=== PATIENT | female | born 1945 | race Caucasian/White ===

== ENCOUNTER 2017-01-01 08:00 | Outpatient (CLI) | payer MEDICARE | END 2017-01-01 08:01 | disposition home or self-care (01) | DX: E78.5 Hyperlipidemia, unspecified (principal); R73.9 Hyperglycemia, unspecified; Z79.899 Other long term (current) drug therapy; I95.9 Hypotension, unspecified; I10 Essential (primary) hypertension ==

== ENCOUNTER 2017-10-25 14:54 | Outpatient (CLI) | payer MEDICARE ==
--- NOTE | 2017-10-25 17:44 | Ultrasound Report ---
EXAM: PELVIC ULTRASOUND EXAM DATE: 10/25/2017 04:43 PM. CLINICAL HISTORY: Vaginal bleeding. COMPARISON: CT of abdomen and pelvis with contrast 08/05/2017. TECHNIQUE: Realtime transabdominal pelvic scan performed to identify the uterus and adnexa and as an overview of other pelvic structures, followed by transvaginal scan to provide greater detail of the u terus and adnexa, with static image documentation. FINDINGS: Uterus: 6.1 x 4.6 x 2.6 cm, volume 38 cc. Anteflexed position. Normal overall size and echotexture. Masses: There is a small echogenic focus present near the fundus, possibly calcified parametrial vess els versus small calcified fibroid, though the latter was not visualized on recent CT, measuring up t o 17 mm. Endometrium: 4.2 mm. Normal. Cervix: Trace amount of fluid within the cervical canal. Right Ovary: Not visualized but no evidence of adnexal mass. Left Ovary: 1.8 x 1.1 x 1.2 cm, volume 1 cc. Normal echotexture. Free Fluid: None. Other: None. IMPRESSION: 1. Normal endometrial thickness. 2. Small echogenic focus near the fundus, favored to represent calcified vessels over a small calcifi ed fibroid. 3. Unremarkable left adnexa. Right ovary not visualized but no evidence of right adnexal mass. [facility] Referring Provider Line: [phone] SITE ID: [id number]
== END 2017-10-25 14:55 | disposition home or self-care (01) ==
LOC: DI 14:54
PROVIDERS: ATTEND Internal Medicine
DX: N93.9 Abnormal uterine and vaginal bleeding, unspecified (principal)
CPT/HCPCS: 76830; 76856

== ENCOUNTER 2017-11-12 11:30 | Outpatient (CLI) | payer MEDICARE ==
[2017-11-12 15:21] LABS: BILIRUBIN,URINE NEGATIVE (NEGATIVE); GLUCOSE, URINE (UA) NEGATIVE (NEGATIVE); KETONES,URINE (UA) NEGATIVE (NEGATIVE); LEUKOCYTE ESTERASE, URINE NEGATIVE (NEGATIVE); NITRITE,URINE NEGATIVE (NEGATIVE); OCCULT BLOOD,URINE SMALL (NEGATIVE); PH,URINE 5.5 PH (5.0-7.5); PROTEIN,URINE NEGATIVE (NEGATIVE); UROBILINOGEN,URINE 0.2 (NORMAL) E.U./dL (NORMAL)
[2017-11-12 15:30] LABS: BACTERIA,URINE Rare /HPF (None Seen); CLARITY,URINE CLEAR (CLEAR); CRYSTALS,URINE 3-5 Calcium Oxalate /LPF; MUCUS,URINE Few Strands; SQUAMOUS EPITHELIAL CELL,UR MOD Squamous (<= Few)
== END 2017-11-12 11:31 | disposition home or self-care (01) ==
LOC: LAB.R 11:30
PROVIDERS: ATTEND Obstetrics & Gynecology
DX: R82.99 Other abnormal findings in urine (principal)
CPT/HCPCS: 81001; 87086

== ENCOUNTER 2018-01-28 08:00 | Outpatient (CLI) | payer MEDICARE ==
[2018-01-28 09:59] LABS: BILIRUBIN,URINE NEGATIVE (NEGATIVE); GLUCOSE, URINE (UA) NEGATIVE (NEGATIVE); KETONES,URINE (UA) NEGATIVE (NEGATIVE); LEUKOCYTE ESTERASE, URINE TRACE (NEGATIVE); NITRITE,URINE NEGATIVE (NEGATIVE); OCCULT BLOOD,URINE SMALL (NEGATIVE); PH,URINE 5.5 PH (5.0-7.5); PROTEIN,URINE NEGATIVE (NEGATIVE); UROBILINOGEN,URINE 0.2 (NORMAL) E.U./dL (NORMAL)
[2018-01-28 10:00] LABS: BASOPHILS % (AUTO) 0.6 %; EOSINOPHILS # (AUTO) 0.1 10^3/uL (0.0-0.7); EOSINOPHILS % (AUTO) 1.6 %; HGB - HEMOGLOBIN 11.9 g/dL (12.0-16.0); LYMPHOCYTES # (AUTO) 0.6 10^3/uL (1.5-3.5); LYMPHOCYTES % (AUTO) 12.6 %; MEAN CORPUSCULAR HEMOGLOBIN 28.7 pg (27.0-31.0); MEAN CORPUSCULAR HGB CONC 32.4 g/dL (32.0-36.0); MEAN CORPUSCULAR VOLUME 88.6 fL (81.0-99.0); MEAN PLATELET VOLUME 8.6 fL (7.9-10.8); MONOCYTES # (AUTO) 0.5 10^3/uL (0.0-1.0); MONOCYTES % (AUTO) 10.6 %; NEUTROPHILS # (AUTO) 3.8 10^3/uL (1.5-6.6); NEUTROPHILS % (AUTO) 74.6 %; PLT - PLATELET COUNT 204 10^3/uL (130-450); RED BLOOD COUNT 4.15 10^6/uL (4.20-5.40)
[2018-01-28 10:07] LABS: CLARITY,URINE CLEAR (CLEAR)
[2018-01-28 10:15] LABS: BACTERIA,URINE Few /HPF (None Seen); RBC,URINE 0-5 /HPF (0-5); SQUAMOUS EPITHELIAL CELL,UR FEW Squamous (<= Few)
[2018-01-28 10:19] LABS: CHOL/HDL RATIO 2.9 (<4.4); CHOLESTEROL 159 mg/dL; CK- CREATINE KINASE 52 IU/L (22-269); HDL CHOLESTEROL 55 mg/dL; LDL CHOLESTEROL,CALCULATED 90 mg/dL; LDL/HDL RATIO 1.6 (<4.4); VLDL CHOLESTEROL 14 mg/dL
[2018-01-29 12:31] LABS: FREE T4 (FREE THYROXINE) 0.57 ng/dL (0.58-1.64)
== END 2018-01-28 08:01 | disposition home or self-care (01) ==
LOC: LAB.R 08:00
PROVIDERS: ATTEND Internal Medicine
DX: R73.9 Hyperglycemia, unspecified (principal); E73.8 Other lactose intolerance; C64.9 Malignant neoplasm of unspecified kidney, except renal pelvis; C50.919 Malignant neoplasm of unspecified site of unspecified female breast; C34.90 Malignant neoplasm of unspecified part of unspecified bronchus or lung; C32.9 Malignant neoplasm of larynx, unspecified; F34.1 Dysthymic disorder; G62.9 Polyneuropathy, unspecified; Z13.6 Encounter for screening for cardiovascular disorders; Z86.19 Personal history of other infectious and parasitic diseases; Z79.899 Other long term (current) drug therapy; G47.30 Sleep apnea, unspecified; I10 Essential (primary) hypertension; G02 Meningitis in other infectious and parasitic diseases classified elsewhere
CPT/HCPCS: 80061; 81001; 81003; 82550; 82607; 83721; 84439; 85025; 87086

== ENCOUNTER 2018-02-07 11:34 | Outpatient (CLI) | payer MEDICARE ==
--- NOTE | 2018-02-10 16:50 | Mammography Report ---
Procedure Date: 02/07/2018 Accession Number: [id number] / [id number] Procedure: KEN - Screening Mammo Dig Bilat CPT Code: FULL RESULT: EXAM: Screening Mammo Dig Bilat DATE: 02/07/2018 11:50 AM CLINICAL HISTORY: Personal history of left breast cancer status post lumpectomy and radiation therapy. TECHNIQUE: Bilateral CC and MLO views were obtained. COMPARISON: 12/08/2015, 01/27/2014, 07/07/2013, 10/30/2012, 05/01/2012, 11/20/2011, 01/11/2011, 11/14/2010 FINDINGS: There are scattered fibroglandular densities. Posttherapeutic changes in the left breast including architectural distortion, skin thickening, and surgical clips are stable. No new suspicious masses, clustered microcalcifications, or regions of architectural distortion are identified. IMPRESSION: Benign stable findings RECOMMENDATION: Routine annual screening unless otherwise clinically indicated. BIRADS CATEGORY 2: Benign findings STANDARD QUALIFYING STATEMENTS: 1. This examination was reviewed with the aid of Computer-Aided Detection (CAD). 2. A negative or benign imaging report should not delay biopsy if clinically suspicious findings are present. Consider surgical consultation if warrented. More than 5% of cancers are not identified by imaging. 3. Dense breasts may obscure an underlying neoplasm.
== END 2018-02-07 11:35 | disposition home or self-care (01) ==
LOC: DI 11:34
PROVIDERS: ATTEND Internal Medicine
DX: Z12.31 Encounter for screening mammogram for malignant neoplasm of breast (principal); Z85.3 Personal history of malignant neoplasm of breast
CPT/HCPCS: 77067

== ENCOUNTER 2018-08-14 07:51 | Day surgery (SDC) | payer MEDICARE ==
[~2018-08-14 07:51] MED LIST: BRIMONIDINE 0.2% OPHTH DROPS 5 ML ONE; BSS/LIDOCAINE/EPINEPHRINE 1 ML SYRINGE ONE; CYCLOPENTOLATE 1% OPHTH DROPS 2 ML ONE; EPINEPHrine 1 MG/ML AMP ONE; KETOROLAC 0.45% OPHTH DROPS ONE; PHENYLEPHRINE 2.5% OPHTH 2 ML DROPS ONE; PROPARACAINE 0.5% OPHTH DROPS 15 ML ONE; TIMOLOL 0.5% OPHTH DROPS ONE; TRIAMCIN/MOXIFLOX OPHTHALMIC 0.6 ML VIAL IO ONE; VANCOMYCIN OPHTHALMI 8MG/0.8ML 8 MG/0.8 ML SYRINGE IO ONE
[2018-08-14] MEDS ORDERED: LACTATED RINGERS 500 ML IV ONE (08:15)
[2018-08-14] MEDS ORDERED: PROPARACAINE 0.5% OPHTH DROPS 15 ML LEFTEYE ONE ×2 (08:30→09:38)
[2018-08-14] MEDS ORDERED: KETOROLAC 0.45% OPHTH DROPS LEFTEYE ONE (08:30)
[2018-08-14] MEDS ORDERED: CYCLOPENTOLATE 1% OPHTH DROPS 2 ML LEFTEYE ONE (08:30)
[2018-08-14] MEDS ORDERED: PHENYLEPHRINE 2.5% OPHTH 2 ML DROPS LEFTEYE ONE (08:30)
[2018-08-14] MEDS ORDERED: SODIUM CHLORIDE FLUSH 0.9% 10 ML SYRINGE ONE (08:44)
--- NOTE | 2018-08-14 08:51 | ANESTHESIA ---
Pre-Anesthesia VS, & Labs - Diagnosis left narrow angle closure glaucoma - Procedure left extraction cataract with lens implant Vital Signs: Temp Pulse Resp BP Pulse Ox 36.6 C 70 18 118/60 96 08/14/18 08:15 08/14/18 08:15 08/14/18 08:15 08/14/18 08:15 08/14/18 08:15 Height 5 ft 5 in Weight (kg) 94.2 kg Body Mass Index 33.3 - NPO >8 hours - Is Patient ?: Not Applicable Home Medications and Allergies Simvastatin 20 mg PO DAILY 09/06/15 Citalopram [CeleXA] 25 mg PO DAILY 07/10/16 Gabapentin 900 mg PO TID 01/28/18 Levothyroxine [Synthroid] 25 mcg PO DAILY 07/30/18 Allergies/Adverse Reactions: Allergies Allergy/AdvReac Type Severity Reaction Status Date / Time Sulfa (Sulfonamide AdvReac Nausea Verified 05/16/16 20:13 Antibiotics) Anes History & Medical History - Anesthetic History Anesthesia Complications: reports: No previous complications Family history of Anesthesia Complications: Denies Family history of Malignant Hyperthermia: Denies - Medical History Cardiovascular: reports: None Pulmonary: reports: Other Gastrointestinal: reports: GERD, Ulcers Urinary: reports: None Neuro: reports: None Musculoskeletal: reports: Other Endocrine/Autoimmune: reports: HyPOthyroidism Blood Disorders: reports: None Skin: reports: None Smoking Status: Former smoker - Surgical History General: Cholecystectomy, Appendectomy Eyes Ears Nose Throat (EENT): Cataracts - Other History Other History: stage four lung cancer Exam General: Alert, Oriented x3, Cooperative, No acute distress Dental: Dentures full Upper, Dentures full Lower Mouth Openin Fingerbreadth Neck Mobility: Normal Mallampati classification: III Thyromental Distance: less than 4 cm Respiratory: Lungs clear, Normal breath sounds, No respiratory distress, No accessory muscle use Cardiovascular: Regular rate, Normal S1, Normal S2, No murmurs Mental/Cognitive Status: Alert/Oriented X3, Normal for patient Cognitive Status: Within normal limits Plan Anesthesia Type: MAC Consent for Procedure(s) Verified and Reviewed: Yes Code Status: Attempt Resuscitation ASA classification: 3-Severe systemic disease Is this case an emergency?: No
[2018-08-14] MEDS ORDERED: BRIMONIDINE 0.2% OPHTH DROPS 5 ML OPTH ONE (09:37)
[2018-08-14] MEDS ORDERED: EPINEPHrine 1 MG/ML AMP IVP ONE (09:37)
[2018-08-14] MEDS ORDERED: CHONDR SULF/HYALURONATE SYRINGE IO ONE (09:38)
[2018-08-14] MEDS ORDERED: TIMOLOL 0.5% OPHTH DROPS OPTH ONE (09:38)
[2018-08-14] MEDS ORDERED: BSS/LIDOCAINE/EPINEPHRINE 1 ML SYRINGE IO ONE (09:38)
[2018-08-14] MEDS ORDERED: TRIAMCIN/MOXIFLOX OPHTHALMIC 0.6 ML VIAL IO ONE ×2 (09:39)
[2018-08-14] MEDS ORDERED: VANCOMYCIN OPHTHALMI 8MG/0.8ML 8 MG/0.8 ML SYRINGE IO ONE ×2 (09:39)
[2018-08-14 09:50] VITALS: BP 109/48
[2018-08-14] MEDS ORDERED: MIDAZOLAM 2 MG/2 ML VIAL IVP ONE (10:00)
--- NOTE | 2018-08-14 13:36 | OPERATIVE REPORT ---
DATE OF SERVICE: 08/14/2018 Physician: Adryan Pruett MD PREOPERATIVE DIAGNOSIS: Visually significant cataract, left eye. Cataract surgery was performed on the right eye on 07/31/2018. The primary diagnosis, however, is chronic angle closure glaucoma. Although cataract is present, it was not deemed to be visually significant. However, in order to try to control her angle closure glaucoma, it was elected to do cataract extraction to open up the angles and decrease pressure in her eyes, as glaucoma was becoming difficult to control. POSTOPERATIVE DIAGNOSIS: Visually significant cataract, left eye. Cataract surgery was performed on the right eye on 07/31/2018. The primary diagnosis, however, is chronic angle closure glaucoma. Although cataract is present, it was not deemed to be visually significant. However, in order to try to control her angle closure glaucoma, it was elected to do cataract extraction to open up the angles and decrease pressure in her eyes, as glaucoma was becoming difficult to control. PROCEDURE: Phacoemulsification with posterior chamber intraocular lens implant, left eye. SURGEON: Adryan Pruett MD ANESTHESIA: Monitored anesthesia care. COMPLICATIONS: None. INDICATIONS: This is a 72-year-old woman with progressive vision loss in the left eye due to 2+ nuclear sclerotic cataract, 1+ cortical cataract. However, again, the main reason for doing surgery is chronic angle closure glaucoma. Best corrected visual acuity was 20/25, with glare to 20/40 in the left eye. Indications for surgery were again the fact that she has chronic angle closure glaucoma, unable to take drops, and has a progression of her glaucoma and we need to lower pressure. She also has overall decrease in vision, difficulty reading, difficulty seeing words, closed captions or game scores on TV, difficulty driving in low light or at night, difficulty driving at night because of headlights from other vehicles, and difficulty with glare or bright lights in any situation. She was consented at length concerning the risks and benefits of cataract surgery, after which she expressed a desire to proceed with surgery. OPERATIVE PROCEDURE: The patient was taken to OR #3 and placed under monitored anesthesia care. A surgical timeout was conducted confirming correct patient, correct procedure, and correct surgical site. She was given topical anesthesia, and prepped and draped in usual sterile fashion. The eye was entered at the 6 and 3-o'clock positions. Intracameral Shugarcaine was injected into the anterior chamber, followed by Viscoat. A continuous-tear curvilinear capsulorrhexis was performed. The nucleus was hydrodissected and phacoemulsified. Cortex was evacuated using automated infusion and aspiration. Provisc was injected in the capsular bag, and a 23.0-diopter intraocular lens was inserted in the bag. Approximately 0.9 mL of a mixture of triamcinolone, moxifloxacin and vancomycin was injected subconjunctivally into the superior quadrant for infection and inflammation prophylaxis. I and A was used to evacuate the viscoelastic materials. The eye was inflated to physiologic pressure using balanced salt solution and found to be watertight. The patient was taken from the operating room in good condition and given postoperative instructions. TD: 08/14/2018 10:06 MTDD
== END 2018-08-14 07:52 | disposition home or self-care (01) ==
LOC: SDS 07:51
PROVIDERS: ATTEND Ophthalmology
PROC: 08RK3JZ Replacement of Left Lens with Synthetic Substitute, Percutaneous Approach (ICD-10-PCS; principal; 2018-08-14 09:00)
DX: H40.2220 Chronic angle-closure glaucoma, left eye, stage unspecified (principal); H25.12 Age-related nuclear cataract, left eye; I10 Essential (primary) hypertension; F32.9 Major depressive disorder, single episode, unspecified; C34.90 Malignant neoplasm of unspecified part of unspecified bronchus or lung; Z87.891 Personal history of nicotine dependence
CPT/HCPCS: 66984; A9270; J3490; V2632

== ENCOUNTER 2018-10-27 09:56 | Outpatient (CLI) | payer MEDICARE ==
[2018-10-27] MEDS ORDERED: IOVERSOL 320 50 ML VIAL ONE (10:08)
[2018-10-27] MEDS ORDERED: IOVERSOL 320 100 ML VIAL IVP ONE ×2 (10:08→13:54)
--- NOTE | 2018-10-27 13:49 | CT Report ---
Reason: LUNG CA Procedure Date: 10/27/2018 Accession Number: [id number] / [id number] Procedure: CT - Abdomen/Pelvis W CPT Code: FULL RESULT: EXAM: CT CHEST, ABDOMEN AND PELVIS EXAM DATE: 10/27/2018 11:32 AM. CLINICAL HISTORY: Lung carcinoma COMPARISONS: Abdomen/pelvis with contrast 06/18/2018 10:00 AM Chest with contrast 06/18/2018 10:00 AM. TECHNIQUE: Routine helical CT imaging was performed through the chest, abdomen, and pelvis. IV contrast: Opti 320 100mL. Enteric contrast: Yes. Reconstructions: Coronal and sagittal. In accordance with CT protocol optimization, one or more of the following dose reduction techniques were utilized for this exam: automated exposure control, adjustment of mA and/or KV based on patient size, or use of iterative reconstructive technique. FINDINGS: Lungs/Pleura: The nodular consolidation lateral right lung apex is best evaluated and compared on coronal imaging. See image 35 series 5. Measured on image 35 series 5, the upper nodular component measures 6.2 x 2.2 cm, unchanged when remeasured in similar fashion. A separate more inferior lateral component is also unchanged, 2.1 x 0.7 cm with an appearance of pleural-based scarring. Mediastinum: No hilar or mediastinal lymphadenopathy is seen. Liver: Low-attenuation with no suspicious mass identified. Gallbladder/Bile Ducts: Status post cholecystectomy. Spleen: Normal. Pancreas: Partial fatty atrophy. Adrenal Glands: Stable thickening of the medial limb of the left adrenal gland as well as a 1.3 cm enhancing left adrenal nodule. The right adrenal gland is unremarkable. Kidneys: Status post left nephrectomy. Right kidney appears unremarkable. Peritoneal Cavity/Bowel: Normal. No free fluid, free air or adenopathy. No masses or acute inflammatory process. Pelvic Organs: Normal. The bladder and visualized pelvic organs are within normal limits. Vasculature: No aneurysms or other significant abnormality. Bones: No significant abnormality. Other: None. IMPRESSION: Left adrenal nodule, similar to before. Stable posttreatment appearance of the right lung. [facility]
[2018-10-27] MEDS ORDERED: IOVERSOL 320 50 ML VIAL PO ONE (13:54)
== END 2018-10-27 09:57 | disposition home or self-care (01) ==
LOC: DI 09:56
PROVIDERS: ATTEND Internal Medicine Hematology & Oncology
DX: C78.01 Secondary malignant neoplasm of right lung (principal); E27.9 Disorder of adrenal gland, unspecified
CPT/HCPCS: 71260; 74177; Q9967

== ENCOUNTER 2019-02-24 08:00 | Outpatient (CLI) | payer MEDICARE ==
[2019-02-24 11:08] LABS: CHOL/HDL RATIO 2.9 (<4.4); CHOLESTEROL 123 mg/dL; CK- CREATINE KINASE 57 IU/L (22-269); HDL CHOLESTEROL 42 mg/dL; LDL CHOLESTEROL,CALCULATED 64 mg/dL; LDL/HDL RATIO 1.5 (<4.4); VLDL CHOLESTEROL 17 mg/dL
== END 2019-02-24 23:59 | disposition home or self-care (01) ==
LOC: LAB.R 08:00
PROVIDERS: ATTEND Internal Medicine
DX: E78.5 Hyperlipidemia, unspecified (principal); E53.8 Deficiency of other specified B group vitamins; Z79.899 Other long term (current) drug therapy
CPT/HCPCS: 80061; 82550; 82607; 83721

== ENCOUNTER 2019-03-09 09:20 | Outpatient (CLI) | payer MEDICARE ==
--- NOTE | 2019-03-09 16:04 | Mammography Report ---
Reason: MASTODYNIA, HX BREAST CA Procedure Date: 03/09/2019 Accession Number: [id number] / [id number] Procedure: KEN - Diagnostic Dig Bilat CPT Code: FULL RESULT: EXAM: Diagnostic Dig Bilat DATE: 03/09/2019 10:17 AM CLINICAL HISTORY: Diagnostic examination. Personal history of breast cancer status post left lumpectomy and radiation greater than 5 years ago. Mastodynia. TECHNIQUE: (B) - Bilateral CC, laterally exaggerated CC, MLO views were obtained. COMPARISON: 02/07/2018 through 07/07/2013. PARENCHYMAL PATTERN: (A) - The breast(s) demonstrate(s) scattered fibroglandular densities. FINDINGS: Left breast posttreatment and postlumpectomy changes are redemonstrated, essentially unchanged, typically benign. There are no suspicious masses, calcifications, or areas of distortion. IMPRESSION: Benign findings. BI-RADS category 2. RECOMMENDATION: (ANNUAL) - Recommend routine annual screening mammography. BI-RADS CATEGORY: (2) - Benign Findings. STANDARD QUALIFYING STATEMENTS: 1. This examination was not reviewed with the aid of Computer-Aided Detection (CAD). 2. A negative or benign imaging report should not preclude biopsy if clinically suspicious findings are present. 3. Dense breasts may obscure an underlying neoplasm. 4. This examination was reviewed with the aid of 3D breast imaging (tomosynthesis).
== END 2019-03-09 09:21 | disposition home or self-care (01) ==
LOC: DI 09:20
PROVIDERS: ATTEND Internal Medicine
DX: N64.4 Mastodynia (principal); Z85.3 Personal history of malignant neoplasm of breast
CPT/HCPCS: 77066

== ENCOUNTER 2019-04-15 10:42 | Outpatient (CLI) | payer MEDICARE ==
[2019-04-15] MEDS ORDERED: IOVERSOL 320 100 ML VIAL IVP ONE ×2 (11:41→15:52)
--- NOTE | 2019-04-17 06:39 | CT Report ---
Reason: METS SQUAMOUS CELL CA INVOLVING R LUNG Procedure Date: 04/15/2019 Accession Number: [id number] / [id number] Procedure: CT - CHEST W CPT Code: FULL RESULT: EXAM: CT CHEST EXAM DATE: 04/15/2019 11:50 AM. 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 COMPARISONS: CHEST W/ 10/27/2018 11:24 AM CHEST W/ 06/18/2018 CHEST W/ 10/03/2017. TECHNIQUE: Routine helical CT imaging was performed through the chest. IV contrast: 80 mL Optiray 320. Reconstructions: Coronal and sagittal. In accordance with CT protocol optimization, one or more of the following dose reduction techniques were utilized for this exam: automated exposure control, adjustment of mA and/or KV based on patient size, or use of iterative reconstructive technique. FINDINGS: Lungs and Pleura: Right apical laterally located irregular consolidation is again seen, measuring 2.7 cm in thickness versus 3.8 cm on the recent prior study. There is indistinct subpleural opacity within the superior segment of the lingula (image 26 series 4). This has gradually progressed since the prior recent study. Additional areas of subpleural reticulation within the lingula are noted. There is patchy opacity within the inferior segment of the lingula (image 35 series 4). Central Airways: Visualized central airways are without suspicious filling defects. Chest Wall: Right IJ Port-A-Cath device projects over the cavoatrial junction. Thyroid: No significant abnormality. Mediastinum: No significant abnormality. Heart: Normal in size. No significant pericardial effusion. Moderate to severe coronary vascular calcifications. Aorta: Normal caliber. Moderate aortic atherosclerosis is noted. Upper Abdomen: Severe hepatic steatosis is present. 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 This is difficult to assess on this chest CT. Left nephrectomy noted. Left adrenal nodule is again seen. This measures 11.7 mm in thickness, previously up to 14.5 mm on 10/03/2017. Right adrenal is without significant abnormality. Gallbladder is not visualized, probably surgically absent. Bones: Scattered areas of sclerosis as well as a subacute/old fracture deformities of the right upper hemithoracic ribs noted. These may represent a sequela of post treatment change. Elsewhere, no new bony lesion demonstrated to suggest definite metastatic disease. Moderate multilevel degenerative changes within the spine. IMPRESSION: 1. Decreasing disease burden within the right apex. 2. There is a slight amount of new indistinct subpleural opacity with a nodular configuration within the lingula. This may represent evolving infection. Metastatic disease is difficult to entirely exclude. Attention on follow-up examination recommended. 3. Decreased size of the left adrenal nodule since the prior 10/03/2017 study. Currently the nodule measures 11.7 mm versus previously 14.5 mm. Attention on subsequent follow-up examination recommended. [facility]
== END 2019-04-15 10:43 | disposition home or self-care (01) ==
LOC: DI 10:42
PROVIDERS: ATTEND Internal Medicine Hematology & Oncology
DX: C78.01 Secondary malignant neoplasm of right lung (principal); E27.9 Disorder of adrenal gland, unspecified
CPT/HCPCS: 71260; Q9967

== ENCOUNTER 2019-04-22 08:00 | Outpatient (CLI) | payer MEDICARE ==
[2019-04-22 15:37] LABS: HB2 TOTAL 10.8 g/dL; HEMOGLOBIN A1C 0.48 g/dL; HEMOGLOBIN A1C % 6.2 % (4.6-6.2)
== END 2019-04-22 23:59 | disposition home or self-care (01) ==
LOC: LAB.R 08:00
PROVIDERS: ATTEND Internal Medicine
DX: R73.9 Hyperglycemia, unspecified (principal)
CPT/HCPCS: 83036

== ENCOUNTER 2019-05-18 07:00 | Outpatient (CLI) | payer MEDICARE ==
[2019-05-19 10:22] LABS: HB2 TOTAL 11.6 g/dL; HEMOGLOBIN A1C 0.45 g/dL; HEMOGLOBIN A1C % 5.7 % (4.6-6.2)
== END 2019-05-18 23:59 | disposition home or self-care (01) ==
LOC: LAB.R 07:00
PROVIDERS: ATTEND Internal Medicine
DX: R73.9 Hyperglycemia, unspecified (principal)
CPT/HCPCS: 83036

== ENCOUNTER 2019-07-16 08:19 | Outpatient (CLI) | payer MEDICARE ==
[2019-07-16] MEDS ORDERED: IOVERSOL 320 50 ML VIAL ONE (08:28)
[2019-07-16] MEDS ORDERED: IOVERSOL 320 100 ML VIAL IVP ONE ×2 (08:28→13:01)
[2019-07-16] MEDS ORDERED: IOVERSOL 320 50 ML VIAL PO ONE (13:01)
--- NOTE | 2019-07-16 15:29 | CT Report ---
Reason: MET SQUAMOUS CELL CA LT LUNG Procedure Date: 07/16/2019 Accession Number: [id number] / [id number] Procedure: CT - Abdomen/Pelvis W CPT Code: Final Report FULL RESULT: EXAM: CT CHEST, ABDOMEN AND PELVIS WITH CONTRAST. EXAM DATE: 07/16/2019 09:43 AM. CLINICAL HISTORY: Metastatic squamous cell cancer left lung. COMPARISONS: CHEST W/ 04/15/2019 11:40 AM. CHEST W/ 07/16/2019 9:34 AM. ABDOMEN/PELVIS W/ 10/27/2018 11:24 AM. CHEST W10/27/2018 11:24 AM. TECHNIQUE: Routine helical CT imaging was performed through the chest, abdomen, and pelvis. IV contrast: OPTI-320 90 mL. Enteric contrast: No. Reconstructions: Coronal and sagittal. In accordance with CT protocol optimization, one or more of the following dose reduction techniques were utilized for this exam: automated exposure control, adjustment of mA and/or KV based on patient size, or use of iterative reconstructive technique. FINDINGS: Lungs/Pleura: A small amount of anterior lingula peripheral changes including interstitial thickening and nodularity is essentially unchanged compared to 04/15/2019, potentially postradiation treatment. Bronchiectasis and volume loss in the right lung apex with dense thickening against the pleura appears essentially unchanged, maximal axial soft tissue component is on image 81 series 3. It measures approximately 3 x 4.6 cm with the apical soft tissue thickness now measuring up to 2.7 cm compared to 2.1 cm on the previous examination as seen coronally on image 111 series 5, possibly posttreatment evolution, progression in this region would be difficult to exclude but appearance is not typical for this. There is adjacent pleural thickening radiating from the apical epicenter. The right lower lung is clear. The remaining left lung is clear. There is no pleural effusion or pneumothorax. There are no new or suspicious distant pulmonary nodules. Right IJ approach/port terminates in the superior cavoatrial junction region. Mediastinum: There is no mediastinal, hilar or axillary lymphadenopathy by size criteria. There is no pericardial effusion. There are at least moderate coronary calcifications. Liver: Liver is markedly hypoattenuating consistent with steatosis. Gallbladder/Bile Ducts: Not seen, likely prior cholecystectomy. Spleen: Normal. Pancreas: Partially fatty replaced. Adrenal Glands: A left adrenal nodule measures up to 1.3 x 1.4 cm axially with a craniocaudal dimension of 1.6 cm, not enlarged when examined on the previous study. Right adrenal gland is unremarkable. Kidneys: Status post left nephrectomy. Right kidney appears unremarkable. Peritoneal Cavity/Bowel: Patient is status post gastric surgery. There is no bowel obstruction. There is no free air or free fluid. There is apparent mild segmental thickening of the distal colon in the setting of potential underdistention, appearance is not significant change from prior. There is no lymphadenopathy by size criteria. Pelvic Organs: Normal. The bladder and visualized pelvic organs are within normal limits. Vasculature: Moderate atherosclerotic disease. Bones: No aggressive osseous lesions are detected. Other: None. IMPRESSION: Interval evolution of posttreatment changes predominantly in the right lung apex as described, attention on follow-up. Please correlate persistent peripheral nodularities in the anterior left lingula to history of radiation therapy and correlate to potential beam path from treatment planning. [facility]
== END 2019-07-16 08:20 | disposition home or self-care (01) ==
LOC: DI 08:19
PROVIDERS: ATTEND Internal Medicine Hematology & Oncology
DX: C78.01 Secondary malignant neoplasm of right lung (principal)
CPT/HCPCS: 71260; 74177; Q9967

== ENCOUNTER 2019-10-06 10:57 | Outpatient (CLI) | payer MEDICARE ==
--- NOTE | 2019-10-06 17:47 | CONSULTATION NOTE ---
Palliative Care Consultation - Referral Referring Provider: Dr. Iram Early Time of Visit: [id number] Referral setting: [facility] Referral Reason: Peripheral Neuropathy/Depression/Met Squamous Ca Left Lung - Information Sources Records reviewed: RN notes reviewed, Previous records reviewed History/Review of Systems obtained from: Patient, Family ( Tariq) Exam limitations: No limitations - History of Present Illness Brief History of Present Illness: This is a violetta 74-year-old woman who reports she is "on my fifth cancer". She was diagnosed with a left kidney cancer, status post left nephrectomy in 1999. She was diagnosed with left breast cancer, treated about 4 to 5 years ago treated with lumpectomy and radiation. 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 She was then diagnosed with left lower lobe squamo us cell carcinoma, She underwent surgery, and was staged as a T1 a N0 05/23/2015 and did not need further adjuvant treatment at that time. 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 She has been on nivolumab since 04/2017. On her most recent CT restaging scan 07/16/2019 it is reported as stable. Patient's most significant symptom actually is her peripheral neuropathy, she reports this was initiated with her treatment back for her head and neck cancer, with cis-ketchikan. She reports it has continued to worsen, though been gradual over time. It does impact not only her level of pain which she reports 8 out of 10, his pain impacts her sleep, and also has with her neuropathy caused significant difficulty with balance and strength. She does ambulate with a walker, weightbearing does increase the pain or discomfort, she has been on gabapentin, 300 mg twice daily, she was 20 with adding a third dose. Patient did trial on duloxetine, reports it was not effective, patient does not have any medication coverage, and found her depression worsening. She returned back to her baseline antidepressant which was Celexa 40 mg daily, she is somewhat anxious per her report, and has had a good response, though she does recognize treatment is palliative in nature. This is initial palliative care consult, goal is to set reports patient has been somewhat anxious about meeting with me, I am meeting with her and her . They have been together since 89, though they are given the context of insurance issues, but do live together. Patient's goals are to improve her quality of life, she would like to be more active, and would like her pain better controlled. Medical/Surgical History - Past Medical History Cardiovascular: reports: Hypertension Respiratory: reports: Other (met squamous cell lung ca) Neuro: Peripheral neuropathy Endocrine/Autoimmune: reports: HyPOthyroidism GI: reports: GERD, Ulcers SHAREPOINT ANALYST: reports: None : reports: Incontinence, Renal insuffiency (has one kidney), Other (hx of renal cell carcinoma) HEENT: reports: Chronic vision loss, Other (hx of head and neck cancer treated with chemoradiation) Psych: reports: Depression, Anxiety Musculoskeletal: reports: Osteoarthritis Derm: reports: None MRSA Hx?: No - Past Surgical History General: reports: Cholecystectomy, Appendectomy, Gastric surgery (gastroplasty; reverse of gastroplasty), Other (RLL lobectomy) /SHAREPOINT ANALYST: reports: Other (lumpectomy with radiation) HEENT: reports: Cataracts - Substance History Use: Uses substance without health or social issues: Tobacco (hx but quit), Alcohol (rarely) Abuse: Recurrent use of substance despite neg consequences: NONE Dependence: Experiences withdrawal or developed tolerances: NONE Social History - Living Situation Living arrangement: At home Living Situation: With spouse/s.o. Family History - Family History Family History: Mother: ( at 59 of pnemonia), Cancer ( at 85 of lung cancer), Father: , CAD, COPD/Emphysema, Other family: Alive and Well (siblings;one has parkinsons) Family History Comment/Other: Son at age 50 of diabetes/heart complications; another son has diabetes; one with schizphrenia; one recovering ETOH Medications/Allergies - Medications Home Medications: Ambulatory Orders Medication Instructions Recorded Confirmed Simvastatin 20 mg PO DAILY 09/06/15 10/06/19 Gabapentin 300 mg PO TID 12/30/18 10/07/19 Levothyroxine [Synthroid] 50 mcg PO QDAC 12/30/18 10/06/19 Citalopram [CeleXA] 40 tab PO DAILY 07/28/19 10/06/19 Cholecalciferol (Vitamin D3) 2,000 units PO DAILY 10/06/19 10/06/19 [Vitamin D3] Cyanocobalamin (Vitamin B-12) 1,000 mcg PO DAILY 10/06/19 10/06/19 [Vitamin B-12] Omeprazole 20 mg PO DAILY 10/06/19 10/06/19 Oxycodone HCl 5 mg PO Q4HR PRN 10/06/19 10/06/19 traZODone [Desyrel] 50 - 100 mg PO QPM PRN 10/06/19 10/06/19 - Allergies Allergies/Adverse Reactions: Allergies Allergy/AdvReac Type Severity Reaction Status Date / Time Sulfa (Sulfonamide AdvReac Nausea Verified 08/25/19 09:47 Antibiotics) Review of Systems - Constitutional Constitutional: reports: Fatigue, Night sweats. denies: Fever, Chills - Eyes Eyes: reports: Vision loss - Ears, Nose & Throat Ears, Nose & Throat: reports: Hearing loss (worsening), Nasal congestion, Postnasal drainage, Hoarseness - Cardiovascular Cardiovascular: reports: Decr. exercise tolerance - Respiratory Respiratory: reports: Hemoptysis (fluctuates; yesterday though "6" times; has been off Prilosec and having more GERD; can go for months without), SOB with exertion. denies: SOB at rest - Gastrointestinal Gastrointestinal: reports: Constipation, Diarrhea (fluctuates, not persistent but irregular), Nausea, Vomiting - Genitourinary Genitourinary: reports: Hematuria, Incontinence, Sexual dysfunction - Musculoskeletal Musculoskeletal: reports: Muscle pain, Back pain, Stiffness, Joint pain, Assistive devices (uses walker) - Integumentary Integumentary: reports: Dryness - Neurological Neurological: reports: General weakness, Dizziness, Abnormal gait - Psychiatric Psychiatric: reports: Depression, Anxiety, Other (reports wringing of her hands tic; not anxiety) - Endocrine Endocrine: reports: Hypothyroidism (immunotherapy induced) - Hematologic/Lymphatic Hematologic/Lymphatic: reports: Anemia (9.9). denies: Recurrent infections - All Other Systems All Other Systems: reports: Reviewed and negative Physical Exam - Vital Signs Temperature: 36.6 C Pulse Rate: 81 Respiratory Rate: 18 Blood Pressure: 118/65 - Physical Exam General Appearance: positive: Alert, Mild distress Eyes Bilateral: positive: Normal inspection ENT: positive: No signs of dehydration Neck: positive: Trachea midline Cardiovascular: positive: Regular rate & rhythm Respiratory: positive: No respiratory distress, Diminished throughout. negativ e: Wheezes, Rales, Rhonchi Abdomen: positive: Soft, Nml bowel sounds, Obese Skin: positive: Dryness Extremities: positive: No pedal edema Neurologic/Psychiatric: positive: Oriented x3, Depressed mood/affect, Flat affect Palliative Care - POLST Patient has POLST: No Pain: Pain worsening, Location (Patient reports pain up in the neck area, left upper thoracic area, her hands and forearms, most severe in her legs and feet, and discomfort in her coccyx back area. She is currently on gabapentin, documented dose is 600 mg twice daily, she has been considering increasing to 3 times daily. She cannot confirm the dose. We will follow-up with this later. She did trial duloxetine, did not find any improvement, and worsening depression so she reverted back to her Celexa. She does not have any drug coverage through her insurance, this is often limiting options for her and concern for cost), Severity (8/10) Tiredness/Fatigue: Moderate (4-6) Drowsiness/Sedation: Moderate (4-6) Nausea: Mild (1-3) Anorexia: Mild (1-3) Dyspnea: None Depression: Severe (7-10) Anxiety: Moderate (4-6) Feelings of wellbeing/Perceived Quality of Life: Good, Acceptable, No change Sleep: Sleeps poorly (Patient reports previously had been on trazodone, had been discontinued at hospitalization. Reports has been effective in the past, is wondering about trialing it again.) Constipation: Comment (Patient alternates with constipation and diarrhea, cannot attribute it to any particular diet changes, treatment, or medications. Is quite fearful of using Imodium, and "going the other way". Does not find it bothersome enough to do any aggressive bowel medication changes.) Performance Status: Patient reports decline in functional status, this is actually mostly limited by her pain. Though she does admit to deconditioning. With progressive ambulation she does have increased pain. It is mostly triggered by weightbearing. She would be actually interested in seeing if her insurance and in follow through for possibly aqua therapy, she would like to improve her overall wellbeing and strength and endurance. Patient is [place], will follow up with her PCP and facilitate referral. - Palliative Care Discussion: Patient shares in her narrative, this is her fifth cancer, she has been on long-term treatments and living with uncertainty. Patient is somewhat pragmatic, she does allude to some anxiety regarding her diagnoses and future. We did discuss how best to support her, will focus on current quality of life issues related to her symptoms, and introduce advance care planning as we move along. Patient and her , are actually . We discussed in the context of this it is important for her to complete a D POA, gave her simple form, and also encouraged to pick a second 1 as well. They do have financial stressors, have been together since 1988. 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 She does perceive her priorities though unable to visit very often are her children, she is when son who is , [place] 3 other [place] She has poor grandkids and 3 great grandkids. Results - Lab Results Lab results reviewed: Yes Lab and Imaging Results: Patient's creatinine clearance comes up to 59.4 Impression and Recommendations - Palliative Care Impression: This is a violetta 74-year-old woman who is currently being treated for metastatic/recurrent squamous cell carcinoma of the right lung and has been on nivolumab since 04/2017. She does have hypothyroidism due to to the nivolumab, and currently on levothyroxine. She is not had any other significant side effects, she does have intermittent diarrhea alternating with constipation, though this does not seem aligned with her treatment schedule. Patient's most significant symptom which presents as high symptom burden, with a pain of 8 out of 10 is her neuropathy, balance problems, depression, and anxiety. Palliative care to provide increased support for pain and symptom management and anticipatory guidance. Recommendations/Counseling Done: 1. Chemotherapy-induced peripheral neuropathy. Patient has been on baseline gabapentin 300 mg twice daily, she has been 20 with increasing it up to 3 times daily. She is unclear if it has been of benefit. Counseling provided regarding weighing benefits and burdens, recommended as she has had increased pain when off of it in the past, did trial up to 300 3 times daily. Maximum with her current creatinine clearance would be about 1400 mg in 24 hours. Counseling al so provided regarding trying an alternative pregabalin, it is now generic form, she would be interested in perhaps switching out, will do pedroza comparison and offer as option. She was also asking about CBD. Counseling provided regarding the risks and benefits of incorporating CBD into treatment regimen, there is some evidence to support does assist with neuropathic pain, though not directly related to CIPN. 2. Insomnia. This is related some to her pain, she would like though to trial trazodone 50 mg at bedtime. She has been on it in the past with effectiveness, has been of course is concern regarding patient's balance and is up at night to urinate. Discussed therapeutic doses usually around 100 mg, can start at lower dose, trial for 3 or 4 days, and increase if needed depending on side effects and effectiveness. Patient verbalized understanding. 3. Difficulty walking. Patient does present with significant balance and neuropathic symptoms, she does get exacerbation of pain with weightbearing and walking. We did discuss in the context of conditioning, she is interested in physical therapy particularly in aqua therapy as would most likely benefit from strengthening, and avoiding weightbearing on her feet. Patient is [place], will partner with her PCP Dr. Chapa for referral. Patient does have financial stressors, agreed would make referral and see what her portion or cost would be. Counseling provided regarding need to continue to improve and incorporate activity into her wellness program. 4. Depression. Counseling provided regarding normalizing the normal grief and loss process, signs and symptoms of persistent depression, feels currently her Celexa at 40 mg is managing. We did discuss signs and symptoms of indications for switching or changing up antidepressant, she would like to continue with what she is on right now. Counseling provided regarding other ways to support herself, decreasing her isolation, spending more time with family, [place] Assisting patient to identify things that might distract and or improve mood. 5. Advanced care planning. Introduced advanced care planning, encouraged to complete D POA, as is actually "ex-". Also recommended identifying second person for D POA, simple form given and reviewed how to fill out. Time Spent: 60 minutes with greater than 50% of this done in counseling regarding pain and symptom management, advanced care planning, coordination of care, setting of rapport with palliative care practitioner, and anticipatory guidance.
== END 2019-10-06 10:58 | disposition home or self-care (01) ==
LOC: PC 10:57
PROVIDERS: ATTEND Nurse Practitioner Adult Health
DX: Z51.5 Encounter for palliative care (principal); G62.0 Drug-induced polyneuropathy; T45.1X5S Adverse effect of antineoplastic and immunosuppressive drugs, sequela; G47.00 Insomnia, unspecified; F32.9 Major depressive disorder, single episode, unspecified; E03.2 Hypothyroidism due to medicaments and other exogenous substances; T45.1X5A Adverse effect of antineoplastic and immunosuppressive drugs, initial encounter; C34.91 Malignant neoplasm of unspecified part of right bronchus or lung; C79.9 Secondary malignant neoplasm of unspecified site; Z79.899 Other long term (current) drug therapy; Z85.3 Personal history of malignant neoplasm of breast; Z85.118 Personal history of other malignant neoplasm of bronchus and lung; Z85.528 Personal history of other malignant neoplasm of kidney; Z85.21 Personal history of malignant neoplasm of larynx; Z87.891 Personal history of nicotine dependence
CPT/HCPCS: 99205

== ENCOUNTER 2019-10-22 09:59 | Outpatient (CLI) | payer MEDICARE ==
--- NOTE | 2019-10-22 11:29 | CONSULTATION NOTE ---
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 She is been on nivolumab since 04/2017. She does have history of multiple other cancers "she is on her fifth cancer". She has left kidney cancer, status post left nephrectomy in 1999. She was diagnosed with left breast cancer treated with lumpectomy and radiation. She is diagnosed with supraglottic squamous cell carcinoma stage T3N0 and treated with [id number] and concurrent radiation in 2014. She was then diagnosed with left lower lobe squamous cell carcinoma underwent surgery and was staged as a T1 and no further adjuvant treatment at that time. Her hemoptysis continued to be persistent, she saw oncology on 10/20, with arrangements made on CT reimaging, as her last scans were 06/2019. She reports it has improved over the last couple days, just streaking, versus intermittent clots. She does report some anxiety regarding this, she certainly has a range possibilities given her lung and head and neck cancer. We discussed just having information for her, will ease her anxiety, even if it is positive. She denies any pain, her other symptom has been persistent and hoarseness which is continue to worsen. She does have some residual difficulty with swallowing, this is been consistent since her original radiation for her head and neck cancer. She has had a 3 pound weight loss, she reports is been no change in her diet, and her peripheral neuropathy, has not responded to the increase in gabapentin and indeed may have even continued to worsen. Patient continues with fairly moderate to high symptom burden with pain, anxiety, fatigue, and worsening functional status. Palliative care meeting with patient and today to continue develop rapport and work on goals of care. Social History - Living Situation Living arrangement: At home Living Situation: With spouse/s.o. Support System: Patient lives with her ex- Syd, she was reflecting on sadness of her anniversary of her son's at age 53 years ago. Syd is actually her third , she lost her first at age 29 to Hodgkin's. They do have a significant amount of financial stressors, and though have family, they do not have significant amount of social support in the area. Medications/Allergies - Medications Home Medications: Ambulatory Orders Medication Instructions Recorded Confirmed Simvastatin 20 mg PO DAILY 09/06/15 10/22/19 Levothyroxine [Synthroid] 50 mcg PO QDAC 12/30/18 10/22/19 Citalopram [CeleXA] 40 tab PO DAILY 07/28/19 10/22/19 Cholecalciferol (Vitamin D3) 2,000 units PO DAILY 10/06/19 10/22/19 [Vitamin D3] Cyanocobalamin (Vitamin B-12) 1,000 mcg PO DAILY 10/06/19 10/22/19 [Vitamin B-12] Omeprazole 20 mg PO DAILY 10/06/19 10/22/19 Oxycodone HCl 5 mg PO Q4HR PRN 10/06/19 10/22/19 traZODone [Desyrel] 100 - 150 mg PO QPM PRN 10/06/19 10/22/19 Pregabalin 50 mg PO TID 10/22/19 10/22/19 - Allergies Allergies/Adverse Reactions: Allergies Allergy/AdvReac Type Severity Reaction Status Date / Time Sulfa (Sulfonamide AdvReac Nausea Verified 08/25/19 09:47 Antibiotics) Review of Systems - Constitutional Constitutional: reports: Fatigue, Weight loss (reports 4 pound wt loss). denies: Fever, Chills - Eyes Eyes: reports: Vision loss, Corrective lenses - Ears, Nose & Throat Ears, Nose & Throat: reports: Hearing loss (right worse), Dentures (wears top only; bottoms to loose and painful to wear), Hoarseness (worsening), Other (reports increase "turkey neck" noted soft/?lymphadema) - Cardiovascular Cardiovascular: reports: Lightheadedness (fluctuates), Decr. exercise tolerance - Respiratory Respiratory: reports: Cough, Sputum production, Hemoptysis (worse for two weeks; better last couple of days; no pain; had been more clots; now streaks; oncology ordered scans), SOB with exertion. denies: SOB at rest - Gastrointestinal Gastrointestinal: reports: Good appetite (surprized at weight loss). denies: Constipation, Nausea - Musculoskeletal Musculoskeletal: reports: Stiffness, Muscle weakness, Assistive devices (uses rolling walker), Other (more balance issues) - Integumentary Integumentary: reports: Dryness, Other (small scattered hematomas; scabs on feet) - Neurological Neurological: reports: General weakness, Memory problems (mild), Abnormal gait - Psychiatric Psychiatric: reports: Depression, Anxiety - Hematologic/Lymphatic Hematologic/Lymphatic: denies: Recurrent infections - All Other Systems All Other Systems: reports: Reviewed and negative Physical Exam - Vital Signs Temperature: 36.9 C Pulse Rate: 83 Respiratory Rate: 16 O2 Saturation: 96 (ra @ rest) Blood Pressure: 122/79 - Physical Exam General Appearance: positive: Alert, Mild distress, Anxious Eyes Bilateral: positive: Normal inspection ENT: positive: No signs of dehydration. negative: Oral lesions Neck: positive: Trachea midline, Other (full neck area where describes "turkey neck" soft; no masses; no pain on palpation in neck area or lymph nodes). negative: Lymphadenopathy (R), Lymphadenopathy (L) Cardiovascular: positive: Regular rate & rhythm Respiratory: positive: No respiratory distress, Breath sounds nml, Diminished in bases Abdomen: positive: Non-tender, Soft, Nml bowel sounds Skin: positive: Dryness, Bruising (scattered bruises on right arm), Other (scabbed area across top of toes; no redness or swelling; unclear if pressure of shoes or scratched) Extremities: positive: No pedal edema Neurologic/Psychiatric: positive: Oriented x3, Mood/affect nml, Weakness Palliative Care - POLST Patient has POLST: No Pain: Pain worsening, Location (LE neuropathy in hands/feet- no improvement with increase to 300 mg to TID, has one episode of severe pain "should have taken pain pill"; worsening with ambulation; noted worsening balance/numbness as well) Tiredness/Fatigue: Moderate (4-6) Drowsiness/Sedation: Mild (1-3) Nausea: None Anorexia: None Dyspnea: Mild (1-3) Depression: Moderate (4-6) Anxiety: Moderate (4-6) Feelings of wellbeing/Perceived Quality of Life: Fair, Acceptable, Worsening Sleep: Sleep improved, Variable sleep pattern Constipation: No Performance Status: Patient is fairly sedentary, her activity tolerance is limited by her pain, and feeling of increasing difficulty with balance. She has not had any falls. She does tire easily. She is able to manage her own ADLs, but does have to pace her activities. - Palliative Care Discussion: Discussion related to patient's anxiety regarding hemoptysis, impending scans. She feels she does better if she understands what is going on, we did spend time just in her story as far as her multiple cancers, she has had a long and difficult life, spent time with her and her trying to identify ways to approach current situation, and looking at prioritizing and quality of life issues. Patient able to share would like to spend more time with family, Counseling provided how one might approach setting these are short-term goals given her fluctuating good and bad days. Did encourage her in the context of her illness, and worsening symptom burden, to consider making some of these things priorities. Patient did complete D POA form, will make copies for primary provider and GARLAND Sampson Will await outcome of exams prior to moving forward with advanced care planning. Results - Lab Results Lab results reviewed: Yes Impression and Recommendations - Palliative Care Impression: This is a violetta 74-year-old woman who is currently being treated for metastatic/recurrent squamous cell carcinoma the right lung and has been on nivolumab since 04/2017. Patient continues to have severe neuropathy, despite titration up of gabapentin, continues with balance problems, depression and anxiety. Palliative care to provide increased support for pain and symptom management and anticipatory guidance as well as advanced care planning Recommendations/Counseling Done: 1. Chemotherapy-induced peripheral neuropathy. Patient has titrated up to 300 3 times daily over these last two weeks. She does not feel it has provided much improvement, in fact her pain continues to escalate as well as significant b alance problems. After much discussion will try actually switching to pregabalin, patient with her creatinine clearance is 50.65, maximum dosing would be 300 mg. There are few studies published in available about conversion ratio, but most common excepted recommendation is 1 6 that the gabapentin dose will go ahead and transition her to straight across to 50 mg 3 times daily. Will titrate up to effect, given it has more immediate effect, can titrate over several days.Patient does have financial stressors, medication now is generic, given 30 days supply at the 3 times daily 50 mg dosing.Patient did have a couple episodes and particularly when acute pain episode, encouraged to use oxycodone, and not let it get out of control. 2. Hemoptysis. This had intensified over 2 weeks, now has improved some. Patient does have high anxiety over implications, is to get scans. Counseling provided regarding questions and possible etiologies, patient does feel she can cope better if she understands what is going on even if it is bad news. Patient has continued with the Prilosec, she has still continued intermittent heartburn, encouraged to use twice daily if it worsens.She does report worsening hoarseness also, though no increase in pain. She does have some intermittent swallowing difficulties since residual of her radiation for her head and neck cancer. 3. Insomnia. She has trialed the trazodone, she did titrated up to 100 mg. She has gotten longer periods of sleep, which has improved her overall sense of wellbeing. We will go ahead and give her prescription for 100 mg tablets, we did discuss can increase to 150 if needs further titration. 3. Difficulty walking. Patient does present with significant balance and neuropathic symptoms, does get exacerbation of pain with weightbearing and walking. She does understand she needs to be more active, though this causes her increased distress. She was approved for physical therapy, at this point time she wants to wait until the outcome of the scans are known, but does hope to follow through. 4. Depression. Patient has had a wave of grief, is coming on the third year anniversary of her son. She does feel like she is doing fairly well overall, she is on Celexa 40 mg. Did offer up either medical palliative care social group worker and/or cabinet abrasive sandblaster, at this point in time she feels this is not necessary. In her goals of care conversation, I did encourage again setting short-term goals, things to improve her quality of life, and encouraged not to wait until she "felt better", she is still able to tolerate car rides, visiting, we discussed ways to set this up and encouraged to follow through. Counseling provided to normalize the stress on relationships, encouraged to continue conversation between the 2 of them, and encouraged Abbi to express what would be most of help. 5. Advanced care planning. Patient did fill out D POA, as "ex-" as primary, and second person her son. Will address further advanced care planning documents in the future, awaiting outcome of scans. We will meet again in 2 weeks. Time Spent: See minutes with greater than 50% of this time in counseling regarding pain and symptom management, instructions written for transition to pregabalin, coordination of care quality team and anticipatory guidance
== END 2019-10-22 10:00 | disposition home or self-care (01) ==
LOC: PC 09:59
PROVIDERS: ATTEND Nurse Practitioner Adult Health
DX: Z51.5 Encounter for palliative care (principal); G62.0 Drug-induced polyneuropathy; T45.1X5A Adverse effect of antineoplastic and immunosuppressive drugs, initial encounter; R04.2 Hemoptysis; R49.0 Dysphonia; R13.10 Dysphagia, unspecified; R53.1 Weakness; F41.9 Anxiety disorder, unspecified; R63.4 Abnormal weight loss; R26.2 Difficulty in walking, not elsewhere classified; F32.9 Major depressive disorder, single episode, unspecified; G47.00 Insomnia, unspecified; C34.91 Malignant neoplasm of unspecified part of right bronchus or lung; Z79.899 Other long term (current) drug therapy; Z79.891 Long term (current) use of opiate analgesic; Z92.3 Personal history of irradiation; Z85.3 Personal history of malignant neoplasm of breast; Z85.89 Personal history of malignant neoplasm of other organs and systems
CPT/HCPCS: 99215

== ENCOUNTER 2019-10-30 07:40 | Outpatient (CLI) | payer MEDICARE ==
[2019-10-30] MEDS ORDERED: IOVERSOL 320 50 ML VIAL ONE (08:07)
--- NOTE | 2019-10-30 11:13 | CT Report ---
Reason: LUNG CA Procedure Date: 10/30/2019 Accession Number: [id number] / [id number] Procedure: CT - SOFT TISSUE NECK WO CPT Code: Final Report FULL RESULT: EXAM: CT SOFT TISSUE NECK WITHOUT CONTRAST. EXAM DATE: 10/30/2019 09:40 AM. HISTORY: LUNG CA. COMPARISONS: CHEST W/ 07/16/2019 9:34 AM. TECHNIQUE: Routine soft tissue neck CT protocol without contrast. Reconstructions: Coronal and sagittal. IV contrast: None. In accordance with CT protocol optimization, one or more of the following dose reduction techniques were utilized for this exam: automated exposure control, adjustment of mA and/or KV based on patient size, or use of iterative reconstructive technique. FINDINGS: Visualized Intracranial Contents: Unremarkable. Orbits: Symmetric and unremarkable. Sinuses: Visualized paranasal sinuses and mastoid air cells are clear. Oral cavity: The visualized oral cavity is unremarkable. The floor of the mouth is symmetric. Pharynx: Pharyngeal mucosa is unremarkable. The base of the tongue is symmetric and unremarkable. The airway is patent. Larynx: Mucosal surfaces are opposed. No asymmetry. Vocal cords are symmetric. The visualized trachea is unremarkable. Parotid and Submandibular Glands: Symmetric and unremarkable. Lymph Nodes: No enlarged lymph nodes are identified in the cervical, supraclavicular, and visualized superior mediastinal regions. Soft tissues: Soft tissues are unremarkable. No evidence of mass. Vascular Structures: Prominent vascular calcifications. Right-sided tunneled catheter in place. Thyroid Gland: Normal. Lung: Right lung apex opacity partly included with appearance similar to prior CT. Bones: No evidence of acute fracture or malalignment. There are moderate changes of the cervical Other: None. IMPRESSION: No evidence of cervical adenopathy. RADIA
--- NOTE | 2019-10-30 11:28 | CT Report ---
Reason: LUNG CA Procedure Date: 10/30/2019 Accession Number: [id number] / [id number] Procedure: CT - Abdomen/Pelvis WO CPT Code: Final Report FULL RESULT: EXAM: CT CHEST, ABDOMEN AND PELVIS EXAM DATE: 10/30/2019 09:40 AM. CLINICAL HISTORY: Lung cancer status post radiotherapy. COMPARISONS: ABDOMEN/PELVIS W/ 07/16/2019 9:34 AM ABDOMEN/PELVIS W/O 10/30/2019 9:20 AM CHEST W07/16/2019 9:34 AM CHEST W/ 10/27/2018 11:24 AM CHEST W/ 04/15/2019 11:40 AM. TECHNIQUE: Routine helical CT imaging was performed through the chest, abdomen, and pelvis. IV contrast: None. Enteric contrast: Yes. Reconstructions: Coronal and sagittal. In accordance with CT protocol optimization, one or more of the following dose reduction techniques were utilized for this exam: automated exposure control, adjustment of mA and/or KV based on patient size, or use of iterative reconstructive technique. FINDINGS: Lungs/Pleura: Posttreatment changes in the right lung apex demonstrate expected interval evolution with further consolidation, architectural distortion and traction bronchiectasis, the consolidated portion now measures 4.3 x 3.1 cm compared to 4.6 x 2.8 cm when remeasured in similar fashion on image 82 series 3. No separate suspicious nodule, mass or consolidation is seen in the right lung area. There is surrounding pleural thickening with interstitial thickening. In the left lung pleural thickening near the apex anteriorly has progressed and is most consistent with scarring along the radiation beam path. Additionally, in the perihilar left lower lobe are new patchy findings including a 6 mm nodule as seen on image 137 series 6. This is taken in context with new interstitial and patchy opacities along the left lung base which are accompanied by a small simple effusion, posttreatment findings versus acute airspace disease. Mediastinum: A right chest port is again seen in appropriate position. There are moderate three-vessel coronary calcifications. By size criteria, there is no mediastinal adenopathy. Evaluation of yesy is limited by absence of intravenous contrast and postradiation distortion of the right hilum. There is no pericardial effusion. Liver: Noncontrast Hounsfield units suggestive of hepatic steatosis. Gallbladder/Bile Ducts: Absent gallbladder. Spleen: Normal. Pancreas: Partial fatty atrophy. Adrenal Glands: The adrenal nodule now measures 1.6 x 1.4 cm as seen on image 30 series 4 which is concerning for potential interval increase in size with subjective coronal evaluation also suspicious for interval increase in volume, see image 34 series 6 versus image 34 series 5. Kidneys: Status post left nephrectomy. Right kidney unremarkable. Peritoneal Cavity/Bowel: Prior gastric surgery. No bowel obstruction. No free fluid or free air. By size criteria, no abdominopelvic lymphadenopathy. Pelvic Organs: Normal. The bladder and visualized pelvic organs are within normal limits. Vasculature: No aneurysms or other significant abnormality. Bones: No significant abnormality. Other: None. IMPRESSION: Subtle interval enlargement of left adrenal nodule suspicious for metastatic disease. Expected post treatment evolution of pulmonary findings in the right lung and at the lung apex. New small pleural effusion on the left with patchy interstitial and groundglass findings at the left lung base, favor acute airspace disease. Attention on followup. RADIA
== END 2019-10-30 07:41 | disposition home or self-care (01) ==
LOC: DI 07:40
PROVIDERS: ATTEND Internal Medicine Hematology & Oncology
DX: C78.01 Secondary malignant neoplasm of right lung (principal); R04.2 Hemoptysis; E27.8 Other specified disorders of adrenal gland; J90 Pleural effusion, not elsewhere classified
CPT/HCPCS: 70490; 71250; 74176

== ENCOUNTER 2019-11-05 10:20 | Outpatient (CLI) | payer MEDICARE ==
--- NOTE | 2019-11-05 15:28 | CONSULTATION NOTE ---
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 She has been on nivolumab since 04/2017. She recently had a period of hemoptysis, which is since resolved. She denies any increase in shortness of breath, wheezing, or tightness. She has had some persistent hoarseness, and intermittent residual difficulty with swallowing, but this is been consistent since her original radiation for her head and neck cancer. She did have her CT scans done on , that showed subtle interval enlargement of a left adrenal nodule suspicious for metastatic disease, small pleural effusion on the left, with patchy interstitial and groundglass findings at the left lung base. She had seen by oncology, Radha Lopez PA-C, briefly, for review did not show clear evidence of cancer progression, though would consider infection versus immunotherapy induced pneumonitis. She will be following up with Dr. Early 11/16, feels like she has adequate information at this point in time and no exacerbation of symptoms. 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 We had tried a titration up of her gabapentin, without much improvement, and on her last visit 10/22 transitioned her to pregabalin 50 mg 3 times daily. She does report it is "a tad better", but has less sedation with this. She has not had any further acute pain, she does have oxycodone if needed. She is sleeping better, is using the trazodone with good results, has not pursued further physical therapy, but will consider. Patient does have underlying anxiety and depression, which is exacerbated with the recent Covid19 outbreak and media attention. Patient's past medical history includes left kidney cancer, status post left nephrectomy 1999. 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 Left lower lobe squamous cell carcinoma underwent surgery and was staged as T1. Social History - Living Situation Living arrangement: At home Living Situation: With spouse/s.o. Support System: Patient lives with her ex- Syd, he does present with a significant amount of caregiver fatigue and stress. They do have multiple financial stressors, and he himself has not been feeling well physically. Medications/Allergies - Medications Home Medications: Ambulatory Orders Medication Instructions Recorded Confirmed Simvastatin 20 mg PO DAILY 09/06/15 10/22/19 Levothyroxine [Synthroid] 50 mcg PO QDAC 12/30/18 10/22/19 Citalopram [CeleXA] 40 tab PO DAILY 07/28/19 10/22/19 Cholecalciferol (Vitamin D3) 2,000 units PO DAILY 10/06/19 10/22/19 [Vitamin D3] Cyanocobalamin (Vitamin B-12) 1,000 mcg PO DAILY 10/06/19 10/22/19 [Vitamin B-12] Omeprazole 20 mg PO DAILY 10/06/19 10/22/19 Oxycodone HCl 5 mg PO Q4HR PRN 10/06/19 10/22/19 traZODone [Desyrel] 100 - 150 mg PO QPM PRN 10/06/19 10/22/19 Pregabalin 50 mg PO TID 10/22/19 10/22/19 - Allergies Allergies/Adverse Reactions: Allergies Allergy/AdvReac Type Severity Reaction Status Date / Time Sulfa (Sulfonamide AdvReac Nausea Verified 08/25/19 09:47 Antibiotics) Review of Systems - Constitutional Constitutional: reports: Fatigue, Weight stable. denies: Fever, Chills - Ears, Nose & Throat Ears, Nose & Throat: reports: Hearing loss, Dry mouth - Cardiovascular Cardiovascular: reports: Decr. exercise tolerance - Respiratory Respiratory: reports: Cough (intermittent), SOB with exertion. denies: Hemoptysis, SOB at rest - Gastrointestinal Gastrointestinal: reports: Diarrhea (loose stools intermittent up to 2-3 x a day; noted increase lately), Good appetite. denies: Nausea - Genitourinary Genitourinary: reports: Frequency - Musculoskeletal Musculoskeletal: reports: Muscle aches, Stiffness, Limited range of motion, Muscle weakness, Assistive devices (uses rolling walker) - Integumentary Integumentary: reports: Dryness, Other (did see operating room technician; scabs on feet improved) - Neurological Neurological: reports: General weakness, Numbness (LE and hands), Abnormal gait - Psychiatric Psychiatric: reports: Depression, Anxiety - Endocrine Endocrine: reports: Diabetes type 2 - Hematologic/Lymphatic Hematologic/Lymphatic: reports: Anemia (9.6). denies: Recurrent infections - All Other Systems All Other Systems: reports: Reviewed and negative Physical Exam - Vital Signs Temperature: 36.8 C Pulse Rate: 82 Respiratory Rate: 18 O2 Saturation: 96 (ra @ rest) Blood Pressure: 112/52 - Physical Exam General Appearance: positive: Alert, Anxious Eyes Bilateral: positive: Normal inspection ENT: positive: No signs of dehydration Neck: positive: Trachea midline Cardiovascular: positive: Regular rate & rhythm Respiratory: positive: No respiratory distress. negative: Wheezes, Rales, Rhonchi Abdomen: positive: Non-tender, Soft, Nml bowel sounds Skin: positive: Dryness, Other (scabs on toes without erythema; operating room technician felt rubbing of loose shoes;) Extremities: positive: No pedal edema Neurologic/Psychiatric: positive: Oriented x3, Mood/affect nml, Weakness, Flat affect Palliative Care - POLST Patient has POLST: No POLST Status: Full Code Pain: Pain improved, Location (Patient currently taking pregabalin 50 mg 3 times daily, pain is mostly located in her feet and fingers, worsens with ambulation or prolonged standing. Has improved enough she is sleeping better at night including with addition of trazodone for insomnia), Severity (04/04) Tiredness/Fatigue: Moderate (4-6) Drowsiness/Sedation: Moderate (4-6) Nausea: Mild (1-3) Anorexia: None Dyspnea: None Depression: Severe (7-10) Anxiety: Moderate (4-6) Feelings of wellbeing/Perceived Quality of Life: Good, Acceptable, No change Sleep: Sleep improved Constipation: No Performance Status: Patient is limited and by her pain, and activity tolerance. She does ambulate around in her trailer, is able to manage her ADLs. Was looking forward to perhaps improving her functional status, she has not followed through on her physical therapy referral, unclear if she is motivated enough to but reminded her it is available. - Palliative Care Discussion: Discussion regarding patient's high rating of depression /10. Reports she feels quite isolated, they have not been able with the recent recommendations to isolate with Coronavirus infection to be able to get out which was the plan. Syd does feel somewhat overwhelmed, though is unable to really help problem solve regarding managing barriers. They do have some family, but have not been able to connect her follow-up. Did discuss support for , as patient does worry about him, offered palliative care social media marketer for counseling and problem solving, declined at this point in time. Did encourage him though to see his PCP for his health issues. Results - Lab Results Lab results reviewed: Yes Impression and Recommendations - Palliative Care Impression: This is a violetta 74-year-old woman is currently being treated for metastatic/recurrent squamous cell carcinoma the right lung and has been on nivolumab since 04/2017. Patient with small improvement of transition over to pregabalin for severe neuropathy, continues with balance problems, addressing depression and anxiety. Palliative care to provide increased support for pain and symptom management and anticipatory guidance as well as advanced care planning. Recommendations/Counseling Done: 1. Chemotherapy-induced peripheral neuropathy. Patient did not benefit from titration up of gabapentin, did transition over to Pregabalin 2 mg 3 times daily with some improvement. Can push up to 300 mg, as maximum dosing with her creatinine clearance. We will continue at current dosing for now, and continue to evaluate. 2. Hemoptysis. This has resolved. 3. Insomnia. This is improved with initiation of trazodone 100 mg, she is sleeping better, is up to void only. 4. Difficulty walking. Patient does present with significant balance and neuropathic symptoms, with exacerbation of pain and weightbearing and walking. Did encourage her to follow-up with physical therapy, had put it on hold as an outcome of the scans were unknown at that time. 5. Depression. Patient has had difficulty in following through on decreasing isolation, continuing to talk about setting short-term goals, continue provide counseling regarding normalizing stress on current relationships. Encouraged to look at ways to decrease caregiver stress and improved support. 6. Advanced care planning. Did complete DPOAE, will address further documents in future, as setting of rapport. Patient is quite anxious and does understand the seriousness of her illness, but currently is managing. Time Spent: 60 minutes with greater than 50% of this done in counseling regarding management, addressing depression and anxiety, as well as anticipatory guidance.
== END 2019-11-05 10:21 | disposition home or self-care (01) ==
LOC: PC 10:20
PROVIDERS: ATTEND Nurse Practitioner Adult Health
DX: Z51.5 Encounter for palliative care (principal); G62.0 Drug-induced polyneuropathy; T45.1X5A Adverse effect of antineoplastic and immunosuppressive drugs, initial encounter; R04.2 Hemoptysis; G47.00 Insomnia, unspecified; R26.2 Difficulty in walking, not elsewhere classified; F32.9 Major depressive disorder, single episode, unspecified; C34.32 Malignant neoplasm of lower lobe, left bronchus or lung; Z79.899 Other long term (current) drug therapy
CPT/HCPCS: 99215

== ENCOUNTER 2019-12-03 14:05 | Outpatient (CLI) | payer MEDICARE ==
--- NOTE | 2019-12-03 17:45 | PROVIDER PROGRESS NOTE ---
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 She has been on nivolumab since 04/2017. She is currently getting treated every other week, has had some hypothyroidism secondary to nivolumab, but otherwise has done fairly well. Patient is quite unique in the context she is had left kidney cancer status post left nephrectomy 1999, left breast cancer treated with lumpectomy radiation supraglottic squamous cell carcinoma, stage T3a treated with cis-sokaogon and concurrent radiation 2014, left lower lobe squamous cell carcinoma underwent surgery and was staged as a T1. Chronic renal insufficiency, and severe peripheral neuropathy secondary to chemotherapy. In the context of her peripheral neuropathy, we had trialed some pregabalin 50 mg 3 times daily, remains persistent, without much improvement. Is worsens with walking, she does have some numbness associated with this. We did discuss in the context of her trialing pregabalin, given the limitations of her kidney function, we could push it up to 300 mg. We will go ahead and try this, but titrate back down if does not notice a significant effect. Other symptom she admits to today, that she reports is been up to 1 to 2 years ago. Most severe over the last year and now worsening. She reports she had some kind of "gynecologic diagnosis". She could not remember what it was called, she was supposed to be getting ongoing Pap smears every 3 to 4 months for this. She has not followed up on this, and now is reporting increased bleeding, increased pain with intercourse so has not had any sexual activity for over a year. It is more painful and significant as far as pruritus. It is becoming enough problematic that she would pursue follow-up. She reports is difficult for her at this current time, to even sit in the chair as far as discomfort. We did discuss in the context of providers as this was a barrier, but the provided she is seeing is no longer there at the clinic. Reassured her current providers are very approachable and feel confident in making referral. She would like to pursue, as it is becoming a significant quality of life issue and of course a significant concern. Given her multiple cancers, she is at risk for Endometrial/uterine cancer as well. Review of Systems - Constitutional Constitutional: reports: Fatigue, Weight stable. denies: Fever, Chills - Ears, Nose & Throat Ears, Nose & Throat: reports: Dry mouth - Cardiovascular Cardiovascular: reports: Decr. exercise tolerance - Respiratory Respiratory: reports: Cough, SOB with exertion. denies: Hemoptysis, SOB at rest - Gastrointestinal Gastrointestinal: reports: Good appetite. denies: Constipation, Reflux/heartburn - Genitourinary Genitourinary: reports: Sexual dysfunction, Other (reports bleeding/ pain/ and vaginal pruiritis;) - Musculoskeletal Musculoskeletal: reports: Stiffness, Muscle weakness - Integumentary Integumentary: reports: Dryness, Hair changes (thinning) - Neurological Neurological: reports: General weakness, Numbness - Psychiatric Psychiatric: reports: Depression, Anxiety - Endocrine Endocrine: reports: Diabetes type 2 - Hematologic/Lymphatic Hematologic/Lymphatic: denies: Recurrent infections - All Other Systems All Other Systems: reports: Reviewed and negative Medications/Allergies - Medications Home Medications: Ambulatory Orders Medication Instructions Recorded Confirmed Simvastatin 20 mg PO DAILY 09/06/15 12/04/19 Levothyroxine [Synthroid] 50 mcg PO QDAC 12/30/18 12/04/19 Citalopram [CeleXA] 40 tab PO DAILY 07/28/19 12/04/19 Cholecalciferol (Vitamin D3) 2,000 units PO DAILY 10/06/19 12/04/19 [Vitamin D3] Cyanocobalamin (Vitamin B-12) 1,000 mcg PO DAILY 10/06/19 12/04/19 [Vitamin B-12] Omeprazole 20 mg PO DAILY 10/06/19 12/04/19 Oxycodone HCl 5 mg PO Q4HR PRN 10/06/19 12/04/19 traZODone [Desyrel] 100 - 150 mg PO QPM PRN 10/06/19 12/04/19 Pregabalin 100 mg PO TID MDD titrating from 10/22/19 12/04/19 50 mg tid - Allergies Allergies/Adverse Reactions: Allergies Allergy/AdvReac Type Severity Reaction Status Date / Time Sulfa (Sulfonamide AdvReac Nausea Verified 11/17/19 09:16 Antibiotics) Palliative Care - POLST Patient has POLST: No Pain: Pain unchanged, Location (bilateral peripheral neuropathy), Severity (mod/severe; on pregabilin 50 mg TID; minimal improvement but not worsening) Tiredness/Fatigue: Moderate (4-6) Drowsiness/Sedation: None Nausea: None Anorexia: None Dyspnea: Moderate (4-6) Depression: Mild (1-3) Anxiety: Moderate (4-6) Feelings of wellbeing/Perceived Quality of Life: Fair, Acceptable, No change Sleep: Sleep improved (using Trazadone with good effect) Constipation: No Performance Status: Patient's activity is limited both by her numbness, pain, and now social isolation, she is able to walk short distances, manage bathing and dressing. But does admit to deconditioning. Had made a referral to physical therapy, but CO VID 19 has made as such unable to follow through. - Palliative Care Discussion: Patient expressing concern about her progressive gynecologic symptoms, will allow me to facilitate coordinating appointment and follow-up. Counseling also provided regarding patient's high anxiety and concerns regarding CO VID 19, this is been exacerbated certainly by social isolation. Addressed patient's questions and concerns as well as fears. Patient does not have access to be able to do telemedicine visit, I did not address advanced care planning follow- up in the context cannot read patient's nonverbal's. We will make an appointment with her next nivolumab infusion and address at that point in time. Impression and Recommendations - Palliative Care Impression: This is a violetta 74-year-old woman is currently being treated for metastatic/recurrent squamous cell carcinoma the right lung, and is been on nivolumab and immunotherapy since 04/2017. Patient has continued to have only small improvement of transition over to pregabalin for severe neuropathy chemotherapy-induced, will go ahead and titrate up to see if effective. Patient also has significant depression anxiety, exacerbated by social isolation from CO VID 9 team. She now presents with a concerning symptom regarding gynecologic bleeding and pain, most likely vaginal/cervical in origin. Palliative care zak beauchamp support for pain and symptom management, will help with coordination of care and follow-up on new presenting symptom. Recommendations/Counseling Done: 1. Chemotherapy-induced peripheral neuropathy. Will titrate up pregabalin to 100 mg 3 times a day, this is maximum dose given her CKD. Reviewed titration schedule, patient verbalized understanding. 2. Hemoptysis. This continues to be resolved. 3. Vaginal bleeding. This is of unknown etiology, but of significant concern particularly related to symptom burden of pain, pruritus, and intermittent bleeding. [facility], is set for 12/16 at [facility]. This information was reviewed with patient, also follow-up with Dr. Chapa PCP to confirm facilitation of [place] referral. 4. Depression. Patient continues remain quite socially isolated, increased distress with CO VID 19 virus, multiple questions and feeling anxious. Counseling and psychosocial support provided, addressed questions and concerns. 5. Advance care planning. Patient does have DP O a completed with her ex- Syd as primary [phone]. We do need to further complete further documents, will do this in person given patient's high anxiety, appointment set up with next infusion. Time Spent: CPT 70777 Telehealth Visit - TeleMedicine Visit Referring Provider: Radha Lopez PA-C Visit Type:: TeleHealth Phone Call Patient agrees and consents to this telehealth visit type: Yes Time spent:: 35 minutes Video type:: phone Location of provider:: Office Location of patient:: Home Provider Statement: I spent 100% on the TeleHealth Phone Call with the patient with greater than 50% spent counseling the patient and coordination of care.
== END 2019-12-03 14:06 | disposition home or self-care (01) ==
LOC: PC 14:05
PROVIDERS: ATTEND Nurse Practitioner Adult Health
DX: Z51.5 Encounter for palliative care (principal); G62.0 Drug-induced polyneuropathy; T45.1X5A Adverse effect of antineoplastic and immunosuppressive drugs, initial encounter; N93.9 Abnormal uterine and vaginal bleeding, unspecified; N94.10 Unspecified dyspareunia; L29.2 Pruritus vulvae; F32.9 Major depressive disorder, single episode, unspecified; N18.9 Chronic kidney disease, unspecified; M62.81 Muscle weakness (generalized); C34.91 Malignant neoplasm of unspecified part of right bronchus or lung; E03.2 Hypothyroidism due to medicaments and other exogenous substances; T45.1X5D Adverse effect of antineoplastic and immunosuppressive drugs, subsequent encounter; Z79.899 Other long term (current) drug therapy

== ENCOUNTER 2019-12-16 17:39 | Outpatient (CLI) | payer MEDICARE | END 2019-12-16 17:40 | disposition home or self-care (01) | LOC: COV 17:39 | PROVIDERS: ATTEND Family Medicine | DX: M79.10 Myalgia, unspecified site (principal); R53.83 Other fatigue; J02.9 Acute pharyngitis, unspecified; R68.83 Chills (without fever) | CPT/HCPCS: 81599 ==

== ENCOUNTER 2020-01-05 09:23 | Outpatient (CLI) | payer MEDICARE ==
--- NOTE | 2020-01-05 20:14 | CONSULTATION NOTE ---
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 She has been on nivolumab since 04/2017. She has done fairly well, though she is noting some functional decline, more fatigue, and feeling more vulnerable regarding concerns about the future. Patient does have moderate symptom burden, of significant pain secondary to his CI PN, fatigue, depression, anxiety, but does feel her current quality of life is still acceptable. 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 Left lower lobe squamous cell carcinoma underwent surgery and was staged as a T1. 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 Unfortunately patient's gynecology appointment got pushed back until later this week, she got an upper respiratory infection, and had to have COVID testing. This was negative, and her symptoms of continued to resolve. She continues with vaginal bleeding/pruritus, and is anxious to have this treated. Patient presents today with symptoms of gout, uric acid was drawn and elevated at 7.8. She has had gout in the past, which has responded to prednisone, unfortunately this is contraindicated in immunotherapy will treat with colchicine, He also presents on her right foot, with an area of tenderness, firm palpation over her vein slightly hardened, does appear to be a superficial phlebitis. Patient has some swelling in her ankle, none in her calf, negative Homans sign, and has been improving overall. Social History - Living Situation Living arrangement: At home Living Situation: With spouse/s.o. Support System: Patient lives in [place] with her ex- Syd. They have multiple financial stressors, as well or feeling quite isolated. She did have 4 sons, one son which always makes Mother's Day and holidays more tender for her. Her 's health is not doing well, she is quite frustrated with him as he will not follow through. They have minimal other support in the area. Medications/Allergies - Medications Home Medications: Ambulatory Orders Medication Instructions Recorded Confirmed Simvastatin 20 mg PO DAILY 09/06/15 01/05/20 Levothyroxine [Synthroid] 50 mcg PO QDAC 12/30/18 01/05/20 Citalopram [CeleXA] 40 tab PO DAILY 07/28/19 01/05/20 Cholecalciferol (Vitamin D3) 2,000 units PO DAILY 10/06/19 01/05/20 [Vitamin D3] Cyanocobalamin (Vitamin B-12) 1,000 mcg PO DAILY 10/06/19 01/05/20 [Vitamin B-12] Omeprazole 20 mg PO DAILY 10/06/19 01/05/20 Oxycodone HCl 5 mg PO Q4HR PRN 10/06/19 01/05/20 traZODone [Desyrel] 100 mg PO QPM PRN 10/06/19 01/05/20 Pregabalin 100 mg PO TID 10/22/19 01/05/20 Colchicine 0.6 mg PO DAILY MDD per provider 01/05/20 01/05/20 inst. - Allergies Allergies/Adverse Reactions: Allergies Allergy/AdvReac Type Severity Reaction Status Date / Time Sulfa (Sulfonamide AdvReac Nausea Verified 12/22/19 14:47 Antibiotics) Review of Systems - Constitutional Constitutional: reports: Fatigue (worsening), Weight stable. denies: Fever - Eyes Eyes: reports: Vision loss - Ears, Nose & Throat Ears, Nose & Throat: reports: Hearing loss, Nasal congestion, Hoarseness, Other (diff swallowing pills) - Cardiovascular Cardiovascular: reports: Edema (new feet; left with "gout" and right tender area), Decr. exercise tolerance - Respiratory Respiratory: reports: Cough, SOB with exertion. denies: Wheezing, SOB at rest - Gastrointestinal Gastrointestinal: reports: Good appetite. denies: Constipation, Nausea, Reflux/heartburn (improved with omeprazole) - Genitourinary Genitourinary: reports: Other (vaginal bleeding/pruritis continues) - Musculoskeletal Musculoskeletal: reports: Muscle pain, Muscle aches, Stiffness, Muscle weakness, Gout, Joint pain (left great toe; hx of gout), Joint swelling, Assistive devices (using walker), Other (worsening balance) - Integumentary Integumentary: reports: Dryness, Hair changes (thinning), Other (painful area on right forefoot) - Neurological Neurological: reports: General weakness, Numbness (CIPN remain painful/numb), Memory problems (mild) - Psychiatric Psychiatric: reports: Anxiety (worried about 's health; feels she is slowing declining/ feeling more vulnerable) - Endocrine Endocrine: reports: Hypothyroidism - Hematologic/Lymphatic Hematologic/Lymphatic: reports: Anemia (9.8), Bruising, Recurrent infections (recent URI/COVID negative) - All Other Systems All Other Systems: reports: Reviewed and negative Physical Exam - Vital Signs Temperature: 36.3 C Pulse Rate: 70 Respiratory Rate: 16 Blood Pressure: 100/62 - Physical Exam General Appearance: positive: No acute distress, Alert Eyes Bilateral: negative: Conjunctivae nml (conjuctivae reddened; denies pain or drainage; attributes to allergies) ENT: negative: Pharyngeal erythema Neck: positive: No JVD, Trachea midline Cardiovascular: positive: Regular rate & rhythm, Other (difficulty with portacath return) Respiratory: positive: No respiratory distress Abdomen: positive: Soft, Obese Skin: positive: Pallor, Other (small firm area of palpation; discolored no erythema; mild swelling in foot /ankle ; negative villar's sign reports improving) Extremities: positive: Pedal edema (mild in right foot with gout) Neurologic/Psychiatric: positive: Oriented x3, Mood/affect nml, Weakness, Flat affect Palliative Care - POLST Patient has POLST: No Pain: Pain unchanged, Location (Reports pain in upper neck, across mid thoracic area, lower lumbar, upper extremities, and severe peripheral neuropathy in her hands and feet. Achiness and discomfort in her thighs.), Severity (8--05/05 On pregabalin had trialed up to 150 mg 3 times daily without effect, will back down to 100 mg and is helped but not resolved it. She is not using oxycodone though she does have it available. She continues to have fairly severe discomfort, she is sleeping better though with trazodone.) Tiredness/Fatigue: Moderate (4-6) Drowsiness/Sedation: Moderate (4-6) Nausea: None Anorexia: None Dyspnea: None Depression: Moderate (4-6) Anxiety: Moderate (4-6) Feelings of wellbeing/Perceived Quality of Life: Fair, Acceptable, Worsening Sleep: Sleep improved, Variable sleep pattern Performance Status: With current restrictions, patient was already fairly sedentary, is less active. She is able to manage her own ADLs. Though with her increased pain in her left foot, as well as right discomfort she is finding balance more challenging, and less likely to walk secondary to this. She is using a rolling walker, denies having any falls, though does feel quite frail. - Palliative Care Discussion: We discussed patient's current quality of life, does feel things are changing, she does feel a worry regarding noticing some decline. Her is having health issues, will not follow-up with physician, she is worried that he is going to have some kind of event. She is also worried about his ability to take care of her long-term, she does feel like she could move in with her son if this were to happen. This is making her feel more vulnerable, she reports she does get comfort from her daily Bible reading, keyur has been important to her in the past. She is not been able to participate in a local churches, she is quite open to having the equipment application specialist provide support. Will make referral to palliative care equipment application specialist. Results - Lab Results Lab results reviewed: Yes Impression and Recommendations - Palliative Care Impression: This is a violetta 74-year-old woman currently retreating for metastatic/recurrent squamous cell carcinoma the right lung, has been on nivolumab since 04/2017. Patient has only had a small improvement of transition over to pregabalin for severe neuropathy/chemotherapy-induced, did trial titrating up. We will continue at 100 mg 3 times daily. She has not had her gynecology appointment yet, this is pending. She presents today with symptoms of phlebitis in her right foot, and gout in her left great toe. Palliative care providing support for pain and symptom management, coordination of care, and anticipatory guidance. Recommendations/Counseling Done: 1. Chemotherapy-induced peripheral neuropathy. Patient did trial pregabalin at maximum dose, no improvement, will decrease back down to 100 mg 3 times daily. New prescription provided. 2. Insomnia. Patient reports is sleeping well with the use of trazodone, 100 mg at bedtime does appear to be adequate dosing. 3. Fatigue. This is multi-factorial, she is noting some functional decline, sams s been more sedentary with recent COVID-19 restrictions as well. With increased pain in her feet, less likely to ambulate. 4. Gout. Patient did have an elevated uric acid, presents with classic sy mptoms of pain and tenderness swelling in the left great toe, does have history, last episode about a year ago.Will avoid prednisone secondary to immunotherapy, will go ahead and treat with colchicine. Instructions provided over the phone, patient verbalized understanding, prescription was sent to [facility]. 5. Vaginal bleeding. This is of unknown etiology, of course significant concern related to her symptom burden of pain, pruritus, and intermittent bleeding. Unfortunately she had to have a re-schedule of her appointment, is pending for this . It continues to be problematic. 6. Anxiety. This is multifactorial in origin as well, she is quite concerned regarding her 's health, continues with financial stressors, does have very little social support. Spirituality/tenriism is important to her, will send referral to palliative care equipment application specialist, she does understand given COVID-19 this will be phone support. 7. Redness of eyes, unspecified. Patient has not had allergy in the past, though does present with some nasal congestion today. We did discuss in using lubricant eyedrops several times a day, to both washout pollen, and also provide comfort and decrease irritation. Time Spent: 45 minutes with greater than 50% of this done in counseling regarding anxiety, depression, coordination of care regarding pain management, prescriptions, and treatment of gout.
== END 2020-01-05 09:24 | disposition home or self-care (01) ==
LOC: PC 09:23
PROVIDERS: ATTEND Nurse Practitioner Adult Health
DX: Z51.5 Encounter for palliative care (principal); G62.0 Drug-induced polyneuropathy; T45.1X5A Adverse effect of antineoplastic and immunosuppressive drugs, initial encounter; G47.00 Insomnia, unspecified; R53.83 Other fatigue; G89.3 Neoplasm related pain (acute) (chronic); M10.9 Gout, unspecified; N93.9 Abnormal uterine and vaginal bleeding, unspecified; F41.9 Anxiety disorder, unspecified; I80.01 Phlebitis and thrombophlebitis of superficial vessels of right lower extremity; C79.9 Secondary malignant neoplasm of unspecified site; C34.91 Malignant neoplasm of unspecified part of right bronchus or lung; Z59.9 Problem related to housing and economic circumstances, unspecified; Z79.899 Other long term (current) drug therapy
CPT/HCPCS: 99215

== ENCOUNTER 2020-01-11 08:00 | Outpatient (CLI) | payer MEDICARE ==
[2020-01-11 21:35] LABS: CANDIDA GROUP DNA NEGATIVE (NEGATIVE); CANDIDA KRUSEI DNA NEGATIVE (NEGATIVE); TRICHOMONAS VAGINALIS DNA NEGATIVE (NEGATIVE)
== END 2020-01-11 23:59 | disposition home or self-care (01) ==
LOC: LAB.R 08:00
PROVIDERS: ATTEND Obstetrics & Gynecology
DX: B37.2 Candidiasis of skin and nail (principal); L03.90 Cellulitis, unspecified; N76.0 Acute vaginitis
CPT/HCPCS: 81599; 87070; 87075; 87205; 87661; 87801

== ENCOUNTER 2020-01-27 08:29 | Outpatient (CLI) | payer MEDICARE ==
--- NOTE | 2020-01-27 13:11 | Ultrasound Report ---
Reason: POSTMENOPAUSAL BLEEDING Procedure Date: 01/27/2020 Accession Number: [id number] / [id number] Procedure: US - Pelvic w/Transvaginal CPT Code: Final Report FULL RESULT: PROCEDURE: Pelvic w/Transvaginal INDICATIONS: POSTMENOPAUSAL BLEEDING TECHNIQUE: Real-time scanning was performed of the pelvic organs, with image documentation. Additional endovaginal scanning was necessary due to incomplete visualization of the adnexal and endometrial structures by transabdominal scanning. COMPARISON: 10/25/2017, CT abdomen pelvis 10/30/2019 FINDINGS: Transabdominal scanning: No pathologic free abdominal or pelvic fluid. Incidental note made of hepatic hyperechogenicity. 1.7 cm cyst arising from the right kidney. The left kidney is surgically absent. Endovaginal scanning: Uterus: Uterus is normal in size at 6.0 x 2.2 x 5.1 cm. The endometrium measures 1.6 mm in combined thickness. Myometrium is heterogeneous with multiple hyperechoic foci throughout. There is focal mass in the posterior fundus measuring 0.6 cm. Ovaries: Neither ovary was seen. No suspicious adnexal masses. IMPRESSION: 1. Thin endometrium suggesting endometrial atrophy. 2. Age-appropriate uterus with degenerative calcification and small fundal fibroid. 3. Nonvisualization of either ovary. Reviewed by: Shy Weinstein MD on 01/27/2020 1:10 PM PDT Approved by: Shy Weinstein MD on 01/27/2020 1:10 PM PDT Station ID: [id number]
== END 2020-01-27 08:30 | disposition home or self-care (01) ==
LOC: DI 08:29
PROVIDERS: ATTEND Obstetrics & Gynecology
DX: N85.8 Other specified noninflammatory disorders of uterus (principal); D25.9 Leiomyoma of uterus, unspecified
CPT/HCPCS: 76830; 76856

== ENCOUNTER 2020-02-02 09:13 | Outpatient (CLI) | payer MEDICARE | END 2020-02-02 09:14 | disposition home or self-care (01) | LOC: PC 09:13 | PROVIDERS: ATTEND Nurse Practitioner Adult Health | DX: Z51.5 Encounter for palliative care (principal); G62.0 Drug-induced polyneuropathy; T45.1X5S Adverse effect of antineoplastic and immunosuppressive drugs, sequela; G47.00 Insomnia, unspecified; R53.83 Other fatigue; M10.9 Gout, unspecified; R30.0 Dysuria; K21.9 Gastro-esophageal reflux disease without esophagitis; F41.9 Anxiety disorder, unspecified; N93.9 Abnormal uterine and vaginal bleeding, unspecified; R09.81 Nasal congestion; H57.89 Other specified disorders of eye and adnexa; C34.91 Malignant neoplasm of unspecified part of right bronchus or lung; Z79.899 Other long term (current) drug therapy; Z79.891 Long term (current) use of opiate analgesic; Z63.8 Other specified problems related to primary support group | CPT/HCPCS: 99215 ==

== ENCOUNTER 2020-02-10 09:10 | Outpatient (CLI) | payer MEDICARE ==
--- NOTE | 2020-02-10 16:54 | CT Report ---
PROCEDURE: CHEST WO INDICATIONS: LUNG CANCER TECHNIQUE: Noncontrast 5 mm thick sections acquired from the pulmonary apices to the posterior costophrenic angl es. 7 mm thick coronal and sagittal MIP reformats were then acquired. For radiation dose reduction, the following was used: automated exposure control, adjustment of mA and/or kV according to patient size. COMPARISON: Chest CT 07/16/2019, 04/15/2019, 10/27/2018, 01/23/2018. FINDINGS: Image quality: Excellent. Lungs and pleura: Within the suprahilar region of the right upper lobe, there is pleural thickening, loculated pleural fluid, bronchiectasis, and peribronchial irregular soft tissue redemonstrated left reflecting post radiation changes. There is a new region of irregular airspace opacity in the posteri or suprahilar region. Within the left lingula, there is a region of subpleural indistinct groundglass and linear opacities opacity redemonstrated which appears similar to the prior study and is progress ively increased compared to older exams. The findings are suggestive of postradiation pneumonitis. Si milar pleural thickening and subpleural linear opacities are also demonstrated anteriorly in the left upper lobe which appear similar to the prior studies and likely represent post radiation changes. Th ere is mild posterior scarring in the left lower lobe. No pleural effusions or pneumothorax. Central and peripheral airways are patent and normal in caliber. Mediastinum: Heart size is normal. No pericardial effusion. There is a right internal jugular Port -A-Cath with the tip extending to the cavoatrial junction. Coronary arterial vascular calcification r edemonstrated. No mediastinal adenopathy by size criteria. Thoracic aorta and central pulmonary gilbert gema are normal in size. Esophagus is normal in caliber. There is a small hiatal hernia. Bones and chest wall: No suspicious bony lesions. No vertebral body compression fractures. No axil wang or supraclavicular adenopathy by size criteria. The thyroid is normal in size. Abdomen: Visualized upper abdomen demonstrates postsurgical changes along the stomach. Postsurgical changes are also noted consistent with prior left nephrectomy. IMPRESSION: 1. Scarring and postradiation changes redemonstrated in the right upper lobe with a new posterior sup rahilar irregular airspace opacity. The differential includes pneumonia, progressive radiation pneumo nitis, or recurrent disease. Recommend correlation clinically and short-term follow-up in 3 months or further evaluation with PET/CT. 2. Subpleural linear opacities and pleural thickening in the anterior left lingula and left upper lob e redemonstrated likely representing radiation pneumonitis. Reviewed by: Tiago Salmeron MD on 02/10/2020 4:53 PM PDT Approved by: Tiago Salmeron MD on 02/10/2020 4:53 PM PDT Station ID: [id number]
== END 2020-02-10 09:11 | disposition home or self-care (01) ==
LOC: DI 09:10
PROVIDERS: ATTEND Internal Medicine Hematology & Oncology
DX: R91.8 Other nonspecific abnormal finding of lung field (principal)
CPT/HCPCS: 71250

== ENCOUNTER 2020-02-24 10:21 | Emergency (ER) | payer MEDICARE ==
--- NOTE | 2020-02-24 12:54 | ED Physician Documentation ---
PD HPI ABD PAIN - Stated complaint Stated Complaint: ABD PAIN/VOMITING - History obtained from History obtained from: Patient - History of Present Illness Timing - onset: How many days ago (4) Timing - duration: Days (4) Timing - details: Gradual onset, Still present Quality: Sharp, Pain Location: LUQ Radiation: Left flank Improved by: Laying still, Vomiting Worsened by: Breathing, Position, Palpation Associated symptoms: Nausea, Vomiting Similar symptoms before: Has not had sx before Recently seen: Clinic (1 wk ago) - Additional information Additional information: 74-year-old female who is currently undergoing treatment with [employer] for lung cancer has developed some pain in her back with some nausea and vomiting. She feels that she has not been able to eat or drink anything for the past 4 days. She feels dehydrated. She denies a fever. She does state that she has been coughing up more phlegm than usual and feels this is the reason she is having her vomiting. Review of Systems Constitutional: reports: Chills. denies: Fever Eyes: denies: Decreased vision Ears: denies: Ear pain Nose: denies: Congestion Throat: denies: Sore throat Cardiac: denies: Chest pain / pressure, Palpitations Respiratory: reports: Cough. denies: Dyspnea GI: reports: Abdominal Pain, Nausea, Vomiting : denies: Dysuria, Frequency Skin: denies: Rash Musculoskeletal: reports: Back pain. denies: Neck pain Neurologic: denies: Generalized weakness, Focal weakness, Numbness PD PAST MEDICAL HISTORY - Past Medical History Cardiovascular: Hypertension Respiratory: Other (met squamous cell lung ca) Neuro: Peripheral neuropathy Endocrine/Autoimmune: HyPOthyroidism GI: GERD, Ulcers SINKER PULLER: None : Incontinence, Renal insuffiency (has one kidney), Other (hx of renal cell carcinoma) HEENT: Chronic vision loss, Other (hx of head and neck cancer treated with chemoradiation) Psych: Depression, Anxiety Musculoskeletal: Osteoarthritis Derm: None - Past Surgical History Past Surgical History: No General: Cholecystectomy, Appendectomy, Gastric surgery (gastroplasty; reverse of gastroplasty), Other (RLL lobectomy) /SINKER PULLER: Other (lumpectomy with radiation) HEENT: Cataracts - Present Medications Home Medications: Ambulatory Orders Medication Instructions Recorded Confirmed Simvastatin 20 mg PO DAILY 09/06/15 02/16/20 Levothyroxine [Synthroid] 50 mcg PO QDAC 12/30/18 02/16/20 Citalopram [CeleXA] 40 tab PO DAILY 07/28/19 02/16/20 Cholecalciferol (Vitamin D3) 2,000 units PO DAILY 10/06/19 02/16/20 [Vitamin D3] Cyanocobalamin (Vitamin B-12) 1,000 mcg PO DAILY 10/06/19 02/16/20 [Vitamin B-12] Omeprazole 20 mg PO BID 10/06/19 02/16/20 Oxycodone HCl 5 mg PO Q4HR PRN 10/06/19 02/16/20 traZODone [Desyrel] 100 mg PO QPM PRN 10/06/19 02/16/20 Pregabalin 100 mg PO TID 10/22/19 02/16/20 Loratadine [Claritin] 10 mg PO DAILY 02/02/20 02/16/20 Cefdinir 300 mg PO BID #14 capsule 02/24/20 - Allergies Allergies/Adverse Reactions: Allergies Allergy/AdvReac Type Severity Reaction Status Date / Time Sulfa (Sulfonamide AdvReac Nausea Verified 02/24/20 10:41 Antibiotics) - Social History Does the pt smoke?: No Smoking Status: Former smoker Does the pt drink ETOH?: Yes Does the pt have substance abuse?: No - Immunizations Immunizations are current?: Yes - POLST Patient has POLST: No PD ED PE NORMAL - Vitals Vital signs reviewed: Yes (Hypertensive mild) - General General: Alert and oriented X 3, No acute distress, Well developed/nourished - HEENT HEENT: Atraumatic, PERRL, EOMI - Neck Neck: Supple, no meningeal sign, No bony TTP - Cardiac Cardiac: RRR, No murmur - Respiratory Respiratory: No respiratory distress, Clear bilaterally - Abdomen Abdomen: Soft, Other (Mild left upper quadrant tenderness to palpation with left flank pain to bimanual palpation of the left kidney.) - Back Back: No spinal TTP, Other (Left CVA tenderness) - Derm Derm: Normal color, Warm and dry, No rash - Extremities Extremities: No deformity, No edema - Neuro Neuro: Alert and oriented X 3, loader unloader 2-12 intact, No motor deficit, No sensory deficit, Normal speech Eye Opening: Spontaneous Motor: Obeys Commands Verbal: Oriented GCS Score: 15 - Psych Psych: Normal mood, Normal affect Results - Vitals Vitals: Vital Signs - 24 hr 02/24/20 02/24/20 02/24/20 10:34 13:58 15:58 Temperature 35.7 C L Heart Rate 85 90 88 Respiratory 18 16 16 Rate Blood Pressure 145/70 H 137/93 H 140/71 H O2 Saturation 92 96 96 Oxygen O2 Source Room air - Labs Labs: Laboratory Tests 02/24/20 02/24/20 02/24/20 13:54 13:54 14:47 WBC 15.7 H RBC 3.83 L Hgb 9.8 L Hct 30.8 L MCV 80.4 L MCH 25.6 L MCHC 31.8 L RDW 25.8 H Plt Count 151 Neut # (Auto) Not Reportable Lymph # (Auto) Not Reportable Roberts # (Auto) Not Reportable Eos # (Auto) Not Reportable Baso # (Auto) Not Reportable Absolute Nucleated RBC Not Reportable Total Counted 100 Band Neuts % (Manual) 4 Abnorm Lymph % (Manual) 0 Nucleated RBC % Not Reportable Neutrophils # (Manual) 12.1 H Lymphocytes # (Manual) 2.2 Monocytes # (Manual) 0.6 Eosinophils # (Manual) 0.5 Basophils # (Manual) 0.3 H Nucleated RBCs 1 Differential Comment MANUAL DIFFERENTIAL Platelet Estimate NORMAL (130-450,000) Platelet Morphology 1+ LARGE PLATELETS RBC Morph Micro Appear 3+ ANISOCYTOSIS Sodium 129 L Potassium 4.1 Chloride 92 L Carbon Dioxide 27 Anion Gap 10.0 BUN 20 Creatinine 1.0 Estimated GFR (MDRD) 54 L Glucose 115 H Calcium 9.0 Total Bilirubin 1.2 H AST 17 ALT 11 Alkaline Phosphatase 79 Total Protein 6.7 Albumin 2.8 L Globulin 3.9 Albumin/Globulin Ratio 0.7 L Lipase 21 L Urine Color YELLOW Urine Clarity CLEAR Urine pH 7.0 Ur Specific Mar Lin <=1.005 Urine Protein NEGATIVE Urine Glucose (UA) NEGATIVE Urine Ketones TRACE Urine Occult Blood NEGATIVE Urine Nitrite POSITIVE H Urine Bilirubin NEGATIVE Urine Urobilinogen 0.2 (NORMAL) Ur Leukocyte Esterase NEGATIVE Urine RBC 0-5 Urine WBC 6-10 H Ur Squamous Epith Cells FEW Squamous Urine Bacteria Many H Ur Microscopic Review INDICATED Urine Culture Comments INDICATED - Rads (name of study) Chest Radiology: Prelim report reviewed (Impression: 1. Trace left-sided pleural effusion. Right apical pleural thickening stable compared to prior CT scans compatible sequela of prior radiation therapy. Patchy opacities in the medial aspect of the right lung base which could represent post radiation pneumonitis or pneumonia.), EMP read indepedently, See rad report PD MEDICAL DECISION MAKING - ED course Complexity details: reviewed old records, reviewed results, re-evaluated patient, considered differential, d/w patient ED course: 74-year-old female with left flank pain and vomiting has urinary tract infection on evaluation of the urine and she is diagnosed with pyelonephritis administered Rocephin intravenously as well as saline. Departure - Departure Disposition: 01 Home, Self Care Clinical Impression: Pyelonephritis Instructions: ED Kidney Infec Female Follow-Up: Ning Chapa MD [Primary Care Provider] - Prescriptions: Cefdinir 300 mg PO BID #14 capsule Comments: Today it appears you have a kidney infection and this is likely the reason for your vomiting and flank pain. The recommendation is to take the antibiotic as prescribed twice per day and use your Zofran under the tongue as needed for n ausea and treat the pain with pain medication. Expect the pain to persist for several days beyond the resolution of the infection.
[2020-02-24] MEDS ORDERED: SODIUM CHLORIDE 0.9% 1,000 ML IV STA (13:14)
[2020-02-24 14:03] LABS: BASOPHILS % (AUTO) 1.9 %; EOSINOPHILS % (AUTO) 0.4 %; HGB - HEMOGLOBIN 9.8 g/dL (12.0-16.0); LYMPHOCYTES % (AUTO) 5.6 %; MEAN CORPUSCULAR HEMOGLOBIN 25.6 pg (27.0-31.0); MEAN CORPUSCULAR HGB CONC 31.8 g/dL (32.0-36.0); MEAN CORPUSCULAR VOLUME 80.4 fL (81.0-99.0); MONOCYTES % (AUTO) 5.9 %; PLT - PLATELET COUNT 151 10^3/uL (130-450); RED BLOOD COUNT 3.83 10^6/uL (4.20-5.40); RED CELL DISTRIBUTION WIDTH 25.8 % (12.0-15.0); WHITE BLOOD COUNT 15.7 x10^3/uL (4.8-10.8)
[2020-02-24 14:15] LABS: ALBUMIN 2.8 g/dL (3.2-5.5); ALBUMIN/GLOBULIN RATIO 0.7 (1.0-2.2); BILIRUBIN,TOTAL 1.2 mg/dL (0.2-1.0); TOTAL PROTEIN 6.7 g/dL (6.7-8.2)
[2020-02-24 14:27] LABS: ABNORMAL LYMPHS % (MANUAL) 0 %
[2020-02-24 14:28] LABS: BAND NEUTROPHILS % (MANUAL) 4 %; BASOPHILS # (MANUAL) 0.3 10^3/uL (0-0.1); BASOPHILS % (MANUAL) 2 %; EOSINOPHILS # (MANUAL) 0.5 10^3/uL (0-0.7); LYMPHOCYTES # (MANUAL) 2.2 10^3/uL (1.5-3.5); LYMPHOCYTES % (MANUAL) 14 %; MONOCYTES # (MANUAL) 0.6 10^3/uL (0.0-1.0)
[2020-02-24 14:31] LABS: DIFFERENTIAL COMMENT MANUAL DIFFERENTIAL; PLATELET ESTIMATE, MANUAL NORMAL (130-450,000) (NORMAL); PLATELET MORPHOLOGY 1+ LARGE PLATELETS (NORMAL)
[2020-02-24 15:03] LABS: BILIRUBIN,URINE NEGATIVE (NEGATIVE); GLUCOSE, URINE (UA) NEGATIVE (NEGATIVE); KETONES,URINE (UA) TRACE mg/dL (NEGATIVE); LEUKOCYTE ESTERASE, URINE NEGATIVE (NEGATIVE); NITRITE,URINE POSITIVE (NEGATIVE); OCCULT BLOOD,URINE NEGATIVE (NEGATIVE); PROTEIN,URINE NEGATIVE (NEGATIVE); UROBILINOGEN,URINE 0.2 (NORMAL) E.U./dL (NORMAL)
--- NOTE | 2020-02-24 15:10 | XRAY Report ---
PROCEDURE: Chest 2 View X-Ray INDICATIONS: cough increased and back pain TECHNIQUE: 2 view(s) of the chest. COMPARISON: CT chest 02/10/2020 and 07/16/2019. FINDINGS: Surgical changes and devices: Right chest wall Port-A-Cath. Multiple surgical clips in the left upper quadrant of the abdomen. Lungs and pleura: Pleural thickening involving the right lung apex is stable compared to prior exams . Patchy opacity in the mesial aspect of the right upper lobe not significantly changed compared to C T scan obtained 02/10/2020 may represent pneumonia or postradiation pneumonitis. Linear opacities in t he left lung base stable compared to prior CT scans likely represents parenchymal scarring. Trace lef t-sided pleural effusion. Mediastinum: Mediastinal contours are normal. Heart size is normal. Bones and chest wall: No suspicious bony abnormalities. Soft tissues appear unremarkable. IMPRESSION: 1. Trace left-sided pleural effusion. 2. Right apical pleural thickening stable compared to prior CT scans compatible with sequela of prior radiation therapy. 3. Patchy opacities in the medial aspect of the right lung apex which could represent postradiation p neumonitis or pneumonia. Reviewed by: Bethany Hilton MD, PhD on 02/24/2020 3:09 PM PDT Approved by: Bethany Hilton MD, PhD on 02/24/2020 3:09 PM PDT Station ID: [id number]
[2020-02-24 15:13] LABS: CLARITY,URINE CLEAR (CLEAR)
[2020-02-24 15:16] LABS: BACTERIA,URINE Many /HPF (None Seen); RBC,URINE 0-5 /HPF (0-5); SQUAMOUS EPITHELIAL CELL,UR FEW Squamous (<= Few)
[2020-02-24] MEDS ORDERED: cefTRIAXone 1 GM in SODIUM CHLORIDE 0.9% MINIBAG 100 ML IV STA (15:35)
[2020-02-24 17:02] VITALS: BP 141/88
== END 2020-02-24 17:09 | disposition home or self-care (01) ==
LOC: ED 10:21
DX: N12 Tubulo-interstitial nephritis, not specified as acute or chronic (principal); I10 Essential (primary) hypertension; C78.00 Secondary malignant neoplasm of unspecified lung; Z85.53 Personal history of malignant neoplasm of renal pelvis; Z90.5 Acquired absence of kidney; Z85.89 Personal history of malignant neoplasm of other organs and systems; Z87.891 Personal history of nicotine dependence
CPT/HCPCS: 36415; 71046; 80053; 81001; 81003; 83690; 85025; 87086; 87181; 96361; 96365; 99284

== ENCOUNTER 2020-02-27 13:33 | Outpatient (CLI) | payer MEDICARE | END 2020-02-27 13:34 | disposition critical access hospital (66) | LOC: EMS 13:33 | PROVIDERS: ATTEND Surgery | DX: R53.1 Weakness (principal); R42 Dizziness and giddiness | CPT/HCPCS: A0425; A0427 ==

== ENCOUNTER 2020-02-27 13:40 | Inpatient (IN) | payer MEDICARE ==
[2020-02-27] MEDS ORDERED: SODIUM CHLORIDE 0.9% 2,000 ML IV STA (13:50)
[2020-02-27] MEDS ORDERED: SODIUM CHLORIDE 0.9% 1,000 ML IV STA (13:50)
--- NOTE | 2020-02-27 13:56 | ED Physician Documentation ---
History of Present Illness - Stated complaint Stated Complaint: GLF - Chief complaint Chief Complaint: General - History obtained from History obtained from: Patient, EMS - History of Present Illness Timing: Today Pain level max: 0 Pain level now: 0 - Additonal information Additional information: 74-year-old female presents to the emergency department after slipping and falling down the wall today. She states that she felt very weak. Has not been eating and drinking well. Was seen here 3 days ago and diagnosed with pyelonephritis. Given Rocephin and cefdinir. She denies any fevers. No vomiting. No nausea. She does have a history of several types of cancer including renal cell carcinoma, status post left nephrectomy. Lung cancer status post lobectomy. Breast cancer. She is currently on immunotherapy. Denies any injuries from the fall other than a small abrasion to the right wrist. EMS arrived on scene and found her blood pressure to be 80/30, brought her in for evaluation. Patient is currently asymptomatic. Nothing makes it better or worse Review of Systems Ten Systems: 10 systems reviewed and negative Constitutional: denies: Fever, Chills Ears: denies: Ear pain Nose: denies: Rhinorrhea / runny nose, Congestion Cardiac: denies: Chest pain / pressure Respiratory: denies: Dyspnea, Cough, Wheezing GI: denies: Abdominal Pain, Nausea, Vomiting, Diarrhea : denies: Dysuria, Frequency, Hesitancy Skin: denies: Rash Musculoskeletal: denies: Neck pain, Back pain Neurologic: reports: Generalized weakness. 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 : Incontinence, Renal insuffiency (has one kidney), Other (hx of renal cell carcinoma) HEENT: Chronic vision loss, Other (hx of head and neck cancer treated with chemoradiation) Psych: Depression, Anxiety Musculoskeletal: Osteoarthritis Derm: None - Past Surgical History Past Surgical History: No General: Cholecystectomy, Appendectomy, Gastric surgery (gastroplasty; reverse of gastroplasty), Other (RLL lobectomy) /STEREO EQUIPMENT INSTALLER: Other (lumpectomy with radiation) HEENT: Cataracts - Present Medications Home Medications: Ambulatory Orders Medication Instructions Recorded Confirmed Levothyroxine [Synthroid] 50 mcg PO QDAC 12/30/18 02/27/20 Citalopram [CeleXA] 40 tab PO DAILY 07/28/19 02/27/20 Cholecalciferol (Vitamin D3) 2,000 units PO DAILY 10/06/19 02/27/20 [Vitamin D3] Cyanocobalamin (Vitamin B-12) 1,000 mcg PO DAILY 10/06/19 02/27/20 [Vitamin B-12] Omeprazole 20 mg PO QDAC 10/06/19 02/27/20 Oxycodone HCl 5 mg PO QID PRN 10/06/19 02/27/20 traZODone [Desyrel] 100 mg PO QPM 10/06/19 02/27/20 Loratadine [Claritin] 10 mg PO DAILY PRN 02/02/20 02/27/20 Cefdinir 300 mg PO [id number] 02/27/20 02/27/20 Pregabalin 100 mg PO Q8H 02/27/20 02/27/20 - Allergies Allergies/Adverse Reactions: Allergies Allergy/AdvReac Type Severity Reaction Status Date / Time Sulfa (Sulfonamide AdvReac Nausea Verified 02/27/20 13:48 Antibiotics) - Social History Does the pt smoke?: No Smoking Status: Former smoker Does the pt drink ETOH?: Yes Does the pt have substance abuse?: No - Immunizations Immunizations are current?: Yes Immunizations: TDAP current <10years - POLST Patient has POLST: No PD ED PE NORMAL - Vitals Vital signs reviewed: Yes - General General: Alert and oriented X 3, No acute distress, Well developed/nourished - HEENT HEENT: Atraumatic, PERRL, Ears normal, Pharynx benign, Other (Dry lips and tongue) - Neck Neck: Supple, no meningeal sign, No bony TTP - Cardiac Cardiac: RRR, Strong equal pulses - Respiratory Respiratory: No respiratory distress, Clear bilaterally - Abdomen Abdomen: Soft, Non tender, Non distended - Back Back: No CVA TTP, No spinal TTP - Derm Derm: Warm and dry, No rash - Extremities Extremities: No edema, No calf tenderness / cord, Other (Abrasion to the right wrist) - Neuro Neuro: Alert and oriented X 3, buffer machine 2-12 intact, No motor deficit, No sensory deficit, Normal speech Eye Opening: Spontaneous Motor: Obeys Commands Verbal: Oriented GCS Score: 15 - Psych Psych: Normal mood, Normal affect Results - Vitals Vitals: Vital Signs - 24 hr 02/27/20 02/27/20 13:48 13:52 Temperature 37.5 C Heart Rate 88 86 Respiratory 12 16 Rate Blood Pressure 89/32 L 114/65 O2 Saturation 87 L 97 Oxygen O2 Source Nasal cannula - EKG (time done) 1441 Rate: Rate (enter#) (89) Rhythm: NSR Cowen: Normal Intervals: Normal GA QRS: Normal Ischemia: Normal ST segments - Labs Labs: Laboratory Tests 02/27/20 02/27/20 02/27/20 14:11 14:11 14:11 WBC 13.3 H RBC 3.25 L Hgb 8.0 L Hct 27.0 L MCV 83.1 MCH 24.6 L MCHC 29.6 L RDW 26.7 H Plt Count 145 Neut # (Auto) 8.1 H Lymph # (Auto) 1.0 L Caldwell # (Auto) 0.9 Eos # (Auto) 0.2 Baso # (Auto) 0.3 H Absolute Nucleated RBC 0.14 Nucleated RBC % 1.1 Sodium 133 L Potassium 4.1 Chloride 96 L Carbon Dioxide 23 Anion Gap 14.0 H BUN 32 H Creatinine 1.7 H Estimated GFR (MDRD) 29 L Glucose 109 H Lactic Acid 1.2 Calcium 7.9 L Total Bilirubin 0.5 AST 40 ALT 21 Alkaline Phosphatase 84 Troponin I High Sens B-Natriuretic Peptide Total Protein 5.5 L Albumin 2.3 L Globulin 3.2 Albumin/Globulin Ratio 0.7 L Lipase 23 Urine Color Urine Clarity Urine pH Ur Specific [place] Urine Protein Urine Glucose (UA) Urine Ketones Urine Occult Blood Urine Nitrite Urine Bilirubin Urine Urobilinogen Ur Leukocyte Esterase Ur Microscopic Review Urine Culture Comments 02/27/20 02/27/20 02/27/20 14:11 14:11 15:26 WBC RBC Hgb Hct MCV MCH MCHC RDW Plt Count Neut # (Auto) Lymph # (Auto) Caldwell # (Auto) Eos # (Auto) Baso # (Auto) Absolute Nucleated RBC Nucleated RBC % Sodium Potassium Chloride Carbon Dioxide Anion Gap BUN Creatinine Estimated GFR (MDRD) Glucose Lactic Acid Calcium Total Bilirubin AST ALT Alkaline Phosphatase Troponin I High Sens 9.1 B-Natriuretic Peptide 108 H Total Protein Albumin Globulin Albumin/Globulin Ratio Lipase Urine Color YELLOW Urine Clarity CLEAR Urine pH 5.5 Ur Specific [place] 1.015 Urine Protein NEGATIVE Urine Glucose (UA) NEGATIVE Urine Ketones NEGATIVE Urine Occult Blood NEGATIVE Urine Nitrite NEGATIVE Urine Bilirubin NEGATIVE Urine Urobilinogen 0.2 (NORMAL) Ur Leukocyte Esterase NEGATIVE Ur Microscopic Review NOT INDICATED Urine Culture Comments NOT INDICATED - Rads (name of study) cxr Radiology: Prelim report reviewed, EMP read contemporaneously, See rad report PD MEDICAL DECISION MAKING - ED course Complexity details: reviewed results, re-evaluated patient, considered dif ferential, d/w patient, d/w sap payroll consultant ED course: 1. Progressive appearance of interstitial vascularity suggestive of edema as well as minimal to mild bilateral effusions, left greater than right. 2. Persistent right apical opacity, as previously noted. 3. Progressive opacity within the left base and retrocardiac region. Will this could represent effusion, underlying areas of developing pneumonia and/or atelectasis cannot be excluded 74-year-old female with progressive pulmonary edema, hypoxia, 86 to 87% on room air upon arrival. Given IV fluids for her initial hypotension, 80/30. She was then given Lasix for the pulmonary edema. Given Rocephin and azithromycin for possible pneumonia. Does have a leukocytosis. She is also anemic. Has chronic anemia from anemia of chronic disease, but this is worse. Possible dilutionall? She continues to be hypoxic, she will need admission for further care. Discussed the case with Dr. Fried, hospitalist who accepts 1. Progressive appearance of interstitial vascularity suggestive of edema as well as minimal to mild bilateral effusions, left greater than right. 2. Persistent right apical opacity, as previously noted. 3. Progressive opacity within the left base and retrocardiac region. Will this could represent effusion, underlying areas of developing pneumonia and/or atelectasis cannot be excluded Departure - Departure Disposition: 66 [facility] DC/Xfer Clinical Impression: Hypoxia Pulmonary edema Qualifiers: Chronicity: acute Qualified Code(s): J81.0 - Acute pulmonary edema Pneumonia Qualifiers: Pneumonia type: due to unspecified organism Laterality: unspecified laterality Lung location: unspecified part of lung Qualified Code(s): J18.9 - Pneumonia, unspecified organism Hypotension Qualifiers: Hypotension type: unspecified hypotension type Qualified Code(s): I95.9 - Hypotension, unspecified Condition: Stable Discharge Date/Time: 02/27/20 16:30
--- NOTE | 2020-02-27 14:18 | XRAY Report ---
PROCEDURE: Chest 1 View X-Ray INDICATIONS: hypoxia TECHNIQUE: One view of the chest was acquired. COMPARISON: Chest x-ray 02/24/2020. FINDINGS: Surgical changes and devices: Right-sided port is unchanged. Upper abdomen clips. Lungs and pleura: There is increased interstitial pulmonary vascularity compared to prior exam. There is interval blunting of the costophrenic angles bilaterally, left greater than right. Patchy and ananya ear opacities are present within the left base and retrocardiac region, appearing new. Persistent rig ht apical opacity. Mediastinum: Mediastinal contours appear normal. Heart size is normal. Bones and chest wall: No suspicious bony lesions. Overlying soft tissues appear unremarkable. IMPRESSION: 1. Progressive appearance of interstitial vascularity suggestive of edema as well as minimal to mild bilateral effusions, left greater than right. 2. Persistent right apical opacity, as previously noted. 3. Progressive opacity within the left base and retrocardiac region. Will this could represent effusi on, underlying areas of developing pneumonia and/or atelectasis cannot be excluded. Reviewed by: Kala Petersen MD on 02/27/2020 2:16 PM PDT Approved by: Kala Petersen MD on 02/27/2020 2:16 PM PDT Station ID: [id number]
[2020-02-27 14:24] LABS: BASOPHILS # (AUTO) 0.3 10^3/uL (0.0-0.1); BASOPHILS % (AUTO) 2.3 %; EOSINOPHILS # (AUTO) 0.2 10^3/uL (0.0-0.7); EOSINOPHILS % (AUTO) 1.7 %; LYMPHOCYTES % (AUTO) 7.8 %; MEAN CORPUSCULAR HEMOGLOBIN 24.6 pg (27.0-31.0); MEAN CORPUSCULAR HGB CONC 29.6 g/dL (32.0-36.0); MEAN CORPUSCULAR VOLUME 83.1 fL (81.0-99.0); MONOCYTES # (AUTO) 0.9 10^3/uL (0.0-1.0); MONOCYTES % (AUTO) 6.6 %; NEUTROPHILS # (AUTO) 8.1 10^3/uL (1.5-6.6); NEUTROPHILS % (AUTO) 60.8 %; PLT - PLATELET COUNT 145 10^3/uL (130-450); RED BLOOD COUNT 3.25 10^6/uL (4.20-5.40); RED CELL DISTRIBUTION WIDTH 26.7 % (12.0-15.0); WHITE BLOOD COUNT 13.3 x10^3/uL (4.8-10.8)
[2020-02-27] MEDS ORDERED: FUROSEMIDE 40 MG/4 ML VIAL IVP STA (14:31)
[2020-02-27 14:37] LABS: ALBUMIN 2.3 g/dL (3.2-5.5); ALBUMIN/GLOBULIN RATIO 0.7 (1.0-2.2); BILIRUBIN,TOTAL 0.5 mg/dL (0.2-1.0); CALCIUM 7.9 mg/dL (8.5-10.3); CREATININE 1.7 mg/dL (0.4-1.0); TOTAL PROTEIN 5.5 g/dL (6.7-8.2)
[2020-02-27] MEDS ORDERED: cefTRIAXone 1 GM VIAL IVP STA (14:44)
[2020-02-27 15:35] LABS: BILIRUBIN,URINE NEGATIVE (NEGATIVE); GLUCOSE, URINE (UA) NEGATIVE (NEGATIVE); KETONES,URINE (UA) NEGATIVE (NEGATIVE); LEUKOCYTE ESTERASE, URINE NEGATIVE (NEGATIVE); NITRITE,URINE NEGATIVE (NEGATIVE); OCCULT BLOOD,URINE NEGATIVE (NEGATIVE); PH,URINE 5.5 PH (5.0-7.5); PROTEIN,URINE NEGATIVE (NEGATIVE); UROBILINOGEN,URINE 0.2 (NORMAL) E.U./dL (NORMAL)
[2020-02-27 15:42] LABS: CLARITY,URINE CLEAR (CLEAR)
[2020-02-27] MEDS ORDERED: ONDANSETRON ODT 4 MG TABLET TL PRN (15:42)
[2020-02-27] MEDS ORDERED: ONDANSETRON 4 MG/2 ML VIAL IVP PRN (15:42)
[2020-02-27] MEDS ORDERED: SODIUM CHLORIDE 0.9% 1,000 ML IV SCH (16:00)
--- NOTE | 2020-02-27 16:55 | PHARMACY PROGRESS NOTE ---
- Best Possible Medication History Admit Date and Time: 02/27/20 1542 Processed by: Pharmacy Medication History completed: Yes Patient Interview: Completed Secondary Source(s): Physician records, Pharmacy records, Insurance records As the person ultimately responsible for medication therapy, providers are able to order a medication from an existing home medication list in [facility] via the "Reconcile Routine" prior to Confirmation of that medication by support services tech. Such practice is discouraged except when the physician, in their clinical judgment, deems that a medical need exists for a medication without regard to previous use.
[2020-02-27] MEDS: oxyCODONE 5 MG TABLET PO PRN (16:57)
[2020-02-27] MEDS: AZITHROMYCIN INJ 500 MG in SODIUM CHLORIDE 0.9% 250 ML IV SCH (16:59)
[2020-02-27] MEDS: SODIUM CHLORIDE FLUSH 0.9% 10 ML SYRINGE IVP SCH ×2 (16:59→23:37)
--- NOTE | 2020-02-27 18:34 | HISTORY & PHYSICAL EXAMINATION ---
Chief Complaint - Chief Complaint Chief Complaint: Ground Level Fall <PaulinaVanessaBrandie - Last Filed: 02/27/20 18:41> History of Present Illness - Admitted From Admitted From:: Home via EMS - History Obtained From History obtained from: Patient <Brandie Gallardo - Last Filed: 02/27/20 18:41> - History Obtained From Records Reviewed: [facility] History obtained from: patient and Dr. Huerta Exam Limitations: vague historian <Vickie Fried - Last Filed: 02/28/20 12:12> - History of Present Illness HPI Comment/Other: CP is a 74yo female who experienced a GLF this afternoon, was unable to get her up off the floor and EMS was called. While in the ED pt was hypotensive and required supplemental 3L oxygen via NC to maintain saturation levels >92%. Diffuse right side and right hip pain from fall, non-sepcifically characterized. Pt denies loss of consciousness and thinks she may have hit the back of her head on the way down but ultimately landed on her bottom. No tenderness, redness or swelling noted to pt's head upon physical exam. Pt has a recent history significant for dx of pylonephritis, seen in the ED here on 02/23, discharged to home with Cefdinir abx PO. Pt reports to have been taking her dc medications as prescribed. Pt reports having poor appetite over the past week, not eating and drinking very little for four days prior to being evaluated in ED on 02/23, but has just recently resumed her normal eating habits yesterday 02/25. She reports feeling fatigued over the past week and has been experiencing dizziness upon standing and ambulating in her home. Minor non-productive cough present upon assessment. Pt denies wheezing but reports some minor dyspnea recently. Denies any chest pain or palpitations and reports an increase in her forgetfulness the past week. (Brandie Gallardo) Agree with the above history is obtained from patient. She was seen and examined under separate encounter. She is a difficult historian and that she cannot remember a lot of details, and will say "I do not know" quite a bit but at the same time say "yes" to a review of systems for everything. 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, Breast cancer : reports: Incontinence, Renal insuffiency (has one kidney), Other (hx of renal cell carcinoma) HEENT: reports: Chronic vision loss, Other (hx of head and neck cancer treated with chemoradiation) Psych: reports: Depression, Anxiety Musculoskeletal: reports: Osteoarthritis, Other (Chronic pain in neck and back) Derm: reports: None MRSA Hx?: No - Past Surgical History General: reports: Cholecystectomy, Appendectomy, Gastric surgery (gastroplasty; reverse of gastroplasty), Other (RLL lobectomy) /POTATO CHIP SACKING MACHINE OPERATOR: reports: Other (lumpectomy with radiation) HEENT: reports: Cataracts - Family & Social History Family History: Mother: ( at 59 of pnemonia), Cancer ( at 85 of lung cancer), Father: , CAD, COPD/Emphysema, Other family: Alive and Well (siblings;one has parkinsons) Living arrangement: At home Living Situation: With spouse/s.o. - Substance History Use: Uses substance without health or social issues: Tobacco (50 yr 3.5 pack/day hx, quit 2014), Alcohol (rarely), Other (occasionally store bought marijuana [employer]) - POLST Patient has POLST: No <Brandie Gallardo - Last Filed: 02/27/20 18:41> - Past Medical History Respiratory: reports: Other (met squamous cell lung ca, L lower lobectomy; squamous cell carcinoma, s/p surgery 05/23/15. Stage T1aN0. CT chest w changes 2015 and subsequent bx with metastatic squamous cell ca R lung. Carbo and Taxol o8treep. 6 cycles w dose reduction 07/2016. Radiation followed 11/2016. Nivolumab 04/2017. ) Neuro: reports: Peripheral neuropathy (from her first line chemo and maybe nivolumab. 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 (who is actually her ex . They still live together and she wants him to be POA.) - POLST POLST Status: Full Code <Vickie Fried - Last Filed: 02/28/20 12:12> Meds/Allgy <Brandie Gallardo - Last Filed: 02/27/20 18:41> <Vickie Fried - Last Filed: 02/28/20 12:12> - Home Medications Home Medications: Ambulatory Orders Medication Instructions Recorded Confirmed Levothyroxine [Synthroid] 50 mcg PO QDAC 12/30/18 02/27/20 Citalopram [CeleXA] 40 tab PO DAILY 07/28/19 02/27/20 Cholecalciferol (Vitamin D3) 2,000 units PO DAILY 10/06/19 02/27/20 [Vitamin D3] Cyanocobalamin (Vitamin B-12) 1,000 mcg PO DAILY 10/06/19 02/27/20 [Vitamin B-12] Omeprazole 20 mg PO QDAC 10/06/19 02/27/20 Oxycodone HCl 5 mg PO QID PRN 10/06/19 02/27/20 traZODone [Desyrel] 100 mg PO QPM 10/06/19 02/27/20 Loratadine [Claritin] 10 mg PO DAILY PRN 02/02/20 02/27/20 Cefdinir 300 mg PO [id number] 02/27/20 02/27/20 Pregabalin 100 mg PO Q8H 02/27/20 02/27/20 - Allergies Allergies/Adverse Reactions: Allergies Allergy/AdvReac Type Severity Reaction Status Date / Time Sulfa (Sulfonamide AdvReac Nausea Verified 02/27/20 13:48 Antibiotics) Review of Systems - Constitutional Constitutional: reports: Poor appetite - Cardiovascular Cariovascular: reports: Edema (Generalized edema), Lightheadedness, Exertional dyspnea - Respiratory Respiratory: reports: Cough (Minor) - Gastrointestinal Gastrointestinal: reports: Change in bowel habits (reports last BM to have been 1 week ago and was pebble-like, recent decrease in food and fluid for 4 days with resume of normal intake 1 day ago.) - Genitourinary Genitourinary: reports: Incontinence - Musculoskeletal Musculoskeletal: reports: Back pain, Joint pain - Neurological Neurological: reports: General weakness, Dizziness - Psychiatric Psychiatric: reports: Depression, Anxiety <Brandie Gallardo - Last Filed: 02/27/20 18:41> <Vickie Fried - Last Filed: 02/28/20 12:12> - Other Findings Other Findings: Review of systems obtained. No change from above review of systems with student. However patient has been declining steadily over the last year. Palliative care consultations involved. She is having increasing anxiety, increasing depression regarding her decline. She is known from the beginning of her metastatic disease diagnosis to the right lung the prognosis was poor. She finds it amazing that she is lived as long as she has. (Vickie Fried) <Brandie Gallardo - Last Filed: 02/27/20 18:41> Prior Level of Functionality: Utilizes walker to ambulate at home, performs ADLs independently. (Brandie Gallardo) Exam - Physical Exam General Appearance: positive: Alert, Other (Generalized pallor and dusky appearance.) Eyes Bilateral: positive: PERRL, Conjunctivae nml Respiratory: positive: No respiratory distress, Breath sounds nml Cardiovascular: positive: Systolic murmur Peripheral Pulses: positive: Other (all peripheral pulses weak, +0-1) Abdomen: positive: Tenderness (tenderness upon palpation in RUQ and LUQ, Borborygmus in all quads) Back: positive: Nml inspection Skin: positive: Other (Skin tear to R wrist) Extremities: positive: Non-tender, Nml appearance Neurologic/Psychiatric: positive: Oriented x3, Motor nml <Brandie Gallardo - Last Filed: 02/27/20 18:41> <Vickie Fried - Last Filed: 02/28/20 12:12> - Vital Signs Vital Signs: Vital Signs x48h Temp Pulse Pulse Resp BP Pulse Ox 02/28/20 10:00 38.7 C H 124 H 18 91/51 L 95 02/28/20 09:00 38.6 C H 124 H 18 88/47 L 96 02/28/20 08:45 134 H 20 82/49 L 100 02/28/20 08:30 136 H 20 107/50 L 98 02/28/20 08:25 123 H 02/28/20 08:15 134 H 15 121/86 H 86 L 02/28/20 08:00 134 H 17 111/49 L 87 L 02/28/20 07:00 122 H 21 88/49 L 94 02/28/20 06:45 117 H 90/34 L 02/28/20 06:40 118 H 104/46 L 02/28/20 06:35 119 H 105/38 L 02/28/20 06:30 122 H 108/49 L 02/28/20 06:25 123 H 119/49 L 02/28/20 06:22 24 95 02/28/20 06:20 22 94 02/28/20 06:10 120 H 105/36 L 02/28/20 06:06 120 H 100/40 L 02/28/20 06:05 119 H 62/42 L 02/28/20 06:00 122 H 24 98/74 92 02/28/20 05:55 122 H 96/47 L 02/28/20 05:50 121 H 108/43 L 02/28/20 05:46 26 H 92 02/28/20 05:45 119 H 118/45 L 02/28/20 05:00 112 H 20 120/53 L 89 L 02/28/20 04:00 103 H 20 102/42 L 91 L 02/28/20 03:54 36.8 C 02/28/20 03:45 101 H 99/35 L 02/28/20 03:30 99 98/45 L 02/28/20 03:26 20 92 02/28/20 03:15 101 H 79/66 L 02/28/20 03:00 103 H 21 108/48 L 87 L 02/28/20 02:45 103 H 24 98/50 L 92 - Physical Exam Comments/Other: Agree with above exam. The main changes of finer changes of intertrigo where the skin is more friable especially in the groin. No overt redness or current Vane (Fried,Vickie L) Conclusion/Plan - Problem List (1) Pneumonia Conclusion/Plan: IV Azithromycin and Rocephin began in the ED, will continue with daily dosing. Ordered sputum culture. Qualifiers: Pneumonia type: due to unspecified organism Laterality: bilateral Lung location: lower lobe of lung Qualified Code(s): J18.9 - Pneumonia, unspecified organism (2) Hypoxia Conclusion/Plan: Utilize supplemental O2 as needed to maintain sats >92% Ordered venous doppler to evaluate for possible DVT Ordered Lovenox 80mg Sq daily Plan for CT angio of chest once GFR increases >45 (3) Pleural effusion Conclusion/Plan: Plan for CT of chest w/ angio once GFR increases >45 Provide supplemental O2 as necessary (4) Anemia Conclusion/Plan: Repeat AM CBC for monitoring Qualifiers: Anemia type: unspecified type Qualified Code(s): D64.9 - Anemia, unspecified (5) Hypotension Conclusion/Plan: NS 100ml/hr x1L Qualifiers: Hypotension type: unspecified hypotension type Qualified Code(s): I95.9 - Hypotension, unspecified (6) Renal insufficiency Conclusion/Plan: NS @ 100ml/hr x1L Repeat am BMP - Lab Results Lab results reviewed: Yes Fish Bones: 02/27/20 14:11 02/27/20 14:11 - Diagnostic Imaging Results Diagnostic Imaging Results: positive: See rad report - EKG Results EKG Interpreted Independently: No <Brandie Gallardo - Last Filed: 02/27/20 18:41> - Problem List (1) Lung cancer Conclusion/Plan: Assessment and plan per student discussed and documented. Patient updated on what we were thinking. I have added a problem of lung cancer to address the fact that overall prognosis is poor in this patient. Review of systems and review of chart document a good declining patient who is being followed by palliative care. Pneumonia in the context of an immune modulating drug may need to be treated with broad-spectrum antibiotics. At this time this patient wants to be a full code. cannot discussed this because he is benign able to discuss this in the past. Will discuss with palliative care on Saturday morning and rediscussed with patient if necessary. Qualifiers: Laterality: right Lung location: upper lobe of lung Qualified Code(s): C34.11 - Malignant neoplasm of upper lobe, right bronchus or lung - Lab Results Fish Bones: 02/28/20 04:45 02/28/20 04:45 <Vickie Fried - Last Filed: 02/28/20 12:12> Core Measures - Anticipated LOS I expect patient to be DC'd or transferred within 96 hours.: Yes - DVT/VTE - Prophylaxis VTE/DVT Device ordered at admit?: Yes <Brandie Gallardo - Last Filed: 02/27/20 18:41>
[2020-02-27] MEDS: ENOXAPARIN 80 MG/0.8 ML SYRINGE SUBQ SCH (19:05)
--- NOTE | 2020-02-27 20:47 | Ultrasound Report ---
PROCEDURE: Duplex Ext Veins Bilateral INDICATIONS: FANTA L BARTLETT TECHNIQUE: Real-time imaging, as well as color and pulse Doppler interrogation, were performed of the deep veins of both legs from the inguinal ligament to the popliteal fossa. COMPARISON: None FINDINGS: The deep veins are normally compressible, and free of intraluminal thrombus. Color and pu lse Doppler demonstrate normal phasic intravascular flow. There is normal augmentation response to d istal compression maneuver. IMPRESSION: No deep venous thrombosis. Reviewed by: Kala Petersen MD on 02/27/2020 8:46 PM PDT Approved by: Kala Petersen MD on 02/27/2020 8:46 PM PDT Station ID: [id number]
[2020-02-27] MEDS ORDERED: ENOXAPARIN 80 MG/0.8 ML SYRINGE SUBQ SCH (21:00)
[2020-02-28] MEDS ORDERED: ALBUMIN 25% 12.5 GM/50 ML VIAL IV STA (00:04)
[2020-02-28] MEDS ORDERED: NALOXONE 0.4 MG/ML VIAL IVP ONE (00:19)
[2020-02-28] MEDS: SODIUM CHLORIDE FLUSH 0.9% 10 ML SYRINGE IVP SCH ×3 (00:25→23:23)
[2020-02-28 00:47] LABS: ABG BASE EXCESS -0.8 mmol/L (-2.0-3.0); ABG HCO3 25.1 mmol/L (22.0-26.0); ABG OXYGEN SATURATION 94 % (94-98); ABG PCO2 48 mmHg (34-45); ABG PH 7.34 (7.35-7.45); ABG PO2 75 mmHg (80-100); ABG TCO2 26.6 MMOL/L (21.0-29.0); ALLEN TEST POSITIVE
[2020-02-28] MEDS: ACETAMINOPHEN 325 MG TABLET PO PRN (00:50)
[2020-02-28 00:56] LABS: BASOPHILS % (AUTO) 2.1 %; EOSINOPHILS % (AUTO) 0.7 %; HGB - HEMOGLOBIN 7.6 g/dL (12.0-16.0); LYMPHOCYTES % (AUTO) 6.6 %; MEAN CORPUSCULAR HGB CONC 29.8 g/dL (32.0-36.0); MEAN CORPUSCULAR VOLUME 83.9 fL (81.0-99.0); MONOCYTES % (AUTO) 5.7 %; NEUTROPHILS % (AUTO) 71.3 %; PLT - PLATELET COUNT 148 10^3/uL (130-450); RED BLOOD COUNT 3.04 10^6/uL (4.20-5.40); RED CELL DISTRIBUTION WIDTH 25.8 % (12.0-15.0); WHITE BLOOD COUNT 16.3 x10^3/uL (4.8-10.8)
[2020-02-28 01:02] LABS: CALCIUM 7.7 mg/dL (8.5-10.3); CREATININE 1.6 mg/dL (0.4-1.0)
[2020-02-28 01:08] LABS: ABNORMAL LYMPHS % (MANUAL) 0 %
--- NOTE | 2020-02-28 01:14 | PROVIDER PROGRESS NOTE ---
Senior Benefits Specialist Note - Senior Benefits Specialist Note Senior Benefits Specialist Note: It was brought to my attention shortly after shift change tonight around 1130 that the patient appeared lethargic/somnolent. She was not able to tell her name when asked. In the previous shift it was reported that the patient was alert and oriented x3 and had provided her history upon admission. At the time of initial evaluation for this incident her vitals were: a systolic blood pressure between 70 and 80, heart rate between 100-110, temperature of 38.3C and an oxygen saturation of 82% on 3 L of oxygen via nasal cannula. She was receiving IV hydration with normal saline at 100 mils an hour. Upon admission it was noted on imaging that she had some pleural effusion. At the time of examination crackles could be heard on auscultation of the lungs. Her oxygen was increased to 6 L via nasal cannula and she was subsequently transitioned to an Oximask. Oxygen saturation improved to 90%. She last received 5 mg of oxycodone around 5 PM. However it appears she also uses oxycodone 5 mg 4 times daily at home. As a result she was given a dose of Narcan 0.4 mg IV x1. She responded to Narcan because she was able to follow commands shortly after administration and could readily provide her name, where she lived, and where she was at the moment. There were no neurological deficits noted. As a result of the crackles the IV hydration was discontinued. She was given a dose of albumin. Recheck blood pressure showed a systolic blood pressure of 73 and 87. An ABG done showed pH of 7.34, PCO2 48 and PO2 75. At this point there is limitation to further administration of IV hydration to improve her blood pressure because of concern of possibly worsening her respiratory status. As a result she was transferred to the ICU on Levophed drip. I suspect the patient is now septic and her altered mentation is likely due to a combination of a septic state and the pain medication CBC done showed a WBC of 16.3. This is an increase from 13.3 earlier in the day. The patient is currently on Rocephin and azithromycin. Blood cultures have been ordered. Lactic acid is pending. I will broaden antibiotic coverage with vancomycin.
[2020-02-28 01:30] LABS: BAND NEUTROPHILS % (MANUAL) 14 %; BASOPHILS # (MANUAL) 0.3 10^3/uL (0-0.1); BASOPHILS % (MANUAL) 2 %; LYMPHOCYTES # (MANUAL) 1.6 10^3/uL (1.5-3.5); LYMPHOCYTES % (MANUAL) 10 %; MONOCYTES # (MANUAL) 0.7 10^3/uL (0.0-1.0); MYELOCYTES % (MANUAL) 4 %
[2020-02-28 01:34] LABS: DIFFERENTIAL COMMENT MANUAL DIFFERENTIAL; PLATELET ESTIMATE, MANUAL NORMAL (130-450,000) (NORMAL); PLATELET MORPHOLOGY 2+ LARGE PLATELETS (NORMAL)
[2020-02-28] MEDS ORDERED: VANCOMYCIN INJ 1.25 GM in SODIUM CHLORIDE 0.9% 250 ML IV SCH (03:00)
[2020-02-28] MEDS: oxyCODONE 5 MG TABLET PO PRN (03:22)
[2020-02-28 05:17] LABS: BASOPHILS % (AUTO) 2.1 %; EOSINOPHILS % (AUTO) 0.7 %; HGB - HEMOGLOBIN 8.7 g/dL (12.0-16.0); LYMPHOCYTES % (AUTO) 6.4 %; MEAN CORPUSCULAR HEMOGLOBIN 24.9 pg (27.0-31.0); MEAN CORPUSCULAR HGB CONC 29.5 g/dL (32.0-36.0); MEAN CORPUSCULAR VOLUME 84.3 fL (81.0-99.0); MONOCYTES % (AUTO) 4.6 %; NEUTROPHILS % (AUTO) 72.4 %; PLT - PLATELET COUNT 169 10^3/uL (130-450); RED CELL DISTRIBUTION WIDTH 26.4 % (12.0-15.0); VBG PH 7.227 (7.31-7.41)
[2020-02-28 05:22] LABS: CALCIUM 8.1 mg/dL (8.5-10.3); CREATININE 1.5 mg/dL (0.4-1.0)
[2020-02-28 05:24] LABS: ABNORMAL LYMPHS % (MANUAL) 0 %
[2020-02-28 05:25] LABS: ALBUMIN 2.5 g/dL (3.2-5.5); MAGNESIUM 1.9 mg/dL (1.7-2.8); PHOSPHORUS 4.3 mg/dL (2.5-4.6)
[2020-02-28] MEDS ORDERED: SODIUM CHLORIDE 0.9% 1,000 ML IV ONE (06:06)
[2020-02-28 06:10] LABS: BAND NEUTROPHILS % (MANUAL) 12 %; BASOPHILS # (MANUAL) 0.4 10^3/uL (0-0.1); BASOPHILS % (MANUAL) 2 %; EOSINOPHILS # (MANUAL) 0.4 10^3/uL (0-0.7); LYMPHOCYTES % (MANUAL) 11 %; MONOCYTES # (MANUAL) 1.3 10^3/uL (0.0-1.0); MYELOCYTES % (MANUAL) 4 %
[2020-02-28 06:14] LABS: DIFFERENTIAL COMMENT MANUAL DIFFERENTIAL; PLATELET ESTIMATE, MANUAL NORMAL (130-450,000) (NORMAL); PLATELET MORPHOLOGY 2+ LARGE PLATELETS (NORMAL)
[2020-02-28] MEDS ORDERED: PIPERACILLIN/TAZOBACTAM 2.25 GM in SODIUM CHLORIDE 0.9% MINIBAG 100 ML IV SCH (07:00)
[2020-02-28] MEDS ORDERED: PIPERACILLIN/TAZOBACTAM 3.375 GM in SODIUM CHLORIDE 0.9% MINIBAG 100 ML IV SCH (07:00)
[2020-02-28] MEDS: SODIUM CHLORIDE 0.9% 1,000 ML IV SCH ×2 (07:06→18:10)
[2020-02-28] MEDS ORDERED: SODIUM CHLORIDE 0.9% 500 ML IV ONE (08:11)
[2020-02-28] MEDS ORDERED: PROPOFOL 200 MG/20 ML VIAL IVP ONE ×3 (08:35→12:20)
[2020-02-28] MEDS ORDERED: SODIUM CHLORIDE INHALATION 3 ML NEB ONE (08:58)
[2020-02-28] MEDS ORDERED: cefTRIAXone 1 GM in SODIUM CHLORIDE 0.9% MINIBAG 100 ML IV SCH (09:00)
[2020-02-28] MEDS ORDERED: ENOXAPARIN 30 MG/0.3 ML SYRINGE SUBQ SCH (09:00)
[2020-02-28] MEDS: PROPOFOL 500 MG/50 ML 500 MG/50 ML VIAL IV SCH ×3 (09:04→23:22)
--- NOTE | 2020-02-28 09:24 | XRAY Report ---
PROCEDURE: Chest for Line Placement INDICATIONS: intubation placement TECHNIQUE: One view of the chest was acquired. COMPARISON: 02/27/2020 at 0149 hours FINDINGS: Surgical changes and devices: Pre-existing Port-A-Cath. Upper abdominal clips. Interval NG tube inser tion, projecting to fundal region of stomach. Interval ET tube insertion, approximately 1.7 cm above the celeste. Lungs and pleura: No pleural effusions or pneumothorax. Patchy infiltrate, left mid and lower lung f ield Mediastinum: Mediastinal contours appear normal. Heart size is normal. Bones and chest wall: No suspicious bony lesions. Overlying soft tissues appear unremarkable. IMPRESSION: 1. ET tube tip approximately 1.7 cm above the celeste. Suggest slight retraction. 2. Patchy left-sided pulmonary infiltrate. Reviewed by: Jay Kebede MD on 02/28/2020 8:22 AM MELISSA Approved by: Jay Kebede MD on 02/28/2020 8:22 AM MELISSA Station ID: [id number]
[2020-02-28] MEDS: ENOXAPARIN 80 MG/0.8 ML SYRINGE SUBQ SCH (09:55)
[2020-02-28] MEDS: PANTOPRAZOLE 40 MG VIAL IVP SCH (09:58)
[2020-02-28 10:26] LABS: ABG PH 7.27 (7.35-7.45)
[2020-02-28 10:27] LABS: ABG BASE EXCESS -5.6 mmol/L (-2.0-3.0); ABG HCO3 21.1 mmol/L (22.0-26.0); ABG OXYGEN SATURATION 89 % (94-98); ABG PCO2 47 mmHg (34-45); ABG PO2 62 mmHg (80-100); ABG TCO2 22.5 MMOL/L (21.0-29.0)
[2020-02-28] MEDS: CHLORHEXIDINE GLUCONATE 15 ML UDC PO SCH ×2 (11:22→20:36)
--- NOTE | 2020-02-28 11:44 | CT Report ---
PROCEDURE: CHEST WO INDICATIONS: sepsis, cancer chemo. History previous left lobectomy and radiation therapy for right u pper lobe metastatic lesion. TECHNIQUE: Noncontrast 5 mm thick sections acquired from the pulmonary apices to the posterior costophrenic angl es. 7 mm thick coronal and sagittal MIP reformats were then acquired. For radiation dose reduction, the following was used: automated exposure control, adjustment of mA and/or kV according to patient size. COMPARISON: 02/10/2020 FINDINGS: Image quality: Excellent. Lungs and pleura: ET tube tip extends minimally into the right main bronchus. Significant interval w orsening of pulmonary status. Previously, there was just focal bronchiectasis in the right apex with volume loss and pleural thickening. There is now dense left perihilar consolidation, patchy right-zhane ed upper lobe consolidation, patchy consolidation in the left lower lobe, and dense pneumonia and ate lectasis in the right lower lobe. Mild left pleural effusion has developed. Mediastinum: Heart size is normal. No pericardial effusion. Diffuse coronary artery calcifications. No mediastinal adenopathy by size criteria. Thoracic aorta and central pulmonary arteries are hannah l in size. Esophagus is normal in caliber. No hiatal hernia. Bones and chest wall: No suspicious bony lesions. No vertebral body compression fractures. No axil wang or supraclavicular adenopathy by size criteria. The thyroid is normal in size. Abdomen: Visualized upper abdominal solid organs and bowel loops appear normal in the absence of con trast. NG tube extends into the stomach. IMPRESSION: 1. ET tube extends minimally into the right vein bronchus and should be retracted. 2. Dense bilateral consolidation and some volume loss in the right lower lobe has developed, suggesti ng bilateral pneumonia or asymmetric pulmonary edema and atelectasis. 3. Development of small left pleural effusion. 4. Coronary artery disease. Above discussed with FANTA BARTLETT at the time of dictation on 02/28/2020 at 1138 hours PDT. Reviewed by: Jay Kebede MD on 02/28/2020 10:43 AM MELISSA Approved by: Jay Kebede MD on 02/28/2020 10:43 AM AKTERESO Station ID: [id number]
--- NOTE | 2020-02-28 11:45 | CT Report ---
PROCEDURE: Head W/O Stroke Protocol INDICATIONS: altered mental status TECHNIQUE: Noncontrast 4.5 mm thick angled axial sections acquired from the foramen magnum to the vertex, with c oronal reformats. For radiation dose reduction, the following was used: automated exposure control, adjustment of mA and/or kV according to patient size. COMPARISON: None FINDINGS: Image quality: Excellent. CSF spaces: Basal cisterns are patent. No extra-axial fluid collections. Ventricles are normal in size and shape. Brain: No midline shift. No intracranial masses or hemorrhage. Darling-white matter interface is norm al. Skull and face: Calvarium and visualized facial bones are intact, without suspicious lesions. Sinuses: Visualized sinuses and mastoids are clear. IMPRESSION: No evidence acute stroke, hemorrhage, or mass. This study fulfills neurological imaging criteria for inclusion or exclusion of acute stroke therapie s based on available published neurological imaging guidelines. Above discussed with FANTA BARTLETT at the time of dictation on 02/28/2020 at 1138 hours PDT. Reviewed by: Jay Kebede MD on 02/28/2020 10:43 AM MELISSA Approved by: Jay Kebede MD on 02/28/2020 10:43 AM MELISSA Station ID: [id number]
[2020-02-28] MEDS: polyethylene glycoL 3350 17 GM PACKET PO SCH (11:51)
--- NOTE | 2020-02-28 11:51 | CT Report ---
PROCEDURE: Abdomen/Pelvis WO INDICATIONS: SEPSIS CANCER CHEMO TECHNIQUE: Noncontrast 5 mm thick sections acquired from the diaphragms to the symphysis. 5 mm coronal and sagi ttal reformats were then performed. For radiation dose reduction, the following was used: automated exposure control, adjustment of mA and/or kV according to patient size. COMPARISON: CT chest from today, CT abdomen and pelvis without contrast dated 10/30/2019. FINDINGS: Image quality: Excellent. ABDOMEN: Lung bases: Dense atelectasis and consolidation in the right lower lobe, dense consolidation in the l eft lung base. Small left pleural effusion. Heart size is normal. Solid organs: Liver and spleen are normal in size. Gallbladder is surgically absent Pancreas is no rmal in contours. Interval increase in size of left adrenal nodule, previously 1.3 cm and now 1.9 cm consistent with a metastatic lesion. Kidneys are normal in size, without hydronephrosis or nephrolith iasis. Peritoneum and bowel: Remote gastric bypass surgery. NG tube extends into the stomach. Unenhanced francisco wel loops demonstrate normal wall thickness and caliber. No free fluid or air. Nodes and vessels: No retroperitoneal or mesenteric adenopathy by size criteria. Aorta and inferior vena cava are normal in caliber. Miscellaneous: No ventral hernias. PELVIS: Genitourinary: A Briones catheter decompresses the bladder. Miscellaneous: No inguinal hernias or adenopathy. Bones: No suspicious bony lesions. No vertebral body compression fractures. IMPRESSION: 1. Bibasilar consolidation and right basilar atelectasis, small left pleural effusion. 2. Enlarging left adrenal nodule consistent with enlarging metastatic lesion. 3. No evidence of acute abdominal process. Reviewed by: Jay Kebede MD on 02/28/2020 10:50 AM MELISSA Approved by: Jay Kebede MD on 02/28/2020 10:50 AM AKTERESO Station ID: [id number]
[2020-02-28] MEDS: PIPERACILLIN/TAZOBACTAM 3.375 GM in SODIUM CHLORIDE 0.9% MINIBAG 100 ML IV SCH ×3 (12:10→23:22)
[2020-02-28] MEDS: VANCOMYCIN INJ 1 GM, VANCOMYCIN INJ 250 MG in SODIUM CHLORIDE 0.9% 250 ML IV SCH (13:40)
--- NOTE | 2020-02-28 13:48 | PROVIDER PROGRESS NOTE ---
Subjective - Prog Note Date Prog Note Date: 02/28/20 Prog Note Time: 13:46 - Subjective Subjective: Yesterday evening when she was admitted she was sitting up in bed, eating her dinner, remarking on how much she likes the food. She was a vague historian. But appropriate. Over the course of the night she got sleepier and sleepier. She did receive her usual pain medication of oxycodone. Early this morning, she was unresponsive and had to be transferred to the ICU. She became hypotensive requiring levo fed. She also required fluid bolus. She was felt to have progression of pneumonia and in an immunocompromised patient was changed to cefepime and vancomycin. 08:10-09:10 am She began dropping her pressures further and was unresponsive to rising Levophed doses. When I examined the patient she was unresponsive to sternal rub. Head tilted back, and with nasal cannula oxygen, had agonal respiration. She was tachycardic to the 130s, but O2 sats are being maintained at 100%. Interventions over the next hour included stat EKG, troponin done on blood work as well as current troponin, followed by intubation. I have asked Dr. Zamora to please come and he was able to visualize her vocal cords and quickly intubate. Thick yellow secretions were present and we sent those off for culture. Initial ventilator settings with a rate of 16 and a tidal volume of 450 were initiated. Blood gas was done by me. ABG showed metabolic acido sis, hypoxemia. Ventilator settings adjusted to assist control, tidal volume 450, FiO2 60%, PEEP of 5 and pressure support of 10. EKG did not show any acute ischemic changes. There was changing of the T waves in V2 and V3 but no ST segment elevation. J-point remained stable. Repeat troponin was 14 whereas this morning's troponin was 9 but still within the realm of normal. CT of the head was done and negative. CT of the chest now shows consolidation of the left lung, developing pneumonia and atelectasis in the right lung with right pleural effusion. Current Medications - Current Medications Current Medications: Active Medications Acetaminophen (Tylenol) 650 mg PO Q4HR PRN PRN Reason: Pain 1 to 4 Last Admin: 02/28/20 00:50 Dose: 650 mg Documented by: Chlorhexidine Gluconate (Peridex) 15 ml PO BID ELDON Last Admin: 02/28/20 11:22 Dose: 15 ml Documented by: Enoxaparin Sodium (Lovenox) 100 mg SUBQ DAILY [facility] Heparin Sodium (Beef Lung) () 30 - 50 unit IVP PRN PRN PRN Reason: Port Protocol (<24 hours) Azithromycin 500 mg/ Sodium (Chloride) 250 mls @ 250 mls/hr IV Q24H [facility] Stop: 02/29/20 17:59 Last Infusion: 02/27/20 18:12 Dose: Infused Documented by: Norepinephrine Bitartrate 8 mg (/ Dextrose) 250 mls @ 0 mls/hr IV .Q0M [facility]; Protocol Last Titration: 02/28/20 13:00 Dose: 30 mcg/min, 56.25 mls/hr Documented by: Sodium Chloride (Normal Saline 0.9%) 1,000 mls @ 100 mls/hr IV .Q10H [facility] Last Infusion: 02/28/20 13:00 Dose: 100 mls/hr Documented by: Propofol (Diprivan) 500 mg in 50 mls @ 5.73 mls/hr IV .Q8H44M [facility]; Protocol Last Titration: 02/28/20 13:00 Dose: 10 mcg/kg/min, 5.73 mls/hr Documented by: Vancomycin HCl 1 gm/Vancomycin HCl 250 mg/ Sodium Chloride 250 mls @ 167 mls/hr IV Q12H [facility] Last Admin: 02/28/20 13:40 Dose: 167 mls/hr Documented by: Piperacillin Sod/Tazobactam (Sod 3.375 gm/ Sodium Chloride) 100 mls @ 200 mls/hr IV Q6HR [facility] Last Infusion: 02/28/20 12:40 Dose: Infused Documented by: Ondansetron HCl (Zofran Odt) 4 mg TL Q6HR PRN PRN Reason: Nausea / Vomiting Ondansetron HCl (Zofran Inj) 4 mg IVP Q6HR PRN PRN Reason: Nausea / Vomiting Pantoprazole Sodium (Protonix) 40 mg IVP QDAC [facility] Last Admin: 02/28/20 09:58 Dose: 40 mg Documented by: Polyethylene Glycol (Miralax) 17 gm PO DAILY [facility] Last Admin: 02/28/20 11:51 Dose: Not Given Documented by: Sodium Chloride (Normal Saline Flush 0.9%) 10 ml IVP PRN PRN PRN Reason: NEEDED PER PROVIDER ORDERS Sodium Chloride (Normal Saline Flush 0.9%) 10 ml IVP 0100,0900,1700 ELDON Last Admin: 02/28/20 00:25 Dose: 10 ml Documented by: Sodium Chloride (Normal Saline Flush 0.9%) 20 ml IVP PRN PRN PRN Reason: After Blood Draw Levothyroxine [Synthroid] 50 mcg PO QDAC 12/30/18 Citalopram [CeleXA] 40 tab PO DAILY 07/28/19 Cholecalciferol (Vitamin D3) [Vitamin D3] 2,000 units PO DAILY 10/06/19 Cyanocobalamin (Vitamin B-12) [Vitamin B-12] 1,000 mcg PO DAILY 10/06/19 Omeprazole 20 mg PO QDAC 10/06/19 Oxycodone HCl 5 mg PO QID PRN 10/06/19 traZODone [Desyrel] 100 mg PO QPM 10/06/19 Loratadine [Claritin] 10 mg PO DAILY PRN 02/02/20 Cefdinir 300 mg PO [id number] 02/27/20 Pregabalin 100 mg PO Q8H 02/27/20 Objective - Vital Signs/Intake & Output Reviewed Vital Signs: Yes Vital Signs: Vital Signs Temp Pulse Pulse Resp BP Pulse Ox 02/28/20 13:14 118 H 02/28/20 13:00 116 H 94/50 L 98 02/28/20 12:00 38.6 C H 121 H 18 81/53 L 98 02/28/20 11:30 124 H 18 86/52 L 94 02/28/20 11:00 122 H 18 85/46 L 98 02/28/20 10:28 124 H 02/28/20 10:00 38.7 C H 124 H 18 91/51 L 95 Intake & Output: Intake & Output 02/25/20 02/26/20 02/27/20 02/28/20 23:59 23:59 23:59 23:59 Intake Total 3081.700 2795.517 Output Total 850 1020 Balance 2231.700 1775.517 - Objective General Appearance: positive: Other (Intubated, on propofol drip, on Levophed drip almost maxed out, on ventilator. 5 foot 5 inch elderly female, 95 kg.) Eyes Bilateral: positive: Other (Pupils small, barely reactive) ENT: positive: Other (Upper dentures, oral mucosa is moist and pink) Neck: positive: No JVD. negative: Stiff neck, Carotid bruit Respiratory: positive: Chest non-tender, No respiratory distress, Rhonchi. negative: Wheezes, Rales Cardiovascular: positive: Regular rate & rhythm, Tachycardia. negative: Gallop/S4, Friction rub Abdomen: positive: No distention, Other (Hypoactive bowel sounds). negative: Guarding, Rebound Skin: positive: Warm, Dry, Pallor Extremities: positive: Non-tender, No pedal edema Neurologic/Psychiatric: positive: Other (Occasionally flutters her eyes open, will use her right hand for purposeful movements such as grabbing my hand by try to do blood gas. Otherwise no response) - Lab Results Fish Bones: 02/28/20 04:45 02/28/20 04:45 Other Labs: Lab Results x24hrs 02/28/20 02/28/20 02/28/20 Range/Units 10:15 04:45 04:45 WBC (4.8-10.8) x10^3/uL RBC (4.20-5.40) 10^6/uL Hgb (12.0-16.0) g/dL Hct (37.0-47.0) % MCV (81.0-99.0) fL MCH (27.0-31.0) pg MCHC (32.0-36.0) g/dL RDW (12.0-15.0) % Plt Count (130-450) 10^3/uL Neut # (Auto) (1.5-6.6) 10^3/uL Lymph # (Auto) (1.5-3.5) 10^3/uL Patrick # (Auto) (0.0-1.0) 10^3/uL Eos # (Auto) (0.0-0.7) 10^3/uL Baso # (Auto) (0.0-0.1) 10^3/uL Absolute Nucleated RBC x10^3/uL Total Counted Band Neuts % (Manual) (0 - 10) % Abnorm Lymph % (Manual) % Myelocytes % ( - 0) % Nucleated RBC % /100WBC Neutrophils # (Manual) (1.5-6.6) 10^3/uL Lymphocytes # (Manual) (1.5-3.5) 10^3/uL Monocytes # (Manual) (0.0-1.0) 10^3/uL Eosinophils # (Manual) (0-0.7) 10^3/uL Basophils # (Manual) (0-0.1) 10^3/uL Differential Comment WBC Morphology (NORMAL) Platelet Estimate (NORMAL) Platelet Morphology (NORMAL) RBC Morph Micro Appear (NORMAL) Bld Gas Analysis Time 1022 Sample Site RIGHT FEMORAL ABG pH 7.27 L (7.35-7.45) ABG pCO2 47 H (34-45) mmHg ABG pO2 62 L (80-100) mmHg ABG HCO3 21.1 L (22.0-26.0) mmol/L ABG Total CO2 22.5 (21.0-29.0) MMOL/L ABG O2 Saturation 89 L (94-98) % ABG Base Excess -5.6 L (-2.0-3.0) mmol/L Wesly Test NOT APPLICABLE VBG pH 7.227 L (7.31-7.41) Ionized Calcium 1.13 L (1.15-1.33) mmol/L Respiration Rate 18 b/min O2 Delivery Device VENTILATOR O2 Liters/Min LPM Vent Mode ASSIST/CONTROL FiO2 60.00 Tidal Volume 450 mL PEEP 5 cmH2O Pressure Support Vent 10 cmH2O Sodium (135-145) mmol/L Potassium (3.5-5.0) mmol/L Chloride (101-111) mmol/L Carbon Dioxide (21-32) mmol/L Anion Gap (6-13) BUN (6-20) mg/dL Creatinine (0.4-1.0) mg/dL Estimated GFR (MDRD) (>89) Glucose (70-100) mg/dL Lactic Acid (0.5-2.2) mmol/L Calcium (8.5-10.3) mg/dL Phosphorus (2.5-4.6) mg/dL Magnesium (1.7-2.8) mg/dL Total Bilirubin (0.2-1.0) mg/dL AST (10-42) IU/L ALT (10-60) IU/L Alkaline Phosphatase (42-121) IU/L Troponin I High Sens 14.5 (2.3-14.8) ng/L B-Natriuretic Peptide (5-100) pg/mL Total Protein (6.7-8.2) g/dL Albumin (3.2-5.5) g/dL Globulin (2.1-4.2) g/dL Albumin/Globulin Ratio (1.0-2.2) Lipase (22-51) U/L Urine Color Urine Clarity (CLEAR) Urine pH (5.0-7.5) PH Ur Specific [place] (1.002-1.030) Urine Protein (NEGATIVE) mg/dL Urine Glucose (UA) (NEGATIVE) mg/dL Urine Ketones (NEGATIVE) mg/dL Urine Occult Blood (NEGATIVE) Urine Nitrite (NEGATIVE) Urine Bilirubin (NEGATIVE) Urine Urobilinogen (NORMAL) E.U./dL Ur Leukocyte Esterase (NEGATIVE) Ur Microscopic Review Urine Culture Comments Nasal Screen MRSA (PCR) (NEGATIVE) 02/28/20 02/28/20 02/28/20 Range/Units 04:45 04:45 04:45 WBC 18.0 H (4.8-10.8) x10^3/uL RBC 3.50 L (4.20-5.40) 10^6/uL Hgb 8.7 L (12.0-16.0) g/dL Hct 29.5 L (37.0-47.0) % MCV 84.3 (81.0-99.0) fL MCH 24.9 L (27.0-31.0) pg MCHC 29.5 L (32.0-36.0) g/dL RDW 26.4 H (12.0-15.0) % Plt Count 169 (130-450) 10^3/uL Neut # (Auto) Not Reportable (1.5-6.6) 10^3/uL Lymph # (Auto) Not Reportable (1.5-3.5) 10^3/uL Patrick # (Auto) Not Reportable (0.0-1.0) 10^3/uL Eos # (Auto) Not Reportable (0.0-0.7) 10^3/uL Baso # (Auto) Not Reportable (0.0-0.1) 10^3/uL Absolute Nucleated RBC Not Reportable x10^3/uL Total Counted 100 Band Neuts % (Manual) 12 H (0 - 10) % Abnorm Lymph % (Manual) 0 % Myelocytes % 4 H ( - 0) % Nucleated RBC % Not Reportable /100WBC Neutrophils # (Manual) 13.3 H (1.5-6.6) 10^3/uL Lymphocytes # (Manual) 2.0 (1.5-3.5) 10^3/uL Monocytes # (Manual) 1.3 H (0.0-1.0) 10^3/uL Eosinophils # (Manual) 0.4 (0-0.7) 10^3/uL Basophils # (Manual) 0.4 H (0-0.1) 10^3/uL Differential Comment MANUAL DIFFERENTIAL WBC Morphology NORMAL APPEARANCE (NORMAL) Platelet Estimate NORMAL (130-450,000) (NORMAL) Platelet Morphology 2+ LARGE PLATELETS (NORMAL) RBC Morph Micro Appear 1+ HYPOCHROMASIA (NORMAL) Bld Gas Analysis Time Sample Site ABG pH (7.35-7.45) ABG pCO2 (34-45) mmHg ABG pO2 (80-100) mmHg ABG HCO3 (22.0-26.0) mmol/L ABG Total CO2 (21.0-29.0) MMOL/L ABG O2 Saturation (94-98) % ABG Base Excess (-2.0-3.0) mmol/L Wesly Test VBG pH (7.31-7.41) Ionized Calcium (1.15-1.33) mmol/L Respiration Rate b/min O2 Delivery Device O2 Liters/Min LPM Vent Mode FiO2 Tidal Volume mL PEEP cmH2O Pressure Support Vent cmH2O Sodium 133 L (135-145) mmol/L Potassium 3.9 (3.5-5.0) mmol/L Chloride 100 L (101-111) mmol/L Carbon Dioxide 24 (21-32) mmol/L Anion Gap 9.0 (6-13) BUN 26 H (6-20) mg/dL Creatinine 1.5 H (0.4-1.0) mg/dL Estimated GFR (MDRD) 34 L (>89) Glucose 214 H (70-100) mg/dL Lactic Acid (0.5-2.2) mmol/L Calcium 8.1 L (8.5-10.3) mg/dL Phosphorus 4.3 (2.5-4.6) mg/dL Magnesium 1.9 (1.7-2.8) mg/dL Total Bilirubin (0.2-1.0) mg/dL AST (10-42) IU/L ALT (10-60) IU/L Alkaline Phosphatase (42-121) IU/L Troponin I High Sens (2.3-14.8) ng/L B-Natriuretic Peptide (5-100) pg/mL Total Protein (6.7-8.2) g/dL Albumin 2.5 L (3.2-5.5) g/dL Globulin (2.1-4.2) g/dL Albumin/Globulin Ratio (1.0-2.2) Lipase (22-51) U/L Urine Color Urine Clarity (CLEAR) Urine pH (5.0-7.5) PH Ur Specific [place] (1.002-1.030) Urine Protein (NEGATIVE) mg/dL Urine Glucose (UA) (NEGATIVE) mg/dL Urine Ketones (NEGATIVE) mg/dL Urine Occult Blood (NEGATIVE) Urine Nitrite (NEGATIVE) Urine Bilirubin (NEGATIVE) Urine Urobilinogen (NORMAL) E.U./dL Ur Leukocyte Esterase (NEGATIVE) Ur Microscopic Review Urine Culture Comments Nasal Screen MRSA (PCR) (NEGATIVE) 02/28/20 02/28/20 02/28/20 Range/Units 01:05 00:45 00:45 WBC 16.3 H (4.8-10.8) x10^3/uL RBC 3.04 L (4.20-5.40) 10^6/uL Hgb 7.6 L (12.0-16.0) g/dL Hct 25.5 L (37.0-47.0) % MCV 83.9 (81.0-99.0) fL MCH 25.0 L (27.0-31.0) pg MCHC 29.8 L (32.0-36.0) g/dL RDW 25.8 H (12.0-15.0) % Plt Count 148 (130-450) 10^3/uL Neut # (Auto) Not Reportable (1.5-6.6) 10^3/uL Lymph # (Auto) Not Reportable (1.5-3.5) 10^3/uL Patrick # (Auto) Not Reportable (0.0-1.0) 10^3/uL Eos # (Auto) Not Reportable (0.0-0.7) 10^3/uL Baso # (Auto) Not Reportable (0.0-0.1) 10^3/uL Absolute Nucleated RBC Not Reportable x10^3/uL Total Counted 100 Band Neuts % (Manual) 14 H (0 - 10) % Abnorm Lymph % (Manual) 0 % Myelocytes % 4 H ( - 0) % Nucleated RBC % Not Reportable /100WBC Neutrophils # (Manual) 13.0 H (1.5-6.6) 10^3/uL Lymphocytes # (Manual) 1.6 (1.5-3.5) 10^3/uL Monocytes # (Manual) 0.7 (0.0-1.0) 10^3/uL Eosinophils # (Manual) 0.0 (0-0.7) 10^3/uL Basophils # (Manual) 0.3 H (0-0.1) 10^3/uL Differential Comment MANUAL DIFFERENTIAL WBC Morphology NORMAL APPEARANCE (NORMAL) Platelet Estimate NORMAL (130-450,000) (NORMAL) Platelet Morphology 2+ LARGE PLATELETS (NORMAL) RBC Morph Micro Appear 2+ ANISOCYTOSIS (NORMAL) Bld Gas Analysis Time Sample Site ABG pH (7.35-7.45) ABG pCO2 (34-45) mmHg ABG pO2 (80-100) mmHg ABG HCO3 (22.0-26.0) mmol/L ABG Total CO2 (21.0-29.0) MMOL/L ABG O2 Saturation (94-98) % ABG Base Excess (-2.0-3.0) mmol/L Wesly Test VBG pH (7.31-7.41) Ionized Calcium (1.15-1.33) mmol/L Respiration Rate b/min O2 Delivery Device O2 Liters/Min LPM Vent Mode FiO2 Tidal Volume mL PEEP cmH2O Pressure Support Vent cmH2O Sodium 131 L (135-145) mmol/L Potassium 4.2 (3.5-5.0) mmol/L Chloride 100 L (101-111) mmol/L Carbon Dioxide 23 (21-32) mmol/L Anion Gap 8.0 (6-13) BUN 28 H (6-20) mg/dL Creatinine 1.6 H (0.4-1.0) mg/dL Estimated GFR (MDRD) 32 L (>89) Glucose 139 H (70-100) mg/dL Lactic Acid (0.5-2.2) mmol/L Calcium 7.7 L (8.5-10.3) mg/dL Phosphorus (2.5-4.6) mg/dL Magnesium (1.7-2.8) mg/dL Total Bilirubin (0.2-1.0) mg/dL AST (10-42) IU/L ALT (10-60) IU/L Alkaline Phosphatase (42-121) IU/L Troponin I High Sens (2.3-14.8) ng/L B-Natriuretic Peptide (5-100) pg/mL Total Protein (6.7-8.2) g/dL Albumin (3.2-5.5) g/dL Globulin (2.1-4.2) g/dL Albumin/Globulin Ratio (1.0-2.2) Lipase (22-51) U/L Urine Color Urine Clarity (CLEAR) Urine pH (5.0-7.5) PH Ur Specific [place] (1.002-1.030) Urine Protein (NEGATIVE) mg/dL Urine Glucose (UA) (NEGATIVE) mg/dL Urine Ketones (NEGATIVE) mg/dL Urine Occult Blood (NEGATIVE) Urine Nitrite (NEGATIVE) Urine Bilirubin (NEGATIVE) Urine Urobilinogen (NORMAL) E.U./dL Ur Leukocyte Esterase (NEGATIVE) Ur Microscopic Review Urine Culture Comments Nasal Screen MRSA (PCR) NEGATIVE (NEGATIVE) 02/28/20 02/28/20 02/27/20 Range/Units 00:45 00:40 15:26 WBC (4.8-10.8) x10^3/uL RBC (4.20-5.40) 10^6/uL Hgb (12.0-16.0) g/dL Hct (37.0-47.0) % MCV (81.0-99.0) fL MCH (27.0-31.0) pg MCHC (32.0-36.0) g/dL RDW (12.0-15.0) % Plt Count (130-450) 10^3/uL Neut # (Auto) (1.5-6.6) 10^3/uL Lymph # (Auto) (1.5-3.5) 10^3/uL Patrick # (Auto) (0.0-1.0) 10^3/uL Eos # (Auto) (0.0-0.7) 10^3/uL Baso # (Auto) (0.0-0.1) 10^3/uL Absolute Nucleated RBC x10^3/uL Total Counted Band Neuts % (Manual) (0 - 10) % Abnorm Lymph % (Manual) % Myelocytes % ( - 0) % Nucleated RBC % /100WBC Neutrophils # (Manual) (1.5-6.6) 10^3/uL Lymphocytes # (Manual) (1.5-3.5) 10^3/uL Monocytes # (Manual) (0.0-1.0) 10^3/uL Eosinophils # (Manual) (0-0.7) 10^3/uL Basophils # (Manual) (0-0.1) 10^3/uL Differential Comment WBC Morphology (NORMAL) Platelet Estimate (NORMAL) Platelet Morphology (NORMAL) RBC Morph Micro Appear (NORMAL) Bld Gas Analysis Time 0047 Sample Site RIGHT RADIAL ABG pH 7.34 L (7.35-7.45) ABG pCO2 48 H (34-45) mmHg ABG pO2 75 L (80-100) mmHg ABG HCO3 25.1 (22.0-26.0) mmol/L ABG Total CO2 26.6 (21.0-29.0) MMOL/L ABG O2 Saturation 94 (94-98) % ABG Base Excess -0.8 (-2.0-3.0) mmol/L Wesly Test POSITIVE VBG pH (7.31-7.41) Ionized Calcium (1.15-1.33) mmol/L Respiration Rate b/min O2 Delivery Device OXYMASK O2 Liters/Min 10.00 LPM Vent Mode FiO2 Tidal Volume mL PEEP cmH2O Pressure Support Vent cmH2O Sodium (135-145) mmol/L Potassium (3.5-5.0) mmol/L Chloride (101-111) mmol/L Carbon Dioxide (21-32) mmol/L Anion Gap (6-13) BUN (6-20) mg/dL Creatinine (0.4-1.0) mg/dL Estimated GFR (MDRD) (>89) Glucose (70-100) mg/dL Lactic Acid 0.8 (0.5-2.2) mmol/L Calcium (8.5-10.3) mg/dL Phosphorus (2.5-4.6) mg/dL Magnesium (1.7-2.8) mg/dL Total Bilirubin (0.2-1.0) mg/dL AST (10-42) IU/L ALT (10-60) IU/L Alkaline Phosphatase (42-121) IU/L Troponin I High Sens (2.3-14.8) ng/L B-Natriuretic Peptide (5-100) pg/mL Total Protein (6.7-8.2) g/dL Albumin (3.2-5.5) g/dL Globulin (2.1-4.2) g/dL Albumin/Globulin Ratio (1.0-2.2) Lipase (22-51) U/L Urine Color YELLOW Urine Clarity CLEAR (CLEAR) Urine pH 5.5 (5.0-7.5) PH Ur Specific [place] 1.015 (1.002-1.030) Urine Protein NEGATIVE (NEGATIVE) mg/dL Urine Glucose (UA) NEGATIVE (NEGATIVE) mg/dL Urine Ketones NEGATIVE (NEGATIVE) mg/dL Urine Occult Blood NEGATIVE (NEGATIVE) Urine Nitrite NEGATIVE (NEGATIVE) Urine Bilirubin NEGATIVE (NEGATIVE) Urine Urobilinogen 0.2 (NORMAL) (NORMAL) E.U./dL Ur Leukocyte Esterase NEGATIVE (NEGATIVE) Ur Microscopic Review NOT INDICATED Urine Culture Comments NOT INDICATED Nasal Screen MRSA (PCR) (NEGATIVE) 02/27/20 02/27/20 02/27/20 Range/Units 14:11 14:11 14:11 WBC (4.8-10.8) x10^3/uL RBC (4.20-5.40) 10^6/uL Hgb (12.0-16.0) g/dL Hct (37.0-47.0) % MCV (81.0-99.0) fL MCH (27.0-31.0) pg MCHC (32.0-36.0) g/dL RDW (12.0-15.0) % Plt Count (130-450) 10^3/uL Neut # (Auto) (1.5-6.6) 10^3/uL Lymph # (Auto) (1.5-3.5) 10^3/uL Patrick # (Auto) (0.0-1.0) 10^3/uL Eos # (Auto) (0.0-0.7) 10^3/uL Baso # (Auto) (0.0-0.1) 10^3/uL Absolute Nucleated RBC x10^3/uL Total Counted Band Neuts % (Manual) (0 - 10) % Abnorm Lymph % (Manual) % Myelocytes % ( - 0) % Nucleated RBC % /100WBC Neutrophils # (Manual) (1.5-6.6) 10^3/uL Lymphocytes # (Manual) (1.5-3.5) 10^3/uL Monocytes # (Manual) (0.0-1.0) 10^3/uL Eosinophils # (Manual) (0-0.7) 10^3/uL Basophils # (Manual) (0-0.1) 10^3/uL Differential Comment WBC Morphology (NORMAL) Platelet Estimate (NORMAL) Platelet Morphology (NORMAL) RBC Morph Micro Appear (NORMAL) Bld Gas Analysis Time Sample Site ABG pH (7.35-7.45) ABG pCO2 (34-45) mmHg ABG pO2 (80-100) mmHg ABG HCO3 (22.0-26.0) mmol/L ABG Total CO2 (21.0-29.0) MMOL/L ABG O2 Saturation (94-98) % ABG Base Excess (-2.0-3.0) mmol/L Wesly Test VBG pH (7.31-7.41) Ionized Calcium (1.15-1.33) mmol/L Respiration Rate b/min O2 Delivery Device O2 Liters/Min LPM Vent Mode FiO2 Tidal Volume mL PEEP cmH2O Pressure Support Vent cmH2O Sodium (135-145) mmol/L Potassium (3.5-5.0) mmol/L Chloride (101-111) mmol/L Carbon Dioxide (21-32) mmol/L Anion Gap (6-13) BUN (6-20) mg/dL Creatinine (0.4-1.0) mg/dL Estimated GFR (MDRD) (>89) Glucose (70-100) mg/dL Lactic Acid 1.2 (0.5-2.2) mmol/L Calcium (8.5-10.3) mg/dL Phosphorus (2.5-4.6) mg/dL Magnesium (1.7-2.8) mg/dL Total Bilirubin (0.2-1.0) mg/dL AST (10-42) IU/L ALT (10-60) IU/L Alkaline Phosphatase (42-121) IU/L Troponin I High Sens 9.1 (2.3-14.8) ng/L B-Natriuretic Peptide 108 H (5-100) pg/mL Total Protein (6.7-8.2) g/dL Albumin (3.2-5.5) g/dL Globulin (2.1-4.2) g/dL Albumin/Globulin Ratio (1.0-2.2) Lipase (22-51) U/L Urine Color Urine Clarity (CLEAR) Urine pH (5.0-7.5) PH Ur Specific [place] (1.002-1.030) Urine Protein (NEGATIVE) mg/dL Urine Glucose (UA) (NEGATIVE) mg/dL Urine Ketones (NEGATIVE) mg/dL Urine Occult Blood (NEGATIVE) Urine Nitrite (NEGATIVE) Urine Bilirubin (NEGATIVE) Urine Urobilinogen (NORMAL) E.U./dL Ur Leukocyte Esterase (NEGATIVE) Ur Microscopic Review Urine Culture Comments Nasal Screen MRSA (PCR) (NEGATIVE) 02/27/20 02/27/20 Range/Units 14:11 14:11 WBC 13.3 H (4.8-10.8) x10^3/uL RBC 3.25 L (4.20-5.40) 10^6/uL Hgb 8.0 L (12.0-16.0) g/dL Hct 27.0 L (37.0-47.0) % MCV 83.1 (81.0-99.0) fL MCH 24.6 L (27.0-31.0) pg MCHC 29.6 L (32.0-36.0) g/dL RDW 26.7 H (12.0-15.0) % Plt Count 145 (130-450) 10^3/uL Neut # (Auto) 8.1 H (1.5-6.6) 10^3/uL Lymph # (Auto) 1.0 L (1.5-3.5) 10^3/uL Patrick # (Auto) 0.9 (0.0-1.0) 10^3/uL Eos # (Auto) 0.2 (0.0-0.7) 10^3/uL Baso # (Auto) 0.3 H (0.0-0.1) 10^3/uL Absolute Nucleated RBC 0.14 x10^3/uL Total Counted Band Neuts % (Manual) (0 - 10) % Abnorm Lymph % (Manual) % Myelocytes % ( - 0) % Nucleated RBC % 1.1 /100WBC Neutrophils # (Manual) (1.5-6.6) 10^3/uL Lymphocytes # (Manual) (1.5-3.5) 10^3/uL Monocytes # (Manual) (0.0-1.0) 10^3/uL Eosinophils # (Manual) (0-0.7) 10^3/uL Basophils # (Manual) (0-0.1) 10^3/uL Differential Comment WBC Morphology (NORMAL) Platelet Estimate (NORMAL) Platelet Morphology (NORMAL) RBC Morph Micro Appear (NORMAL) Bld Gas Analysis Time Sample Site ABG pH (7.35-7.45) ABG pCO2 (34-45) mmHg ABG pO2 (80-100) mmHg ABG HCO3 (22.0-26.0) mmol/L ABG Total CO2 (21.0-29.0) MMOL/L ABG O2 Saturation (94-98) % ABG Base Excess (-2.0-3.0) mmol/L [place] Test VBG pH (7.31-7.41) Ionized Calcium (1.15-1.33) mmol/L Respiration Rate b/min O2 Delivery Device O2 Liters/Min LPM Vent Mode FiO2 Tidal Volume mL PEEP cmH2O Pressure Support Vent cmH2O Sodium 133 L (135-145) mmol/L Potassium 4.1 (3.5-5.0) mmol/L Chloride 96 L (101-111) mmol/L Carbon Dioxide 23 (21-32) mmol/L Anion Gap 14.0 H (6-13) BUN 32 H (6-20) mg/dL Creatinine 1.7 H (0.4-1.0) mg/dL Estimated GFR (MDRD) 29 L (>89) Glucose 109 H (70-100) mg/dL Lactic Acid (0.5-2.2) mmol/L Calcium 7.9 L (8.5-10.3) mg/dL Phosphorus (2.5-4.6) mg/dL Magnesium (1.7-2.8) mg/dL Total Bilirubin 0.5 (0.2-1.0) mg/dL AST 40 (10-42) IU/L ALT 21 (10-60) IU/L Alkaline Phosphatase 84 (42-121) IU/L Troponin I High Sens (2.3-14.8) ng/L B-Natriuretic Peptide (5-100) pg/mL Total Protein 5.5 L (6.7-8.2) g/dL Albumin 2.3 L (3.2-5.5) g/dL Globulin 3.2 (2.1-4.2) g/dL Albumin/Globulin Ratio 0.7 L (1.0-2.2) Lipase 23 (22-51) U/L Urine Color Urine Clarity (CLEAR) Urine pH (5.0-7.5) PH Ur Specific [place] (1.002-1.030) Urine Protein (NEGATIVE) mg/dL Urine Glucose (UA) (NEGATIVE) mg/dL Urine Ketones (NEGATIVE) mg/dL Urine Occult Blood (NEGATIVE) Urine Nitrite (NEGATIVE) Urine Bilirubin (NEGATIVE) Urine Urobilinogen (NORMAL) E.U./dL Ur Leukocyte Esterase (NEGATIVE) Ur Microscopic Review Urine Culture Comments Nasal Screen MRSA (PCR) (NEGATIVE) Assessment/Plan - Problem List (1) Shock circulatory Impression: This woman suddenly dropped her blood pressure in spite of being on antibiotics for community-acquired pneumonia. DVT of the legs was negative for PE. Initial troponins yesterday were negative and EKG was negative for AR. As her work-up is gone on, repeat EKG equivocal, repeat troponin negative. She is on Lovenox for possible DVTs but venous Dopplers negative. CT of the chest confirms that she is having extension of her pneumonia with consolidation on the left side and developed worsening pneumonia on the right. CT the head negative for stroke. As such, my conclusion is possible shock from sepsis and pneumonia. Blood gases show metabolic acidosis. Lactic acid was negative yesterday. White cell count is rising. Plan: Continue to maximally support in the ICU with ventilator and pressure support with Levophed Sputum is submitted for culture and will adjust antibiotics on the basis Sputum Gram stain does show yeast, will add fluconazole Advanced care planning under separate conversation dictated (2) Metastatic non-small cell lung cancer Impression: She has been on nivolumab for 2 to 2-1/2 years. Immunocompromise. We are taking that into consideration for treatment of her pneumonia. (3) Pneumonia Impression: Blood cultures from being in the emergency room yesterday are pending. Today sputum cultures were submitted. Gram stain shows many white cells, yeast, but no bacteria. Plan: Zosyn and vancomycin have been adjusted by pharmacy twice now. Night pharmacist reduce Zosyn dose, daytime pharmacist increase Zosyn dose. Will add fluconazole IV Adjust antibiotics on the basis of blood cultures and sputum cultures when they are available Watch for nephrotoxicity because of interaction between Zosyn and vancomycin in a patient whose had a nephrectomy Qualifiers: Pneumonia type: due to unspecified organism Laterality: bilateral Lung location: lower lobe of lung Qualified Code(s): J18.9 - Pneumonia, unspecified organism (4) Acute kidney injury Impression: Present on admission. Creatinine was 1.7. Her usual creatinine is 0.9-1.0. Her GFR had dropped low enough that I could not do CT pulmonary angiogram for PE. Today she is improving. GFR is 32 and creatinine is 1.6. However, in view of hypotension requiring Levophed, anticipate this to worsen with follow-up labs tomorrow. Plan: Continue to monitor (5) Hypothyroid Impression: she is NPO with NG now. in the next few days consider IV supplement. 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
--- NOTE | 2020-02-28 14:17 | ADVANCE CARE PLANNING NOTE ---
Advance Care Planning - Planning Encounter Date: 02/28/20 Time: 14:15 Purpose: rediscuss code status in view of critical condition Parties in Attendance: Ex , who lives with her. Son who is #3 child. Oldest is . 2nd has mental health issues and can't be here. #4 lives in [place] and can't be here. Daughter in law Grandson Tj [employer] student Dr. Fried, Hospitalist Decisional Capacity of the Patient: She is unable to make decisions at this time. Went into circulatory shock, is now intubated and on ventilator with propofol. Levophed. - Diagnosis for Encounter (1) Metastatic non-small cell lung cancer Summary: Initially diagnosed with head and neck cancer in March 2015. Underwent chemoradiation for treatment. In April 2015 she developed a left lung squamous cell carcinoma. Underwent lobectomy, and was felt to be a stage Ia. She then had subsequent metastatic squamous cell cancer of the right lung diagnosed in July 2016. Radiation followed in November 2016. Nivolumab started April 2017. She has been on nivolumab since that time. - Encounter Subjective/Patient's Story: She is a moderately obese white female who is had unfortunate lifetime history of cancer. She has had a nephrectomy, this was for renal cell cancer. She has had a lumpectomy and radiation for breast cancer. She has had a head and neck cancer. Then she had a lung cancer treated. The lung cancer returned with metastatic disease to the other side. She has chronic back pain over the area of the lung cancer surgery. She is developed chronic peripheral neuropathy due to the chemotherapy done for the head and neck cancer as well as the first appearance of her lung cancer. Over time she is been more and more tired. Less energetic. She still manages to dress herself, feed herself, but her is having to help her more and more with activity around the house. He is her ex-. But they still live together. She has 4 children. Her oldest child is . Second child has mental health issues and is unable to be supportive at this time. Third child is in her life, and helps them on occasion. Fourth child lives in [place]. Things have taken a turn for the worse for her sake over the last few months. He himself is been diagnosed as having a liver mass and he feels that she is beside herself with worry as she worries about herself and her cancer, and him. Palliative care consultation has been done. Ana Antunez notes are appreciated. With her last encounter in January 2020, power of attorney general was mentioned. Since he is her ex-, power of attorney general would legally fall to her son. He never got around to formalizing the power of attorney general. However, her son is here now, and they are both in agreement and on the same page with regards to high want to proceed. They recognize that she has been deteriorating. They also acknowledged that her prognosis was quite poor when she was first diagnosed with the metastatic lung cancer. It is been amazing she is survive this long. She has been getting weaker. More fatigue. Requiring more help with her anxiety was increasing as she tried to figure out how there was help for her and her and what finances would be needed to do that. Up until now she has been a full code. has not been able to discuss anything about this because it was so upsetting to him. At this point in time he is supported by his son and helping make decisions now. She was admitted as a near syncope from falling in the kitchen. We have found her to have pneumonia that is now gradually progressive and she is gone into circulatory shock. She is now in the ICU, on a ventilator, and on Levophed. I have asked him if they want us to go any further such as with dialysis or CPR/cardioversion. Objective/Medical Story: CP is a 74yo female who experienced a GLF this afternoon, was unable to get her up off the floor and EMS was called. While in the ED pt was hypotensive and required supplemental 3L oxygen via NC to maintain saturation levels >92%. Diffuse right side and right hip pain from fall, non-sepcifically characterized. Pt denies loss of consciousness and thinks she may have hit the back of her head on the way down but ultimately landed on her bottom. No tenderness, redness or swelling noted to pt's head upon physical exam. Pt has a recent history significant for dx of pylonephritis, seen in the ED here on 02/23, discharged to home with Cefdinir abx PO. Pt reports to have been taking her dc medications as prescribed. Pt reports having poor appetite over the past week, not eating and drinking very little for four days prior to being evaluated in ED on 02/23, but has just recently resumed her normal eating habits yesterday 02/25. She reports feeling fatigued over the past week and has been experiencing dizziness upon standing and ambulating in her home. Minor non-productive cough present upon assessment. Pt denies wheezing but reports some minor dyspnea recently. Denies any chest pain or palpitations and reports an increase in her forgetfulness the past week. (Brandie Gallardo) Agree with the above history is obtained from patient. She was seen and examined under separate encounter. She is a difficult historian and that she cannot remember a lot of details, and will say "I do not know" quite a bit but at the same time say "yes" to a review of systems for everything. (Vickie Fried) History - Past Medical History Cardiovascular: reports: Hypertension Respiratory: reports: Other (met squamous cell lung ca, R lower lobectomy) Neuro: reports: Peripheral neuropathy Endocrine/Autoimmune: reports: HyPOthyroidism GI: reports: GERD, Ulcers LOANS CONSULTANT: reports: None, Breast cancer : reports: Incontinence, Renal insuffiency (has one kidney), Other (hx of renal cell carcinoma) HEENT: reports: Chronic vision loss, Other (hx of head and neck cancer treated with chemoradiation) Psych: reports: Depression, Anxiety Musculoskeletal: reports: Osteoarthritis, Other (Chronic pain in neck and back) Derm: reports: None MRSA Hx?: No - Past Surgical History General: reports: Cholecystectomy, Appendectomy, Gastric surgery (gastroplasty; reverse of gastroplasty), Other (RLL lobectomy) /LOANS CONSULTANT: reports: Other (lumpectomy with radiation) HEENT: reports: Cataracts Goals of Care: 1. To see if she can make it through this episode of care to return to home. 2. In view of her severity of illness, and poor overall prognosis with regards to her lung cancer, they feel that CPR is not indicated. Plan: Change resuscitative status to DO NOT RESUSCITATE. However continue current intubation, pressor support. We will reevaluate in the next 48 hours to see how she responds. They feel that if this were to continue on for too much longer, she would not want to be on a ventilator or life support as she is. Code Status: Do Not Attempt Resuscitation Time spent on advance care plannin minutes spent with family and patient in ICU
[2020-02-28] MEDS: AZITHROMYCIN INJ 500 MG in SODIUM CHLORIDE 0.9% 250 ML IV SCH (16:15)
--- NOTE | 2020-02-28 16:34 | PHARMACY PROGRESS NOTE ---
- Therapy Status Vancomycin regimen day #: 1 Therapy status: Awaiting steady state Basis for treatment: Empirical Trough goal: >15 Concurrent antibiotics: ZOSYN,FLUCONAZOLE,AZITHROMYCIN - MIGUEL Risk Risk level for Acute Kidney Injury: Moderate Acute Kidney Injury risk factors: Piperacillin/Tozobactam, Baseline CrCl <50, Admission to ICU - Monitoring and Recommendation Clinical response to treatment: I&O Previous 24 hours 02/26/20 02/27/20 02/28/20 23:59 23:59 23:59 Intake Total 3081.700 3505.807 Output Total 850 1070 Balance 2231.700 2435.807 Lab Results 02/28/20 02/28/20 02/27/20 04:45 00:45 14:11 BUN 26 H 28 H 32 H Creatinine 1.5 H 1.6 H 1.7 H Estimated GFR (MDRD) 34 L 32 L 29 L Cultures 02/28/20 09:00 Sputum Respiratory Culture - Preliminary Monitoring plan: Daily serum creatinine
[2020-02-28] MEDS ORDERED: ACETAMINOPHEN 1,000 MG/100 ML 100 ML IV ONE (20:48)
[2020-02-28] MEDS ORDERED: HYDROmorphone 0.5 MG/0.5 ML SYRINGE IVP ONE (21:00)
[2020-02-29] MEDS: VANCOMYCIN INJ 1 GM, VANCOMYCIN INJ 250 MG in SODIUM CHLORIDE 0.9% 250 ML IV SCH (01:27)
[2020-02-29] MEDS: SODIUM CHLORIDE 0.9% 1,000 ML IV SCH ×3 (03:17→15:43)
[2020-02-29] MEDS ORDERED: CARBOXYMETHYLCELLULOSE OPHTH DROPS EACHEYE PRN (03:34)
[2020-02-29 05:03] LABS: VBG PH 7.373 (7.31-7.41)
[2020-02-29 05:04] LABS: BASOPHILS # (AUTO) 0.5 10^3/uL (0.0-0.1); BASOPHILS % (AUTO) 2.1 %; EOSINOPHILS # (AUTO) 0.3 10^3/uL (0.0-0.7); HGB - HEMOGLOBIN 7.7 g/dL (12.0-16.0); LYMPHOCYTES # (AUTO) 1.2 10^3/uL (1.5-3.5); MEAN CORPUSCULAR HEMOGLOBIN 24.2 pg (27.0-31.0); MEAN CORPUSCULAR HGB CONC 29.7 g/dL (32.0-36.0); MEAN CORPUSCULAR VOLUME 81.4 fL (81.0-99.0); MONOCYTES # (AUTO) 1.3 10^3/uL (0.0-1.0); MONOCYTES % (AUTO) 5.3 %; NEUTROPHILS # (AUTO) 18.4 10^3/uL (1.5-6.6); NEUTROPHILS % (AUTO) 76.1 %; PLT - PLATELET COUNT 158 10^3/uL (130-450); RED BLOOD COUNT 3.18 10^6/uL (4.20-5.40); RED CELL DISTRIBUTION WIDTH 26.2 % (12.0-15.0); WHITE BLOOD COUNT 24.2 x10^3/uL (4.8-10.8)
[2020-02-29 05:13] LABS: ALBUMIN 2.1 g/dL (3.2-5.5); CALCIUM 7.8 mg/dL (8.5-10.3); CREATININE 1.5 mg/dL (0.4-1.0); MAGNESIUM 1.7 mg/dL (1.7-2.8); PHOSPHORUS 3.2 mg/dL (2.5-4.6)
[2020-02-29] MEDS: PROPOFOL 500 MG/50 ML 500 MG/50 ML VIAL IV SCH ×2 (05:22→14:26)
[2020-02-29 05:25] LABS: ABG BASE EXCESS -3.6 mmol/L (-2.0-3.0); ABG HCO3 21.5 mmol/L (22.0-26.0); ABG OXYGEN SATURATION 94 % (94-98); ABG PCO2 39 mmHg (34-45); ABG PH 7.36 (7.35-7.45); ABG PO2 73 mmHg (80-100); ABG TCO2 22.7 MMOL/L (21.0-29.0); ALLEN TEST POSITIVE
[2020-02-29] MEDS: PIPERACILLIN/TAZOBACTAM 3.375 GM in SODIUM CHLORIDE 0.9% MINIBAG 100 ML IV SCH ×3 (05:27→21:45)
[2020-02-29 05:36] LABS: PLATELET ESTIMATE, MANUAL NORMAL (130-450,000) (NORMAL); PLATELET MORPHOLOGY 1+ GIANT PLATELETS (NORMAL)
[2020-02-29] MEDS ORDERED: MAGNESIUM SULFATE 2 GRAM 2 GM/50 ML BAG IV ONE (05:47)
[2020-02-29] MEDS: PANTOPRAZOLE 40 MG VIAL IVP SCH (06:02)
[2020-02-29] MEDS: SODIUM CHLORIDE FLUSH 0.9% 10 ML SYRINGE IVP PRN (06:02)
[2020-02-29] MEDS ORDERED: ACETAMINOPHEN 1,000 MG/100 ML 100 ML IV SCH (06:20)
[2020-02-29] MEDS: HYDROmorphone 0.5 MG/0.5 ML SYRINGE IVP PRN (06:37)
[2020-02-29] MEDS: FLUCONAZOLE 200 MG/100 ML 100 ML IV SCH (08:35)
[2020-02-29] MEDS: SODIUM CHLORIDE FLUSH 0.9% 10 ML SYRINGE IVP SCH ×2 (08:38→19:20)
[2020-02-29] MEDS: polyethylene glycoL 3350 17 GM PACKET PO SCH (08:39)
[2020-02-29] MEDS ORDERED: ENOXAPARIN 100 MG/ML SYRINGE SUBQ SCH (09:00)
[2020-02-29] MEDS: CHLORHEXIDINE GLUCONATE 15 ML UDC PO SCH ×2 (11:19→21:45)
--- NOTE | 2020-02-29 11:30 | PROVIDER PROGRESS NOTE ---
Subjective - Prog Note Date Prog Note Date: 02/29/20 Prog Note Time: 11:28 - Subjective Subjective: ICU day 2. Ventilator day 2 Levophed day 2 Stable on the ventilator overnight. Oxygen requirement lower and her FiO2 is down to 30%. Blood gas has improved and her pH is 7.36, PCO2 39, PO2 73. HCO3 is 21.5 and base excess is -3.6. She is more responsive and alert. Yesterday morning she was obtunded and unresponsive to sternal rub. Later in the morning she did grab my hand and flutter open her eyes. Now she is opening her eyes, responding to the nurse appropriately with yes no shake of her head. Appears very tired. Restraints are in place for safety. To make sure we are not missing COVID-19, we are checking PCR. However that is put her in isolation. Intake and output balance shows are (+) 2231 on February 26. (+)3748 on February 27. And this morning she is 1117 cc positive. Current Medications - Current Medications Current Medications: Active Medications Acetaminophen (Tylenol) 650 mg PO Q4HR PRN PRN Reason: Pain 1 to 4 Last Admin: 02/28/20 00:50 Dose: 650 mg Documented by: Carboxymethylcellulose (Refresh 1% Ophth Drops) 1 drops EACHEYE PRN PRN PRN Reason: Dry Eye Chlorhexidine Gluconate (Peridex) 15 ml PO BID [facility] Last Admin: 02/29/20 11:19 Dose: 15 ml Documented by: Enoxaparin Sodium (Lovenox) 40 mg SUBQ DAILY [facility] Heparin Sodium (Beef Lung) () 30 - 50 unit IVP PRN PRN PRN Reason: Port Protocol (<24 hours) Hydromorphone HCl (Dilaudid Inj Syringe) 0.5 mg IVP Q3H PRN PRN Reason: PAIN Last Admin: 02/29/20 06:37 Dose: 0.5 mg Documented by: Azithromycin 500 mg/ Sodium (Chloride) 250 mls @ 250 mls/hr IV Q24H [facility] Stop: 02/29/20 17:59 Last Infusion: 02/28/20 17:20 Dose: Infused Documented by: Norepinephrine Bitartrate 8 mg (/ Dextrose) 250 mls @ 0 mls/hr IV .Q0M [facility]; Protocol Last Titration: 02/29/20 11:21 Dose: 14 mcg/min, 26.25 mls/hr Documented by: Sodium Chloride (Normal Saline 0.9%) 1,000 mls @ 100 mls/hr IV .Q10H [facility] Last Infusion: 02/29/20 11:00 Dose: 100 mls/hr Documented by: Propofol (Diprivan) 500 mg in 50 mls @ 5.73 mls/hr IV .Q8H44M [facility]; Protocol Last Titration: 02/29/20 10:00 Dose: 10 mcg/kg/min, 5.73 mls/hr Documented by: Fluconazole (Diflucan 200 Mg/100 Ml) 100 mls @ 100 mls/hr IV DAILY [facility] Last Infusion: 02/29/20 09:35 Dose: Infused Documented by: Acetaminophen (Ofirmev) 100 mls @ 400 mls/hr IV ONCE ELDON Stop: 02/29/20 12:00 Last Infusion: 02/29/20 07:30 Dose: Infused Documented by: Piperacillin Sod/Tazobactam (Sod 3.375 gm/ Sodium Chloride) 100 mls @ 25 mls/hr IV Q8HR [facility] Ondansetron HCl (Zofran Odt) 4 mg TL Q6HR PRN PRN Reason: Nausea / Vomiting Ondansetron HCl (Zofran Inj) 4 mg IVP Q6HR PRN PRN Reason: Nausea / Vomiting Pantoprazole Sodium (Protonix) 40 mg IVP QDAC [facility] Last Admin: 02/29/20 06:02 Dose: 40 mg Documented by: Polyethylene Glycol (Miralax) 17 gm PO DAILY [facility] Last Admin: 02/29/20 08:39 Dose: Not Given Documented by: Sodium Chloride (Normal Saline Flush 0.9%) 10 ml IVP PRN PRN PRN Reason: NEEDED PER PROVIDER ORDERS Last Admin: 02/29/20 06:02 Dose: 10 ml Documented by: Sodium Chloride (Normal Saline Flush 0.9%) 10 ml IVP 0100,0900,1700 [facility] Last Admin: 02/29/20 08:38 Dose: Not Given Documented by: Sodium Chloride (Normal Saline Flush 0.9%) 20 ml IVP PRN PRN PRN Reason: After Blood Draw Levothyroxine [Synthroid] 50 mcg PO QDAC 12/30/18 Citalopram [CeleXA] 40 tab PO DAILY 07/28/19 Cholecalciferol (Vitamin D3) [Vitamin D3] 2,000 units PO DAILY 10/06/19 Cyanocobalamin (Vitamin B-12) [Vitamin B-12] 1,000 mcg PO DAILY 10/06/19 Omeprazole 20 mg PO QDAC 10/06/19 Oxycodone HCl 5 mg PO QID PRN 10/06/19 traZODone [Desyrel] 100 mg PO QPM 10/06/19 Loratadine [Claritin] 10 mg PO DAILY PRN 02/02/20 Cefdinir 300 mg PO [id number] 02/27/20 Pregabalin 100 mg PO Q8H 02/27/20 Objective - Vital Signs/Intake & Output Vital Signs: Vital Signs Temp Pulse Pulse Resp BP 02/29/20 10:15 130 H 20 95/64 02/29/20 10:07 115 H 02/29/20 10:00 37.1 C 120 H 18 96/50 L 02/29/20 09:15 122 H 19 86/53 L 02/29/20 09:00 37.1 C 128 H 18 80/58 L 02/29/20 08:15 142 H 18 92/50 L 02/29/20 08:08 140 H 02/29/20 08:00 37.4 C 136 H 19 94/54 L Intake & Output: Intake & Output 02/26/20 02/27/20 02/28/20 02/29/20 23:59 23:59 23:59 23:59 Intake Total 3081.700 5211.621 2166.887 Output Total 850 1463 1049 Balance 2231.700 3748.621 1117.887 - Objective General Appearance: positive: Alert, Mild distress, Other (Intubated elderly woman on propofol, Levophed but is responsive with eyes and nodding of head) Eyes Bilateral: positive: PERRL ENT: positive: Pharynx nml Neck: positive: Trachea midline. negative: Stiff neck Respiratory: positive: Chest non-tender, No respiratory distress, Rhonchi. negative: Wheezes, Rales Cardiovascular: positive: Regular rate & rhythm. negative: Gallop/S4, Friction rub Abdomen: positive: Non-tender, No organomegaly, Nml bowel sounds, No distention Skin: positive: Warm, Dry, Pallor Extremities: positive: Full ROM, Pedal edema Neurologic/Psychiatric: positive: CN's nml (2-12), Motor nml - Lab Results Fish Bones: 02/29/20 04:48 02/29/20 04:48 Other Labs: Lab Results x24hrs 02/29/20 02/29/20 02/29/20 Range/Units 05:13 04:48 04:48 WBC (4.8-10.8) x10^3/uL RBC (4.20-5.40) 10^6/uL Hgb (12.0-16.0) g/dL Hct (37.0-47.0) % MCV (81.0-99.0) fL MCH (27.0-31.0) pg MCHC (32.0-36.0) g/dL RDW (12.0-15.0) % Plt Count (130-450) 10^3/uL Neut # (Auto) (1.5-6.6) 10^3/uL Lymph # (Auto) (1.5-3.5) 10^3/uL Kimball # (Auto) (0.0-1.0) 10^3/uL Eos # (Auto) (0.0-0.7) 10^3/uL Baso # (Auto) (0.0-0.1) 10^3/uL Absolute Nucleated RBC x10^3/uL Nucleated RBC % /100WBC Manual Slide Review Platelet Estimate (NORMAL) Platelet Morphology (NORMAL) RBC Morph Micro Appear (NORMAL) Bld Gas Analysis Time 0526 Sample Site RIGHT RADIAL ABG pH 7.36 (7.35-7.45) ABG pCO2 39 (34-45) mmHg ABG pO2 73 L (80-100) mmHg ABG HCO3 21.5 L (22.0-26.0) mmol/L ABG Total CO2 22.7 (21.0-29.0) MMOL/L ABG O2 Saturation 94 (94-98) % ABG Base Excess -3.6 L (-2.0-3.0) mmol/L Wesly Test POSITIVE VBG pH 7.373 (7.31-7.41) Ionized Calcium 1.10 L (1.15-1.33) mmol/L Respiration Rate 18 b/min O2 Delivery Device VENTILATOR Vent Mode ASSIST/CONTROL FiO2 30.00 Tidal Volume 450 mL PEEP 5 cmH2O Sodium 132 L (135-145) mmol/L Potassium 3.9 (3.5-5.0) mmol/L Chloride 104 (101-111) mmol/L Carbon Dioxide 20 L (21-32) mmol/L Anion Gap 8.0 (6-13) BUN 29 H (6-20) mg/dL Creatinine 1.5 H (0.4-1.0) mg/dL Estimated GFR (MDRD) 34 L (>89) Glucose 163 H (70-100) mg/dL Calcium 7.8 L (8.5-10.3) mg/dL Phosphorus 3.2 (2.5-4.6) mg/dL Magnesium 1.7 (1.7-2.8) mg/dL Albumin 2.1 L (3.2-5.5) g/dL 02/29/20 Range/Units 04:48 WBC 24.2 H (4.8-10.8) x10^3/uL RBC 3.18 L (4.20-5.40) 10^6/uL Hgb 7.7 L (12.0-16.0) g/dL Hct 25.9 L (37.0-47.0) % MCV 81.4 (81.0-99.0) fL MCH 24.2 L (27.0-31.0) pg MCHC 29.7 L (32.0-36.0) g/dL RDW 26.2 H (12.0-15.0) % Plt Count 158 (130-450) 10^3/uL Neut # (Auto) 18.4 H (1.5-6.6) 10^3/uL Lymph # (Auto) 1.2 L (1.5-3.5) 10^3/uL Kimball # (Auto) 1.3 H (0.0-1.0) 10^3/uL Eos # (Auto) 0.3 (0.0-0.7) 10^3/uL Baso # (Auto) 0.5 H (0.0-0.1) 10^3/uL Absolute Nucleated RBC 0.14 x10^3/uL Nucleated RBC % 0.6 /100WBC Manual Slide Review Indicated Platelet Estimate NORMAL (130-450,000) (NORMAL) Platelet Morphology 1+ GIANT PLATELETS (NORMAL) RBC Morph Micro Appear 2+ ANISOCYTOSIS (NORMAL) Bld Gas Analysis Time Sample Site ABG pH (7.35-7.45) ABG pCO2 (34-45) mmHg ABG pO2 (80-100) mmHg ABG HCO3 (22.0-26.0) mmol/L ABG Total CO2 (21.0-29.0) MMOL/L ABG O2 Saturation (94-98) % ABG Base Excess (-2.0-3.0) mmol/L Wesly Test VBG pH (7.31-7.41) Ionized Calcium (1.15-1.33) mmol/L Respiration Rate b/min O2 Delivery Device Vent Mode FiO2 Tidal Volume mL PEEP cmH2O Sodium (135-145) mmol/L Potassium (3.5-5.0) mmol/L Chloride (101-111) mmol/L Carbon Dioxide (21-32) mmol/L Anion Gap (6-13) BUN (6-20) mg/dL Creatinine (0.4-1.0) mg/dL Estimated GFR (MDRD) (>89) Glucose (70-100) mg/dL Calcium (8.5-10.3) mg/dL Phosphorus (2.5-4.6) mg/dL Magnesium (1.7-2.8) mg/dL Albumin (3.2-5.5) g/dL Assessment/Plan - Problem List (1) Shock circulatory Impression: This woman suddenly dropped her blood pressure On day 2 of hospitalization, today is day 3, in spite of being on antibiotics for community-acquired pneumonia. DVT of the legs was negative for PE. Initial troponins yesterday were negative and EKG was negative for TN. As her work-up is gone on, repeat EKG equivocal, repeat troponin negative. She is on Lovenox for possible DVTs but venous Dopplers negative. CT of the chest confirms that she is having extension of her pneumonia with consolidation on the left side and developed worsening pneumonia on the right. CT the head negative for stroke. As such, my conclusion was possible shock from sepsis and pneumonia. Blood gases show metabolic acidosis. Lactic acid was negative. She still requires pressure support with Levophed. White cell count continues to rise. In spite of her severity of her illness, mentation improved today. Plan: Continue to maximally support in the ICU with ventilator and pressure support with Levophed Reduced dose of Lovenox since venous Dopplers are negative Advanced care planning under separate conversation dictated 02/27 (2) Metastatic non-small cell lung cancer Impression: She has been on nivolumab for 2 to 2-1/2 years. Immunocompromise. We are nelly ing that into consideration for treatment of her pneumonia. (3) Pneumonia Impression: ceftriaxone s/p 2 doses 02/26 and 02/27 azithromycin Day #3 today vancomycin/Zosyn with Zosyn dose going up and down depending on renal function and pharmacy thought process Day #2 today Fluconozole Day #2 today Blood cultures are without growth after 1 day Respiratory culture is growing yeast White cell count continues to rise. She was 13.3 thousand on admission and is 24.2 thousand today. Plan: MRSA PCR is negative of her nares. Cultures do not indicate MRSA or staph pneumonia. Vancomycin will be discontinued per pharmacy recommendations Continue Zosyn and fluconazole Continue to support the patient from a ventilatory perspective until family states otherwise Qualifiers: Pneumonia type: due to unspecified organism Laterality: bilateral Lung location: lower lobe of lung Qualified Code(s): J18.9 - Pneumonia, unspecified organism (4) Acute kidney injury Impression: Present on admission. Creatinine was 1.7. Her usual creatinine is 0.9-1.0. Her GFR had dropped low enough that I could not do CT pulmonary angiogram for PE. In spite of hypotension and requiring Levophed support, creatinine has improved and remained stable. BUN is 29 today creatinine 1.5. Plan: Continue to monitor Will now avoid nephrotoxicity with stopping vancomycin (5) chronic anemia. This patient is a cancer patient who is on immune modulating therapy and has a history of previous chemotherapy in the past. Chronic anemia is present on all her blood work. During this stay her hemoglobin is drifted down. In the last few months she was 11 g of hemoglobin, then drifted down to 10. Here she started at 8 g of hemoglobin. Today she is 7.7. Plan: Transfuse 1 unit in the face of a patient who is hypoxic, on nivolumab (6) Hypothyroid Impression: she is NPO with NG now. in the next few days consider IV supplement. 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
[2020-02-29] MEDS ORDERED: PROCAINAMIDE 100 MG/1 ML 10 ML MDV IV ONE (12:01)
[2020-02-29] MEDS ORDERED: METOPROLOL 5 MG/5 ML VIAL IVP PRN (12:02)
[2020-02-29] MEDS ORDERED: SODIUM CHLORIDE 0.9% IV ONE (13:00)
[2020-02-29] MEDS ORDERED: PROCAINAMIDE IV ONE (13:00)
[2020-02-29] MEDS ORDERED: SODIUM CHLORIDE 0.9% 500 ML IV ONE (13:05)
[2020-02-29] MEDS: ACETAMINOPHEN 325 MG TABLET PO PRN (15:06)
[2020-02-29] MEDS: AZITHROMYCIN INJ 500 MG in SODIUM CHLORIDE 0.9% 250 ML IV SCH (17:36)
--- NOTE | 2020-02-29 18:40 | CONSULTATION NOTE ---
Palliative Care Follow Up - Referral Referring Provider: Vickie Fried MD Time of Visit: [id number] Referral setting: Hospitalized patient Referral Reason: Met / recurrent squamous cell CA of lung/CAP/Goals of care - Information Sources Records reviewed: Previous records reviewed History/Review of Systems obtained from: Patient, Family (spoke with Syd on phone) Exam limitations: Clinical condition (patient limited with intubation tube;) - History of Present Illness Update Brief HPI Update: This is a 74-year-old woman who I am familiar with as I have been seen since September 2019. 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 Most recently she also had an exacerbation of her gout in her left greater toe, she has had increasing trouble with GERD, some vaginal bleeding, which she did have a transvaginal ultrasound that did not show any concerning results. She has had ongoing functional decline, increasing respiratory symptoms, with cough, has been more sedentary, less appetite, and overall his perceived herself is declining. 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 She has had a long and persistent journey with this, and has usually taken it in stride. Patient most recently was having increased trouble with balance, weakness, and did have a fall at home, she did present with community acquired pneumonia, worsening hypoxia, and was intubated. She has continued to be quite fragile, on pressors, but is able to acknowledge my presence, and engage in yes or no questions. She is quite expressive. Of note patient is quite hard of hearing, she has been managed on oxycodone 5 mg up to TID, and pregabalin 100 mg 3 times daily for her pain, and most recently with exacerbation of her GERD omeprazole twice daily for abdominal discomfort. She had been having some weight loss, more anorexia, and a severe exacerbation of her anxiety. This is related to her 's most recent diagnosis of a liver mass, and pending work-up regarding this. Social History - Living Situation Living arrangement: At home Living Situation: With spouse/s.o. Support System: She does live at home in a trailer, with her dogs and her "ex-". They had in the context of her healthcare issues, but have been together for many years. She has been quite concerned about his ongoing health and finally as it has exacerbated, he did go to the ED, and was diagnosed with liver mass. He does have pending appointment and work-up this , and has been planning to continue with this, as [facility]. They are quite isolated, she does have a son Surya, whom she very much stressed and stays in contact with, though they do have their own lives and have not been actively involved, her other son has not been available, and her third son has since . She does have a lot of grief and anxiety regarding this. Medications/Allergies - Medications Active Medication List: Active Medications Acetaminophen (Tylenol) 650 mg PO Q4HR PRN PRN Reason: Pain 1 to 4 Last Admin: 02/29/20 15:06 Dose: 650 mg Documented by: Carboxymethylcellulose (Refresh 1% Ophth Drops) 1 drops EACHEYE PRN PRN PRN Reason: Dry Eye Last Admin: 02/29/20 17:11 Dose: 1 drops Documented by: Chlorhexidine Gluconate (Peridex) 15 ml PO BID ELDON Last Admin: 02/29/20 11:19 Dose: 15 ml Documented by: Enoxaparin Sodium (Lovenox) 40 mg SUBQ DAILY ELDON Heparin Sodium (Beef Lung) () 30 - 50 unit IVP PRN PRN PRN Reason: Port Protocol (<24 hours) Hydromorphone HCl (Dilaudid Inj Syringe) 0.5 mg IVP Q3H PRN PRN Reason: PAIN Last Admin: 02/29/20 06:37 Dose: 0.5 mg Documented by: Norepinephrine Bitartrate 8 mg (/ Dextrose) 250 mls @ 0 mls/hr IV .Q0M ELDON; Pr otocol Last Titration: 02/29/20 17:40 Dose: 13 mcg/min, 24.375 mls/hr Documented by: Sodium Chloride (Normal Saline 0.9%) 1,000 mls @ 100 mls/hr IV .Q10H ELDON Last Admin: 02/29/20 15:43 Dose: 10 mls/hr Documented by: Propofol (Diprivan) 500 mg in 50 mls @ 5.73 mls/hr IV .Q8H44M [facility]; Protocol Last Titration: 02/29/20 15:39 Dose: 0 mcg/kg/min, 0 mls/hr Documented by: Fluconazole (Diflucan 200 Mg/100 Ml) 100 mls @ 100 mls/hr IV DAILY [facility] Last Infusion: 02/29/20 09:35 Dose: Infused Documented by: Piperacillin Sod/Tazobactam (Sod 3.375 gm/ Sodium Chloride) 100 mls @ 25 mls/hr IV Q8HR [facility] Last Admin: 02/29/20 15:44 Dose: 25 mls/hr Documented by: Metoprolol Tartrate (Lopressor Inj) 5 mg IVP Q6H PRN PRN Reason: Tachycardia Last Admin: 02/29/20 12:34 Dose: 5 mg Documented by: Ondansetron HCl (Zofran Odt) 4 mg TL Q6HR PRN PRN Reason: Nausea / Vomiting Ondansetron HCl (Zofran Inj) 4 mg IVP Q6HR PRN PRN Reason: Nausea / Vomiting Pantoprazole Sodium (Protonix) 40 mg IVP QDAC [facility] Last Admin: 02/29/20 06:02 Dose: 40 mg Documented by: Polyethylene Glycol (Miralax) 17 gm PO DAILY [facility] Last Admin: 02/29/20 08:39 Dose: Not Given Documented by: Sodium Chloride (Normal Saline Flush 0.9%) 10 ml IVP PRN PRN PRN Reason: NEEDED PER PROVIDER ORDERS Last Admin: 02/29/20 06:02 Dose: 10 ml Documented by: Sodium Chloride (Normal Saline Flush 0.9%) 10 ml IVP 0100,0900,1700 [facility] Last Admin: 02/29/20 08:38 Dose: Not Given Documented by: Sodium Chloride (Normal Saline Flush 0.9%) 20 ml IVP PRN PRN PRN Reason: After Blood Draw Levothyroxine [Synthroid] 50 mcg PO QDAC 12/30/18 Citalopram [CeleXA] 40 tab PO DAILY 07/28/19 Cholecalciferol (Vitamin D3) [Vitamin D3] 2,000 units PO DAILY 10/06/19 Cyanocobalamin (Vitamin B-12) [Vitamin B-12] 1,000 mcg PO DAILY 10/06/19 Omeprazole 20 mg PO QDAC 10/06/19 Oxycodone HCl 5 mg PO QID PRN 10/06/19 traZODone [Desyrel] 100 mg PO QPM 10/06/19 Loratadine [Claritin] 10 mg PO DAILY PRN 02/02/20 Cefdinir 300 mg PO [id number] 02/27/20 Pregabalin 100 mg PO Q8H 02/27/20 - Allergies Allergies/Adverse Reactions: Allergies Allergy/AdvReac Type Severity Reaction Status Date / Time Sulfa (Sulfonamide AdvReac Nausea Verified 02/27/20 13:48 Antibiotics) Review of Systems - Constitutional Constitutional: reports: Fatigue, Weakness, Other (ng tube feed) - Ears, Nose & Throat Ears, Nose & Throat: reports: Hearing loss (patient with very poor hearing) - Respiratory Respiratory: reports: Other (intubated) - Genitourinary Genitourinary: reports: Other (catheter) - Musculoskeletal Musculoskeletal: reports: Back pain, Stiffness, Joint pain (recent gout flare left great toe), Other (patient with severe peripheral neuropathy) - Integumentary Integumentary: reports: Hair changes (thinning) - Neurological Neurological: reports: General weakness, Numbness - Psychiatric Psychiatric: reports: Anxiety (severe anxiety at baseline) - Endocrine Endocrine: reports: Diabetes type 2 - Hematologic/Lymphatic Hematologic/Lymphatic: reports: Anemia (to get one unit PRBCs) - All Other Systems All Other Systems: reports: Other (limited ROS) Physical Exam - Vital Signs Vital Signs: Vital Signs x48h Temp Pulse Pulse Resp BP BP Pulse Ox 02/29/20 18:00 37.1 C 85 19 118/64 98 02/29/20 17:43 37.2 C 85 18 125/64 98 02/29/20 17:36 90 02/29/20 17:27 37.2 C 85 17 118/64 02/29/20 17:00 37.2 C 85 18 118/64 98 02/29/20 16:47 37.4 C 89 18 113/57 L 99 02/29/20 16:03 89 02/29/20 16:00 88 19 110/49 L 99 02/29/20 15:40 37.5 C 89 19 103/53 L 02/29/20 15:35 37.5 C 90 19 99/54 L 02/29/20 15:26 37.5 C 89 16 90/60 02/29/20 15:00 37.5 C 135 H 19 101/69 99 02/29/20 14:40 37.5 C 129 H 18 89/74 L 100 02/29/20 14:15 117 H 02/29/20 14:00 109 H 18 99/76 99 02/29/20 13:35 96 18 94/52 L 99 02/29/20 13:31 105 H 18 97/63 100 02/29/20 13:20 107 H 18 79/49 L 100 02/29/20 13:13 91 18 89/56 L 99 02/29/20 13:04 85/45 L 02/29/20 13:00 85 18 79/39 L 100 02/29/20 12:57 97 16 81/36 L 99 02/29/20 12:53 106 H 18 84/60 L 100 02/29/20 12:45 107 H 19 87/61 L 100 02/29/20 12:40 134 H 18 88/47 L 99 02/29/20 12:35 137 H 18 107/63 99 02/29/20 12:34 100/78 02/29/20 12:30 37.2 C 135 H 21 100/78 99 02/29/20 12:20 131 H 02/29/20 12:00 37.2 C 129 H 18 93/75 98 02/29/20 11:00 37.1 C 125 H 19 106/67 - Physical Exam General Appearance: positive: Mild distress, Anxious Eyes Bilateral: positive: Other (watery eyes (baseline at home)) ENT: positive: Other (appears to have white spots on tongue/candidiasis) Neck: positive: Trachea midline Cardiovascular: positive: Tachycardia, Other (on drip/hypotensive) Respiratory: negative: No respiratory distress Abdomen: positive: Soft Skin: positive: Pallor, Dryness Extremities: positive: No pedal edema. negative: Joint swelling (faint redness still at left great toe joing) Neurologic/Psychiatric: positive: Oriented x3, Weakness, Flat affect Palliative Care - POLST Patient has POLST: No POLST Status: DNR (confirmed by on phone;) Pain: Pain worsening, Location (bilateral LE pain; very sensitive to touch; severe bilateral peripheral edema chemotherapy induces; managed only moderately at home with oxycodone and pregablin) Tiredness/Fatigue: Severe (7-10) Drowsiness/Sedation: Moderate (4-6) Anxiety: Moderate (4-6) Sleep: Other (patient with severe insomina at home; managed with trazadone 100 mg) Performance Status: Patiently currently is intubated, and bedbound and in ICU. At baseline her functional status has been declining. This has both to do with her balance and her peripheral neuropathy, she does use a walker at home, and is quite sedentary. She has been able to manage her own ADLs. - Palliative Care Discussion: Patient is unable to participate in any kind of meaningful conversation, did sit with her and reassure her, that we were all hoping for the best, and hoping to get her off the tube soon. Patient does at baseline have severe generalized anxiety disorder, she often rings her hands, and finds this comforting. She has perceived herself in the last couple visits is becoming more frail, worrying a bout long-term planning, her is not been able to participate because of COVID-19 in the last few visits, though it has been difficult for them to talk about the future and her decline. She has perceived her quality of life is declining, her most recent goals were to see her through his work-up, and hopefully work on some long-term planning. I did check in with Syd, he is familiar with me from palliative care in our previous appointments. We did discuss some about his journey with his declining health. We also discussed about the seriousness of her current condition, he is feeling quite supported by her son Surya. I did reassure him I did find the D POA, but does list him as primary in [place] is secondary, though at this point they do feel like it is joint decision making. We did discuss most likely there are 2 scenarios first is that given her worsening white count, and frail fatigue, as well as unstable status, she may continue to decline, and there may be a decision point needed to be made about focusing on comfort only. He does understand this in the context of her current situation. He does also understand if she is to recover, that most likely she is not going to get much better, and continued decline. We did discuss in the context of this we would weigh benefits and burdens of moving on to hospice versus supportive care and or rehab. These could be all things that would be revealed over the next few days. He does understand the seriousness and frailty of the current situation.He feels like the medical team has been very good and keeping them updated and feels like there is good understanding of her current situation. Results - Lab Results Lab results reviewed: Yes Fish Bones: 02/29/20 04:48 02/29/20 04:48 Lab and Imaging Results: Lab Results x24hrs 02/29/20 02/29/20 02/29/20 Range/Units 14:42 12:50 05:13 WBC (4.8-10.8) x10^3/uL RBC (4.20-5.40) 10^6/uL Hgb (12.0-16.0) g/dL Hct (37.0-47.0) % MCV (81.0-99.0) fL MCH (27.0-31.0) pg MCHC (32.0-36.0) g/dL RDW (12.0-15.0) % Plt Count (130-450) 10^3/uL Neut # (Auto) (1.5-6.6) 10^3/uL Lymph # (Auto) (1.5-3.5) 10^3/uL [place] # (Auto) (0.0-1.0) 10^3/uL Eos # (Auto) (0.0-0.7) 10^3/uL Baso # (Auto) (0.0-0.1) 10^3/uL Absolute Nucleated RBC x10^3/uL Nucleated RBC % /100WBC Manual Slide Review Platelet Estimate (NORMAL) Platelet Morphology (NORMAL) RBC Morph Micro Appear (NORMAL) Bld Gas Analysis Time 0526 Sample Site RIGHT RADIAL ABG pH 7.36 (7.35-7.45) ABG pCO2 39 (34-45) mmHg ABG pO2 73 L (80-100) mmHg ABG HCO3 21.5 L (22.0-26.0) mmol/L ABG Total CO2 22.7 (21.0-29.0) MMOL/L ABG O2 Saturation 94 (94-98) % ABG Base Excess -3.6 L (-2.0-3.0) mmol/L Wesly Test POSITIVE VBG pH (7.31-7.41) Ionized Calcium (1.15-1.33) mmol/L Respiration Rate 18 b/min O2 Delivery Device VENTILATOR Vent Mode ASSIST/CONTROL FiO2 30.00 Tidal Volume 450 mL PEEP 5 cmH2O Sodium (135-145) mmol/L Potassium (3.5-5.0) mmol/L Chloride (101-111) mmol/L Carbon Dioxide (21-32) mmol/L Anion Gap (6-13) BUN (6-20) mg/dL Creatinine (0.4-1.0) mg/dL Estimated GFR (MDRD) (>89) Glucose (70-100) mg/dL Calcium (8.5-10.3) mg/dL Phosphorus (2.5-4.6) mg/dL Magnesium (1.7-2.8) mg/dL Albumin (3.2-5.5) g/dL Blood Type B POSITIVE Blood Type Recheck B POSITIVE Antibody Screen NEGATIVE Crossmatch IS Only See Detail 02/29/20 02/29/20 02/29/20 Range/Units 04:48 04:48 04:48 WBC 24.2 H (4.8-10.8) x10^3/uL RBC 3.18 L (4.20-5.40) 10^6/uL Hgb 7.7 L (12.0-16.0) g/dL Hct 25.9 L (37.0-47.0) % MCV 81.4 (81.0-99.0) fL MCH 24.2 L (27.0-31.0) pg MCHC 29.7 L (32.0-36.0) g/dL RDW 26.2 H (12.0-15.0) % Plt Count 158 (130-450) 10^3/uL Neut # (Auto) 18.4 H (1.5-6.6) 10^3/uL Lymph # (Auto) 1.2 L (1.5-3.5) 10^3/uL [place] # (Auto) 1.3 H (0.0-1.0) 10^3/uL Eos # (Auto) 0.3 (0.0-0.7) 10^3/uL Baso # (Auto) 0.5 H (0.0-0.1) 10^3/uL Absolute Nucleated RBC 0.14 x10^3/uL Nucleated RBC % 0.6 /100WBC Manual Slide Review Indicated Platelet Estimate NORMAL (130-450,000) (NORMAL) Platelet Morphology 1+ GIANT PLATELETS (NORMAL) RBC Morph Micro Appear 2+ ANISOCYTOSIS (NORMAL) Bld Gas Analysis Time Sample Site ABG pH (7.35-7.45) ABG pCO2 (34-45) mmHg ABG pO2 (80-100) mmHg ABG HCO3 (22.0-26.0) mmol/L ABG Total CO2 (21.0-29.0) MMOL/L ABG O2 Saturation (94-98) % ABG Base Excess (-2.0-3.0) mmol/L Wesly Test VBG pH 7.373 (7.31-7.41) Ionized Calcium 1.10 L (1.15-1.33) mmol/L Respiration Rate b/min O2 Delivery Device Vent Mode FiO2 Tidal Volume mL PEEP cmH2O Sodium 132 L (135-145) mmol/L Potassium 3.9 (3.5-5.0) mmol/L Chloride 104 (101-111) mmol/L Carbon Dioxide 20 L (21-32) mmol/L Anion Gap 8.0 (6-13) BUN 29 H (6-20) mg/dL Creatinine 1.5 H (0.4-1.0) mg/dL Estimated GFR (MDRD) 34 L (>89) Glucose 163 H (70-100) mg/dL Calcium 7.8 L (8.5-10.3) mg/dL Phosphorus 3.2 (2.5-4.6) mg/dL Magnesium 1.7 (1.7-2.8) mg/dL Albumin 2.1 L (3.2-5.5) g/dL Blood Type Blood Type Recheck Antibody Screen Crossmatch IS Only Impression and Recommendations - Palliative Care Impression: This is a violetta 74-year-old woman who is currently being treated for meta static/recurrent squamous cell carcinoma of the right lung, and now presents acutely with community-acquired pneumonia, hypoxia, currently intubated, and presently difficult to stabilize. Palliative care providing support regarding goals of care, and anticipatory guidance and coordination of care with hospital team. Recommendations/Counseling Done: 1. Chemotherapy-induced peripheral neuropathy. Patient does at baseline have severe 8 out of 10 pain, does report pain on examination today. Patient's baseline is pregabalin 100 mg 3 times daily, with oxycodone 5 mg up to 3 times a day as well. Would recommend at least at a minimum scheduling [id number] acetaminophen, as soon as able would recommend reinitiating pregabalin 100 mg 3 times daily. She also would probably benefit when cardiac status able to support, small doses of opioid, as this is been significantly distressful for her. 2. Anxiety. Patient does underlying have generalized anxiety disorder. Patient has been on citalopram 40 mg daily, may in this setting benefit from small doses of Lorazepam, she often processes her anxiety 3 to fidgeting, and verbalization of fears. We will continue to meet with patient on a regular basis, and continue to evaluate. 3. Advanced care planning. Patient currently is quite frail, presents with concern given her underlying seriousness of her illness, and acute illness. Follow-up with family, do understand the seriousness of her current situation, recognizing she may continue to decline, or if she improves will need more support and conversation regarding goals of care for discharge. Palliative care continue to follow along and provide support and anticipatory guidance in support of hospitalist/clinical team. Time Spent: 50 minutes with greater than 50% of this done in counseling with family, follow- up with patient, coordination of care with hospitalist/clinical team.
[2020-03-01] MEDS: SODIUM CHLORIDE FLUSH 0.9% 10 ML SYRINGE IVP SCH ×4 (03:21→23:25)
[2020-03-01] MEDS: ACETAMINOPHEN 325 MG TABLET PO PRN ×2 (03:42→13:30)
[2020-03-01] MEDS: SODIUM CHLORIDE 0.9% 1,000 ML IV SCH (05:07)
[2020-03-01 05:37] LABS: VBG PH 7.315 (7.31-7.41)
[2020-03-01 05:41] LABS: EOSINOPHILS % (AUTO) 1.5 %; LYMPHOCYTES % (AUTO) 2.7 %; MEAN CORPUSCULAR HEMOGLOBIN 25.4 pg (27.0-31.0); MEAN CORPUSCULAR VOLUME 81.7 fL (81.0-99.0); MONOCYTES % (AUTO) 2.5 %; NEUTROPHILS % (AUTO) 85.3 %; PLT - PLATELET COUNT 142 10^3/uL (130-450); RED BLOOD COUNT 3.55 10^6/uL (4.20-5.40); WHITE BLOOD COUNT 28.6 x10^3/uL (4.8-10.8)
[2020-03-01 05:47] LABS: MAGNESIUM 2.1 mg/dL (1.7-2.8); PHOSPHORUS 2.5 mg/dL (2.5-4.6)
[2020-03-01 05:49] LABS: ALBUMIN/GLOBULIN RATIO 0.6 (1.0-2.2); BILIRUBIN,TOTAL 1.2 mg/dL (0.2-1.0); CALCIUM 8.1 mg/dL (8.5-10.3); CREATININE 1.3 mg/dL (0.4-1.0); TOTAL PROTEIN 5.2 g/dL (6.7-8.2)
[2020-03-01 05:53] LABS: ABNORMAL LYMPHS % (MANUAL) 0 %
[2020-03-01] MEDS: PIPERACILLIN/TAZOBACTAM 3.375 GM in SODIUM CHLORIDE 0.9% MINIBAG 100 ML IV SCH ×3 (05:57→21:39)
[2020-03-01] MEDS: PANTOPRAZOLE 40 MG VIAL IVP SCH (06:05)
[2020-03-01] MEDS: SODIUM CHLORIDE FLUSH 0.9% 10 ML SYRINGE IVP PRN (06:06)
[2020-03-01 06:08] LABS: ABG BASE EXCESS -4.7 mmol/L (-2.0-3.0); ABG HCO3 20.9 mmol/L (22.0-26.0); ABG OXYGEN SATURATION 97 % (94-98); ABG PCO2 41 mmHg (34-45); ABG PH 7.33 (7.35-7.45); ABG PO2 101 mmHg (80-100); ABG TCO2 22.2 MMOL/L (21.0-29.0); ALLEN TEST POSITIVE
[2020-03-01 06:11] LABS: BAND NEUTROPHILS % (MANUAL) 11 %; BASOPHILS # (MANUAL) 0.3 10^3/uL (0-0.1); BASOPHILS % (MANUAL) 1 %; EOSINOPHILS # (MANUAL) 0.3 10^3/uL (0-0.7); LYMPHOCYTES % (MANUAL) 7 %; MONOCYTES # (MANUAL) 0.9 10^3/uL (0.0-1.0); MYELOCYTES % (MANUAL) 1 %
[2020-03-01 06:13] LABS: DIFFERENTIAL COMMENT MANUAL DIFFERENTIAL; PLATELET ESTIMATE, MANUAL NORMAL (130-450,000) (NORMAL); PLATELET MORPHOLOGY 2+ LARGE PLATELETS (NORMAL)
[2020-03-01] MEDS: PROPOFOL 500 MG/50 ML 500 MG/50 ML VIAL IV SCH (06:28)
--- NOTE | 2020-03-01 07:31 | PROVIDER PROGRESS NOTE ---
Subjective - Prog Note Date Prog Note Date: 03/01/20 - Subjective Subjective: She remains intubated but is off sedation. She is following commands appropriately. She has been weaned off of norepinephrine this morning. She has minimal ventilator requirements. Current Medications - Current Medications Current Medications: Active Medications Acetaminophen (Tylenol) 650 mg PO Q4HR PRN PRN Reason: Pain 1 to 4 Last Admin: 03/01/20 03:42 Dose: 650 mg Documented by: Carboxymethylcellulose (Refresh 1% Ophth Drops) 1 drops EACHEYE PRN PRN PRN Reason: Dry Eye Last Admin: 02/29/20 17:11 Dose: 1 drops Documented by: Chlorhexidine Gluconate (Peridex) 15 ml PO BID ELDON Last Admin: 02/29/20 21:45 Dose: 15 ml Documented by: Enoxaparin Sodium (Lovenox) 40 mg SUBQ DAILY ELDON Heparin Sodium (Beef Lung) () 30 - 50 unit IVP PRN PRN PRN Reason: Port Protocol (<24 hours) Hydromorphone HCl (Dilaudid Inj Syringe) 0.5 mg IVP Q3H PRN PRN Reason: PAIN Last Admin: 02/29/20 06:37 Dose: 0.5 mg Documented by: Norepinephrine Bitartrate 8 mg (/ Dextrose) 250 mls @ 0 mls/hr IV .Q0M [facility]; Protocol Last Titration: 03/01/20 07:23 Dose: Infused Documented by: Sodium Chloride (Normal Saline 0.9%) 1,000 mls @ 100 mls/hr IV .Q10H ELDON Last Infusion: 03/01/20 07:00 Dose: 100 mls/hr Documented by: Propofol (Diprivan) 500 mg in 50 mls @ 5.73 mls/hr IV .Q8H44M [facility]; Protocol Last Titration: 03/01/20 07:55 Dose: 3 mcg/kg/min, 1.719 mls/hr Documented by: Fluconazole (Diflucan 200 Mg/100 Ml) 100 mls @ 100 mls/hr IV DAILY [facility] Last Infusion: 02/29/20 09:35 Dose: Infused Documented by: Piperacillin Sod/Tazobactam (Sod 3.375 gm/ Sodium Chloride) 100 mls @ 25 mls/hr IV Q8HR ELDON Last Admin: 03/01/20 05:57 Dose: 25 mls/hr Documented by: Insulin Human Regular (Humulin R) 1 - 5 unit SUBQ Q6HR [facility]; Protocol Metoprolol Tartrate (Lopressor Inj) 5 mg IVP Q6H PRN PRN Reason: Tachycardia Last Admin: 02/29/20 12:34 Dose: 5 mg Documented by: Ondansetron HCl (Zofran Odt) 4 mg TL Q6HR PRN PRN Reason: Nausea / Vomiting Ondansetron HCl (Zofran Inj) 4 mg IVP Q6HR PRN PRN Reason: Nausea / Vomiting Pantoprazole Sodium (Protonix) 40 mg IVP QDAC [facility] Last Admin: 03/01/20 06:05 Dose: 40 mg Documented by: Polyethylene Glycol (Miralax) 17 gm PO DAILY [facility] Last Admin: 02/29/20 08:39 Dose: Not Given Documented by: Sodium Chloride (Normal Saline Flush 0.9%) 10 ml IVP PRN PRN PRN Reason: NEEDED PER PROVIDER ORDERS Last Admin: 03/01/20 06:06 Dose: 10 ml Documented by: Sodium Chloride (Normal Saline Flush 0.9%) 10 ml IVP 0100,0900,1700 [facility] Last Admin: 03/01/20 03:21 Dose: Not Given Documented by: Sodium Chloride (Normal Saline Flush 0.9%) 20 ml IVP PRN PRN PRN Reason: After Blood Draw Levothyroxine [Synthroid] 50 mcg PO QDAC 12/30/18 Citalopram [CeleXA] 40 tab PO DAILY 07/28/19 Cholecalciferol (Vitamin D3) [Vitamin D3] 2,000 units PO DAILY 10/06/19 Cyanocobalamin (Vitamin B-12) [Vitamin B-12] 1,000 mcg PO DAILY 10/06/19 Omeprazole 20 mg PO QDAC 10/06/19 Oxycodone HCl 5 mg PO QID PRN 10/06/19 traZODone [Desyrel] 100 mg PO QPM 10/06/19 Loratadine [Claritin] 10 mg PO DAILY PRN 02/02/20 Cefdinir 300 mg PO [id number] 02/27/20 Pregabalin 100 mg PO Q8H 02/27/20 Objective - Vital Signs/Intake & Output Reviewed Vital Signs: Yes Vital Signs: Vital Signs Temp Pulse Pulse Resp BP Pulse Ox 03/01/20 07:25 37.1 C 87 20 131/57 H 99 03/01/20 07:15 37.1 C 88 19 129/57 L 98 03/01/20 07:00 37.2 C 86 18 128/61 99 03/01/20 06:00 37.2 C 95 19 134/60 H 98 03/01/20 05:32 83 03/01/20 05:00 37.3 C 86 19 135/60 H 99 03/01/20 04:00 37.5 C 89 20 133/55 H 99 Intake & Output: Intake & Output 02/27/20 02/28/20 02/29/20 03/01/20 23:59 23:59 23:59 23:59 Intake Total 3081.700 5211.621 4717.842 2093.225 Output Total 850 1463 1684 390 Balance 2231.700 3748.621 3033.842 1703.225 - Objective General Appearance: positive: No acute distress, Alert, Other (Following commands.) Eyes Bilateral: positive: Normal inspection, Conjunctivae nml ENT: positive: ENT inspection nml, Other (ET tube in place.) Neck: positive: Nml inspection Respiratory: positive: No respiratory distress, Other (Diminished breath sounds bilaterally.). negative: Wheezes, Rales Cardiovascular: positive: Regular rate & rhythm, No murmur. negative: Tachycardia, Systolic murmur Abdomen: positive: Non-tender, No distention. negative: Tenderness Skin: positive: Warm, Dry Extremities: positive: No pedal edema Neurologic/Psychiatric: positive: Other (No focal deficits.) - Lab Results Fish Bones: 03/01/20 05:04 03/01/20 05:07 Other Labs: Lab Results x24hrs 03/01/20 03/01/20 03/01/20 Range/Units 05:55 05:07 05:07 WBC (4.8-10.8) x10^3/uL RBC (4.20-5.40) 10^6/uL Hgb (12.0-16.0) g/dL Hct (37.0-47.0) % MCV (81.0-99.0) fL MCH (27.0-31.0) pg MCHC (32.0-36.0) g/dL RDW (12.0-15.0) % Plt Count (130-450) 10^3/uL Neut # (Auto) Lymph # (Auto) [place] # (Auto) Eos # (Auto) Baso # (Auto) Absolute Nucleated RBC Total Counted Band Neuts % (Manual) (0 - 10) % Abnorm Lymph % (Manual) % Myelocytes % ( - 0) % Nucleated RBC % Neutrophils # (Manual) (1.5-6.6) 10^3/uL Lymphocytes # (Manual) (1.5-3.5) 10^3/uL Monocytes # (Manual) (0.0-1.0) 10^3/uL Eosinophils # (Manual) (0-0.7) 10^3/uL Basophils # (Manual) (0-0.1) 10^3/uL Differential Comment WBC Morphology (NORMAL) Platelet Estimate (NORMAL) Platelet Morphology (NORMAL) RBC Morph Micro Appear (NORMAL) Bld Gas Analysis Time 0609 Sample Site RIGHT RADIAL ABG pH 7.33 L (7.35-7.45) ABG pCO2 41 (34-45) mmHg ABG pO2 101 H (80-100) mmHg ABG HCO3 20.9 L (22.0-26.0) mmol/L ABG Total CO2 22.2 (21.0-29.0) MMOL/L ABG O2 Saturation 97 (94-98) % ABG Base Excess -4.7 L (-2.0-3.0) mmol/L Wesly Test POSITIVE VBG pH 7.315 (7.31-7.41) Ionized Calcium 1.19 (1.15-1.33) mmol/L Respiration Rate 18 b/min O2 Delivery Device VENTILATOR Vent Mode ASSIST/CONTROL FiO2 0.40 Tidal Volume 450 mL PEEP 5 cmH2O Sodium 137 (135-145) mmol/L Potassium 3.5 (3.5-5.0) mmol/L Chloride 110 (101-111) mmol/L Carbon Dioxide 20 L (21-32) mmol/L Anion Gap 7.0 (6-13) BUN 25 H (6-20) mg/dL Creatinine 1.3 H (0.4-1.0) mg/dL Estimated GFR (MDRD) 40 L (>89) Glucose 170 H (70-100) mg/dL Calcium 8.1 L (8.5-10.3) mg/dL Phosphorus (2.5-4.6) mg/dL Magnesium (1.7-2.8) mg/dL Total Bilirubin 1.2 H (0.2-1.0) mg/dL AST 17 (10-42) IU/L ALT 16 (10-60) IU/L Alkaline Phosphatase 91 (42-121) IU/L Total Protein 5.2 L (6.7-8.2) g/dL Albumin 2.0 L (3.2-5.5) g/dL Globulin 3.2 (2.1-4.2) g/dL Albumin/Globulin Ratio 0.6 L (1.0-2.2) Prealbumin 3 L (18-45) mg/dL Blood Type Blood Type Recheck Antibody Screen Crossmatch IS Only 03/01/20 03/01/20 02/29/20 Range/Units 05:07 05:04 14:42 WBC 28.6 H (4.8-10.8) x10^3/uL RBC 3.55 L (4.20-5.40) 10^6/uL Hgb 9.0 L (12.0-16.0) g/dL Hct 29.0 L (37.0-47.0) % MCV 81.7 (81.0-99.0) fL MCH 25.4 L (27.0-31.0) pg MCHC 31.0 L (32.0-36.0) g/dL RDW 25.0 H (12.0-15.0) % Plt Count 142 (130-450) 10^3/uL Neut # (Auto) Not Reportable Lymph # (Auto) Not Reportable [place] # (Auto) Not Reportable Eos # (Auto) Not Reportable Baso # (Auto) Not Reportable Absolute Nucleated RBC Not Reportable Total Counted 100 Band Neuts % (Manual) 11 H (0 - 10) % Abnorm Lymph % (Manual) 0 % Myelocytes % 1 H ( - 0) % Nucleated RBC % Not Reportable Neutrophils # (Manual) 24.9 H (1.5-6.6) 10^3/uL Lymphocytes # (Manual) 2.0 (1.5-3.5) 10^3/uL Monocytes # (Manual) 0.9 (0.0-1.0) 10^3/uL Eosinophils # (Manual) 0.3 (0-0.7) 10^3/uL Basophils # (Manual) 0.3 H (0-0.1) 10^3/uL Differential Comment MANUAL DIFFERENTIAL WBC Morphology NORMAL APPEARANCE (NORMAL) Platelet Estimate NORMAL (130-450,000) (NORMAL) Platelet Morphology 2+ LARGE PLATELETS (NORMAL) RBC Morph Micro Appear 2+ FELICIANO CELLS (NORMAL) Bld Gas Analysis Time Sample Site ABG pH (7.35-7.45) ABG pCO2 (34-45) mmHg ABG pO2 (80-100) mmHg ABG HCO3 (22.0-26.0) mmol/L ABG Total CO2 (21.0-29.0) MMOL/L ABG O2 Saturation (94-98) % ABG Base Excess (-2.0-3.0) mmol/L Wesly Test VBG pH (7.31-7.41) Ionized Calcium (1.15-1.33) mmol/L Respiration Rate b/min O2 Delivery Device Vent Mode FiO2 Tidal Volume mL PEEP cmH2O Sodium (135-145) mmol/L Potassium (3.5-5.0) mmol/L Chloride (101-111) mmol/L Carbon Dioxide (21-32) mmol/L Anion Gap (6-13) BUN (6-20) mg/dL Creatinine (0.4-1.0) mg/dL Estimated GFR (MDRD) (>89) Glucose (70-100) mg/dL Calcium (8.5-10.3) mg/dL Phosphorus 2.5 (2.5-4.6) mg/dL Magnesium 2.1 (1.7-2.8) mg/dL Total Bilirubin (0.2-1.0) mg/dL AST (10-42) IU/L ALT (10-60) IU/L Alkaline Phosphatase (42-121) IU/L Total Protein (6.7-8.2) g/dL Albumin 2.0 L (3.2-5.5) g/dL Globulin (2.1-4.2) g/dL Albumin/Globulin Ratio (1.0-2.2) Prealbumin (18-45) mg/dL Blood Type Blood Type Recheck B POSITIVE Antibody Screen Crossmatch IS Only 02/29/20 Range/Units 12:50 WBC (4.8-10.8) x10^3/uL RBC (4.20-5.40) 10^6/uL Hgb (12.0-16.0) g/dL Hct (37.0-47.0) % MCV (81.0-99.0) fL MCH (27.0-31.0) pg MCHC (32.0-36.0) g/dL RDW (12.0-15.0) % Plt Count (130-450) 10^3/uL Neut # (Auto) Lymph # (Auto) [place] # (Auto) Eos # (Auto) Baso # (Auto) Absolute Nucleated RBC Total Counted Band Neuts % (Manual) (0 - 10) % Abnorm Lymph % (Manual) % Myelocytes % ( - 0) % Nucleated RBC % Neutrophils # (Manual) (1.5-6.6) 10^3/uL Lymphocytes # (Manual) (1.5-3.5) 10^3/uL Monocytes # (Manual) (0.0-1.0) 10^3/uL Eosinophils # (Manual) (0-0.7) 10^3/uL Basophils # (Manual) (0-0.1) 10^3/uL Differential Comment WBC Morphology (NORMAL) Platelet Estimate (NORMAL) Platelet Morphology (NORMAL) RBC Morph Micro Appear (NORMAL) Bld Gas Analysis Time Sample Site ABG pH (7.35-7.45) ABG pCO2 (34-45) mmHg ABG pO2 (80-100) mmHg ABG HCO3 (22.0-26.0) mmol/L ABG Total CO2 (21.0-29.0) MMOL/L ABG O2 Saturation (94-98) % ABG Base Excess (-2.0-3.0) mmol/L Wesly Test VBG pH (7.31-7.41) Ionized Calcium (1.15-1.33) mmol/L Respiration Rate b/min O2 Delivery Device Vent Mode FiO2 Tidal Volume mL PEEP cmH2O Sodium (135-145) mmol/L Potassium (3.5-5.0) mmol/L Chloride (101-111) mmol/L Carbon Dioxide (21-32) mmol/L Anion Gap (6-13) BUN (6-20) mg/dL Creatinine (0.4-1.0) mg/dL Estimated GFR (MDRD) (>89) Glucose (70-100) mg/dL Calcium (8.5-10.3) mg/dL Phosphorus (2.5-4.6) mg/dL Magnesium (1.7-2.8) mg/dL Total Bilirubin (0.2-1.0) mg/dL AST (10-42) IU/L ALT (10-60) IU/L Alkaline Phosphatase (42-121) IU/L Total Protein (6.7-8.2) g/dL Albumin (3.2-5.5) g/dL Globulin (2.1-4.2) g/dL Albumin/Globulin Ratio (1.0-2.2) Prealbumin (18-45) mg/dL Blood Type B POSITIVE Blood Type Recheck Antibody Screen NEGATIVE Crossmatch IS Only See Detail Sepsis Event Note (H) - Evaluation Current Stage of Sepsis: Septic shock Possible source of Sepsis: positive: Pulmonary - Sepsis Criteria Sepsis Criteria: Recorded Heart Rate greater than 90 bpm, Recorded Respiratory Rate greater than 20, Respiratory: Increasing oxygen requirements, WBC count greater than 10% bands, WBC count greater than 12,000 or less than 4000 Assessment/Plan - Problem List (1) Septic shock Impression: This is secondary to her community-acquired pneumonia. She presented with low- grade fevers, leukocytosis, hypotension. Her pressor requirements are improving and she is now nearly off of the norepinephrine. She has completed 3 days of azithromycin IV and remains on Zosyn IV at this time. Respiratory cultures grew yeast and she started empirically on fluconazole IV. At this time, we will continue her on Zosyn and fluconazole IV. Continue to wean norepinephrine. Maintain a mean arterial pressure greater than 65 mmHg. We will hope to extubate her once she is off of norepinephrine. (2) Acute respiratory failure with hypoxia Impression: This is secondary to her community-acquired pneumonia. Her oxygen requirements are improving and she is now down to an FiO2 of 40%. Blood gas this morning showed a pH 7.33, PCO2 of 41 and a PO2 of 101 on assist control with a tidal volume of 450 mL, PEEP of 5, rest rate of 18 and FiO2 of 40%. Daily sedation vacation and weaning trials. We will hope to extubate possibly this afternoon or tomorrow morning if she is able to be weaned off of the norepinephrine. Continue with IV antibiotics for the pneumonia. Continue with Protonix IV for GI prophylaxis. (3) Community acquired pneumonia Impression: Most recent imaging showed bilateral infiltrates concerning for pneumonia. She was treated with azithromycin IV for 3 days. She currently remains on Zosyn IV and fluconazole IV as respiratory cultures grew yeast. Her oxygen requirements are improving. We will continue her on Zosyn and fluconazole IV. We will hope to extubate her this afternoon. (4) Hypotension Impression: This is likely related to her septic shock. Her norepinephrine requirements are decreasing. We will continue with IV antibiotics. Continue pressors for mean arterial pressure greater than 65 mmHg. We will discontinue IV fluids as she is nearly +10 L since admission. Qualifiers: Qualified Code(s): I95.9 - Hypotension, unspecified (5) Paroxysmal atrial fibrillation Impression: He went into atrial fibrillation with rapid ventricular response yesterday afternoon and she converted to sinus rhythm after receiving procainamide. She currently remains in a sinus rhythm. Suspect this was brought on by her sepsis and respiratory failure given the pneumonia. At this time, we will hold off on initiating a beta-bernardo given she has just been weaned off with norepinephrine. We will continue to monitor her on telemetry. We will check a TSH. Obtain an echocardiogram. (6) Chronic kidney disease, stage 3 (moderate) Impression: Her renal function is at baseline. Her creatinine varies from 1.3-1.6. Continue to avoid nephrotoxins. Monitor her renal function and urine output. (7) Anemia of chronic disease Impression: She has chronic anemia related to her chronic disease. She has been transfused 1 unit of packed red blood cells and her hemoglobin improved appropriately from 7.7-9.0. There is no evidence of bleeding. Continue with Lovenox for DVT prophylaxis. Daily CBC. Monitor for signs of bleeding. 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 She has been on nivolumab since April 2017 which makes her immunocompromised. She will continue outpatient follow-up once discharged. (9) Hypothyroidism Impression: We will resume her Synthroid.
[2020-03-01] MEDS: FLUCONAZOLE 200 MG/100 ML 100 ML IV SCH (09:58)
[2020-03-01] MEDS: CHLORHEXIDINE GLUCONATE 15 ML UDC PO SCH ×2 (10:03→21:38)
[2020-03-01] MEDS: polyethylene glycoL 3350 17 GM PACKET PO SCH (10:05)
[2020-03-01] MEDS: ENOXAPARIN 40 MG/0.4 ML SYRINGE SUBQ SCH (10:05)
[2020-03-01] MEDS: INSULIN REGULAR HUMAN 300 UNIT/3 ML VIAL SUBQ SCH ×3 (12:57→23:59)
--- NOTE | 2020-03-01 12:57 | CONSULTATION NOTE ---
Palliative Care Follow Up - Referral Referring Provider: Dr. Jimenez Time of Visit: [id number] Referral setting: Hospitalized patient Referral Reason: Met Lung CA/PNA/Goals of Care - Information Sources Records reviewed: RN notes reviewed, Previous records reviewed History/Review of Systems obtained from: Patient, Family (granddaughter at bedside), Nursing, Other (hospitalist) Exam limitations: Clinical condition (patient with still some residual memory l oss; just extubates) - History of Present Illness Update Brief HPI Update: Please see summary 02/28. Patient has been extubated prior to my visit, still struggling with some secretions, soft voice, and difficulty talking. She does admit to some mild confusion, but is able to engage in conversation, her granddaughter is at the bedside. She does not remember much about what happened over the last few days, she does remember falling, and does remember all her family gathering. She does understand the seriousness of her condition, she does understand she "almost ". We did discuss currently she is doing much better, we are hoping for the best and a good recovery, but will need to continue to weigh benefits and burdens as decisions come her way. She does have severe underlying anxiety, we did acknowledge this in the context of needing to make some decisions in the future, encouraged her to consider what is most important and priorities at this point in time, so we can continue to work with her and her family. 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 She is grimacing through exam, having difficulty getting comfortable. She will be getting tested for swallow eval, and follow-up with hospitalist they will start her regular meds.She was relieved to hear this. Social History - Living Situation Living arrangement: At home Living Situation: With spouse/s.o. Support System: Patient lives at home with her "ex-", they have remained together, this was done in the context of their previous situation, they have been together for a long period of time. Her son Surya, has been up and participating in decision-making, her granddaughter is here today at bedside asking appropriate questions as well. [facility] his [facility] mass, he has been feeling poorly as well. Family is concerned about support and help they are going to need into the future. Medications/Allergies - Medications Active Medication List: Active Medications Acetaminophen (Tylenol) 650 mg PO Q4HR PRN PRN Reason: Pain 1 to 4 Last Admin: 03/01/20 03:42 Dose: 650 mg Documented by: Carboxymethylcellulose (Refresh 1% Ophth Drops) 1 drops EACHEYE PRN PRN PRN Reason: Dry Eye Last Admin: 02/29/20 17:11 Dose: 1 drops Documented by: Chlorhexidine Gluconate (Peridex) 15 ml PO BID [facility] Last Admin: 03/01/20 10:03 Dose: 15 ml Documented by: Citalopram Hydrobromide (Celexa) 40 mg PO DAILY [facility] Cyanocobalamin (Vitamin B-12) 1,000 mcg PO DAILY [facility] Enoxaparin Sodium (Lovenox) 40 mg SUBQ DAILY [facility] Last Admin: 03/01/20 10:05 Dose: 40 mg Documented by: Heparin Sodium (Beef Lung) () 30 - 50 unit IVP PRN PRN PRN Reason: Port Protocol (<24 hours) Hydromorphone HCl (Dilaudid Inj Syringe) 0.5 mg IVP Q3H PRN PRN Reason: PAIN Last Admin: 02/29/20 06:37 Dose: 0.5 mg Documented by: Fluconazole (Diflucan 200 Mg/100 Ml) 100 mls @ 100 mls/hr IV DAILY [facility] Last Admin: 03/01/20 09:58 Dose: 100 mls/hr Documented by: Piperacillin Sod/Tazobactam (Sod 3.375 gm/ Sodium Chloride) 100 mls @ 25 mls/hr IV Q8HR [facility] Last Infusion: 03/01/20 09:57 Dose: Infused Documented by: Insulin Human Regular (Humulin R) 1 - 5 unit SUBQ Q6HR [facility]; Protocol Levothyroxine Sodium (Synthroid) 50 mcg PO QDAC [facility] Metoprolol Tartrate (Lopressor Inj) 5 mg IVP Q6H PRN PRN Reason: Tachycardia Last Admin: 02/29/20 12:34 Dose: 5 mg Documented by: Ondansetron HCl (Zofran Odt) 4 mg TL Q6HR PRN PRN Reason: Nausea / Vomiting Ondansetron HCl (Zofran Inj) 4 mg IVP Q6HR PRN PRN Reason: Nausea / Vomiting Pantoprazole Sodium (Protonix) 40 mg IVP QDAC [facility] Last Admin: 03/01/20 06:05 Dose: 40 mg Documented by: Polyethylene Glycol (Miralax) 17 gm PO DAILY [facility] Last Admin: 03/01/20 10:05 Dose: Not Given Documented by: Pregabalin (Lyrica) 100 mg PO Q8H [facility] Sodium Chloride (Normal Saline Flush 0.9%) 10 ml IVP PRN PRN PRN Reason: NEEDED PER PROVIDER ORDERS Last Admin: 03/01/20 06:06 Dose: 10 ml Documented by: Sodium Chloride (Normal Saline Flush 0.9%) 10 ml IVP 0100,0900,1700 [facility] Last Admin: 03/01/20 10:06 Dose: Not Given Documented by: Sodium Chloride (Normal Saline Flush 0.9%) 20 ml IVP PRN PRN PRN Reason: After Blood Draw Trazodone HCl (Desyrel) 100 mg PO QPM [facility] Levothyroxine [Synthroid] 50 mcg PO QDAC 12/30/18 Citalopram [CeleXA] 40 tab PO DAILY 07/28/19 Cholecalciferol (Vitamin D3) [Vitamin D3] 2,000 units PO DAILY 10/06/19 Cyanocobalamin (Vitamin B-12) [Vitamin B-12] 1,000 mcg PO DAILY 10/06/19 Omeprazole 20 mg PO QDAC 10/06/19 Oxycodone HCl 5 mg PO QID PRN 10/06/19 traZODone [Desyrel] 100 mg PO QPM 10/06/19 Loratadine [Claritin] 10 mg PO DAILY PRN 02/02/20 Cefdinir 300 mg PO [id number] 02/27/20 Pregabalin 100 mg PO Q8H 02/27/20 - Allergies Allergies/Adverse Reactions: Allergies Allergy/AdvReac Type Severity Reaction Status Date / Time Sulfa (Sulfonamide AdvReac Nausea Verified 02/27/20 13:48 Antibiotics) Review of Systems - Constitutional Constitutional: reports: Fatigue, Other (NG tube pulled; waiting on swallow eval) - Eyes Eyes: reports: Vision loss - Ears, Nose & Throat Ears, Nose & Throat: reports: Hearing loss, Other (oral secretions) - Cardiovascular Cardiovascular: denies: Chest pain - Respiratory Respiratory: reports: Sputum production, Pleuritic pain (c/o pain with inspiration on right side) - Genitourinary Genitourinary: reports: Other (catheter) - Musculoskeletal Musculoskeletal: reports: Muscle pain, Back pain, Muscle aches, Stiffness, Limited range of motion, Muscle weakness - Integumentary Integumentary: reports: Dryness - Neurological Neurological: reports: General weakness, Numbness, Memory problems - Psychiatric Psychiatric: reports: Depression, Anxiety - Endocrine Endocrine: reports: Diabetes type 2, Hypothyroidism - Hematologic/Lymphatic Hematologic/Lymphatic: reports: Anemia - All Other Systems All Other Systems: reports: Reviewed and negative Physical Exam - Vital Signs Vital Signs: Vital Signs x48h Temp Pulse Pulse Resp BP Pulse Ox 03/01/20 12:00 37.4 C 99 18 199/61 H 93 03/01/20 11:10 87 03/01/20 11:00 37.2 C 86 10 L 104/59 L 99 03/01/20 10:20 85 03/01/20 10:00 37.2 C 85 22 107/52 L 99 03/01/20 09:03 86 19 104/57 L 99 03/01/20 09:00 86 19 100/49 L 99 03/01/20 08:45 79 21 94/53 L 99 03/01/20 08:30 37.1 C 85 19 101/50 L 99 03/01/20 08:15 87 19 107/52 L 98 03/01/20 08:00 86 20 100/67 99 03/01/20 07:55 37.1 C 87 19 109/51 L 98 03/01/20 07:50 37.1 C 86 20 111/52 L 99 03/01/20 07:45 37.1 C 87 20 119/56 L 99 03/01/20 07:40 37.1 C 85 20 116/54 L 99 03/01/20 07:35 37.1 C 86 19 119/57 L 99 03/01/20 07:30 37.1 C 87 86 19 116/53 L 98 03/01/20 07:25 37.1 C 87 20 131/57 H 99 03/01/20 07:15 37.1 C 88 19 129/57 L 98 03/01/20 07:00 37.2 C 86 18 128/61 99 03/01/20 06:00 37.2 C 95 19 134/60 H 98 03/01/20 05:32 83 03/01/20 05:00 37.3 C 86 19 135/60 H 99 - Physical Exam General Appearance: positive: Mild distress, Anxious Eyes Bilateral: positive: Other (watery eyes (baseline at home)) ENT: positive: Other (appears to have white spots on tongue/candidiasis) Neck: positive: Trachea midline Cardiovascular: positive: Tachycardia, Other (on drip/hypotensive) Respiratory: negative: No respiratory distress Abdomen: positive: Soft Skin: positive: Pallor, Dryness Extremities: positive: No pedal edema. negative: Joint swelling (faint redness still at left great toe joing) Neurologic/Psychiatric: positive: Oriented x3, Weakness, Flat affect Palliative Care - POLST Patient has POLST: No POLST Status: DNR Pain: Pain worsening, Location (back and LE) Performance Status: Patient has been bedbound since hospitalization. Patient's previous level of functioning, and was declining, patient only able ambulate short distances, both limited by activity intolerance as well as severe lower extremity pain. She was having increased balance issues, and increased weakness. Syd was her caregiver, providing support, she did need some minor assistance with ADLs.Discussed she would be working with PT/OT to see where she is at over the next couple days, we can discuss then what would be appropriate as far support in the future. - Palliative Care Discussion: Patient is always been quite anxious, difficulty talk about hard things. She has had a lot of loss in her life, as well as multiple treatments and the sequela that goes along with this. She has been recognizing her decline, and the seriousness of her illness, she is aware currently she is in a precarious position, but unable at this point time to really engage. She does admit to some minor kind of confusion, and she has just been extubated still having difficulty talking. Did discuss with her we would need to talk over the next few days about what is most important to her, but would be a good transition plan, also in the context of what is happening with Syd and possibilities for pending support Results - Lab Results Lab results reviewed: Yes Fish Bones: 03/01/20 05:04 03/01/20 05:07 Lab and Imaging Results: Lab Results x24hrs 03/01/20 03/01/20 03/01/20 Range/Units 05:55 05:07 05:07 WBC (4.8-10.8) x10^3/uL RBC (4.20-5.40) 10^6/uL Hgb (12.0-16.0) g/dL Hct (37.0-47.0) % MCV (81.0-99.0) fL MCH (27.0-31.0) pg MCHC (32.0-36.0) g/dL RDW (12.0-15.0) % Plt Count (130-450) 10^3/uL Neut # (Auto) Lymph # (Auto) [place] # (Auto) Eos # (Auto) Baso # (Auto) Absolute Nucleated RBC Total Counted Band Neuts % (Manual) (0 - 10) % Abnorm Lymph % (Manual) % Myelocytes % ( - 0) % Nucleated RBC % Neutrophils # (Manual) (1.5-6.6) 10^3/uL Lymphocytes # (Manual) (1.5-3.5) 10^3/uL Monocytes # (Manual) (0.0-1.0) 10^3/uL Eosinophils # (Manual) (0-0.7) 10^3/uL Basophils # (Manual) (0-0.1) 10^3/uL Differential Comment WBC Morphology (NORMAL) Platelet Estimate (NORMAL) Platelet Morphology (NORMAL) RBC Morph Micro Appear (NORMAL) Bld Gas Analysis Time 0609 Sample Site RIGHT RADIAL ABG pH 7.33 L (7.35-7.45) ABG pCO2 41 (34-45) mmHg ABG pO2 101 H (80-100) mmHg ABG HCO3 20.9 L (22.0-26.0) mmol/L ABG Total CO2 22.2 (21.0-29.0) MMOL/L ABG O2 Saturation 97 (94-98) % ABG Base Excess -4.7 L (-2.0-3.0) mmol/L Wesly Test POSITIVE VBG pH 7.315 (7.31-7.41) Ionized Calcium 1.19 (1.15-1.33) mmol/L Respiration Rate 18 b/min O2 Delivery Device VENTILATOR Vent Mode ASSIST/CONTROL FiO2 0.40 Tidal Volume 450 mL PEEP 5 cmH2O Sodium 137 (135-145) mmol/L Potassium 3.5 (3.5-5.0) mmol/L Chloride 110 (101-111) mmol/L Carbon Dioxide 20 L (21-32) mmol/L Anion Gap 7.0 (6-13) BUN 25 H (6-20) mg/dL Creatinine 1.3 H (0.4-1.0) mg/dL Estimated GFR (MDRD) 40 L (>89) Glucose 170 H (70-100) mg/dL Calcium 8.1 L (8.5-10.3) mg/dL Phosphorus (2.5-4.6) mg/dL Magnesium (1.7-2.8) mg/dL Total Bilirubin 1.2 H (0.2-1.0) mg/dL AST 17 (10-42) IU/L ALT 16 (10-60) IU/L Alkaline Phosphatase 91 (42-121) IU/L Total Protein 5.2 L (6.7-8.2) g/dL Albumin 2.0 L (3.2-5.5) g/dL Globulin 3.2 (2.1-4.2) g/dL Albumin/Globulin Ratio 0.6 L (1.0-2.2) Prealbumin 3 L (18-45) mg/dL Blood Type Blood Type Recheck Antibody Screen Crossmatch IS Only 03/01/20 03/01/20 02/29/20 Range/Units 05:07 05:04 14:42 WBC 28.6 H (4.8-10.8) x10^3/uL RBC 3.55 L (4.20-5.40) 10^6/uL Hgb 9.0 L (12.0-16.0) g/dL Hct 29.0 L (37.0-47.0) % MCV 81.7 (81.0-99.0) fL MCH 25.4 L (27.0-31.0) pg MCHC 31.0 L (32.0-36.0) g/dL RDW 25.0 H (12.0-15.0) % Plt Count 142 (130-450) 10^3/uL Neut # (Auto) Not Reportable Lymph # (Auto) Not Reportable [place] # (Auto) Not Reportable Eos # (Auto) Not Reportable Baso # (Auto) Not Reportable Absolute Nucleated RBC Not Reportable Total Counted 100 Band Neuts % (Manual) 11 H (0 - 10) % Abnorm Lymph % (Manual) 0 % Myelocytes % 1 H ( - 0) % Nucleated RBC % Not Reportable Neutrophils # (Manual) 24.9 H (1.5-6.6) 10^3/uL Lymphocytes # (Manual) 2.0 (1.5-3.5) 10^3/uL Monocytes # (Manual) 0.9 (0.0-1.0) 10^3/uL Eosinophils # (Manual) 0.3 (0-0.7) 10^3/uL Basophils # (Manual) 0.3 H (0-0.1) 10^3/uL Differential Comment MANUAL DIFFERENTIAL WBC Morphology NORMAL APPEARANCE (NORMAL) Platelet Estimate NORMAL (130-450,000) (NORMAL) Platelet Morphology 2+ LARGE PLATELETS (NORMAL) RBC Morph Micro Appear 2+ FELICIANO CELLS (NORMAL) Bld Gas Analysis Time Sample Site ABG pH (7.35-7.45) ABG pCO2 (34-45) mmHg ABG pO2 (80-100) mmHg ABG HCO3 (22.0-26.0) mmol/L ABG Total CO2 (21.0-29.0) MMOL/L ABG O2 Saturation (94-98) % ABG Base Excess (-2.0-3.0) mmol/L Wesly Test VBG pH (7.31-7.41) Ionized Calcium (1.15-1.33) mmol/L Respiration Rate b/min O2 Delivery Device Vent Mode FiO2 Tidal Volume mL PEEP cmH2O Sodium (135-145) mmol/L Potassium (3.5-5.0) mmol/L Chloride (101-111) mmol/L Carbon Dioxide (21-32) mmol/L Anion Gap (6-13) BUN (6-20) mg/dL Creatinine (0.4-1.0) mg/dL Estimated GFR (MDRD) (>89) Glucose (70-100) mg/dL Calcium (8.5-10.3) mg/dL Phosphorus 2.5 (2.5-4.6) mg/dL Magnesium 2.1 (1.7-2.8) mg/dL Total Bilirubin (0.2-1.0) mg/dL AST (10-42) IU/L ALT (10-60) IU/L Alkaline Phosphatase (42-121) IU/L Total Protein (6.7-8.2) g/dL Albumin 2.0 L (3.2-5.5) g/dL Globulin (2.1-4.2) g/dL Albumin/Globulin Ratio (1.0-2.2) Prealbumin (18-45) mg/dL Blood Type Blood Type Recheck B POSITIVE Antibody Screen Crossmatch IS Only 02/29/20 Range/Units 12:50 WBC (4.8-10.8) x10^3/uL RBC (4.20-5.40) 10^6/uL Hgb (12.0-16.0) g/dL Hct (37.0-47.0) % MCV (81.0-99.0) fL MCH (27.0-31.0) pg MCHC (32.0-36.0) g/dL RDW (12.0-15.0) % Plt Count (130-450) 10^3/uL Neut # (Auto) Lymph # (Auto) [place] # (Auto) Eos # (Auto) Baso # (Auto) Absolute Nucleated RBC Total Counted Band Neuts % (Manual) (0 - 10) % Abnorm Lymph % (Manual) % Myelocytes % ( - 0) % Nucleated RBC % Neutrophils # (Manual) (1.5-6.6) 10^3/uL Lymphocytes # (Manual) (1.5-3.5) 10^3/uL Monocytes # (Manual) (0.0-1.0) 10^3/uL Eosinophils # (Manual) (0-0.7) 10^3/uL Basophils # (Manual) (0-0.1) 10^3/uL Differential Comment WBC Morphology (NORMAL) Platelet Estimate (NORMAL) Platelet Morphology (NORMAL) RBC Morph Micro Appear (NORMAL) Bld Gas Analysis Time Sample Site ABG pH (7.35-7.45) ABG pCO2 (34-45) mmHg ABG pO2 (80-100) mmHg ABG HCO3 (22.0-26.0) mmol/L ABG Total CO2 (21.0-29.0) MMOL/L ABG O2 Saturation (94-98) % ABG Base Excess (-2.0-3.0) mmol/L Wesly Test VBG pH (7.31-7.41) Ionized Calcium (1.15-1.33) mmol/L Respiration Rate b/min O2 Delivery Device Vent Mode FiO2 Tidal Volume mL PEEP cmH2O Sodium (135-145) mmol/L Potassium (3.5-5.0) mmol/L Chloride (101-111) mmol/L Carbon Dioxide (21-32) mmol/L Anion Gap (6-13) BUN (6-20) mg/dL Creatinine (0.4-1.0) mg/dL Estimated GFR (MDRD) (>89) Glucose (70-100) mg/dL Calcium (8.5-10.3) mg/dL Phosphorus (2.5-4.6) mg/dL Magnesium (1.7-2.8) mg/dL Total Bilirubin (0.2-1.0) mg/dL AST (10-42) IU/L ALT (10-60) IU/L Alkaline Phosphatase (42-121) IU/L Total Protein (6.7-8.2) g/dL Albumin (3.2-5.5) g/dL Globulin (2.1-4.2) g/dL Albumin/Globulin Ratio (1.0-2.2) Prealbumin (18-45) mg/dL Blood Type B POSITIVE Blood Type Recheck Antibody Screen NEGATIVE Crossmatch IS Only See Detail Impression and Recommendations - Palliative Care Impression: This is a violetta anxious 74-year-old woman who is currently being treated for 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 She still presents with high white count, confusion is improved, and family appropriately concerned regarding future planning. Palliative care to provide support regarding anticipatory guidance, assistance with transition planning, and defining goals of care Recommendations/Counseling Done: 1. CI PN, patient was on pregabalin 100 mg 3 times daily, patient is to have swallow eval, recommend initiate pregabalin 100 mg 3 times daily, as well as intermittent and PRN oxycodone dosing 5 mg 1 every 4 hours as this was effective previously. 2. Insomnia. Patient does acknowledge having difficulty sleeping, has been difficult as far as ICU environment. She is feeling somewhat confused and mixed up as far as days and nights. Patient would benefit from reinitiation of her trazodone. 3. Generalized weakness. Patient already was having functional decline and decreased activity intolerance this is multifactorial. Patient will be getting PT/OT, will continue conversation regarding goals of care, where SNF versus home health versus hospice. 4. Advanced care planning. Family had made decision for DO NOT RESUSCITATE, this will need to be translated further with the patient now that she has decision-making capacity over the next few days, as well as defining further goals of care and what is most important to her. Also in the context of her who is having his own health problems and what kind of support they are going to need. Granddaughter does express appropriately concerns regarding quality of time that she has left, not having access to her if she goes to a SNF, and what kind of support are they going to need at home.Did introduce the continuum of care of SNF versus home health versus hospice, recognizing that p atient will need to participate in goals of care conversation. Time Spent: 60 minutes with greater than 50% of this done in counseling regarding anticipatory guidance, setting of rapport, initiating conversation regarding setting goals of care, and options in the context of what is most important.
[2020-03-01] MEDS ORDERED: BISACODYL 10 MG SUPP PR ONE (13:05)
[2020-03-01] MEDS ORDERED: PHENOL THROAT SPRAY 177 ML MM PRN (13:06)
[2020-03-01] MEDS: PREGABALIN 100 MG CAPSULE PO SCH ×2 (13:24→19:51)
[2020-03-01] MEDS: traZODone 50 MG TABLET PO SCH (21:39)
[2020-03-01] MEDS: HYDROmorphone 0.5 MG/0.5 ML SYRINGE IVP PRN (23:24)
[2020-03-02] MEDS: PREGABALIN 100 MG CAPSULE PO SCH ×3 (04:14→19:59)
[2020-03-02 04:59] LABS: BASOPHILS % (AUTO) 2.6 %; HGB - HEMOGLOBIN 8.6 g/dL (12.0-16.0); LYMPHOCYTES % (AUTO) 5.3 %; MEAN CORPUSCULAR HEMOGLOBIN 25.8 pg (27.0-31.0); MEAN CORPUSCULAR HGB CONC 31.3 g/dL (32.0-36.0); MEAN CORPUSCULAR VOLUME 82.6 fL (81.0-99.0); MONOCYTES % (AUTO) 4.4 %; NEUTROPHILS % (AUTO) 76.4 %; PLT - PLATELET COUNT 126 10^3/uL (130-450); RED BLOOD COUNT 3.33 10^6/uL (4.20-5.40); WHITE BLOOD COUNT 15.5 x10^3/uL (4.8-10.8)
[2020-03-02 05:09] LABS: ABNORMAL LYMPHS % (MANUAL) 0 %
[2020-03-02 05:10] LABS: CALCIUM 8.5 mg/dL (8.5-10.3); CREATININE 1.2 mg/dL (0.4-1.0); MAGNESIUM 2.2 mg/dL (1.7-2.8); PHOSPHORUS 3.4 mg/dL (2.5-4.6)
[2020-03-02 05:13] LABS: HB2 TOTAL 8.6 g/dL; HEMOGLOBIN A1C 0.32 g/dL; HEMOGLOBIN A1C % 5.6 % (4.6-6.2)
[2020-03-02 05:34] LABS: BAND NEUTROPHILS % (MANUAL) 8 %; BASOPHILS # (MANUAL) 0.3 10^3/uL (0-0.1); BASOPHILS % (MANUAL) 2 %; EOSINOPHILS # (MANUAL) 0.3 10^3/uL (0-0.7); LYMPHOCYTES # (MANUAL) 2.5 10^3/uL (1.5-3.5); LYMPHOCYTES % (MANUAL) 16 %; METAMYELOCYTES % (MANUAL) 1 %; MONOCYTES # (MANUAL) 0.5 10^3/uL (0.0-1.0)
[2020-03-02 05:35] LABS: DIFFERENTIAL COMMENT MANUAL DIFFERENTIAL; PLATELET ESTIMATE, MANUAL DECREASED (<130,000) (NORMAL); PLATELET MORPHOLOGY 1+ GIANT PLATELETS (NORMAL)
[2020-03-02] MEDS: PIPERACILLIN/TAZOBACTAM 3.375 GM in SODIUM CHLORIDE 0.9% MINIBAG 100 ML IV SCH ×3 (05:38→21:26)
[2020-03-02] MEDS: LEVOTHYROXINE 25 MCG TABLET PO SCH (06:23)
[2020-03-02] MEDS: SODIUM CHLORIDE FLUSH 0.9% 10 ML SYRINGE IVP PRN ×3 (06:23→19:08)
[2020-03-02] MEDS: PANTOPRAZOLE 40 MG VIAL IVP SCH (06:23)
[2020-03-02] MEDS: INSULIN REGULAR HUMAN 300 UNIT/3 ML VIAL SUBQ SCH ×3 (06:37→17:52)
--- NOTE | 2020-03-02 07:34 | PROVIDER PROGRESS NOTE ---
Subjective - Prog Note Date Prog Note Date: 03/02/20 - Subjective Subjective: She reports feeling better today. Still has some shortness of breath and a productive cough. Denies any chest pain. Reports no abdominal pain. She is awaiting a swallow evaluation and she is eager to begin eating and drinking again. Current Medications - Current Medications Current Medications: Active Medications Acetaminophen (Tylenol) 650 mg PO Q4HR PRN PRN Reason: Pain 1 to 4 Last Admin: 03/02/20 09:38 Dose: 650 mg Documented by: Carboxymethylcellulose (Refresh 1% Ophth Drops) 1 drops EACHEYE PRN PRN PRN Reason: Dry Eye Last Admin: 02/29/20 17:11 Dose: 1 drops Documented by: Chlorhexidine Gluconate (Peridex) 15 ml PO BID [facility] Last Admin: 03/02/20 09:39 Dose: 15 ml Documented by: Citalopram Hydrobromide (Celexa) 40 mg PO DAILY [facility] Last Admin: 03/02/20 09:40 Dose: 40 mg Documented by: Cyanocobalamin (Vitamin B-12) 1,000 mcg PO DAILY [facility] Last Admin: 03/02/20 09:40 Dose: 1,000 mcg Documented by: Docusate Sodium (Colace 250mg Capsule) 250 - 500 mg PO DAILY [facility] Last Admin: 03/02/20 09:24 Dose: Not Given Documented by: Enoxaparin Sodium (Lovenox) 40 mg SUBQ DAILY [facility] Last Admin: 03/02/20 09:41 Dose: 40 mg Documented by: Heparin Sodium (Beef Lung) () 30 - 50 unit IVP PRN PRN PRN Reason: Port Protocol (<24 hours) Hydromorphone HCl (Dilaudid Inj Syringe) 0.5 mg IVP Q3H PRN PRN Reason: PAIN Last Admin: 03/01/20 23:24 Dose: 0.5 mg Documented by: Fluconazole (Diflucan 200 Mg/100 Ml) 100 mls @ 100 mls/hr IV DAILY [facility] Last Infusion: 03/02/20 10:39 Dose: Infused Documented by: Piperacillin Sod/Tazobactam (Sod 3.375 gm/ Sodium Chloride) 100 mls @ 25 mls/hr IV Q8HR [facility] Last Infusion: 03/02/20 09:37 Dose: Infused Documented by: Insulin Human Regular (Humulin R) 1 - 5 unit SUBQ Q6HR [facility]; Protocol Last Admin: 03/02/20 12:03 Dose: Not Given Documented by: Levothyroxine Sodium (Synthroid) 50 mcg PO QDAC [facility] Last Admin: 03/02/20 06:23 Dose: 50 mcg Documented by: Metoprolol Tartrate (Lopressor Inj) 5 mg IVP Q6H PRN PRN Reason: Tachycardia Last Admin: 02/29/20 12:34 Dose: 5 mg Documented by: Ondansetron HCl (Zofran Odt) 4 mg TL Q6HR PRN PRN Reason: Nausea / Vomiting Ondansetron HCl (Zofran Inj) 4 mg IVP Q6HR PRN PRN Reason: Nausea / Vomiting Pantoprazole Sodium (Protonix) 40 mg IVP QDAC [facility] Last Admin: 03/02/20 06:23 Dose: 40 mg Documented by: Phenol/Menthol (Chloraseptic) 2 sprays MM Q2HR PRN PRN Reason: Throat Pain Polyethylene Glycol (Miralax) 17 gm PO DAILY [facility] Last Admin: 03/02/20 09:24 Dose: Not Given Documented by: Pregabalin (Lyrica) 100 mg PO Q8H [facility] Last Admin: 03/02/20 12:16 Dose: 100 mg Documented by: Senna (Senokot) 8.6 - 17.2 mg PO DAILY [facility] Last Admin: 03/02/20 09:25 Dose: Not Given Documented by: Sodium Chloride (Normal Saline Flush 0.9%) 10 ml IVP PRN PRN PRN Reason: NEEDED PER PROVIDER ORDERS Last Admin: 03/02/20 06:23 Dose: 10 ml Documented by: Sodium Chloride (Normal Saline Flush 0.9%) 10 ml IVP 0100,0900,1700 [facility] Last Admin: 03/02/20 09:41 Dose: 10 ml Documented by: Sodium Chloride (Normal Saline Flush 0.9%) 20 ml IVP PRN PRN PRN Reason: After Blood Draw Trazodone HCl (Desyrel) 100 mg PO QPM [facility] Last Admin: 03/01/20 21:39 Dose: 100 mg Documented by: Levothyroxine [Synthroid] 50 mcg PO QDAC 12/30/18 Citalopram [CeleXA] 40 tab PO DAILY 07/28/19 Cholecalciferol (Vitamin D3) [Vitamin D3] 2,000 units PO DAILY 10/06/19 Cyanocobalamin (Vitamin B-12) [Vitamin B-12] 1,000 mcg PO DAILY 10/06/19 Omeprazole 20 mg PO QDAC 10/06/19 Oxycodone HCl 5 mg PO QID PRN 10/06/19 traZODone [Desyrel] 100 mg PO QPM 10/06/19 Loratadine [Claritin] 10 mg PO DAILY PRN 02/02/20 Cefdinir 300 mg PO [id number] 02/27/20 Pregabalin 100 mg PO Q8H 02/27/20 Objective - Vital Signs/Intake & Output Reviewed Vital Signs: Yes Vital Signs: Vital Signs Temp Pulse Resp BP Pulse Ox 03/02/20 07:00 37.5 C 100 25 H 135/67 H 95 03/02/20 06:00 37.2 C 102 H 25 H 122/53 L 95 03/02/20 05:35 37 C 96 22 115/50 L 95 03/02/20 04:00 36.8 C 95 19 99/52 L 96 Intake & Output: Intake & Output 02/28/20 02/29/20 03/01/20 03/02/20 23:59 23:59 23:59 23:59 Intake Total 5211.621 4717.842 3314.107 100 Output Total 1463 1684 1435 485 Balance 3748.621 3033.842 1879.107 -385 - Objective General Appearance: positive: No acute distress, Alert Eyes Bilateral: positive: Normal inspection ENT: positive: Other (Nasal cannula in place.) Neck: positive: Nml inspection Respiratory: positive: No respiratory distress, Rhonchi (Bilaterally), Other (Diminished breath sounds.) Cardiovascular: positive: No murmur, Tachycardia. negative: Irregularly irregular, Bradycardia, Systolic murmur Abdomen: positive: Non-tender, No distention. negative: Tenderness, Guarding, Rebound Skin: positive: Warm, Dry Extremities: positive: Pedal edema (+1 pitting edema in bilateral lower extremities.) Neurologic/Psychiatric: positive: Oriented x3, Other (No focal motor deficits.) - Lab Results Fish Bones: 03/02/20 04:20 03/02/20 04:20 Other Labs: Lab Results x24hrs 03/02/20 03/02/20 03/02/20 Range/Units 04:20 04:20 04:20 WBC 15.5 H (4.8-10.8) x10^3/uL RBC 3.33 L (4.20-5.40) 10^6/uL Hgb 8.6 L (12.0-16.0) g/dL Hct 27.5 L (37.0-47.0) % MCV 82.6 (81.0-99.0) fL MCH 25.8 L (27.0-31.0) pg MCHC 31.3 L (32.0-36.0) g/dL RDW 25.0 H (12.0-15.0) % Plt Count 126 L (130-450) 10^3/uL Neut # (Auto) Not Reportable Lymph # (Auto) Not Reportable Frio # (Auto) Not Reportable Eos # (Auto) Not Reportable Baso # (Auto) Not Reportable Absolute Nucleated RBC Not Reportable Total Counted 100 Band Neuts % (Manual) 8 (0 - 10) % Abnorm Lymph % (Manual) 0 % Metamyelocytes % 1 H ( - 0) % Nucleated RBC % Not Reportable Neutrophils # (Manual) 11.8 H (1.5-6.6) 10^3/uL Lymphocytes # (Manual) 2.5 (1.5-3.5) 10^3/uL Monocytes # (Manual) 0.5 (0.0-1.0) 10^3/uL Eosinophils # (Manual) 0.3 (0-0.7) 10^3/uL Basophils # (Manual) 0.3 H (0-0.1) 10^3/uL Differential Comment MANUAL DIFFERENTIAL Platelet Estimate DECREASED (<130,000) (NORMAL) Platelet Morphology 1+ GIANT PLATELETS (NORMAL) RBC Morph Micro Appear 1+ TARGET CELLS (NORMAL) Sodium 141 (135-145) mmol/L Potassium 3.6 (3.5-5.0) mmol/L Chloride 111 (101-111) mmol/L Carbon Dioxide 23 (21-32) mmol/L Anion Gap 7.0 (6-13) BUN 26 H (6-20) mg/dL Creatinine 1.2 H (0.4-1.0) mg/dL Estimated GFR (MDRD) 44 L (>89) Glucose 96 (70-100) mg/dL Glycated Hemoglobin (4.6-6.2) % Estim Average Glucose (70-100) Calcium 8.5 (8.5-10.3) mg/dL Phosphorus 3.4 (2.5-4.6) mg/dL Magnesium 2.2 (1.7-2.8) mg/dL TSH 3.19 (0.34-5.60) uIU/mL Coronavirus (PCR) 03/02/20 02/28/20 Range/Units 04:20 20:00 WBC (4.8-10.8) x10^3/uL RBC (4.20-5.40) 10^6/uL Hgb (12.0-16.0) g/dL Hct (37.0-47.0) % MCV (81.0-99.0) fL MCH (27.0-31.0) pg MCHC (32.0-36.0) g/dL RDW (12.0-15.0) % Plt Count (130-450) 10^3/uL Neut # (Auto) Lymph # (Auto) Frio # (Auto) Eos # (Auto) Baso # (Auto) Absolute Nucleated RBC Total Counted Band Neuts % (Manual) (0 - 10) % Abnorm Lymph % (Manual) % Metamyelocytes % ( - 0) % Nucleated RBC % Neutrophils # (Manual) (1.5-6.6) 10^3/uL Lymphocytes # (Manual) (1.5-3.5) 10^3/uL Monocytes # (Manual) (0.0-1.0) 10^3/uL Eosinophils # (Manual) (0-0.7) 10^3/uL Basophils # (Manual) (0-0.1) 10^3/uL Differential Comment Platelet Estimate (NORMAL) Platelet Morphology (NORMAL) RBC Morph Micro Appear (NORMAL) Sodium (135-145) mmol/L Potassium (3.5-5.0) mmol/L Chloride (101-111) mmol/L Carbon Dioxide (21-32) mmol/L Anion Gap (6-13) BUN (6-20) mg/dL Creatinine (0.4-1.0) mg/dL Estimated GFR (MDRD) (>89) Glucose (70-100) mg/dL Glycated Hemoglobin 5.6 (4.6-6.2) % Estim Average Glucose 114 H (70-100) Calcium (8.5-10.3) mg/dL Phosphorus (2.5-4.6) mg/dL Magnesium (1.7-2.8) mg/dL TSH (0.34-5.60) uIU/mL Coronavirus (PCR) NEGATIVE Sepsis Event Note (H) - Evaluation Current Stage of Sepsis: Resolved Possible source of Sepsis: positive: Pulmonary - Sepsis Criteria Sepsis Criteria: Recorded Heart Rate greater than 90 bpm, Recorded Respiratory Rate greater than 20, Respiratory: Increasing oxygen requirements, WBC count greater than 10% bands, WBC count greater than 12,000 or less than 4000 Assessment/Plan - Problem List (1) Septic shock Impression: She is improving from a sepsis standpoint. She is no longer hypotensive and is off of vasopressors for 24 hours now. Her white count has also improved today and is now down to 15,000 although she still has bands present. This is p resumed to be secondary to her pneumonia. She is completed 3 days azithromycin remains on Zosyn IV and fluconazole IV given her lower respiratory cultures grew yeast. We will continue these for total of 7 days of therapy. Continue to trend her white count. (2) Acute respiratory failure with hypoxia Impression: This is improving. She was extubated yesterday and is saturating in the mid 90s on 3 L of oxygen via nasal cannula. Is likely secondary to her pneumonia but she is positive about 10 L since admission so there could be a component of pulmonary vascular congestion. We will continue her on the IV antibiotics mentioned above. We will repeat a chest x-ray today. She will likely need to be diuresed starting today or tomorrow depending on the x-ray findings. Continue supplemental oxygen for goal saturation greater than 92%. Encourage spirometry use. (3) Community acquired pneumonia Impression: Most recent imaging showed bilateral infiltrates. She is completed 3 days of azithromycin IV and she is now on Zosyn IV and fluconazole IV with today being day 3. We will continue these for total of 7 days of therapy. We will repeat a chest x-ray today. (4) Hypotension Impression: This was secondary to sepsis and has resolved. She is currently normotensive. Continue to monitor her blood pressure especially as we begin to diurese her. Qualifiers: Qualified Code(s): I95.9 - Hypotension, unspecified (5) Paroxysmal atrial fibrillation Impression: She developed atrial fibrillation on February 28 and converted to sinus rhythm after treatment with procainamide. She currently remains in sinus rhythm. Her TSH within normal limits. Echocardiogram today showed a preserved ejection fraction without any wall motion abnormalities and the left atrial volume index is normal. Suspect this episode of atrial relation was brought on by her sepsis. We will continue to monitor on telemetry but will hold off on initiating anticoagulation or beta-bernardo. (6) Physical deconditioning Impression: She is quite deconditioned given her critical illness and the need for mechanical ventilation for 48 hours. Will consult physical therapy for further evaluation as well as occupational therapy. We will get her up and out of bed 3 times a day. (7) Chronic kidney disease, stage 3 (moderate) Impression: Creatinine has improved to 1.2 today and her baseline is normally between 1.2- 1.6. She is net +10 L and will likely to be diuresed over the next day or 2. We will monitor her renal function closely as we initiate diuresis. (8) Anemia of chronic disease Impression: She had been transfused 1 unit of packed red blood cells during his hospitalization and she is bonded appropriately to transfusion. There is no evidence of bleeding at this time. Hemoglobin is slightly decreased today to 8.6 but she is chronically anemic with a baseline hemoglobin of approximately 9- 10. 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 She will continue outpatient follow-up with oncology and palliative care. (10) Hypothyroidism Impression: Continue Synthroid. (11) Mild malnutrition Impression: She meets criteria for mild malnutrition given to the decreased food intake over the past week and weight loss. Appreciate nutrition consult recommendations. We will encourage oral intake once he passes her swallow evaluation. If she fails, will need to consider NG tube placement for tube feeds.
[2020-03-02] MEDS: polyethylene glycoL 3350 17 GM PACKET PO SCH (09:24)
[2020-03-02] MEDS: DOCUSATE SODIUM 250 MG CAPSULE PO SCH (09:24)
[2020-03-02] MEDS: SENNA 8.6 MG TABLET PO SCH (09:25)
[2020-03-02] MEDS: ACETAMINOPHEN 325 MG TABLET PO PRN (09:38)
[2020-03-02] MEDS: FLUCONAZOLE 200 MG/100 ML 100 ML IV SCH (09:39)
[2020-03-02] MEDS: CHLORHEXIDINE GLUCONATE 15 ML UDC PO SCH ×2 (09:39→21:26)
[2020-03-02] MEDS: CYANOCOBALAMIN 500 MCG TABLET PO SCH (09:40)
[2020-03-02] MEDS: CITALOPRAM 10 MG TABLET PO SCH (09:40)
[2020-03-02] MEDS: ENOXAPARIN 40 MG/0.4 ML SYRINGE SUBQ SCH (09:41)
[2020-03-02] MEDS: SODIUM CHLORIDE FLUSH 0.9% 10 ML SYRINGE IVP SCH ×3 (09:41→21:26)
--- NOTE | 2020-03-02 09:51 | XRAY Report ---
PROCEDURE: Chest 1 View X-Ray INDICATIONS: Follow up infiltrates. TECHNIQUE: One view of the chest was acquired. COMPARISON: CT chest 02/28/2020. CXR 02/27/2020. FINDINGS: Surgical changes and devices: Right-sided port with the catheter tip at the lower third of the SVC. M ultiple surgical clips in the left abdomen from prior nephrectomy. Surgical clips in the left breast. Enteric tube has been removed. Lungs and pleura: Bilateral perihilar moderate sized airspace opacities, stable to slightly increased compared to CT 02/28/2020 and increased compared to 02/27/2020. Mild airspace opacity at the right later al apex, similar. Small left pleural effusion is appreciated. Prior effusion on the right is not well appreciated. No pneumothorax. Mediastinum: Mediastinal contours appear unchanged. Heart size is within normal limits. Bones and chest wall: No suspicious bony lesions. Overlying soft tissues appear unremarkable. IMPRESSION: Suspect worsening bilateral perihilar pneumonia. Small left effusion appreciated. Reviewed by: Anil Rodriguez MD on 03/02/2020 9:49 AM PDT Approved by: Anil Rodriguez MD on 03/02/2020 9:49 AM PDT Station ID: [id number]
[2020-03-02] MEDS: FUROSEMIDE 20 MG/2 ML VIAL IVP SCH (13:18)
--- NOTE | 2020-03-02 15:38 | CONSULTATION NOTE ---
Palliative Care Follow Up - Referral Referring Provider: Dr. Jimenez Time of Visit: 4395 Referral setting: Hospitalized patient Referral Reason: Goals of Care - Information Sources Records reviewed: Previous records reviewed History/Review of Systems obtained from: Patient, Family ( Syd) Exam limitations: Clinical condition (still feeling drifty) - History of Present Illness Update Brief HPI Update: see HPI 02/28. Patient is now extubated, and has been mostly bedbound. She is still having trouble with coughing and choking, she has had long-term dysphagia symptoms secondary to her head neck cancer treatment of radiation. She does have better understanding of what is current going on, does understand things are fairly serious for the bigger picture, and will need a transition plan. Syd her , [facility] his [facility] mass. She is quite anxious and worried about how they are going to manage. Social History - Living Situation Living arrangement: At home Living Situation: With spouse/s.o. Support System: is appropriately expressing concerns, patient is not able to be ambulatory or independent, given his failing health how she is going to be able to be supported. He is quite anxious if he will even be coming home after his appointment tomorrow, given the seriousness of his current health issues. They do not have any family in the area, no community, at this point time been financially stressed so no ability to hire assistance. He is concerned about her deteriorating quality of life, as she had been climbing over the last couple months. Medications/Allergies - Medications Active Medication List: Active Medications Acetaminophen (Tylenol) 650 mg PO Q4HR PRN PRN Reason: Pain 1 to 4 Last Admin: 03/02/20 09:38 Dose: 650 mg Documented by: Carboxymethylcellulose (Refresh 1% Ophth Drops) 1 drops EACHEYE PRN PRN PRN Reason: Dry Eye Last Admin: 02/29/20 17:11 Dose: 1 drops Documented by: Chlorhexidine Gluconate (Peridex) 15 ml PO BID [facility] Last Admin: 03/02/20 09:39 Dose: 15 ml Documented by: Citalopram Hydrobromide (Celexa) 40 mg PO DAILY [facility] Last Admin: 03/02/20 09:40 Dose: 40 mg Documented by: Cyanocobalamin (Vitamin B-12) 1,000 mcg PO DAILY [facility] Last Admin: 03/02/20 09:40 Dose: 1,000 mcg Documented by: Docusate Sodium (Colace 250mg Capsule) 250 - 500 mg PO DAILY [facility] Last Admin: 03/02/20 09:24 Dose: Not Given Documented by: Enoxaparin Sodium (Lovenox) 40 mg SUBQ DAILY [facility] Last Admin: 03/02/20 09:41 Dose: 40 mg Documented by: Furosemide (Lasix Inj 20mg Vial) 20 mg IVP DAILY [facility] Last Admin: 03/02/20 13:18 Dose: 20 mg Documented by: Heparin Sodium (Beef Lung) () 30 - 50 unit IVP PRN PRN PRN Reason: Port Protocol (<24 hours) Hydromorphone HCl (Dilaudid Inj Syringe) 0.5 mg IVP Q3H PRN PRN Reason: PAIN Last Admin: 03/01/20 23:24 Dose: 0.5 mg Documented by: Fluconazole (Diflucan 200 Mg/100 Ml) 100 mls @ 100 mls/hr IV DAILY [facility] Last Infusion: 03/02/20 10:39 Dose: Infused Documented by: Piperacillin Sod/Tazobactam (Sod 3.375 gm/ Sodium Chloride) 100 mls @ 25 mls/hr IV Q8HR [facility] Last Admin: 03/02/20 14:00 Dose: 25 mls/hr Documented by: Insulin Human Regular (Humulin R) 1 - 5 unit SUBQ Q6HR [facility]; Protocol Last Admin: 03/02/20 12:03 Dose: Not Given Documented by: Levothyroxine Sodium (Synthroid) 50 mcg PO QDAC [facility] Last Admin: 03/02/20 06:23 Dose: 50 mcg Documented by: Metoprolol Tartrate (Lopressor Inj) 5 mg IVP Q6H PRN PRN Reason: Tachycardia Last Admin: 02/29/20 12:34 Dose: 5 mg Documented by: Ondansetron HCl (Zofran Odt) 4 mg TL Q6HR PRN PRN Reason: Nausea / Vomiting Ondansetron HCl (Zofran Inj) 4 mg IVP Q6HR PRN PRN Reason: Nausea / Vomiting Phenol/Menthol (Chloraseptic) 2 sprays MM Q2HR PRN PRN Reason: Throat Pain Polyethylene Glycol (Miralax) 17 gm PO DAILY [facility] Last Admin: 03/02/20 09:24 Dose: Not Given Documented by: Pregabalin (Lyrica) 100 mg PO Q8H [facility] Last Admin: 03/02/20 12:16 Dose: 100 mg Documented by: Jason (Senokot) 8.6 - 17.2 mg PO DAILY [facility] Last Admin: 03/02/20 09:25 Dose: Not Given Documented by: Sodium Chloride (Normal Saline Flush 0.9%) 10 ml IVP PRN PRN PRN Reason: NEEDED PER PROVIDER ORDERS Last Admin: 03/02/20 13:19 Dose: 10 ml Documented by: Sodium Chloride (Normal Saline Flush 0.9%) 10 ml IVP 0100,0900,1700 [facility] Last Admin: 03/02/20 09:41 Dose: 10 ml Documented by: Sodium Chloride (Normal Saline Flush 0.9%) 20 ml IVP PRN PRN PRN Reason: After Blood Draw Trazodone HCl (Desyrel) 100 mg PO QPM [facility] Last Admin: 03/01/20 21:39 Dose: 100 mg Documented by: Levothyroxine [Synthroid] 50 mcg PO QDAC 12/30/18 Citalopram [CeleXA] 40 tab PO DAILY 07/28/19 Cholecalciferol (Vitamin D3) [Vitamin D3] 2,000 units PO DAILY 10/06/19 Cyanocobalamin (Vitamin B-12) [Vitamin B-12] 1,000 mcg PO DAILY 10/06/19 Omeprazole 20 mg PO QDAC 10/06/19 Oxycodone HCl 5 mg PO QID PRN 10/06/19 traZODone [Desyrel] 100 mg PO QPM 10/06/19 Loratadine [Claritin] 10 mg PO DAILY PRN 02/02/20 Cefdinir 300 mg PO [id number] 02/27/20 Pregabalin 100 mg PO Q8H 02/27/20 - Allergies Allergies/Adverse Reactions: Allergies Allergy/AdvReac Type Severity Reaction Status Date / Time Sulfa (Sulfonamide AdvReac Nausea Verified 02/27/20 13:48 Antibiotics) Review of Systems - Constitutional Constitutional: reports: Fatigue. denies: Fever, Chills - Eyes Eyes: reports: Vision loss, Other (watery eyes) - Ears, Nose & Throat Ears, Nose & Throat: reports: Hearing loss, Other (edentulous) - Cardiovascular Cardiovascular: reports: Decr. exercise tolerance - Respiratory Respiratory: reports: Cough (with any intake) - Musculoskeletal Musculoskeletal: reports: Back pain, Muscle aches, Stiffness, Limited range of motion, Muscle weakness - Integumentary Integumentary: reports: Rash, Dryness - Neurological Neurological: reports: General weakness, Numbness (balance issues and severe peripheral neuropathy), Memory problems - Psychiatric Psychiatric: reports: Depression, Anxiety - Endocrine Endocrine: reports: Diabetes type 2, Hypothyroidism - Hematologic/Lymphatic Hematologic/Lymphatic: reports: Anemia - All Other Systems All Other Systems: reports: Reviewed and negative Physical Exam - Vital Signs Vital Signs: Vital Signs x48h Temp Pulse Pulse Pulse Resp BP BP 03/02/20 14:00 95 25 H 120/60 03/02/20 13:50 03/02/20 13:10 88 24 109/61 03/02/20 13:00 37.3 C 89 24 94/68 03/02/20 12:00 96 19 103/73 03/02/20 11:00 100 102 H 103 H 16 128/52 L 118/89 H 03/02/20 10:45 104 H 101 H 118/89 H 03/02/20 10:00 110 H 20 130/79 03/02/20 09:00 106 H 22 146/81 H 03/02/20 08:00 37.7 C H 103 H 18 138/106 H BP Pulse Ox 03/02/20 14:00 93 03/02/20 13:50 94 03/02/20 13:10 95 03/02/20 13:00 96 03/02/20 12:00 95 03/02/20 11:00 128/52 L 94 03/02/20 10:45 128/52 L 03/02/20 10:00 93 03/02/20 09:00 94 03/02/20 08:00 95 - Physical Exam General Appearance: positive: Mild distress, Anxious Eyes Bilateral: positive: Other (watery eyes (baseline at home)) ENT: positive: Other (appears to have white spots on tongue/candidiasis) Neck: positive: Trachea midline Cardiovascular: positive: Tachycardia Respiratory: negative: No respiratory distress (cough frequently with oral secretions and swallowing) Abdomen: positive: Soft Skin: positive: Pallor, Dryness Extremities: positive: No pedal edema Neurologic/Psychiatric: positive: Oriented x3, Weakness, Flat affect Palliative Care - POLST Patient has POLST: No POLST Status: DNR Pain: Pain improved, Location (in feet with restarting pregabilin) - Palliative Care Discussion: Discussion with patient, regarding what we do know and we do not know. She does understand the seriousness of her condition, we did discuss in the context of CODE STATUS, that if she were to a point where she would need CPR, most likely outcome would not bring her back to her previous level of functioning, and most likely not have a good outcome given her underlying seriousness of her illness. She is in agreement for DO NOT RESUSCITATE, will still need POLST. In the discussion regarding intubation, this has been asked of her several times, she is pretty sure she would not want this again, but on her other hand she does not want to . We discussed again in the context of weighing benefits and burdens of moving forward, what might make the best sense at this point in time. 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 Early what this might mean for further management of her cancer. She would not be appropriate for treatment at this point time, given her decline in functional status, but did agree with follow- up, unclear what or if there is yet another line, patient has had multiple treatments. She is continued to decline functionally, and whether she would choose in the context of quality of life. I also requested she help me understand what her priorities are at this point in time, and what she would define as quality of life for our future discussions. Syd expressed concerns about being able to manage her at home, we did discuss she would need to be much more independent, that certainly the outcome of his appointment tomorrow will impact what might be possible in the future. Patient most likely would benefit from SNF stay at least short-term, though her wish would be to go home, and she does not have support given her current level of functioning available to help at home. She is easily overwhelmed, and this is a very difficult situation for them both, did discuss we will continue to have conversations in the context of looking to the future. Results - Lab Results Lab results reviewed: Yes Fish Bones: 03/02/20 04:20 03/02/20 04:20 Lab and Imaging Results: Lab Results x24hrs 03/02/20 03/02/20 03/02/20 Range/Units 11:49 06:35 04:20 WBC (4.8-10.8) x10^3/uL RBC (4.20-5.40) 10^6/uL Hgb (12.0-16.0) g/dL Hct (37.0-47.0) % MCV (81.0-99.0) fL MCH (27.0-31.0) pg MCHC (32.0-36.0) g/dL RDW (12.0-15.0) % Plt Count (130-450) 10^3/uL Neut # (Auto) Lymph # (Auto) Schley # (Auto) Eos # (Auto) Baso # (Auto) Absolute Nucleated RBC Total Counted Band Neuts % (Manual) (0 - 10) % Abnorm Lymph % (Manual) % Metamyelocytes % ( - 0) % Nucleated RBC % Neutrophils # (Manual) (1.5-6.6) 10^3/uL Lymphocytes # (Manual) (1.5-3.5) 10^3/uL Monocytes # (Manual) (0.0-1.0) 10^3/uL Eosinophils # (Manual) (0-0.7) 10^3/uL Basophils # (Manual) (0-0.1) 10^3/uL Differential Comment Platelet Estimate (NORMAL) Platelet Morphology (NORMAL) RBC Morph Micro Appear (NORMAL) Sodium 141 (135-145) mmol/L Potassium 3.6 (3.5-5.0) mmol/L Chloride 111 (101-111) mmol/L Carbon Dioxide 23 (21-32) mmol/L Anion Gap 7.0 (6-13) BUN 26 H (6-20) mg/dL Creatinine 1.2 H (0.4-1.0) mg/dL Estimated GFR (MDRD) 44 L (>89) Glucose 96 (70-100) mg/dL POC Whole Bld Glucose 123 H 92 (70 - 100) mg/dL Glycated Hemoglobin (4.6-6.2) % Estim Average Glucose (70-100) Calcium 8.5 (8.5-10.3) mg/dL Phosphorus 3.4 (2.5-4.6) mg/dL Magnesium 2.2 (1.7-2.8) mg/dL TSH (0.34-5.60) uIU/mL Coronavirus (PCR) 03/02/20 03/02/20 03/02/20 Range/Units 04:20 04:20 04:20 WBC 15.5 H (4.8-10.8) x10^3/uL RBC 3.33 L (4.20-5.40) 10^6/uL Hgb 8.6 L (12.0-16.0) g/dL Hct 27.5 L (37.0-47.0) % MCV 82.6 (81.0-99.0) fL MCH 25.8 L (27.0-31.0) pg MCHC 31.3 L (32.0-36.0) g/dL RDW 25.0 H (12.0-15.0) % Plt Count 126 L (130-450) 10^3/uL Neut # (Auto) Not Reportable Lymph # (Auto) Not Reportable Schley # (Auto) Not Reportable Eos # (Auto) Not Reportable Baso # (Auto) Not Reportable Absolute Nucleated RBC Not Reportable Total Counted 100 Band Neuts % (Manual) 8 (0 - 10) % Abnorm Lymph % (Manual) 0 % Metamyelocytes % 1 H ( - 0) % Nucleated RBC % Not Reportable Neutrophils # (Manual) 11.8 H (1.5-6.6) 10^3/uL Lymphocytes # (Manual) 2.5 (1.5-3.5) 10^3/uL Monocytes # (Manual) 0.5 (0.0-1.0) 10^3/uL Eosinophils # (Manual) 0.3 (0-0.7) 10^3/uL Basophils # (Manual) 0.3 H (0-0.1) 10^3/uL Differential Comment MANUAL DIFFERENTIAL Platelet Estimate DECREASED (<130,000) (NORMAL) Platelet Morphology 1+ GIANT PLATELETS (NORMAL) RBC Morph Micro Appear 1+ TARGET CELLS (NORMAL) Sodium (135-145) mmol/L Potassium (3.5-5.0) mmol/L Chloride (101-111) mmol/L Carbon Dioxide (21-32) mmol/L Anion Gap (6-13) BUN (6-20) mg/dL Creatinine (0.4-1.0) mg/dL Estimated GFR (MDRD) (>89) Glucose (70-100) mg/dL POC Whole Bld Glucose (70 - 100) mg/dL Glycated Hemoglobin 5.6 (4.6-6.2) % Estim Average Glucose 114 H (70-100) Calcium (8.5-10.3) mg/dL Phosphorus (2.5-4.6) mg/dL Magnesium (1.7-2.8) mg/dL TSH 3.19 (0.34-5.60) uIU/mL Coronavirus (PCR) 03/01/20 03/01/20 03/01/20 Range/Units 23:20 17:29 12:06 WBC (4.8-10.8) x10^3/uL RBC (4.20-5.40) 10^6/uL Hgb (12.0-16.0) g/dL Hct (37.0-47.0) % MCV (81.0-99.0) fL MCH (27.0-31.0) pg MCHC (32.0-36.0) g/dL RDW (12.0-15.0) % Plt Count (130-450) 10^3/uL Neut # (Auto) Lymph # (Auto) Schley # (Auto) Eos # (Auto) Baso # (Auto) Absolute Nucleated RBC Total Counted Band Neuts % (Manual) (0 - 10) % Abnorm Lymph % (Manual) % Metamyelocytes % ( - 0) % Nucleated RBC % Neutrophils # (Manual) (1.5-6.6) 10^3/uL Lymphocytes # (Manual) (1.5-3.5) 10^3/uL Monocytes # (Manual) (0.0-1.0) 10^3/uL Eosinophils # (Manual) (0-0.7) 10^3/uL Basophils # (Manual) (0-0.1) 10^3/uL Differential Comment Platelet Estimate (NORMAL) Platelet Morphology (NORMAL) RBC Morph Micro Appear (NORMAL) Sodium (135-145) mmol/L Potassium (3.5-5.0) mmol/L Chloride (101-111) mmol/L Carbon Dioxide (21-32) mmol/L Anion Gap (6-13) BUN (6-20) mg/dL Creatinine (0.4-1.0) mg/dL Estimated GFR (MDRD) (>89) Glucose (70-100) mg/dL POC Whole Bld Glucose 93 115 H 112 H (70 - 100) mg/dL Glycated Hemoglobin (4.6-6.2) % Estim Average Glucose (70-100) Calcium (8.5-10.3) mg/dL Phosphorus (2.5-4.6) mg/dL Magnesium (1.7-2.8) mg/dL TSH (0.34-5.60) uIU/mL Coronavirus (PCR) 02/28/20 Range/Units 20:00 WBC (4.8-10.8) x10^3/uL RBC (4.20-5.40) 10^6/uL Hgb (12.0-16.0) g/dL Hct (37.0-47.0) % MCV (81.0-99.0) fL MCH (27.0-31.0) pg MCHC (32.0-36.0) g/dL RDW (12.0-15.0) % Plt Count (130-450) 10^3/uL Neut # (Auto) Lymph # (Auto) Schley # (Auto) Eos # (Auto) Baso # (Auto) Absolute Nucleated RBC Total Counted Band Neuts % (Manual) (0 - 10) % Abnorm Lymph % (Manual) % Metamyelocytes % ( - 0) % Nucleated RBC % Neutrophils # (Manual) (1.5-6.6) 10^3/uL Lymphocytes # (Manual) (1.5-3.5) 10^3/uL Monocytes # (Manual) (0.0-1.0) 10^3/uL Eosinophils # (Manual) (0-0.7) 10^3/uL Basophils # (Manual) (0-0.1) 10^3/uL Differential Comment Platelet Estimate (NORMAL) Platelet Morphology (NORMAL) RBC Morph Micro Appear (NORMAL) Sodium (135-145) mmol/L Potassium (3.5-5.0) mmol/L Chloride (101-111) mmol/L Carbon Dioxide (21-32) mmol/L Anion Gap (6-13) BUN (6-20) mg/dL Creatinine (0.4-1.0) mg/dL Estimated GFR (MDRD) (>89) Glucose (70-100) mg/dL POC Whole Bld Glucose (70 - 100) mg/dL Glycated Hemoglobin (4.6-6.2) % Estim Average Glucose (70-100) Calcium (8.5-10.3) mg/dL Phosphorus (2.5-4.6) mg/dL Magnesium (1.7-2.8) mg/dL TSH (0.34-5.60) uIU/mL Coronavirus (PCR) NEGATIVE Impression and Recommendations - Palliative Care Impression: This is a violetta anxious 74-year-old woman who is currently under treatment for 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 She is improving, but still remains high risk, and with declining functional status. Palliative care providing support regarding anticipatory guidance, assistance with transition planning, and continued definition of goals. Recommendations/Counseling Done: 1. CI PN. Patient is restarted on pregabalin 3 times daily, is improved only somewhat. 2. Generalized weakness. Patient previously had functional decline, is getting evaluated with rehab therapies, given patient's current condition today, and deconditioning history, would most likely recommend she would be better with a SNF, though this comes with its own complications as well. 3. Advanced care planning. Family conference with , patient, discussed concerns regarding her underlying cancer, recent acute hospitalization, worsening health status overall, and needing to define goals. I suspect probably need the information regarding what is the plan for her with h is medical care tomorrow. Time Spent: 45 minutes with greater than 50% of this done in counseling with patient and , regarding anticipatory guidance, goals of care, concerns for defining what information they need to be able to move forward, and psychosocial support
[2020-03-02] MEDS: traZODone 50 MG TABLET PO SCH (21:26)
[2020-03-02] MEDS: INSULIN ASPART 300 UNIT/3 ML PEN SUBQ SCH (21:29)
[2020-03-03] MEDS: PREGABALIN 100 MG CAPSULE PO SCH ×3 (04:29→19:37)
[2020-03-03] MEDS: HYDROmorphone 0.5 MG/0.5 ML SYRINGE IVP PRN (04:41)
[2020-03-03] MEDS: SODIUM CHLORIDE FLUSH 0.9% 10 ML SYRINGE IVP SCH ×4 (04:42→19:37)
[2020-03-03 05:08] LABS: BASOPHILS % (AUTO) 3.6 %; EOSINOPHILS % (AUTO) 2.7 %; HGB - HEMOGLOBIN 8.8 g/dL (12.0-16.0); LYMPHOCYTES % (AUTO) 7.6 %; MEAN CORPUSCULAR HEMOGLOBIN 25.7 pg (27.0-31.0); MEAN CORPUSCULAR HGB CONC 31.1 g/dL (32.0-36.0); MEAN CORPUSCULAR VOLUME 82.7 fL (81.0-99.0); MONOCYTES % (AUTO) 6.3 %; NEUTROPHILS % (AUTO) 69.4 %; PLT - PLATELET COUNT 117 10^3/uL (130-450); RED BLOOD COUNT 3.42 10^6/uL (4.20-5.40); RED CELL DISTRIBUTION WIDTH 25.4 % (12.0-15.0); WHITE BLOOD COUNT 10.1 x10^3/uL (4.8-10.8)
[2020-03-03 05:10] LABS: ABNORMAL LYMPHS % (MANUAL) 0 %; BAND NEUTROPHILS % (MANUAL) 0 %
[2020-03-03 05:18] LABS: CALCIUM 8.8 mg/dL (8.5-10.3); CREATININE 1.2 mg/dL (0.4-1.0); PHOSPHORUS 3.2 mg/dL (2.5-4.6)
[2020-03-03 05:27] LABS: BASOPHILS # (MANUAL) 0.2 10^3/uL (0-0.1); BASOPHILS % (MANUAL) 2 %; EOSINOPHILS # (MANUAL) 0.1 10^3/uL (0-0.7); LYMPHOCYTES # (MANUAL) 0.8 10^3/uL (1.5-3.5); LYMPHOCYTES % (MANUAL) 8 %; MONOCYTES # (MANUAL) 0.7 10^3/uL (0.0-1.0); MYELOCYTES % (MANUAL) 1 %
[2020-03-03 05:29] LABS: DIFFERENTIAL COMMENT MANUAL DIFFERENTIAL; PLATELET ESTIMATE, MANUAL DECREASED (<130,000) (NORMAL); PLATELET MORPHOLOGY 2+ LARGE PLATELETS (NORMAL)
[2020-03-03] MEDS: PIPERACILLIN/TAZOBACTAM 3.375 GM in SODIUM CHLORIDE 0.9% MINIBAG 100 ML IV SCH ×3 (05:41→21:29)
[2020-03-03] MEDS: POTASSIUM CHLOR 20 MEQ/100 ML 20 MEQ/100 ML BAG IV SCH ×2 (06:05→07:29)
--- NOTE | 2020-03-03 07:33 | PROVIDER PROGRESS NOTE ---
Subjective - Prog Note Date Prog Note Date: 03/03/20 - Subjective Subjective: She continues to feel somewhat short of breath. She has a productive cough. Denies any chest pain. She was able to get out of bed and into chair today. She does report dysphagia and has had difficulty swallowing. She reports this is chronic for her but this is a little worse than usual. She feels like she is edematous predominantly in her hands. Current Medications - Current Medications Current Medications: Active Medications Acetaminophen (Tylenol) 650 mg PO Q4HR PRN PRN Reason: Pain 1 to 4 Last Admin: 03/02/20 09:38 Dose: 650 mg Documented by: Carboxymethylcellulose (Refresh 1% Ophth Drops) 1 drops EACHEYE PRN PRN PRN Reason: Dry Eye Last Admin: 02/29/20 17:11 Dose: 1 drops Documented by: Chlorhexidine Gluconate (Peridex) 15 ml PO BID [facility] Last Admin: 03/03/20 09:42 Dose: 15 ml Documented by: Citalopram Hydrobromide (Celexa) 40 mg PO DAILY [facility] Last Admin: 03/03/20 09:39 Dose: 40 mg Documented by: Cyanocobalamin (Vitamin B-12) 1,000 mcg PO DAILY [facility] Last Admin: 03/03/20 09:44 Dose: Not Given Documented by: Docusate Sodium (Colace 250mg Capsule) 250 - 500 mg PO DAILY [facility] Last Admin: 03/03/20 09:44 Dose: Not Given Documented by: Enoxaparin Sodium (Lovenox) 40 mg SUBQ DAILY [facility] Last Admin: 03/03/20 09:49 Dose: 40 mg Documented by: Furosemide (Lasix Inj 20mg Vial) 20 mg IVP DAILY [facility] Last Admin: 03/03/20 09:30 Dose: 20 mg Documented by: Heparin Sodium (Beef Lung) () 30 - 50 unit IVP PRN PRN PRN Reason: Port Protocol (<24 hours) Hydromorphone HCl (Dilaudid Inj Syringe) 0.5 mg IVP Q3H PRN PRN Reason: PAIN Last Admin: 03/03/20 04:41 Dose: 0.5 mg Documented by: Fluconazole (Diflucan 200 Mg/100 Ml) 100 mls @ 100 mls/hr IV DAILY [facility] Last Infusion: 03/03/20 10:50 Dose: Infused Documented by: Piperacillin Sod/Tazobactam (Sod 3.375 gm/ Sodium Chloride) 100 mls @ 25 mls/hr IV Q8HR [facility] Last Infusion: 03/03/20 09:45 Dose: Infused Documented by: Insulin Aspart (Novolog) 1 - 5 unit SUBQ 0800,1200,1700,2100 [facility]; Protocol Last Admin: 03/03/20 11:48 Dose: Not Given Documented by: Levothyroxine Sodium (Synthroid) 50 mcg PO QDAC [facility] Last Admin: 03/03/20 09:37 Dose: 50 mcg Documented by: Metoprolol Tartrate (Lopressor Inj) 5 mg IVP Q6H PRN PRN Reason: Tachycardia Last Admin: 02/29/20 12:34 Dose: 5 mg Documented by: Ondansetron HCl (Zofran Odt) 4 mg TL Q6HR PRN PRN Reason: Nausea / Vomiting Ondansetron HCl (Zofran Inj) 4 mg IVP Q6HR PRN PRN Reason: Nausea / Vomiting Phenol/Menthol (Chloraseptic) 2 sprays MM Q2HR PRN PRN Reason: Throat Pain Polyethylene Glycol (Miralax) 17 gm PO DAILY [facility] Last Admin: 03/03/20 09:45 Dose: Not Given Documented by: Pregabalin (Lyrica) 100 mg PO Q8H [facility] Last Admin: 03/03/20 11:49 Dose: 100 mg Documented by: Senna (Senokot) 8.6 - 17.2 mg PO DAILY [facility] Last Admin: 03/03/20 09:43 Dose: Not Given Documented by: Sodium Chloride (Normal Saline Flush 0.9%) 10 ml IVP PRN PRN PRN Reason: NEEDED PER PROVIDER ORDERS Last Admin: 03/02/20 19:08 Dose: 10 ml Documented by: Sodium Chloride (Normal Saline Flush 0.9%) 10 ml IVP 0100,0900,1700 [facility] Last Admin: 03/03/20 09:33 Dose: 10 ml Documented by: Sodium Chloride (Normal Saline Flush 0.9%) 20 ml IVP PRN PRN PRN Reason: After Blood Draw Trazodone HCl (Desyrel) 100 mg PO QPM [facility] Last Admin: 03/02/20 21:26 Dose: 100 mg Documented by: Levothyroxine [Synthroid] 50 mcg PO QDAC 12/30/18 Citalopram [CeleXA] 40 tab PO DAILY 07/28/19 Cholecalciferol (Vitamin D3) [Vitamin D3] 2,000 units PO DAILY 10/06/19 Cyanocobalamin (Vitamin B-12) [Vitamin B-12] 1,000 mcg PO DAILY 10/06/19 Omeprazole 20 mg PO QDAC 10/06/19 Oxycodone HCl 5 mg PO QID PRN 10/06/19 traZODone [Desyrel] 100 mg PO QPM 10/06/19 Loratadine [Claritin] 10 mg PO DAILY PRN 02/02/20 Cefdinir 300 mg PO [id number] 02/27/20 Pregabalin 100 mg PO Q8H 02/27/20 Objective - Vital Signs/Intake & Output Reviewed Vital Signs: Yes Vital Signs: Vital Signs Temp Pulse Resp BP Pulse Ox 03/03/20 06:00 105 H 23 123/57 L 94 03/03/20 05:00 98 20 132/58 H 96 03/03/20 04:00 36.6 C 100 23 142/68 H 96 Intake & Output: Intake & Output 02/29/20 03/01/20 03/02/20 03/03/20 23:59 23:59 23:59 23:59 Intake Total 4717.842 3314.107 400 450 Output Total 1684 9763 878 3562 Balance 3033.842 1879.107 -395 -1200 - Objective General Appearance: positive: No acute distress, Alert Eyes Bilateral: positive: Normal inspection ENT: positive: ENT inspection nml, Other (Nasal cannula in place) Neck: positive: Nml inspection Respiratory: positive: No respiratory distress, Rales, Other (She is still somewhat tachypneic but not in distress. Faint rales bilaterally.) Cardiovascular: positive: Regular rate & rhythm, No murmur. negative: Tachycardia, Bradycardia, Systolic murmur Abdomen: positive: Non-tender, No distention. negative: Tenderness, Guarding, Rebound Skin: positive: Warm, Dry Extremities: positive: Pedal edema (+1 edema in bilateral lower extremities.) Neurologic/Psychiatric: positive: Oriented x3, Motor nml - Lab Results Fish Bones: 03/03/20 04:20 03/03/20 04:20 Other Labs: Lab Results x24hrs 03/03/20 03/03/20 03/02/20 Range/Units 04:20 04:20 20:39 WBC 10.1 (4.8-10.8) x10^3/uL RBC 3.42 L (4.20-5.40) 10^6/uL Hgb 8.8 L (12.0-16.0) g/dL Hct 28.3 L (37.0-47.0) % MCV 82.7 (81.0-99.0) fL MCH 25.7 L (27.0-31.0) pg MCHC 31.1 L (32.0-36.0) g/dL RDW 25.4 H (12.0-15.0) % Plt Count 117 L (130-450) 10^3/uL Neut # (Auto) Not Reportable Lymph # (Auto) Not Reportable [place] # (Auto) Not Reportable Eos # (Auto) Not Reportable Baso # (Auto) Not Reportable Absolute Nucleated RBC Not Reportable Total Counted 100 Band Neuts % (Manual) 0 (0 - 10) % Abnorm Lymph % (Manual) 0 % Myelocytes % 1 H ( - 0) % Nucleated RBC % Not Reportable Neutrophils # (Manual) 8.2 H (1.5-6.6) 10^3/uL Lymphocytes # (Manual) 0.8 L (1.5-3.5) 10^3/uL Monocytes # (Manual) 0.7 (0.0-1.0) 10^3/uL Eosinophils # (Manual) 0.1 (0-0.7) 10^3/uL Basophils # (Manual) 0.2 H (0-0.1) 10^3/uL Differential Comment MANUAL DIFFERENTIAL WBC Morphology NORMAL APPEARANCE (NORMAL) Platelet Estimate DECREASED (<130,000) (NORMAL) Platelet Morphology 2+ LARGE PLATELETS (NORMAL) RBC Morph Micro Appear 1+ HYPOCHROMASIA (NORMAL) Sodium 140 (135-145) mmol/L Potassium 3.4 L (3.5-5.0) mmol/L Chloride 107 (101-111) mmol/L Carbon Dioxide 25 (21-32) mmol/L Anion Gap 8.0 (6-13) BUN 26 H (6-20) mg/dL Creatinine 1.2 H (0.4-1.0) mg/dL Estimated GFR (MDRD) 44 L (>89) Glucose 113 H (70-100) mg/dL POC Whole Bld Glucose 95 (70 - 100) mg/dL Calcium 8.8 (8.5-10.3) mg/dL Phosphorus 3.2 (2.5-4.6) mg/dL Magnesium 2.0 (1.7-2.8) mg/dL 03/02/20 03/02/20 03/01/20 Range/Units 11:49 06:35 23:20 WBC (4.8-10.8) x10^3/uL RBC (4.20-5.40) 10^6/uL Hgb (12.0-16.0) g/dL Hct (37.0-47.0) % MCV (81.0-99.0) fL MCH (27.0-31.0) pg MCHC (32.0-36.0) g/dL RDW (12.0-15.0) % Plt Count (130-450) 10^3/uL Neut # (Auto) Lymph # (Auto) [place] # (Auto) Eos # (Auto) Baso # (Auto) Absolute Nucleated RBC Total Counted Band Neuts % (Manual) (0 - 10) % Abnorm Lymph % (Manual) % Myelocytes % ( - 0) % Nucleated RBC % Neutrophils # (Manual) (1.5-6.6) 10^3/uL Lymphocytes # (Manual) (1.5-3.5) 10^3/uL Monocytes # (Manual) (0.0-1.0) 10^3/uL Eosinophils # (Manual) (0-0.7) 10^3/uL Basophils # (Manual) (0-0.1) 10^3/uL Differential Comment WBC Morphology (NORMAL) Platelet Estimate (NORMAL) Platelet Morphology (NORMAL) RBC Morph Micro Appear (NORMAL) Sodium (135-145) mmol/L Potassium (3.5-5.0) mmol/L Chloride (101-111) mmol/L Carbon Dioxide (21-32) mmol/L Anion Gap (6-13) BUN (6-20) mg/dL Creatinine (0.4-1.0) mg/dL Estimated GFR (MDRD) (>89) Glucose (70-100) mg/dL POC Whole Bld Glucose 123 H 92 93 (70 - 100) mg/dL Calcium (8.5-10.3) mg/dL Phosphorus (2.5-4.6) mg/dL Magnesium (1.7-2.8) mg/dL 03/01/20 03/01/20 Range/Units 17:29 12:06 WBC (4.8-10.8) x10^3/uL RBC (4.20-5.40) 10^6/uL Hgb (12.0-16.0) g/dL Hct (37.0-47.0) % MCV (81.0-99.0) fL MCH (27.0-31.0) pg MCHC (32.0-36.0) g/dL RDW (12.0-15.0) % Plt Count (130-450) 10^3/uL Neut # (Auto) Lymph # (Auto) [place] # (Auto) Eos # (Auto) Baso # (Auto) Absolute Nucleated RBC Total Counted Band Neuts % (Manual) (0 - 10) % Abnorm Lymph % (Manual) % Myelocytes % ( - 0) % Nucleated RBC % Neutrophils # (Manual) (1.5-6.6) 10^3/uL Lymphocytes # (Manual) (1.5-3.5) 10^3/uL Monocytes # (Manual) (0.0-1.0) 10^3/uL Eosinophils # (Manual) (0-0.7) 10^3/uL Basophils # (Manual) (0-0.1) 10^3/uL Differential Comment WBC Morphology (NORMAL) Platelet Estimate (NORMAL) Platelet Morphology (NORMAL) RBC Morph Micro Appear (NORMAL) Sodium (135-145) mmol/L Potassium (3.5-5.0) mmol/L Chloride (101-111) mmol/L Carbon Dioxide (21-32) mmol/L Anion Gap (6-13) BUN (6-20) mg/dL Creatinine (0.4-1.0) mg/dL Estimated GFR (MDRD) (>89) Glucose (70-100) mg/dL POC Whole Bld Glucose 115 H 112 H (70 - 100) mg/dL Calcium (8.5-10.3) mg/dL Phosphorus (2.5-4.6) mg/dL Magnesium (1.7-2.8) mg/dL Sepsis Event Note (H) - Evaluation Current Stage of Sepsis: Resolved Possible source of Sepsis: positive: Pulmonary - Sepsis Criteria Sepsis Criteria: Recorded Heart Rate greater than 90 bpm, Recorded Respiratory Rate greater than 20, Respiratory: Increasing oxygen requirements, WBC count greater than 10% bands, WBC count greater than 12,000 or less than 4000 Assessment/Plan - Problem List (1) Septic shock Impression: This was secondary to pneumonia and has resolved. Her white count has now normalized and she has been off of vasopressors for more than 24 hours. We will continue the IV antibiotics for pneumonia. Transfer out of the ICU today. (2) Acute respiratory failure with hypoxia Impression: Secondary to pneumonia as well as likely pulmonary vascular congestion given the amount of IV fluid she has received. She is now down to 2 L of oxygen and saturating in the mid 90s. We will continue her on IV antibiotics with Zosyn for a total of 7 days. (3) Community acquired pneumonia Impression: She has bilateral infiltrates on imaging concerning for pneumonia. She completed 3 days azithromycin IV and remains on Zosyn IV and fluconazole IV given lower 3 cultures grew yeast. Today is day 4 of both of these therapies. We will continue this for total of 7 days. (4) Fluid overload Impression: She is hypervolemic and this is due to the amount of IV fluid she received when she was septic and hypotensive. X-ray suggest some pulmonary vascular congestion. We will continue with gentle IV diuresis with Lasix. We will continue to monitor her renal function and respiratory status. (5) Physical deconditioning Impression: Is improving and she was able to get out of bed into a chair today. Continue with physical therapy. Up and out of bed 3 times a day. (6) Paroxysmal atrial fibrillation Impression: This was a brief episode on March 10 she converted with procainamide. She remains in a sinus rhythm. Echocardiogram did not show any wall motion normalities with a preserved ejection fraction and a normal left atrium volume index. Suspect this was due to her sepsis and we will continue to monitor on te lemetry without any rate control or anticoagulation. (7) Chronic kidney disease, stage 3 (moderate) Impression: Her renal function remains at baseline the creatinine of 1.2. We will continue to monitor this closely as she is being diuresed. (8) Anemia of chronic disease Impression: Her hemoglobin is stable in the high eights. There is been no evidence of bleeding. We will continue to monitor while hospitalized. (9) Metastatic non-small cell lung cancer Impression: She will need outpatient follow-up with oncology. (10) Hypothyroidism Impression: Stable. Continue Synthroid. (11) Mild malnutrition Impression: This is complicated by her dysphagia. She is on a pured diet with honey thi ckened liquids. Continue to encourage oral intake. Appreciate nutrition and speech input (12) Dysphagia Impression: He has dysphasia likely related to her prior radiation therapy for malignancy. Despite a pured diet and honey thickened liquids, there is still concern for aspiration. Appreciate speech therapy input. If there is continued concern for aspiration then will need to discuss with family regarding comfort feeds versus PEG tube Qualifiers: Dysphagia type: pharyngeal phase Qualified Code(s): R13.13 - Dysphagia, pharyngeal phase
[2020-03-03] MEDS: INSULIN ASPART 300 UNIT/3 ML PEN SUBQ SCH ×4 (09:28→20:39)
[2020-03-03] MEDS: FUROSEMIDE 20 MG/2 ML VIAL IVP SCH (09:30)
[2020-03-03] MEDS: LEVOTHYROXINE 25 MCG TABLET PO SCH (09:37)
[2020-03-03] MEDS: CITALOPRAM 10 MG TABLET PO SCH (09:39)
[2020-03-03] MEDS: CHLORHEXIDINE GLUCONATE 15 ML UDC PO SCH ×2 (09:42→20:39)
[2020-03-03] MEDS: SENNA 8.6 MG TABLET PO SCH (09:43)
[2020-03-03] MEDS: DOCUSATE SODIUM 250 MG CAPSULE PO SCH (09:44)
[2020-03-03] MEDS: CYANOCOBALAMIN 500 MCG TABLET PO SCH (09:44)
[2020-03-03] MEDS: polyethylene glycoL 3350 17 GM PACKET PO SCH (09:45)
[2020-03-03] MEDS: ENOXAPARIN 40 MG/0.4 ML SYRINGE SUBQ SCH (09:49)
[2020-03-03] MEDS: FLUCONAZOLE 200 MG/100 ML 100 ML IV SCH (09:50)
[2020-03-03] MEDS: ACETAMINOPHEN 325 MG TABLET PO PRN (19:37)
[2020-03-03] MEDS: traZODone 50 MG TABLET PO SCH (20:39)
[2020-03-03] MEDS ORDERED: SODIUM CHLORIDE 0.9% 500 ML IV PRN (21:16)
[2020-03-04] MEDS: PREGABALIN 100 MG CAPSULE PO SCH ×3 (03:50→19:38)
[2020-03-04 05:35] LABS: EOSINOPHILS % (AUTO) 4.5 %; HGB - HEMOGLOBIN 8.5 g/dL (12.0-16.0); LYMPHOCYTES % (AUTO) 9.4 %; MEAN CORPUSCULAR HEMOGLOBIN 25.1 pg (27.0-31.0); MEAN CORPUSCULAR HGB CONC 30.8 g/dL (32.0-36.0); MEAN CORPUSCULAR VOLUME 81.7 fL (81.0-99.0); MONOCYTES % (AUTO) 5.6 %; NEUTROPHILS % (AUTO) 62.1 %; PLT - PLATELET COUNT 100 10^3/uL (130-450); RED BLOOD COUNT 3.38 10^6/uL (4.20-5.40); RED CELL DISTRIBUTION WIDTH 25.7 % (12.0-15.0)
[2020-03-04 05:44] LABS: CREATININE 1.1 mg/dL (0.4-1.0); MAGNESIUM 1.8 mg/dL (1.7-2.8); PHOSPHORUS 2.6 mg/dL (2.5-4.6)
[2020-03-04] MEDS: LEVOTHYROXINE 25 MCG TABLET PO SCH (06:00)
[2020-03-04] MEDS: PIPERACILLIN/TAZOBACTAM 3.375 GM in SODIUM CHLORIDE 0.9% MINIBAG 100 ML IV SCH (06:02)
[2020-03-04 06:06] LABS: ABNORMAL LYMPHS % (MANUAL) 0 %
[2020-03-04 06:09] LABS: BAND NEUTROPHILS % (MANUAL) 1 %; BASOPHILS # (MANUAL) 0.2 10^3/uL (0-0.1); BASOPHILS % (MANUAL) 2 %; EOSINOPHILS # (MANUAL) 0.7 10^3/uL (0-0.7); LYMPHOCYTES # (MANUAL) 0.8 10^3/uL (1.5-3.5); LYMPHOCYTES % (MANUAL) 10 %; METAMYELOCYTES % (MANUAL) 1 %; MONOCYTES # (MANUAL) 0.2 10^3/uL (0.0-1.0); MYELOCYTES % (MANUAL) 3 %
[2020-03-04 06:11] LABS: DIFFERENTIAL COMMENT MANUAL DIFFERENTIAL; PLATELET ESTIMATE, MANUAL DECREASED (<130,000) (NORMAL); PLATELET MORPHOLOGY 2+ LARGE PLATELETS (NORMAL)
[2020-03-04] MEDS: polyethylene glycoL 3350 17 GM PACKET PO SCH (06:19)
[2020-03-04] MEDS: DOCUSATE SODIUM 250 MG CAPSULE PO SCH (06:20)
[2020-03-04] MEDS: SENNA 8.6 MG TABLET PO SCH (06:20)
[2020-03-04] MEDS ORDERED: POTASSIUM CHLORIDE 20 MEQ/15 ML UDC PO ONE (08:00)
[2020-03-04] MEDS: INSULIN ASPART 300 UNIT/3 ML PEN SUBQ SCH ×3 (09:04→16:48)
--- NOTE | 2020-03-04 09:11 | PROVIDER PROGRESS NOTE ---
Subjective - Prog Note Date Prog Note Date: 03/04/20 - Subjective Subjective: She reports feeling less short of breath today. Continues to have a cough. She feels she continues to have difficulty swallowing. She feels like she is leaning towards hospice. Current Medications - Current Medications Current Medications: Active Medications Acetaminophen (Tylenol) 650 mg PO Q4HR PRN PRN Reason: Pain 1 to 4 Last Admin: 03/03/20 19:37 Dose: 650 mg Documented by: Carboxymethylcellulose (Refresh 1% Ophth Drops) 1 drops EACHEYE PRN PRN PRN Reason: Dry Eye Last Admin: 02/29/20 17:11 Dose: 1 drops Documented by: Chlorhexidine Gluconate (Peridex) 15 ml PO BID [facility] Last Admin: 03/03/20 20:39 Dose: 15 ml Documented by: Citalopram Hydrobromide (Celexa) 40 mg PO DAILY [facility] Last Admin: 03/03/20 09:39 Dose: 40 mg Documented by: Cyanocobalamin (Vitamin B-12) 1,000 mcg PO DAILY [facility] Last Admin: 03/03/20 09:44 Dose: Not Given Documented by: Docusate Sodium (Colace 250mg Capsule) 250 - 500 mg PO DAILY [facility] Last Admin: 03/04/20 06:20 Dose: Not Given Documented by: Enoxaparin Sodium (Lovenox) 40 mg SUBQ DAILY [facility] Last Admin: 03/03/20 09:49 Dose: 40 mg Documented by: Furosemide (Lasix Inj 20mg Vial) 20 mg IVP DAILY [facility] Last Admin: 03/03/20 09:30 Dose: 20 mg Documented by: Heparin Sodium (Beef Lung) () 30 - 50 unit IVP PRN PRN PRN Reason: Port Protocol (<24 hours) Hydromorphone HCl (Dilaudid Inj Syringe) 0.5 mg IVP Q3H PRN PRN Reason: PAIN Last Admin: 03/03/20 04:41 Dose: 0.5 mg Documented by: Fluconazole (Diflucan 200 Mg/100 Ml) 100 mls @ 100 mls/hr IV DAILY [facility] Last Infusion: 03/03/20 10:50 Dose: Infused Documented by: Insulin Aspart (Novolog) 1 - 5 unit SUBQ 0800,1200,1700,2100 [facility]; Protocol Last Admin: 03/04/20 09:04 Dose: Not Given Documented by: Levofloxacin (Levaquin) 750 mg PO DAILY [facility] Levothyroxine Sodium (Synthroid) 50 mcg PO QDAC [facility] Last Admin: 03/04/20 06:00 Dose: 50 mcg Documented by: Metoprolol Tartrate (Lopressor Inj) 5 mg IVP Q6H PRN PRN Reason: Tachycardia Last Admin: 02/29/20 12:34 Dose: 5 mg Documented by: Mineral Oil (Cavilon) 1 applic TOP PRN PRN PRN Reason: Skin Care Ondansetron HCl (Zofran Odt) 4 mg TL Q6HR PRN PRN Reason: Nausea / Vomiting Ondansetron HCl (Zofran Inj) 4 mg IVP Q6HR PRN PRN Reason: Nausea / Vomiting Phenol/Menthol (Chloraseptic) 2 sprays MM Q2HR PRN PRN Reason: Throat Pain Polyethylene Glycol (Miralax) 17 gm PO DAILY [facility] Last Admin: 03/04/20 06:19 Dose: Not Given Documented by: Pregabalin (Lyrica) 100 mg PO Q8H [facility] Last Admin: 03/04/20 03:50 Dose: 100 mg Documented by: Senna (Senokot) 8.6 - 17.2 mg PO DAILY [facility] Last Admin: 03/04/20 06:20 Dose: Not Given Documented by: Sodium Chloride (Normal Saline Flush 0.9%) 10 ml IVP PRN PRN PRN Reason: NEEDED PER PROVIDER ORDERS Last Admin: 03/02/20 19:08 Dose: 10 ml Documented by: Sodium Chloride (Normal Saline Flush 0.9%) 10 ml IVP 0100,0900,1700 [facility] Last Admin: 03/03/20 19:37 Dose: 10 ml Documented by: Sodium Chloride (Normal Saline Flush 0.9%) 20 ml IVP PRN PRN PRN Reason: After Blood Draw Trazodone HCl (Desyrel) 100 mg PO QPM [facility] Last Admin: 03/03/20 20:39 Dose: 100 mg Documented by: Levothyroxine [Synthroid] 50 mcg PO QDAC 12/30/18 Citalopram [CeleXA] 40 tab PO DAILY 07/28/19 Cholecalciferol (Vitamin D3) [Vitamin D3] 2,000 units PO DAILY 10/06/19 Cyanocobalamin (Vitamin B-12) [Vitamin B-12] 1,000 mcg PO DAILY 10/06/19 Omeprazole 20 mg PO QDAC 10/06/19 Oxycodone HCl 5 mg PO QID PRN 10/06/19 traZODone [Desyrel] 100 mg PO QPM 10/06/19 Loratadine [Claritin] 10 mg PO DAILY PRN 02/02/20 Cefdinir 300 mg PO [id number] 02/27/20 Pregabalin 100 mg PO Q8H 02/27/20 Objective - Vital Signs/Intake & Output Reviewed Vital Signs: Yes Vital Signs: Vital Signs x48h Temp Pulse Pulse Resp BP Pulse Ox 03/04/20 07:35 36.9 C 91 20 138/61 H 95 03/04/20 03:30 36.8 C 97 18 134/60 H 94 Intake & Output: Intake & Output 03/01/20 03/02/20 03/03/20 03/04/20 23:59 23:59 23:59 23:59 Intake Total 3314.499 965 2426 440 Output Total 7161 525 2270 Balance 1879.892 -395 -1700 440 - Objective General Appearance: positive: No acute distress, Alert Eyes Bilateral: positive: Normal inspection ENT: positive: ENT inspection nml, Other (Nasal cannula in place.) Neck: positive: Nml inspection Respiratory: positive: No respiratory distress, Other (Diminished breath sounds bilaterally. Faint crackles.) Cardiovascular: positive: Regular rate & rhythm, No murmur. negative: Tachycardia, Bradycardia, Systolic murmur Abdomen: positive: Non-tender, No distention. negative: Tenderness, Guarding, Rebound Skin: positive: Warm, Dry Extremities: positive: Pedal edema (+1 pitting edema in bilateral lower extremities.) Neurologic/Psychiatric: positive: Oriented x3. negative: Disoriented to person, Disoriented to place, Disoriented to time - Lab Results Fish Bones: 03/04/20 04:35 03/04/20 04:35 Other Labs: Lab Results x24hrs 03/04/20 03/04/20 03/04/20 Range/Units 07:30 04:35 04:35 WBC 8.0 (4.8-10.8) x10^3/uL RBC 3.38 L (4.20-5.40) 10^6/uL Hgb 8.5 L (12.0-16.0) g/dL Hct 27.6 L (37.0-47.0) % MCV 81.7 (81.0-99.0) fL MCH 25.1 L (27.0-31.0) pg MCHC 30.8 L (32.0-36.0) g/dL RDW 25.7 H (12.0-15.0) % Plt Count 100 L (130-450) 10^3/uL Neut # (Auto) Not Reportable Lymph # (Auto) Not Reportable [place] # (Auto) Not Reportable Eos # (Auto) Not Reportable Baso # (Auto) Not Reportable Absolute Nucleated RBC Not Reportable Total Counted 100 Band Neuts % (Manual) 1 (0 - 10) % Abnorm Lymph % (Manual) 0 % Metamyelocytes % 1 H ( - 0) % Myelocytes % 3 H ( - 0) % Nucleated RBC % Not Reportable Neutrophils # (Manual) 5.8 (1.5-6.6) 10^3/uL Lymphocytes # (Manual) 0.8 L (1.5-3.5) 10^3/uL Monocytes # (Manual) 0.2 (0.0-1.0) 10^3/uL Eosinophils # (Manual) 0.7 (0-0.7) 10^3/uL Basophils # (Manual) 0.2 H (0-0.1) 10^3/uL Differential Comment MANUAL DIFFERENTIAL WBC Morphology NORMAL APPEARANCE (NORMAL) Platelet Estimate DECREASED (<130,000) (NORMAL) Platelet Morphology 2+ LARGE PLATELETS (NORMAL) RBC Morph Micro Appear 2+ HYPOCHROMASIA (NORMAL) Sodium 140 (135-145) mmol/L Potassium 3.1 L (3.5-5.0) mmol/L Chloride 105 (101-111) mmol/L Carbon Dioxide 27 (21-32) mmol/L Anion Gap 8.0 (6-13) BUN 23 H (6-20) mg/dL Creatinine 1.1 H (0.4-1.0) mg/dL Estimated GFR (MDRD) 49 L (>89) Glucose 137 H (70-100) mg/dL POC Whole Bld Glucose 123 H (70 - 100) mg/dL Calcium 9.0 (8.5-10.3) mg/dL Phosphorus 2.6 (2.5-4.6) mg/dL Magnesium 1.8 (1.7-2.8) mg/dL 03/03/20 03/03/20 03/03/20 Range/Units 20:29 16:50 11:47 WBC (4.8-10.8) x10^3/uL RBC (4.20-5.40) 10^6/uL Hgb (12.0-16.0) g/dL Hct (37.0-47.0) % MCV (81.0-99.0) fL MCH (27.0-31.0) pg MCHC (32.0-36.0) g/dL RDW (12.0-15.0) % Plt Count (130-450) 10^3/uL Neut # (Auto) Lymph # (Auto) [place] # (Auto) Eos # (Auto) Baso # (Auto) Absolute Nucleated RBC Total Counted Band Neuts % (Manual) (0 - 10) % Abnorm Lymph % (Manual) % Metamyelocytes % ( - 0) % Myelocytes % ( - 0) % Nucleated RBC % Neutrophils # (Manual) (1.5-6.6) 10^3/uL Lymphocytes # (Manual) (1.5-3.5) 10^3/uL Monocytes # (Manual) (0.0-1.0) 10^3/uL Eosinophils # (Manual) (0-0.7) 10^3/uL Basophils # (Manual) (0-0.1) 10^3/uL Differential Comment WBC Morphology (NORMAL) Platelet Estimate (NORMAL) Platelet Morphology (NORMAL) RBC Morph Micro Appear (NORMAL) Sodium (135-145) mmol/L Potassium (3.5-5.0) mmol/L Chloride (101-111) mmol/L Carbon Dioxide (21-32) mmol/L Anion Gap (6-13) BUN (6-20) mg/dL Creatinine (0.4-1.0) mg/dL Estimated GFR (MDRD) (>89) Glucose (70-100) mg/dL POC Whole Bld Glucose 136 H 116 H 136 H (70 - 100) mg/dL Calcium (8.5-10.3) mg/dL Phosphorus (2.5-4.6) mg/dL Magnesium (1.7-2.8) mg/dL 03/03/20 Range/Units 09:22 WBC (4.8-10.8) x10^3/uL RBC (4.20-5.40) 10^6/uL Hgb (12.0-16.0) g/dL Hct (37.0-47.0) % MCV (81.0-99.0) fL MCH (27.0-31.0) pg MCHC (32.0-36.0) g/dL RDW (12.0-15.0) % Plt Count (130-450) 10^3/uL Neut # (Auto) Lymph # (Auto) [place] # (Auto) Eos # (Auto) Baso # (Auto) Absolute Nucleated RBC Total Counted Band Neuts % (Manual) (0 - 10) % Abnorm Lymph % (Manual) % Metamyelocytes % ( - 0) % Myelocytes % ( - 0) % Nucleated RBC % Neutrophils # (Manual) (1.5-6.6) 10^3/uL Lymphocytes # (Manual) (1.5-3.5) 10^3/uL Monocytes # (Manual) (0.0-1.0) 10^3/uL Eosinophils # (Manual) (0-0.7) 10^3/uL Basophils # (Manual) (0-0.1) 10^3/uL Differential Comment WBC Morphology (NORMAL) Platelet Estimate (NORMAL) Platelet Morphology (NORMAL) RBC Morph Micro Appear (NORMAL) Sodium (135-145) mmol/L Potassium (3.5-5.0) mmol/L Chloride (101-111) mmol/L Carbon Dioxide (21-32) mmol/L Anion Gap (6-13) BUN (6-20) mg/dL Creatinine (0.4-1.0) mg/dL Estimated GFR (MDRD) (>89) Glucose (70-100) mg/dL POC Whole Bld Glucose 118 H (70 - 100) mg/dL Calcium (8.5-10.3) mg/dL Phosphorus (2.5-4.6) mg/dL Magnesium (1.7-2.8) mg/dL ABX Reporting Has patient been on IV antibiotics over the past 48 hours?: Yes Sepsis Event Note (H) - Evaluation Current Stage of Sepsis: Resolved Possible source of Sepsis: positive: Pulmonary - Sepsis Criteria Sepsis Criteria: Recorded Heart Rate greater than 90 bpm, Recorded Respiratory Rate greater than 20, Respiratory: Increasing oxygen requirements, WBC count greater than 10% bands, WBC count greater than 12,000 or less than 4000 Assessment/Plan - Problem List (1) Acute respiratory failure with hypoxia Impression: She continues to require 2 to 3 L of oxygen to maintain oxygen saturation in the mid 90s. Slightly related to her pneumonia as well as pulmonary vascular congestion. She is -2.1 L over the past 48 hours. We will change in her antibiotics to p.o. Levaquin today. We will continue with IV Lasix daily. Continue to wean oxygen as needed. (2) Community acquired pneumonia Impression: Improving from a pneumonia perspective. Her white count is down to normal. She does remain on oxygen although this likely complain of fluid overload as well as pneumonia. We will treat him to oral Levaquin today and she will need 3 more days of therapy including today. Continue IV fluconazole given respiratory cultures grew yeast. (3) Fluid overload Impression: She is fluid overloaded but not have a history of heart failure. This is likely due to the IV fluids she received for the hypotension. She is -2.1 L in the past 48 hours. She has obviously hypervolemic with lower extremity edema. We will continue to diurese her and wean her oxygen as tolerated. (4) Physical deconditioning Impression: She continues to improve on a daily basis. She is up out of bed into a chair yesterday. Continue with physical therapy as tolerated. She will likely need a skilled facility on discharge. (5) Paroxysmal atrial fibrillation Impression: She remains rate controlled and in sinus rhythm. We will continue to monitor on telemetry. No anticoagulation or rate control as this was a brief episode. (6) Chronic kidney disease, stage 3 (moderate) Impression: Renal function remains at baseline. We will continue to monitor as she is being diuresed. (7) Anemia of chronic disease Impression: Her hemoglobin remained stable and there is no evidence of bleeding. She did require 1 unit of packed red blood cells during his hospitalization. (8) Metastatic non-small cell lung cancer Impression: I met with both the patient and her , Syd at bedside today to discuss overall goals of care. Abbi is leaning towards hospice but both her and Syd are concerned that they are home is not set up for such conditions. Kimberley is concerned that their mobile home is quite small and there is not enough room for a caregiver to help out as calling would need one given her overall physical deconditioning. Abbi is open to a SNF for short-term care but she overall does prefer to go home whether it is to her own home or to her family members. She understands her overall prognosis is quite poor and her quality of life has been declining prior to this hospitalization. She wants to focus on her quality of life once she is discharged. I told both her and Syd that we will discuss with social work regarding the best plan regarding disposition as long as it is safe for the patient and trying to focus on achieving her goals. For the time being, she is still not medically optimized for discharge and to continue to work with physical therapy while she is hospitalized as she has made progress over the past 48 hours. They are both agreeable to this plan. (9) Hypothyroidism Impression: Continue Synthroid. (10) Mild malnutrition Impression: Continue to encourage oral intake as tolerated. Appreciate nutrition input. (11) Dysphagia Impression: She is tolerating a pured diet with honey thickened liquids. Appreciate speech therapy input. Continue to encourage oral intake. If there is further concerns for aspiration doing to consider comfort measures versus PEG tube. Qualifiers: Dysphagia type: pharyngeal phase Qualified Code(s): R13.13 - Dysphagia, pharyngeal phase (12) Septic shock Impression: This has resolved and was secondary to pneumonia.
[2020-03-04] MEDS: CYANOCOBALAMIN 500 MCG TABLET PO SCH (09:26)
[2020-03-04] MEDS: CITALOPRAM 10 MG TABLET PO SCH (09:26)
[2020-03-04] MEDS: ENOXAPARIN 40 MG/0.4 ML SYRINGE SUBQ SCH (09:26)
[2020-03-04] MEDS: FUROSEMIDE 20 MG/2 ML VIAL IVP SCH (09:26)
[2020-03-04] MEDS: FLUCONAZOLE 200 MG/100 ML 100 ML IV SCH (09:26)
[2020-03-04] MEDS: SODIUM CHLORIDE FLUSH 0.9% 10 ML SYRINGE IVP SCH ×2 (09:27→16:01)
[2020-03-04] MEDS: MIN OIL/DIMETHICON/COCONUT OIL 92 GM TUBE TOP PRN (09:37)
[2020-03-04] MEDS: levoFLOXacin 250 MG TABLET PO SCH (10:21)
[2020-03-04] MEDS: CHLORHEXIDINE GLUCONATE 15 ML UDC PO SCH ×2 (10:21→19:38)
[2020-03-04] MEDS: ACETAMINOPHEN 325 MG TABLET PO PRN ×3 (10:47→19:37)
[2020-03-04] MEDS: traZODone 50 MG TABLET PO SCH (20:34)
[2020-03-05] MEDS: SODIUM CHLORIDE FLUSH 0.9% 10 ML SYRINGE IVP SCH ×3 (00:08→16:50)
[2020-03-05] MEDS: PREGABALIN 100 MG CAPSULE PO SCH ×3 (04:19→20:55)
[2020-03-05] MEDS: SODIUM CHLORIDE FLUSH 0.9% 10 ML SYRINGE IVP PRN ×3 (05:29→08:37)
[2020-03-05] MEDS: LEVOTHYROXINE 25 MCG TABLET PO SCH (05:52)
[2020-03-05 05:56] LABS: BASOPHILS # (AUTO) 0.3 10^3/uL (0.0-0.1); BASOPHILS % (AUTO) 3.3 %; EOSINOPHILS # (AUTO) 0.4 10^3/uL (0.0-0.7); HGB - HEMOGLOBIN 8.5 g/dL (12.0-16.0); LYMPHOCYTES # (AUTO) 1.1 10^3/uL (1.5-3.5); LYMPHOCYTES % (AUTO) 14.4 %; MEAN CORPUSCULAR HEMOGLOBIN 24.8 pg (27.0-31.0); MEAN CORPUSCULAR HGB CONC 30.4 g/dL (32.0-36.0); MEAN CORPUSCULAR VOLUME 81.6 fL (81.0-99.0); MONOCYTES # (AUTO) 0.3 10^3/uL (0.0-1.0); MONOCYTES % (AUTO) 4.2 %; NEUTROPHILS # (AUTO) 4.7 10^3/uL (1.5-6.6); NEUTROPHILS % (AUTO) 61.3 %; PLT - PLATELET COUNT 97 10^3/uL (130-450); RED BLOOD COUNT 3.43 10^6/uL (4.20-5.40); RED CELL DISTRIBUTION WIDTH 25.8 % (12.0-15.0); WHITE BLOOD COUNT 7.6 x10^3/uL (4.8-10.8)
[2020-03-05 06:01] LABS: CALCIUM 8.8 mg/dL (8.5-10.3); CREATININE 1.1 mg/dL (0.4-1.0); MAGNESIUM 1.7 mg/dL (1.7-2.8); PHOSPHORUS 2.7 mg/dL (2.5-4.6)
[2020-03-05 06:18] LABS: PLATELET ESTIMATE, MANUAL DECREASED (<130,000) (NORMAL); PLATELET MORPHOLOGY 1+ LARGE PLATELETS (NORMAL)
--- NOTE | 2020-03-05 07:53 | PROVIDER PROGRESS NOTE ---
Subjective - Prog Note Date Prog Note Date: 03/05/20 - Subjective Subjective: She reports that her breathing continues to improve. She still has a productive cough. She reports not eating well due to some abdominal cramping and a few episodes of diarrhea.. Current Medications - Current Medications Current Medications: Active Medications Acetaminophen (Tylenol) 650 mg PO Q4HR PRN PRN Reason: Pain 1 to 4 Last Admin: 03/05/20 08:19 Dose: 650 mg Documented by: Carboxymethylcellulose (Refresh 1% Ophth Drops) 1 drops EACHEYE PRN PRN PRN Reason: Dry Eye Last Admin: 02/29/20 17:11 Dose: 1 drops Documented by: Chlorhexidine Gluconate (Peridex) 15 ml PO BID [facility] Last Admin: 03/05/20 08:21 Dose: 15 ml Documented by: Citalopram Hydrobromide (Celexa) 40 mg PO DAILY [facility] Last Admin: 03/05/20 08:18 Dose: 40 mg Documented by: Cyanocobalamin (Vitamin B-12) 1,000 mcg PO DAILY [facility] Last Admin: 03/05/20 08:20 Dose: 1,000 mcg Documented by: Docusate Sodium (Colace 250mg Capsule) 250 - 500 mg PO DAILY [facility] Last Admin: 03/05/20 08:20 Dose: Not Given Documented by: Enoxaparin Sodium (Lovenox) 40 mg SUBQ DAILY [facility] Last Admin: 03/05/20 08:20 Dose: 40 mg Documented by: Furosemide (Lasix Inj 40 Mg Vial) 40 mg IVP DAILY [facility] Last Admin: 03/05/20 08:20 Dose: 40 mg Documented by: Heparin Sodium (Beef Lung) () 30 - 50 unit IVP PRN PRN PRN Reason: Port Protocol (<24 hours) Last Admin: 03/05/20 08:37 Dose: 50 unit Documented by: Hydromorphone HCl (Dilaudid Inj Syringe) 0.5 mg IVP Q3H PRN PRN Reason: PAIN Last Admin: 03/03/20 04:41 Dose: 0.5 mg Documented by: Fluconazole (Diflucan 200 Mg/100 Ml) 100 mls @ 100 mls/hr IV DAILY [facility] Last Infusion: 03/05/20 11:37 Dose: Infused Documented by: Levofloxacin (Levaquin) 750 mg PO DAILY [facility] Last Admin: 03/05/20 08:17 Dose: 750 mg Documented by: Levothyroxine Sodium (Synthroid) 50 mcg PO QDAC [facility] Last Admin: 03/05/20 05:52 Dose: 50 mcg Documented by: Loperamide HCl (Imodium) 2 mg PO QID PRN PRN Reason: Diarrhea Last Admin: 03/05/20 08:17 Dose: 2 mg Documented by: Metoprolol Tartrate (Lopressor Inj) 5 mg IVP Q6H PRN PRN Reason: Tachycardia Last Admin: 02/29/20 12:34 Dose: 5 mg Documented by: Mineral Oil (Cavilon) 1 applic TOP PRN PRN PRN Reason: Skin Care Last Admin: 03/04/20 09:37 Dose: 1 applic Documented by: Ondansetron HCl (Zofran Odt) 4 mg TL Q6HR PRN PRN Reason: Nausea / Vomiting Ondansetron HCl (Zofran Inj) 4 mg IVP Q6HR PRN PRN Reason: Nausea / Vomiting Phenol/Menthol (Chloraseptic) 2 sprays MM Q2HR PRN PRN Reason: Throat Pain Polyethylene Glycol (Miralax) 17 gm PO DAILY [facility] Last Admin: 03/05/20 08:21 Dose: Not Given Documented by: Pregabalin (Lyrica) 100 mg PO Q8H [facility] Last Admin: 03/05/20 11:27 Dose: 100 mg Documented by: Saccharomyces Boulardii (Florastor) 250 mg PO BIDWM [facility] Last Admin: 03/05/20 08:16 Dose: 250 mg Documented by: Senna (Senokot) 8.6 - 17.2 mg PO DAILY [facility] Last Admin: 03/05/20 08:21 Dose: Not Given Documented by: Sodium Chloride (Normal Saline Flush 0.9%) 10 ml IVP PRN PRN PRN Reason: NEEDED PER PROVIDER ORDERS Last Admin: 03/05/20 08:37 Dose: 10 ml Documented by: Sodium Chloride (Normal Saline Flush 0.9%) 10 ml IVP 0100,0900,1700 [facility] Last Admin: 03/05/20 08:21 Dose: 10 ml Documented by: Sodium Chloride (Normal Saline Flush 0.9%) 20 ml IVP PRN PRN PRN Reason: After Blood Draw Last Admin: 03/05/20 05:29 Dose: 20 ml Documented by: Trazodone HCl (Desyrel) 100 mg PO QPM [facility] Last Admin: 03/04/20 20:34 Dose: 100 mg Documented by: Levothyroxine [Synthroid] 50 mcg PO QDAC 12/30/18 Citalopram [CeleXA] 40 tab PO DAILY 07/28/19 Cholecalciferol (Vitamin D3) [Vitamin D3] 2,000 units PO DAILY 10/06/19 Cyanocobalamin (Vitamin B-12) [Vitamin B-12] 1,000 mcg PO DAILY 10/06/19 Omeprazole 20 mg PO QDAC 10/06/19 Oxycodone HCl 5 mg PO QID PRN 10/06/19 traZODone [Desyrel] 100 mg PO QPM 10/06/19 Loratadine [Claritin] 10 mg PO DAILY PRN 02/02/20 Cefdinir 300 mg PO [id number] 02/27/20 Pregabalin 100 mg PO Q8H 02/27/20 Objective - Vital Signs/Intake & Output Reviewed Vital Signs: Yes Vital Signs: Vital Signs x48h Temp Pulse Resp BP Pulse Ox 03/05/20 04:22 37.1 C 99 20 134/64 H 95 03/05/20 01:00 37 C 101 H 20 136/56 H 92 Intake & Output: Intake & Output 03/02/20 03/03/20 03/04/20 03/05/20 23:59 23:59 23:59 23:59 Intake Total 400 1150 2138 Output Total 795 2850 700 200 Balance -395 -1700 1438 -200 - Objective General Appearance: positive: No acute distress, Alert Eyes Bilateral: positive: Normal inspection ENT: positive: ENT inspection nml, Other (Nasal cannula in place.) Neck: positive: Nml inspection Respiratory: positive: No respiratory distress. negative: Wheezes, Rales Cardiovascular: positive: Regular rate & rhythm. negative: Tachycardia, Bradycardia, Systolic murmur Abdomen: positive: Non-tender, No distention, Abnml bowel sounds (Hyperactive). negative: Tenderness Skin: positive: Warm, Dry Extremities: positive: Pedal edema (+1 pitting edema in bilateral lower extremities.) Neurologic/Psychiatric: positive: Oriented x3 - Lab Results Fish Bones: 03/05/20 05:39 03/05/20 05:39 Other Labs: Lab Results x24hrs 03/05/20 03/05/20 03/05/20 Range/Units 07:22 05:39 05:39 WBC 7.6 (4.8-10.8) x10^3/uL RBC 3.43 L (4.20-5.40) 10^6/uL Hgb 8.5 L (12.0-16.0) g/dL Hct 28.0 L (37.0-47.0) % MCV 81.6 (81.0-99.0) fL MCH 24.8 L (27.0-31.0) pg MCHC 30.4 L (32.0-36.0) g/dL RDW 25.8 H (12.0-15.0) % Plt Count 97 L (130-450) 10^3/uL Neut # (Auto) 4.7 (1.5-6.6) 10^3/uL Lymph # (Auto) 1.1 L (1.5-3.5) 10^3/uL [place] # (Auto) 0.3 (0.0-1.0) 10^3/uL Eos # (Auto) 0.4 (0.0-0.7) 10^3/uL Baso # (Auto) 0.3 H (0.0-0.1) 10^3/uL Absolute Nucleated RBC 0.11 x10^3/uL Nucleated RBC % 1.4 /100WBC Manual Slide Review Indicated Platelet Estimate DECREASED (<130,000) (NORMAL) Platelet Morphology 1+ LARGE PLATELETS (NORMAL) RBC Morph Micro Appear 2+ ANISOCYTOSIS (NORMAL) Sodium 137 (135-145) mmol/L Potassium 3.3 L (3.5-5.0) mmol/L Chloride 99 L (101-111) mmol/L Carbon Dioxide 29 (21-32) mmol/L Anion Gap 9.0 (6-13) BUN 20 (6-20) mg/dL Creatinine 1.1 H (0.4-1.0) mg/dL Estimated GFR (MDRD) 49 L (>89) Glucose 125 H (70-100) mg/dL POC Whole Bld Glucose 120 H (70 - 100) mg/dL Calcium 8.8 (8.5-10.3) mg/dL Phosphorus 2.7 (2.5-4.6) mg/dL Magnesium 1.7 (1.7-2.8) mg/dL Stl C. diff Tox B Gene (NEGATIVE) 03/04/20 03/04/20 03/04/20 Range/Units 16:42 11:15 06:15 WBC (4.8-10.8) x10^3/uL RBC (4.20-5.40) 10^6/uL Hgb (12.0-16.0) g/dL Hct (37.0-47.0) % MCV (81.0-99.0) fL MCH (27.0-31.0) pg MCHC (32.0-36.0) g/dL RDW (12.0-15.0) % Plt Count (130-450) 10^3/uL Neut # (Auto) (1.5-6.6) 10^3/uL Lymph # (Auto) (1.5-3.5) 10^3/uL [place] # (Auto) (0.0-1.0) 10^3/uL Eos # (Auto) (0.0-0.7) 10^3/uL Baso # (Auto) (0.0-0.1) 10^3/uL Absolute Nucleated RBC x10^3/uL Nucleated RBC % /100WBC Manual Slide Review Platelet Estimate (NORMAL) Platelet Morphology (NORMAL) RBC Morph Micro Appear (NORMAL) Sodium (135-145) mmol/L Potassium (3.5-5.0) mmol/L Chloride (101-111) mmol/L Carbon Dioxide (21-32) mmol/L Anion Gap (6-13) BUN (6-20) mg/dL Creatinine (0.4-1.0) mg/dL Estimated GFR (MDRD) (>89) Glucose (70-100) mg/dL POC Whole Bld Glucose 106 H 124 H (70 - 100) mg/dL Calcium (8.5-10.3) mg/dL Phosphorus (2.5-4.6) mg/dL Magnesium (1.7-2.8) mg/dL Stl C. diff Tox B Gene NEGATIVE (NEGATIVE) ABX Reporting Has patient been on IV antibiotics over the past 48 hours?: No Sepsis Event Note (H) - Evaluation Current Stage of Sepsis: Resolved Possible source of Sepsis: positive: Pulmonary - Sepsis Criteria Sepsis Criteria: Recorded Heart Rate greater than 90 bpm, Recorded Respiratory Rate greater than 20, Respiratory: Increasing oxygen requirements, WBC count greater than 10% bands, WBC count greater than 12,000 or less than 4000 Assessment/Plan - Problem List (1) Acute respiratory failure with hypoxia Impression: Her oxygen requirements continued to improve with treatment and 2 L of oxygen via nasal cannula. This is likely due to fluid overload rather than pneumonia at this point. We will complete 7 days of therapy for pneumonia with oral L evaquin. She was not positive the day yesterday and so we will increase her Lasix to 40 mg IV today. Her oxygen throughout the weekend and hope she will be on room air by Saturday. Continue spirometry use. Up out of bed as tolerated. (2) Community acquired pneumonia Impression: X-ray showed bilateral pneumonia and she had septic shock secondary to this pne umonia. She has not been afebrile and her white count has returned to normal. She is on oral Levaquin and fluconazole. We will continue these for 2 more days include 7 days of therapy. (3) Fluid overload Impression: She remains hypervolemic on exam and she was net positive for the day yesterday. She has been responding well to diuresis prior to yesterday. We will increase her Lasix to 40 mg IV daily. She has no evidence of heart failure on echocardi ogram and her fluid overload is likely due to mild IV fluid she received given her septic shock. (4) Diarrhea Impression: Suspect this is likely secondary to the antibiotics. C. difficile is negative. We will start her on Imodium as needed and Florastor. We will monitor to ensure this is not become more severe and put her at risk for dehydration given she is being diuresed. (5) Physical deconditioning Impression: She is been working well with physical therapy. Continue PT during his hospitalization. (6) Paroxysmal atrial fibrillation Impression: This was due to her critical illness and she remained in sinus rhythm besides this brief episode of atrial fibrillation. Continue to monitor on telemetry (7) Chronic kidney disease, stage 3 (moderate) Impression: Remains at baseline. Continue to monitor while she is being diuresed with IV Lasix. (8) Anemia of chronic disease Impression: Hemoglobin remains stable at this time and no evidence of bleeding. Continue to monitor. (9) Metastatic non-small cell lung cancer Impression: She has decided that she would like hospice. We are working with social work regarding disposition planning. (10) Hypothyroidism Impression: Continue Synthroid. (11) Mild malnutrition Impression: Continue to encourage oral intake as tolerated. (12) Dysphagia Impression: Continue with pured diet and honey thickened liquids. This is likely due to the radiation she received for prior malignancy. She with like to go home on hospice and she does not want a PEG tube. Qualifiers: Dysphagia type: pharyngeal phase Qualified Code(s): R13.13 - Dysphagia, pharyngeal phase
[2020-03-05] MEDS: POTASSIUM CHLORIDE 20 MEQ/15 ML UDC PO ONE ×2 (08:16→08:29)
[2020-03-05] MEDS: SACCHAROMYCES BOULARDII 250 MG CAPSULE PO SCH ×2 (08:16→16:50)
[2020-03-05] MEDS: levoFLOXacin 250 MG TABLET PO SCH (08:17)
[2020-03-05] MEDS: LOPERAMIDE 2 MG CAPSULE PO PRN (08:17)
[2020-03-05] MEDS: CITALOPRAM 10 MG TABLET PO SCH (08:18)
[2020-03-05] MEDS: ACETAMINOPHEN 325 MG TABLET PO PRN ×2 (08:19→18:23)
[2020-03-05] MEDS: CYANOCOBALAMIN 500 MCG TABLET PO SCH (08:20)
[2020-03-05] MEDS: ENOXAPARIN 40 MG/0.4 ML SYRINGE SUBQ SCH (08:20)
[2020-03-05] MEDS: DOCUSATE SODIUM 250 MG CAPSULE PO SCH (08:20)
[2020-03-05] MEDS: FLUCONAZOLE 200 MG/100 ML 100 ML IV SCH (08:20)
[2020-03-05] MEDS: polyethylene glycoL 3350 17 GM PACKET PO SCH (08:21)
[2020-03-05] MEDS: CHLORHEXIDINE GLUCONATE 15 ML UDC PO SCH ×2 (08:21→20:55)
[2020-03-05] MEDS: SENNA 8.6 MG TABLET PO SCH (08:21)
[2020-03-05] MEDS ORDERED: POTASSIUM CHLORIDE 20 MEQ TABLET PO ONE (08:59)
[2020-03-05] MEDS ORDERED: FUROSEMIDE 40 MG/4 ML VIAL IVP SCH (09:00)
[2020-03-05] MEDS: traZODone 50 MG TABLET PO SCH (20:55)
[2020-03-06] MEDS: PREGABALIN 100 MG CAPSULE PO SCH ×3 (04:10→20:52)
[2020-03-06] MEDS: SODIUM CHLORIDE FLUSH 0.9% 10 ML SYRINGE IVP SCH ×4 (05:36→21:16)
[2020-03-06] MEDS: SODIUM CHLORIDE FLUSH 0.9% 10 ML SYRINGE IVP PRN ×3 (05:43→23:46)
[2020-03-06] MEDS: LEVOTHYROXINE 25 MCG TABLET PO SCH (05:45)
[2020-03-06 06:10] LABS: CALCIUM 8.4 mg/dL (8.5-10.3); MAGNESIUM 1.8 mg/dL (1.7-2.8); PHOSPHORUS 3.2 mg/dL (2.5-4.6)
[2020-03-06] MEDS: SACCHAROMYCES BOULARDII 250 MG CAPSULE PO SCH ×2 (07:58→17:24)
[2020-03-06 08:26] LABS: BASOPHILS % (AUTO) 2.7 %; EOSINOPHILS % (AUTO) 7.3 %; HGB - HEMOGLOBIN 8.1 g/dL (12.0-16.0); LYMPHOCYTES % (AUTO) 12.1 %; MEAN CORPUSCULAR HEMOGLOBIN 25.6 pg (27.0-31.0); MEAN CORPUSCULAR HGB CONC 30.9 g/dL (32.0-36.0); MEAN CORPUSCULAR VOLUME 82.9 fL (81.0-99.0); MONOCYTES % (AUTO) 5.6 %; PLT - PLATELET COUNT 89 10^3/uL (130-450); RED BLOOD COUNT 3.16 10^6/uL (4.20-5.40); RED CELL DISTRIBUTION WIDTH 25.3 % (12.0-15.0)
[2020-03-06 08:27] LABS: ABNORMAL LYMPHS % (MANUAL) 0 %
[2020-03-06] MEDS: CHLORHEXIDINE GLUCONATE 15 ML UDC PO SCH ×2 (08:50→20:52)
[2020-03-06] MEDS: CITALOPRAM 10 MG TABLET PO SCH (08:50)
[2020-03-06] MEDS: polyethylene glycoL 3350 17 GM PACKET PO SCH (08:50)
[2020-03-06] MEDS: CYANOCOBALAMIN 500 MCG TABLET PO SCH (08:51)
[2020-03-06] MEDS: SENNA 8.6 MG TABLET PO SCH (08:52)
[2020-03-06] MEDS: DOCUSATE SODIUM 250 MG CAPSULE PO SCH (08:52)
[2020-03-06] MEDS: levoFLOXacin 250 MG TABLET PO SCH (08:52)
[2020-03-06 08:53] LABS: BAND NEUTROPHILS % (MANUAL) 9 %; BASOPHILS # (MANUAL) 0.4 10^3/uL (0-0.1); BASOPHILS % (MANUAL) 5 %; EOSINOPHILS # (MANUAL) 0.5 10^3/uL (0-0.7); LYMPHOCYTES # (MANUAL) 1.3 10^3/uL (1.5-3.5); LYMPHOCYTES % (MANUAL) 16 %; METAMYELOCYTES % (MANUAL) 2 %; MONOCYTES # (MANUAL) 0.3 10^3/uL (0.0-1.0)
[2020-03-06 08:54] LABS: DIFFERENTIAL COMMENT MANUAL DIFFERENTIAL; PLATELET ESTIMATE, MANUAL DECREASED (<130,000) (NORMAL); PLATELET MORPHOLOGY NORMAL APPEARANCE (NORMAL)
[2020-03-06] MEDS: ENOXAPARIN 40 MG/0.4 ML SYRINGE SUBQ SCH (08:54)
[2020-03-06] MEDS ORDERED: FLUCONAZOLE 100 MG TABLET PO SCH (09:00)
[2020-03-06] MEDS ORDERED: acetaZOLAMIDE 250 MG TABLET PO SCH (09:00)
[2020-03-06] MEDS: HYDROmorphone 0.5 MG/0.5 ML SYRINGE IVP PRN ×2 (10:37→21:15)
--- NOTE | 2020-03-06 11:06 | PROVIDER PROGRESS NOTE ---
Subjective - Prog Note Date Prog Note Date: 03/06/20 - Subjective Subjective: She feels that her breathing continues to improve. She reports her diarrhea has resolved. Denies fevers or chills. She continues work with physical therapy and feels she is getting stronger each day. Current Medications - Current Medications Current Medications: Active Medications Acetaminophen (Tylenol) 650 mg PO Q4HR PRN PRN Reason: Pain 1 to 4 Last Admin: 03/05/20 18:23 Dose: 650 mg Documented by: Acetazolamide (Diamox) 250 mg PO DAILY [facility] Last Admin: 03/06/20 08:52 Dose: 250 mg Documented by: Carboxymethylcellulose (Refresh 1% Ophth Drops) 1 drops EACHEYE PRN PRN PRN Reason: Dry Eye Last Admin: 02/29/20 17:11 Dose: 1 drops Documented by: Chlorhexidine Gluconate (Peridex) 15 ml PO BID [facility] Last Admin: 03/06/20 08:50 Dose: 15 ml Documented by: Citalopram Hydrobromide (Celexa) 40 mg PO DAILY [facility] Last Admin: 03/06/20 08:50 Dose: 40 mg Documented by: Cyanocobalamin (Vitamin B-12) 1,000 mcg PO DAILY [facility] Last Admin: 03/06/20 08:51 Dose: 1,000 mcg Documented by: Docusate Sodium (Colace 250mg Capsule) 250 - 500 mg PO DAILY [facility] Last Admin: 03/06/20 08:52 Dose: 250 mg Documented by: Enoxaparin Sodium (Lovenox) 40 mg SUBQ DAILY [facility] Last Admin: 03/06/20 08:54 Dose: 40 mg Documented by: Fluconazole (Diflucan) 200 mg PO DAILY [facility] Stop: 03/07/20 08:59 Last Admin: 03/06/20 08:51 Dose: 200 mg Documented by: Heparin Sodium (Beef Lung) () 30 - 50 unit IVP PRN PRN PRN Reason: Port Protocol (<24 hours) Last Admin: 03/06/20 05:43 Dose: 50 unit Documented by: Hydromorphone HCl (Dilaudid Inj Syringe) 0.5 mg IVP Q3H PRN PRN Reason: PAIN Last Admin: 03/06/20 10:37 Dose: 0.5 mg Documented by: Levofloxacin (Levaquin) 750 mg PO DAILY [facility] Stop: 03/06/20 12:00 Last Admin: 03/06/20 08:52 Dose: 750 mg Documented by: Levothyroxine Sodium (Synthroid) 50 mcg PO QDAC [facility] Last Admin: 03/06/20 05:45 Dose: 50 mcg Documented by: Loperamide HCl (Imodium) 2 mg PO QID PRN PRN Reason: Diarrhea Last Admin: 03/05/20 08:17 Dose: 2 mg Documented by: Metoprolol Tartrate (Lopressor Inj) 5 mg IVP Q6H PRN PRN Reason: Tachycardia Last Admin: 02/29/20 12:34 Dose: 5 mg Documented by: Mineral Oil (Cavilon) 1 applic TOP PRN PRN PRN Reason: Skin Care Last Admin: 03/04/20 09:37 Dose: 1 applic Documented by: Ondansetron HCl (Zofran Odt) 4 mg TL Q6HR PRN PRN Reason: Nausea / Vomiting Ondansetron HCl (Zofran Inj) 4 mg IVP Q6HR PRN PRN Reason: Nausea / Vomiting Phenol/Menthol (Chloraseptic) 2 sprays MM Q2HR PRN PRN Reason: Throat Pain Polyethylene Glycol (Miralax) 17 gm PO DAILY [facility] Last Admin: 03/06/20 08:50 Dose: 17 gm Documented by: Pregabalin (Lyrica) 100 mg PO Q8H [facility] Last Admin: 03/06/20 04:10 Dose: 100 mg Documented by: Saccharomyces Boulardii (Florastor) 250 mg PO BIDWM [facility] Last Admin: 03/06/20 07:58 Dose: 250 mg Documented by: Senna (Senokot) 8.6 - 17.2 mg PO DAILY [facility] Last Admin: 03/06/20 08:52 Dose: 8.6 mg Documented by: Sodium Chloride (Normal Saline Flush 0.9%) 10 ml IVP PRN PRN PRN Reason: NEEDED PER PROVIDER ORDERS Last Admin: 03/06/20 10:37 Dose: 10 ml Documented by: Sodium Chloride (Normal Saline Flush 0.9%) 10 ml IVP 0100,0900,1700 [facility] Last Admin: 03/06/20 08:54 Dose: 10 ml Documented by: Sodium Chloride (Normal Saline Flush 0.9%) 20 ml IVP PRN PRN PRN Reason: After Blood Draw Last Admin: 03/06/20 05:43 Dose: 20 ml Documented by: Trazodone HCl (Desyrel) 100 mg PO QPM [facility] Last Admin: 03/05/20 20:55 Dose: 100 mg Documented by: Levothyroxine [Synthroid] 50 mcg PO QDAC 12/30/18 Citalopram [CeleXA] 40 tab PO DAILY 07/28/19 Cholecalciferol (Vitamin D3) [Vitamin D3] 2,000 units PO DAILY 10/06/19 Cyanocobalamin (Vitamin B-12) [Vitamin B-12] 1,000 mcg PO DAILY 10/06/19 Omeprazole 20 mg PO QDAC 10/06/19 Oxycodone HCl 5 mg PO QID PRN 10/06/19 traZODone [Desyrel] 100 mg PO QPM 10/06/19 Loratadine [Claritin] 10 mg PO DAILY PRN 02/02/20 Cefdinir 300 mg PO [id number] 02/27/20 Pregabalin 100 mg PO Q8H 02/27/20 Objective - Vital Signs/Intake & Output Reviewed Vital Signs: Yes Vital Signs: Vital Signs x48h Temp Pulse Resp BP Pulse Ox 03/06/20 08:05 37.0 C 97 18 119/55 L 93 03/06/20 05:00 37.0 C 91 18 118/52 L 99 Intake & Output: Intake & Output 03/03/20 03/04/20 03/05/20 03/06/20 23:59 23:59 23:59 23:59 Intake Total 1150 2138 700 474 Output Total 2850 700 1850 900 Balance -1700 1438 -1150 -426 - Objective General Appearance: positive: No acute distress, Alert Eyes Bilateral: positive: Normal inspection ENT: positive: ENT inspection nml, Other (Nasal cannula in place.) Neck: positive: Nml inspection Respiratory: positive: No respiratory distress, Other (Diminished in bases. Faint crackles bilaterally. She is not tachypnic.) Cardiovascular: positive: Regular rate & rhythm, No murmur. negative: Tachycardia, Systolic murmur Abdomen: positive: Non-tender, Nml bowel sounds, No distention. negative: Tenderness Extremities: positive: Pedal edema (Trace to +1 pitting edema in bilateral lower extremities which is improved.) Neurologic/Psychiatric: positive: Oriented x3 - Lab Results Fish Bones: 03/06/20 07:50 03/06/20 05:45 Other Labs: Lab Results x24hrs 03/06/20 03/06/20 Range/Units 07:50 05:45 WBC 7.0 (4.8-10.8) x10^3/uL RBC 3.16 L (4.20-5.40) 10^6/uL Hgb 8.1 L (12.0-16.0) g/dL Hct 26.2 L (37.0-47.0) % MCV 82.9 (81.0-99.0) fL MCH 25.6 L (27.0-31.0) pg MCHC 30.9 L (32.0-36.0) g/dL RDW 25.3 H (12.0-15.0) % Plt Count 89 L (130-450) 10^3/uL Neut # (Auto) Not Reportable Lymph # (Auto) Not Reportable [place] # (Auto) Not Reportable Eos # (Auto) Not Reportable Baso # (Auto) Not Reportable Absolute Nucleated RBC Not Reportable Total Counted 100 Band Neuts % (Manual) 9 (0 - 10) % Reactive Lymphs % (Man) 3 % Abnorm Lymph % (Manual) 0 % Metamyelocytes % 2 H ( - 0) % Nucleated RBC % Not Reportable Neutrophils # (Manual) 4.4 (1.5-6.6) 10^3/uL Lymphocytes # (Manual) 1.3 L (1.5-3.5) 10^3/uL Monocytes # (Manual) 0.3 (0.0-1.0) 10^3/uL Eosinophils # (Manual) 0.5 (0-0.7) 10^3/uL Basophils # (Manual) 0.4 H (0-0.1) 10^3/uL Differential Comment MANUAL DIFFERENTIAL Platelet Estimate DECREASED (<130,000) (NORMAL) Platelet Morphology NORMAL APPEARANCE (NORMAL) RBC Morph Micro Appear 3+ ANISOCYTOSIS (NORMAL) Sodium 138 (135-145) mmol/L Potassium 3.7 (3.5-5.0) mmol/L Chloride 95 L (101-111) mmol/L Carbon Dioxide 35 H (21-32) mmol/L Anion Gap 8.0 (6-13) BUN 18 (6-20) mg/dL Creatinine 1.0 (0.4-1.0) mg/dL Estimated GFR (MDRD) 54 L (>89) Glucose 112 H (70-100) mg/dL Calcium 8.4 L (8.5-10.3) mg/dL Phosphorus 3.2 (2.5-4.6) mg/dL Magnesium 1.8 (1.7-2.8) mg/dL Sepsis Event Note (H) - Evaluation Current Stage of Sepsis: Resolved Possible source of Sepsis: positive: Pulmonary - Sepsis Criteria Sepsis Criteria: Recorded Heart Rate greater than 90 bpm, Recorded Respiratory Rate greater than 20, Respiratory: Increasing oxygen requirements, WBC count greater than 10% bands, WBC count greater than 12,000 or less than 4000 Assessment/Plan - Problem List (1) Acute respiratory failure with hypoxia Impression: She remains on 2 L of oxygen. Suspect is likely due to pulmonary vascular congestion given amount of IV fluid she received. She is developing global contraction alkalosis with IV diuresis. We will hold her furosemide at this time and give her a dose of Diamox. We will repeat a chest x-ray today. Today is her last day of antibiotics for the pneumonia. (2) Community acquired pneumonia Impression: Today is her last day of antibiotics and she has completed 7 days of therapy including fluconazole as her lower 3 cultures grew yeast. She still remains hypoxic I suspect is due to fluid overload rather than pneumonia. We will repeat a chest x-ray today. (3) Fluid overload Impression: Secondary to the IV fluids she had received for her sepsis. She is less edematous today and her oxygenation is improving. We will repeat a chest x-ray today. We will hold off on furosemide given the metabolic alkalosis but will give her Diamox today. (4) Metabolic alkalosis Impression: Her bicarbonate has increased today this is likely contraction alkalosis due to the IV diuretics she had been receiving. We will hold the furosemide today. Give her a dose of Diamox. We will need to resume the furosemide as she still appears hypervolemic but will likely do so at a lower dose. (5) Diarrhea Impression: This was likely secondary to her antibiotics and has resolved. C. difficile was negative. (6) Physical deconditioning Impression: She continues to improve on a daily basis while working with physical therapy. Continue physical therapy. (7) Paroxysmal atrial fibrillation Impression: She remains in sinus rhythm at this time. We will continue to monitor while she is hospitalized. (8) Chronic kidney disease, stage 3 (moderate) Impression: Renal function remains stable at baseline while she is being diuresed. Continue to monitor. (9) Anemia of chronic disease Impression: Hemoglobin slightly decreased today but overall stable. No evidence of bleedin g. Continue to monitor. (10) Metastatic non-small cell lung cancer Impression: She has decided on hospice. We are working with social work to come up with a safe disposition plan for this. Appreciative palliative and social work input. (11) Hypothyroidism Impression: Continue Synthroid. (12) Mild malnutrition Impression: Continue with puree diet as tolerated. 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 Continue with pured diet. Qualifiers: Dysphagia type: pharyngeal phase Qualified Code(s): R13.13 - Dysphagia, pharyngeal phase
--- NOTE | 2020-03-06 11:44 | XRAY Report ---
PROCEDURE: Chest 1 View X-Ray INDICATIONS: Follow up infiltrates. Hypoxia. Cough. TECHNIQUE: One view of the chest was acquired. COMPARISON: Chest x-ray 03/02/2020 FINDINGS: Surgical changes and devices: Right Port-A-Cath is present. Lungs and pleura: Patchy bilateral pulmonary opacities are persistent although improved compared to p rior exam. Trace blunting of the costophrenic angles remain present. Mediastinum: Mediastinal contours appear normal. Heart size is normal. Bones and chest wall: No suspicious bony lesions. Overlying soft tissues appear unremarkable. IMPRESSION: Persistent, although improved appearance of previously identified pulmonary opacities. Reviewed by: Kala Petersen MD on 03/06/2020 11:43 AM PDT Approved by: Kala Petersen MD on 03/06/2020 11:43 AM PDT Station ID: [id number]
[2020-03-06] MEDS: ACETAMINOPHEN 325 MG TABLET PO PRN (16:30)
[2020-03-06] MEDS: traZODone 50 MG TABLET PO SCH (20:52)
[2020-03-07] MEDS: PREGABALIN 100 MG CAPSULE PO SCH ×3 (03:36→20:57)
[2020-03-07] MEDS: ACETAMINOPHEN 325 MG TABLET PO PRN ×2 (04:30→11:11)
[2020-03-07] MEDS: SODIUM CHLORIDE FLUSH 0.9% 10 ML SYRINGE IVP PRN ×3 (05:11→14:01)
[2020-03-07 05:44] LABS: BASOPHILS % (AUTO) 3.2 %; EOSINOPHILS % (AUTO) 6.4 %; HGB - HEMOGLOBIN 7.7 g/dL (12.0-16.0); LYMPHOCYTES % (AUTO) 14.5 %; MEAN CORPUSCULAR HEMOGLOBIN 25.2 pg (27.0-31.0); MEAN CORPUSCULAR HGB CONC 29.6 g/dL (32.0-36.0); MONOCYTES % (AUTO) 3.8 %; NEUTROPHILS % (AUTO) 59.8 %; PLT - PLATELET COUNT 89 10^3/uL (130-450); RED BLOOD COUNT 3.06 10^6/uL (4.20-5.40); RED CELL DISTRIBUTION WIDTH 25.8 % (12.0-15.0); WHITE BLOOD COUNT 7.8 x10^3/uL (4.8-10.8)
[2020-03-07 05:48] LABS: CALCIUM 8.6 mg/dL (8.5-10.3); CREATININE 1.1 mg/dL (0.4-1.0); MAGNESIUM 1.6 mg/dL (1.7-2.8); PHOSPHORUS 4.4 mg/dL (2.5-4.6)
[2020-03-07 05:49] LABS: ABNORMAL LYMPHS % (MANUAL) 0 %
[2020-03-07] MEDS: LEVOTHYROXINE 25 MCG TABLET PO SCH (06:08)
[2020-03-07 06:15] LABS: BAND NEUTROPHILS % (MANUAL) 2 %; BASOPHILS # (MANUAL) 0.2 10^3/uL (0-0.1); BASOPHILS % (MANUAL) 2 %; EOSINOPHILS # (MANUAL) 0.5 10^3/uL (0-0.7); LYMPHOCYTES # (MANUAL) 1.6 10^3/uL (1.5-3.5); LYMPHOCYTES % (MANUAL) 21 %; METAMYELOCYTES % (MANUAL) 1 %; MONOCYTES # (MANUAL) 0.2 10^3/uL (0.0-1.0); MYELOCYTES % (MANUAL) 2 %
[2020-03-07 06:17] LABS: DIFFERENTIAL COMMENT MANUAL DIFFERENTIAL; PLATELET ESTIMATE, MANUAL DECREASED (<130,000) (NORMAL); PLATELET MORPHOLOGY 2+ LARGE PLATELETS (NORMAL)
[2020-03-07] MEDS: LOPERAMIDE 2 MG CAPSULE PO PRN (08:41)
[2020-03-07] MEDS: CYANOCOBALAMIN 500 MCG TABLET PO SCH (08:43)
[2020-03-07] MEDS: SACCHAROMYCES BOULARDII 250 MG CAPSULE PO SCH ×2 (08:43→17:07)
[2020-03-07] MEDS: CITALOPRAM 10 MG TABLET PO SCH (08:48)
[2020-03-07] MEDS: MIN OIL/DIMETHICON/COCONUT OIL 92 GM TUBE TOP PRN (08:48)
[2020-03-07] MEDS: ENOXAPARIN 40 MG/0.4 ML SYRINGE SUBQ SCH (08:49)
[2020-03-07] MEDS: SODIUM CHLORIDE FLUSH 0.9% 10 ML SYRINGE IVP SCH ×3 (08:49→23:22)
[2020-03-07] MEDS: polyethylene glycoL 3350 17 GM PACKET PO SCH (08:49)
[2020-03-07] MEDS: DOCUSATE SODIUM 250 MG CAPSULE PO SCH (08:49)
[2020-03-07] MEDS: SENNA 8.6 MG TABLET PO SCH (08:49)
[2020-03-07] MEDS: CHLORHEXIDINE GLUCONATE 15 ML UDC PO SCH ×2 (08:49→20:57)
[2020-03-07] MEDS ORDERED: LACTATED RINGERS 500 ML IV ONE (09:12)
--- NOTE | 2020-03-07 09:25 | PROVIDER PROGRESS NOTE ---
Subjective - Prog Note Date Prog Note Date: 03/07/20 - Subjective Subjective: She feels her breathing has improved but she continues have a cough. She felt lightheaded and weak when she ambulated with physical therapy today. She was able to walk little bit further than when she did yesterday but she still not close to her baseline. Denies any chest pain or abdominal pain. She did have one large liquid bowel movement this morning. Current Medications - Current Medications Current Medications: Active Medications Acetaminophen (Tylenol) 650 mg PO Q4HR PRN PRN Reason: Pain 1 to 4 Last Admin: 03/07/20 11:11 Dose: 650 mg Documented by: Carboxymethylcellulose (Refresh 1% Ophth Drops) 1 drops EACHEYE PRN PRN PRN Reason: Dry Eye Last Admin: 02/29/20 17:11 Dose: 1 drops Documented by: Chlorhexidine Gluconate (Peridex) 15 ml PO BID [facility] Last Admin: 03/07/20 08:49 Dose: 15 ml Documented by: Citalopram Hydrobromide (Celexa) 40 mg PO DAILY [facility] Last Admin: 03/07/20 08:48 Dose: 40 mg Documented by: Cyanocobalamin (Vitamin B-12) 1,000 mcg PO DAILY [facility] Last Admin: 03/07/20 08:43 Dose: 1,000 mcg Documented by: Docusate Sodium (Colace 250mg Capsule) 250 - 500 mg PO DAILY [facility] Last Admin: 03/07/20 08:49 Dose: Not Given Documented by: Enoxaparin Sodium (Lovenox) 40 mg SUBQ DAILY [facility] Last Admin: 03/07/20 08:49 Dose: 40 mg Documented by: Heparin Sodium (Beef Lung) () 30 - 50 unit IVP PRN PRN PRN Reason: Port Protocol (<24 hours) Last Admin: 03/07/20 08:50 Dose: 50 unit Documented by: Hydromorphone HCl (Dilaudid Inj Syringe) 0.5 mg IVP Q3H PRN PRN Reason: PAIN Last Admin: 03/07/20 14:01 Dose: 0.5 mg Documented by: Levothyroxine Sodium (Synthroid) 50 mcg PO QDAC [facility] Last Admin: 03/07/20 06:08 Dose: 50 mcg Documented by: Loperamide HCl (Imodium) 2 mg PO QID PRN PRN Reason: Diarrhea Last Admin: 03/07/20 08:41 Dose: 2 mg Documented by: Mineral Oil (Cavilon) 1 applic TOP PRN PRN PRN Reason: Skin Care Last Admin: 03/07/20 08:48 Dose: 1 applic Documented by: Ondansetron HCl (Zofran Odt) 4 mg TL Q6HR PRN PRN Reason: Nausea / Vomiting Ondansetron HCl (Zofran Inj) 4 mg IVP Q6HR PRN PRN Reason: Nausea / Vomiting Phenol/Menthol (Chloraseptic) 2 sprays MM Q2HR PRN PRN Reason: Throat Pain Polyethylene Glycol (Miralax) 17 gm PO DAILY [facility] Last Admin: 03/07/20 08:49 Dose: Not Given Documented by: Pregabalin (Lyrica) 100 mg PO Q8H [facility] Last Admin: 03/07/20 11:11 Dose: 100 mg Documented by: Saccharomyces Boulardii (Florastor) 250 mg PO BIDWM [facility] Last Admin: 03/07/20 08:43 Dose: 250 mg Documented by: Senna (Senokot) 8.6 - 17.2 mg PO DAILY [facility] Last Admin: 03/07/20 08:49 Dose: Not Given Documented by: Sodium Chloride (Normal Saline Flush 0.9%) 10 ml IVP PRN PRN PRN Reason: NEEDED PER PROVIDER ORDERS Last Admin: 03/07/20 14:01 Dose: 10 ml Documented by: Sodium Chloride (Normal Saline Flush 0.9%) 10 ml IVP 0100,0900,1700 [facility] Last Admin: 03/07/20 08:49 Dose: Not Given Documented by: Sodium Chloride (Normal Saline Flush 0.9%) 20 ml IVP PRN PRN PRN Reason: After Blood Draw Last Admin: 03/07/20 05:11 Dose: 20 ml Documented by: Trazodone HCl (Desyrel) 100 mg PO QPM [facility] Last Admin: 03/06/20 20:52 Dose: 100 mg Documented by: Levothyroxine [Synthroid] 50 mcg PO QDAC 12/30/18 Citalopram [CeleXA] 40 tab PO DAILY 07/28/19 Cholecalciferol (Vitamin D3) [Vitamin D3] 2,000 units PO DAILY 10/06/19 Cyanocobalamin (Vitamin B-12) [Vitamin B-12] 1,000 mcg PO DAILY 10/06/19 Omeprazole 20 mg PO QDAC 10/06/19 Oxycodone HCl 5 mg PO QID PRN 10/06/19 traZODone [Desyrel] 100 mg PO QPM 10/06/19 Loratadine [Claritin] 10 mg PO DAILY PRN 02/02/20 Cefdinir 300 mg PO [id number] 02/27/20 Pregabalin 100 mg PO Q8H 02/27/20 Objective - Vital Signs/Intake & Output Reviewed Vital Signs: Yes Vital Signs: Vital Signs x48h Temp Pulse Resp BP Pulse Ox 03/07/20 08:06 36.7 C 85 20 88/39 L 94 03/07/20 05:50 97 89/37 L 03/07/20 04:30 36.1 C L 95 20 88/37 L 94 03/07/20 04:18 85/38 L Intake & Output: Intake & Output 03/04/20 03/05/20 03/06/20 03/07/20 23:59 23:59 23:59 23:59 Intake Total 2138 700 1322 890 Output Total 700 1850 1750 350 Balance 5846 -4588 -699 540 - Objective General Appearance: positive: No acute distress Eyes Bilateral: positive: Normal inspection Eyes: OU Conjunctivae pale ENT: positive: ENT inspection nml, Other (Nasal cannula in place.) Neck: positive: Nml inspection Respiratory: positive: No respiratory distress, Other (Diminished breath sounds bilaterally.). negative: Wheezes, Rales Cardiovascular: positive: Regular rate & rhythm, No murmur. negative: Tachycardia, Bradycardia, Systolic murmur Abdomen: positive: Non-tender, Nml bowel sounds, No distention. negative: Tenderness Skin: positive: Warm, Dry Extremities: positive: Pedal edema (Trace edema in bilateral lower extremities.) Neurologic/Psychiatric: positive: Oriented x3 - Lab Results Fish Bones: 03/07/20 05:25 03/07/20 05:25 Other Labs: Lab Results x24hrs 03/07/20 03/07/20 Range/Units 05:25 05:25 WBC 7.8 (4.8-10.8) x10^3/uL RBC 3.06 L (4.20-5.40) 10^6/uL Hgb 7.7 L (12.0-16.0) g/dL Hct 26.0 L (37.0-47.0) % MCV 85.0 (81.0-99.0) fL MCH 25.2 L (27.0-31.0) pg MCHC 29.6 L (32.0-36.0) g/dL RDW 25.8 H (12.0-15.0) % Plt Count 89 L (130-450) 10^3/uL Neut # (Auto) Not Reportable Lymph # (Auto) Not Reportable [place] # (Auto) Not Reportable Eos # (Auto) Not Reportable Baso # (Auto) Not Reportable Absolute Nucleated RBC Not Reportable Total Counted 100 Band Neuts % (Manual) 2 (0 - 10) % Abnorm Lymph % (Manual) 0 % Metamyelocytes % 1 H ( - 0) % Myelocytes % 2 H ( - 0) % Nucleated RBC % Not Reportable Neutrophils # (Manual) 5.1 (1.5-6.6) 10^3/uL Lymphocytes # (Manual) 1.6 (1.5-3.5) 10^3/uL Monocytes # (Manual) 0.2 (0.0-1.0) 10^3/uL Eosinophils # (Manual) 0.5 (0-0.7) 10^3/uL Basophils # (Manual) 0.2 H (0-0.1) 10^3/uL Differential Comment MANUAL DIFFERENTIAL WBC Morphology NORMAL APPEARANCE (NORMAL) Platelet Estimate DECREASED (<130,000) (NORMAL) Platelet Morphology 2+ LARGE PLATELETS (NORMAL) RBC Morph Micro Appear 1+ OVALOCYTES (NORMAL) Sodium 138 (135-145) mmol/L Potassium 3.9 (3.5-5.0) mmol/L Chloride 98 L (101-111) mmol/L Carbon Dioxide 32 (21-32) mmol/L Anion Gap 8.0 (6-13) BUN 22 H (6-20) mg/dL Creatinine 1.1 H (0.4-1.0) mg/dL Estimated GFR (MDRD) 49 L (>89) Glucose 107 H (70-100) mg/dL Calcium 8.6 (8.5-10.3) mg/dL Phosphorus 4.4 (2.5-4.6) mg/dL Magnesium 1.6 L (1.7-2.8) mg/dL Sepsis Event Note (H) - Evaluation Current Stage of Sepsis: Resolved Possible source of Sepsis: positive: Pulmonary - Sepsis Criteria Sepsis Criteria: Recorded Heart Rate greater than 90 bpm, Recorded Respiratory Rate greater than 20, Respiratory: Increasing oxygen requirements, WBC count greater than 10% bands, WBC count greater than 12,000 or less than 4000 Assessment/Plan - Problem List (1) Hypotension Impression: She was hypotensive overnight with systolic in the 80s and diastolic in the 30s. Suspect is likely due to her being over diuresed given her hypervolemia. She does not appear septic at this time. She was given half a liter of lactated Ringer's with improvement of her blood pressures to the 110s systolic. We will hold diuresis for the time being. We will consider another bolus if she becomes hypotensive. Qualifiers: Qualified Code(s): I95.9 - Hypotension, unspecified (2) Acute respiratory failure with hypoxia Impression: She remains on 2 L of oxygen via nasal cannula. She completed 7 days of antibiotics for community-acquired pneumonia. She has also been diuresed given her edematous state but this is held today given her hypotension. Despite these interventions, she continues to require 2 L of oxygen. She does have greater than [id number] smoking history I do wonder if there may be underlying COPD. We will wean her oxygen for goal saturation greater than 88%. She may ultimately need to be discharged on oxygen and this can be weaned at the prison facility. She may also ultimately require oxygen at home given the likely COPD and her lung cancer. (3) Fluid overload Impression: She is less edematous today but she remains on 2 L of oxygen via nasal cannula. She was hypotensive which I suspect is likely due to the diuresis she had been receiving. We will hold off on further diuresis given her soft blood pressures. We will give her a small bolus today and monitor her fluid status. Her lower extremity edema should hopefully continue to improve as her mobility increases. (4) Metabolic alkalosis Impression: This was likely contraction alkalosis given she had been diuresed. Her bicarbonate has improved today. We will hold off on further diuresis given her hypotension. (5) Physical deconditioning Impression: She continues to improve on a daily basis working with physical therapy. She would benefit from a prison facility in hopes of getting her strong enough to go back to independent living at home. (6) Paroxysmal atrial fibrillation Impression: She had a brief episode of A. fib on February 28 likely due to her critical illness. She converted with procainamide. She remained in a sinus rhythm and echocardiogram did not reveal dilated left atrium. Continue to monitor. (7) Chronic kidney disease, stage 3 (moderate) Impression: Her renal function remains at baseline. We will continue to monitor while she is hospitalized especially given she had a hypotensive episode. (8) Anemia of chronic disease Impression: Her hemoglobin has been slowly decreasing again. It is 7.7 this morning. There are no obvious signs of bleeding. She did require transfusion during his hospitalization. We did discuss the possible need for transfusion but she would like to think about this a little more. We will recheck her CBC in the morning and discuss the need for transfusion again. 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 She is followed by palliative care and the patient is leaning towards hospice with a goal of comfort. We are working closely with social work to come up with an appropriate disposition plan that coincides with the patient's wishes. (10) Hypothyroidism Impression: Continue Synthroid. (11) Mild malnutrition Impression: Continue with pured diet as tolerated. Appreciate nutrition input. (12) Dysphagia Impression: We will continue the pured diet as tolerated. Qualifiers: Dysphagia type: pharyngeal phase Qualified Code(s): R13.13 - Dysphagia, pharyngeal phase (13) Community acquired pneumonia Impression: This has resolved. She completed 7 days of antibiotics with Zosyn and Levaquin.
--- NOTE | 2020-03-07 13:50 | CONSULTATION NOTE ---
Palliative Care Follow Up - Referral Referring Provider: Dr. Omid Jimenez Time of Visit: [id number] Referral setting: Hospitalized patient Referral Reason: Met Lung Ca/Goals of Care - Information Sources Records reviewed: Previous records reviewed History/Review of Systems obtained from: Patient, Other (hospitalist) Exam limitations: No limitations - History of Present Illness Update Brief HPI Update: This is a 74-year-old woman with metastatic lung cancer, is been on nivolumab, and immunotherapy treatment since 2017. She has been acutely hospitalized for community-acquired pneumonia, worsening dysphagia, and is slowly improving. She did end up in ICU and ventilated, she continues to struggle with worsening trouble with managing secretions, though this is improving steadily. She is working with physical and occupational therapy, to gain strength, she is hoping to be more independent overall. She is feeling somewhat overwhelmed, given her current situation, she does want to pursue SNF placement to gain some independence, She had hoped that this would translate into going home. There has been some concern about the safety of her home situation, and including her ex- as far as being able to manage her caregiving needs given his own health situation. She is hopeful as time goes on, more clarification regarding Syd's treatment, and what might be in the future for both of them, that she can transition to another setting. She does understand given her current situation, and deconditioning she would not be a candidate for treatment at this point, and her goals are aligning more focused with hospice transition when she starts to deteriorate again. We did complete her POLST, with the goals for focusing on comfort and quality of life, she would like to regain as much independent as possible, but if something were to happen she does not want to prolong suffering and at end-of-life she would like a comfortable respectful . She is feeling somewhat overwhelmed and distressed that they had brought her back, as this would not be facing the difficulty she is currently. Social History - Living Situation Living arrangement: At home Living Situation: With spouse/s.o. Support System: She lives at home in a trailer, with concerns for worsening living conditions. Syd her ex-, and her have lived together for long period of time, and he has been her caregiver. He himself is facing health issues, and concerned about being able to manage himself and then her care needs. They are working on applications for assistance, she is distressed given the current limitations of visitation in most situations with SNF. Medications/Allergies - Medications Active Medication List: Active Medications Acetaminophen (Tylenol) 650 mg PO Q4HR PRN PRN Reason: Pain 1 to 4 Last Admin: 03/07/20 11:11 Dose: 650 mg Documented by: Carboxymethylcellulose (Refresh 1% Ophth Drops) 1 drops EACHEYE PRN PRN PRN Reason: Dry Eye Last Admin: 02/29/20 17:11 Dose: 1 drops Documented by: Chlorhexidine Gluconate (Peridex) 15 ml PO BID [facility] Last Admin: 03/07/20 08:49 Dose: 15 ml Documented by: Citalopram Hydrobromide (Celexa) 40 mg PO DAILY [facility] Last Admin: 03/07/20 08:48 Dose: 40 mg Documented by: Cyanocobalamin (Vitamin B-12) 1,000 mcg PO DAILY [facility] Last Admin: 03/07/20 08:43 Dose: 1,000 mcg Documented by: Docusate Sodium (Colace 250mg Capsule) 250 - 500 mg PO DAILY [facility] Last Admin: 03/07/20 08:49 Dose: Not Given Documented by: Enoxaparin Sodium (Lovenox) 40 mg SUBQ DAILY [facility] Last Admin: 03/07/20 08:49 Dose: 40 mg Documented by: Heparin Sodium (Beef Lung) () 30 - 50 unit IVP PRN PRN PRN Reason: Port Protocol (<24 hours) Last Admin: 03/07/20 08:50 Dose: 50 unit Documented by: Hydromorphone HCl (Dilaudid Inj Syringe) 0.5 mg IVP Q3H PRN PRN Reason: PAIN Last Admin: 03/06/20 21:15 Dose: 0.5 mg Documented by: Levothyroxine Sodium (Synthroid) 50 mcg PO QDAC [facility] Last Admin: 03/07/20 06:08 Dose: 50 mcg Documented by: Loperamide HCl (Imodium) 2 mg PO QID PRN PRN Reason: Diarrhea Last Admin: 03/07/20 08:41 Dose: 2 mg Documented by: Mineral Oil (Cavilon) 1 applic TOP PRN PRN PRN Reason: Skin Care Last Admin: 03/07/20 08:48 Dose: 1 applic Documented by: Ondansetron HCl (Zofran Odt) 4 mg TL Q6HR PRN PRN Reason: Nausea / Vomiting Ondansetron HCl (Zofran Inj) 4 mg IVP Q6HR PRN PRN Reason: Nausea / Vomiting Phenol/Menthol (Chloraseptic) 2 sprays MM Q2HR PRN PRN Reason: Throat Pain Polyethylene Glycol (Miralax) 17 gm PO DAILY [facility] Last Admin: 03/07/20 08:49 Dose: Not Given Documented by: Pregabalin (Lyrica) 100 mg PO Q8H [facility] Last Admin: 03/07/20 11:11 Dose: 100 mg Documented by: Saccharomyces Boulardii (Florastor) 250 mg PO BIDWM [facility] Last Admin: 03/07/20 08:43 Dose: 250 mg Documented by: Jason (Senokot) 8.6 - 17.2 mg PO DAILY [facility] Last Admin: 03/07/20 08:49 Dose: Not Given Documented by: Sodium Chloride (Normal Saline Flush 0.9%) 10 ml IVP PRN PRN PRN Reason: NEEDED PER PROVIDER ORDERS Last Admin: 03/07/20 05:11 Dose: 10 ml Documented by: Sodium Chloride (Normal Saline Flush 0.9%) 10 ml IVP 0100,0900,1700 [facility] Last Admin: 03/07/20 08:49 Dose: Not Given Documented by: Sodium Chloride (Normal Saline Flush 0.9%) 20 ml IVP PRN PRN PRN Reason: After Blood Draw Last Admin: 03/07/20 05:11 Dose: 20 ml Documented by: Trazodone HCl (Desyrel) 100 mg PO QPM [facility] Last Admin: 03/06/20 20:52 Dose: 100 mg Documented by: Levothyroxine [Synthroid] 50 mcg PO QDAC 12/30/18 Citalopram [CeleXA] 40 tab PO DAILY 07/28/19 Cholecalciferol (Vitamin D3) [Vitamin D3] 2,000 units PO DAILY 10/06/19 Cyanocobalamin (Vitamin B-12) [Vitamin B-12] 1,000 mcg PO DAILY 10/06/19 Omeprazole 20 mg PO QDAC 10/06/19 Oxycodone HCl 5 mg PO QID PRN 10/06/19 traZODone [Desyrel] 100 mg PO QPM 10/06/19 Loratadine [Claritin] 10 mg PO DAILY PRN 02/02/20 Cefdinir 300 mg PO [id number] 02/27/20 Pregabalin 100 mg PO Q8H 02/27/20 - Allergies Allergies/Adverse Reactions: Allergies Allergy/AdvReac Type Severity Reaction Status Date / Time Sulfa (Sulfonamide AdvReac Nausea Verified 02/27/20 13:48 Antibiotics) Review of Systems - Constitutional Constitutional: reports: Fatigue, Weakness (improving), Weight loss. denies: Fever, Chills - Eyes Eyes: reports: Blurred vision, Vision loss - Ears, Nose & Throat Ears, Nose & Throat: reports: Hearing loss, Nasal congestion, Other (dentures) - Cardiovascular Cardiovascular: reports: Decr. exercise tolerance - Respiratory Respiratory: reports: Cough. denies: SOB at rest - Gastrointestinal Gastrointestinal: reports: Early satiety. denies: Constipation, Nausea - Genitourinary Genitourinary: reports: Incontinence - Musculoskeletal Musculoskeletal: reports: Back pain, Muscle aches, Stiffness, Muscle weakness, Assistive devices (working with walker) - Integumentary Integumentary: reports: Dryness - Neurological Neurological: reports: General weakness, Numbness (severe peripheral neuropathy) - Psychiatric Psychiatric: reports: Depression, Anxiety - Endocrine Endocrine: reports: Diabetes type 2, Hypothyroidism - Hematologic/Lymphatic Hematologic/Lymphatic: reports: Anemia (worsening 7.7), Recurrent infections (completed tx for pneumonia) - All Other Systems All Other Systems: reports: Reviewed and negative Physical Exam - Vital Signs Vital Signs: Vital Signs x48h Temp Pulse Resp BP Pulse Ox 03/07/20 11:12 95 111/57 L 03/07/20 08:06 36.7 C 85 20 88/39 L 94 03/07/20 05:50 97 89/37 L - Physical Exam General Appearance: positive: Mild distress, Anxious Eyes Bilateral: positive: Other (watery eyes (baseline at home)) ENT: negative: Mouth lesions Neck: positive: Trachea midline Cardiovascular: positive: Tachycardia Respiratory: negative: No respiratory distress (cough frequently with oral secretions and swallowing), Wheezes, Rales, Rhonchi Abdomen: positive: Non-tender, Soft Skin: positive: Pallor, Dryness Extremities: positive: No pedal edema Neurologic/Psychiatric: positive: Oriented x3, Weakness, Flat affect Palliative Care - POLST Patient has POLST: Yes POLST Status: DNR, Comfort Measures (completed at visit) Pain: Pain unchanged, Location (severe peripheral neuropathy; managed with pregablin 100 mg tid) Tiredness/Fatigue: Moderate (4-6) Drowsiness/Sedation: Mild (1-3) Nausea: None Anorexia: Mild (1-3) Dyspnea: Moderate (4-6) Depression: Severe (7-10) Anxiety: Severe (7-10) Feelings of wellbeing/Perceived Quality of Life: Fair, Improved Sleep: Variable sleep pattern - Palliative Care Discussion: Met with patient regarding goals of care, she is quite discouraged given her current situation. She is quite clear if something were to deteriorate or continue to decline, she would not want her suffering or life prolonged. She is currently though feeling encouraged that she is doing a little better every day, we discussed her short-term goal which is to regain independence, to get stronger, and be able to manage her own ADLs. She is hoping with improvement, she could evaluate a different transition plan, other than long-term SNF for adult family home. She is hopeful that they may be able to figure out a way that she could return home, though understands there are concerns given their current situation and her ex-'s health. We did complete the pulsed with DNA R, comfort focused treatment, she would not want to be hospitalized again to determine the use of antibiotics with comfort is the goal, and no medically assisted nutrition. She did sign this in copy was given to kit planner for transition of care plan. She does have D POA which is her ex- Tariq Gibson [phone]. I am pending callback from him, have tried several times and let him know of time I was meeting with Abbi. We will continue to try and make contact. Results - Lab Results Lab results reviewed: Yes Fish Bones: 03/07/20 05:25 03/07/20 05:25 Lab and Imaging Results: Lab Results x24hrs 03/07/20 03/07/20 Range/Units 05:25 05:25 WBC 7.8 (4.8-10.8) x10^3/uL RBC 3.06 L (4.20-5.40) 10^6/uL Hgb 7.7 L (12.0-16.0) g/dL Hct 26.0 L (37.0-47.0) % MCV 85.0 (81.0-99.0) fL MCH 25.2 L (27.0-31.0) pg MCHC 29.6 L (32.0-36.0) g/dL RDW 25.8 H (12.0-15.0) % Plt Count 89 L (130-450) 10^3/uL Neut # (Auto) Not Reportable Lymph # (Auto) Not Reportable [place] # (Auto) Not Reportable Eos # (Auto) Not Reportable Baso # (Auto) Not Reportable Absolute Nucleated RBC Not Reportable Total Counted 100 Band Neuts % (Manual) 2 (0 - 10) % Abnorm Lymph % (Manual) 0 % Metamyelocytes % 1 H ( - 0) % Myelocytes % 2 H ( - 0) % Nucleated RBC % Not Reportable Neutrophils # (Manual) 5.1 (1.5-6.6) 10^3/uL Lymphocytes # (Manual) 1.6 (1.5-3.5) 10^3/uL Monocytes # (Manual) 0.2 (0.0-1.0) 10^3/uL Eosinophils # (Manual) 0.5 (0-0.7) 10^3/uL Basophils # (Manual) 0.2 H (0-0.1) 10^3/uL Differential Comment MANUAL DIFFERENTIAL WBC Morphology NORMAL APPEARANCE (NORMAL) Platelet Estimate DECREASED (<130,000) (NORMAL) Platelet Morphology 2+ LARGE PLATELETS (NORMAL) RBC Morph Micro Appear 1+ OVALOCYTES (NORMAL) Sodium 138 (135-145) mmol/L Potassium 3.9 (3.5-5.0) mmol/L Chloride 98 L (101-111) mmol/L Carbon Dioxide 32 (21-32) mmol/L Anion Gap 8.0 (6-13) BUN 22 H (6-20) mg/dL Creatinine 1.1 H (0.4-1.0) mg/dL Estimated GFR (MDRD) 49 L (>89) Glucose 107 H (70-100) mg/dL Calcium 8.6 (8.5-10.3) mg/dL Phosphorus 4.4 (2.5-4.6) mg/dL Magnesium 1.6 L (1.7-2.8) mg/dL Impression and Recommendations - Palliative Care Impression: This is a 74-year-old woman with metastatic lung cancer, recently acutely treated for community-acquired pneumonia, unstable cardiac status, and requiring ventilator support for hypoxia. She has continued to improve, making progress with therapies, with the goal to regain some independence. She does understand the seriousness of her illness, and at this point in time would like comfort focused care that supports improving her quality of life. Recommendations/Counseling Done: 1. Advanced care planning. Patient short-term goal is congruent with transition to SNF for regaining independence, improving strength, and able to be independent in her ADLs. Her long-term goal is to have comfort focused treatment, not to prolong suffering and end-of-life a comfortable respectful . Counseling provided to normalize her current grief and loss process, as well as anxiety. Time Spent: 40 minutes with greater than 50% of this done in counseling regarding goals of care, completing the pulsed, follow-up with coordination of care with hospitalist and discharge planning feeder.
[2020-03-07] MEDS: HYDROmorphone 0.5 MG/0.5 ML SYRINGE IVP PRN ×2 (14:01→23:22)
[2020-03-07] MEDS: traZODone 50 MG TABLET PO SCH (20:57)
[2020-03-08] MEDS: PREGABALIN 100 MG CAPSULE PO SCH ×3 (04:58→20:45)
[2020-03-08] MEDS: LEVOTHYROXINE 25 MCG TABLET PO SCH (05:02)
[2020-03-08 05:46] LABS: BASOPHILS # (AUTO) 0.3 10^3/uL (0.0-0.1); BASOPHILS % (AUTO) 3.6 %; EOSINOPHILS # (AUTO) 0.8 10^3/uL (0.0-0.7); EOSINOPHILS % (AUTO) 10.3 %; HGB - HEMOGLOBIN 7.8 g/dL (12.0-16.0); LYMPHOCYTES # (AUTO) 1.1 10^3/uL (1.5-3.5); LYMPHOCYTES % (AUTO) 15.1 %; MEAN CORPUSCULAR HEMOGLOBIN 25.5 pg (27.0-31.0); MEAN CORPUSCULAR HGB CONC 29.5 g/dL (32.0-36.0); MEAN CORPUSCULAR VOLUME 86.3 fL (81.0-99.0); MONOCYTES # (AUTO) 0.5 10^3/uL (0.0-1.0); MONOCYTES % (AUTO) 6.9 %; NEUTROPHILS # (AUTO) 3.8 10^3/uL (1.5-6.6); NEUTROPHILS % (AUTO) 52.5 %; PLT - PLATELET COUNT 95 10^3/uL (130-450); RED BLOOD COUNT 3.06 10^6/uL (4.20-5.40); RED CELL DISTRIBUTION WIDTH 26.7 % (12.0-15.0); WHITE BLOOD COUNT 7.3 x10^3/uL (4.8-10.8)
[2020-03-08 05:55] LABS: CALCIUM 8.8 mg/dL (8.5-10.3); MAGNESIUM 1.8 mg/dL (1.7-2.8); PHOSPHORUS 5.2 mg/dL (2.5-4.6)
[2020-03-08 06:07] LABS: PLATELET ESTIMATE, MANUAL DECREASED (<130,000) (NORMAL); PLATELET MORPHOLOGY 1+ LARGE PLATELETS (NORMAL)
[2020-03-08] MEDS: polyethylene glycoL 3350 17 GM PACKET PO SCH (07:41)
[2020-03-08] MEDS: DOCUSATE SODIUM 250 MG CAPSULE PO SCH (07:41)
[2020-03-08] MEDS: SENNA 8.6 MG TABLET PO SCH (07:41)
[2020-03-08] MEDS: ENOXAPARIN 40 MG/0.4 ML SYRINGE SUBQ SCH ×2 (07:56→07:57)
[2020-03-08] MEDS: SACCHAROMYCES BOULARDII 250 MG CAPSULE PO SCH ×2 (08:33→17:10)
[2020-03-08] MEDS: CITALOPRAM 10 MG TABLET PO SCH (08:33)
[2020-03-08] MEDS: CYANOCOBALAMIN 500 MCG TABLET PO SCH (08:33)
[2020-03-08] MEDS: CHLORHEXIDINE GLUCONATE 15 ML UDC PO SCH ×2 (08:33→20:45)
[2020-03-08] MEDS: SODIUM CHLORIDE FLUSH 0.9% 10 ML SYRINGE IVP SCH ×2 (08:35→16:00)
[2020-03-08] MEDS: SODIUM CHLORIDE FLUSH 0.9% 10 ML SYRINGE IVP PRN (09:41)
[2020-03-08] MEDS: HYDROmorphone 0.5 MG/0.5 ML SYRINGE IVP PRN ×2 (09:41→15:59)
--- NOTE | 2020-03-08 10:32 | Discharge Plan ---
"Discharge Plan for SNF / [facility] - Discharge Plan And Transition Orders Problem Reviewed?: Yes Disposition: 03 SNF DC/Xfer Condition: Stable Allergies and Adverse Reactions: Allergies Allergy/AdvReac Type Severity Reaction Status Date / Time Sulfa (Sulfonamide AdvReac Nausea Verified 02/27/20 13:48 Antibiotics) Health Concerns: You were admitted with pneumonia and sepsis causing low blood pressure; you were severely ill and required stay in the intensive care unit. While you were here, over the 10 days you have finished the course of antibiotics. You are being discharged to a [facility] facility for strengthening by doing physical therapy rehab. Plan of Treatment: Continue medications for management of your hypothyroidism, etc. Physical therapy and Occupational Therapy for strengthening have been arranged. The Palliative Care provider will continue to see you at the [facility] facility. Care Goals: Stabilization is the goal. Assessment: Patient understands and is agreeable with the plan. - SNF / [facility] Transition Orders Admit to (Facility): [facility] Under the care of (Name): Dr Brooks Discharge Diagnosis: (1) Septic shock (2) Acute respiratory failure with hypoxia (3) Community acquired pneumonia (4) Fluid overload (5) Metabolic alkalosis (6) Hypotension (6) Diarrhea (7) Paroxysmal atrial fibrillation (8) Physical deconditioning (9) Chronic kidney disease, stage 3 (moderate) (10) Metastatic non-small cell lung cancer (11) Anemia of chronic disease (12) Hypothyroidism (13) Dysphagia (14) Mild malnutrition (15) [employer] Medicare Certification Statement: I certify that [facility] care is medically necessary on a continuing basis for any of the conditions for which she/he is receiving care during hospitalization. Notify PCP of admission and forward orders to primary provider for signature. Weight on admission and: Weekly Call PCP immediately if weight increases by: 4 kg Other Notification Orders: Call PCP immediately if patient develops dyspnea, chest pain/tightness or edema. House Bowel Program: Yes Additional Bowel Program Orders: If no BM after 2 days, nurse may give M.O.M. 30ml PO PRN and/or ducolax Supp 1 VA and/or BONILLA 250mg P.O., and/or senna 1-2 tabs PO. On day 3 nurse may give repeat above order until residents constipation is resolved. Annual Influenza Vaccine (between Apr 26 and November 23): Yes Two-step PPD per [facility] [id number] or approved exception documents: Yes Treatments & Other Orders: Daily PT and OT Medication Orders: PLEASE REFER TO THE DISCHARGE MEDICATION LIST. Insulin Orders?: No - Diet Type: Geriatric Texture: Puree Liquids: Honey thick Supplements: thicken Boost Breeze peach or wild hernandez for suplmnt. does not like ensure. May have monthly special meal: Yes - Therapies | Activity Therapy: Evaluation | Treat if indicated: PT, OT, Swallowing / ST Rehabilitation Potential: Maximize functional status Activity: Activity as Tolerated Weight Bearing: Full Weight Assistance Devices: Walker Follow Up: See PCP in routine office follow-up."
[2020-03-08 11:22] LABS: ALBUMIN 2.1 g/dL (3.2-5.5); BILIRUBIN,DIRECT 0.1 mg/dL (0.1-0.5); BILIRUBIN,TOTAL 0.6 mg/dL (0.2-1.0); TOTAL PROTEIN 5.1 g/dL (6.7-8.2)
--- NOTE | 2020-03-08 12:39 | PROVIDER PROGRESS NOTE ---
Hospitalist Cross-cover Note - Cross-Cover Note Cross-Cover Note: Patient denies dizziness, describes only chronic back and neck pain and has a poor appetite. Orthostatic vital signs were checked: Lying BP 86/37, with pulse of 80. Sitting BP 88/46 with pulse of 77. And standing BP 125/88 with pulse of 77. Continue plan for rehab, as BP improved with upright posture.
--- NOTE | 2020-03-08 17:25 | PROVIDER PROGRESS NOTE ---
Assessment/Plan - Problem List (1) Hypotension Qualifiers: Qualified Code(s): I95.9 - Hypotension, unspecified Assessment/Plan: She was hypotensive yesterday and today with systolic in the 80s and diastolic in the 40s. Suspect is likely due to her being over diuresed given her hypervolemia . She does not appear septic again. She was given half a liter of lactated Ringer's x 1 yesterday and holding diuresis for the time being. Will check orthostatic VS. Depending on those results, she may or may not be ready for discharge today. (2) Acute respiratory failure with hypoxia Assessment/Plan: She remains on oxygen via nasal cannula. She completed 7 days of antibiotics for community-acquired pneumonia. She has also been diuresed given her edematous state but this is held today given her hypotension. Despite these interventions, she continues to require supplemental oxygen. She does have greater than [id number] smoking history, and may have underlying COPD. Will wean her oxygen for goal saturation greater than 88%. She may ultimately need to be discharged on oxygen and this can be weaned at the custodial facility. She may also ultimately require oxygen at home given the likely COPD and her lung cancer. (3) Fluid overload Assessment/Plan: States she was short of breath, confirmed on chest x-ray and she required Lasix. Today will hold off on further Lasix because of low blood pressure. (4) Anemia of chronic disease Assessment/Plan: Her hemoglobin has been slowly decreasing again. It was 7.7 yesterday and 7.8 this morning. There are no obvious signs of bleeding. She did require transfusion during his hospitalization. We did discuss the possible need for transfusion but she would like to think about this a little more. Follow CBC daily. (5) Physical deconditioning Assessment/Plan: She continues to improve on a daily basis working with physical therapy. She agrees to go to a custodial facility in hopes of getting her strong enough to go back to independent living at home. (6) Chronic kidney disease, stage 3 (moderate) Assessment/Plan: Her renal function remains at baseline. We will continue to monitor while she is hospitalized especially given she had the hypotension. (7) Hypothyroidism Assessment/Plan: Continue Synthroid. (8) Paroxysmal atrial fibrillation Assessment/Plan: She had a brief episode of A. fib on February 28 likely due to her critical illness. She converted with procainamide. She remained in a sinus rhythm and echocardiogram did not reveal dilated left atrium. Continue to monitor. 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 She is followed by palliative care and the patient is leaning towards hospice with a goal of comfort. We are working closely with social work to come up with an appropriate disposition plan that coincides with the patient's wishes. (10) Mild malnutrition Assessment/Plan: Continue with pured diet as tolerated. Appreciate nutrition input. (11) Dysphagia Qualifiers: Dysphagia type: pharyngeal phase Qualified Code(s): R13.13 - Dysphagia, pharyngeal phase Assessment/Plan: We will continue the pured diet as tolerated. (12) Community acquired pneumonia Assessment/Plan: This has resolved. She completed 7 days of antibiotics with Zosyn and Levaquin while here. - Current Meds Current Meds: Current Medications Generic Name Dose Route Start Last Admin Trade Name Freq PRN Reason Stop Dose Admin Acetaminophen 650 mg 02/27/20 15:42 03/07/20 11:11 Tylenol PO 650 mg Q4HR PRN Administration Pain 1 to 4 Carboxymethylcellulose 1 drops 02/29/20 03:34 02/29/20 17:11 Refresh 1% Ophth Drops EACHEYE 1 drops PRN PRN Administration Dry Eye Chlorhexidine Gluconate 15 ml 02/28/20 10:00 03/08/20 08:33 Peridex PO 15 ml BID ELDON Administration Citalopram Hydrobromide 40 mg 03/02/20 09:00 03/08/20 08:33 Celexa PO 40 mg DAILY ELDON Administration Cyanocobalamin 1,000 mcg 03/02/20 09:00 03/08/20 08:33 Vitamin B-12 PO 1,000 mcg DAILY ELDON Administration Docusate Sodium 250 - 500 mg 03/02/20 09:00 03/08/20 07:41 Colace 250mg Capsule PO Not Given DAILY ELDON Enoxaparin Sodium 40 mg 03/08/20 07:55 03/08/20 07:57 Lovenox SUBQ Not Given DAILY [facility] Heparin Sodium (Beef Lung) 30 - 50 unit 02/28/20 03:49 03/08/20 16:00 IVP 50 unit PRN PRN Administration Port Protocol (<24 hours) Hydromorphone HCl 0.5 mg 02/29/20 06:20 03/08/20 15:59 Dilaudid Inj Syringe IVP 0.5 mg Q3H PRN Administration PAIN Levothyroxine Sodium 50 mcg 03/02/20 07:00 03/08/20 05:02 Synthroid PO 50 mcg QDAC ELDON Administration Loperamide HCl 2 mg 03/05/20 07:39 03/07/20 08:41 Imodium PO 2 mg QID PRN Administration Diarrhea Mineral Oil 1 applic 03/04/20 06:42 03/07/20 08:48 Cavilon TOP 1 applic PRN PRN Administration Skin Care Polyethylene Glycol 17 gm 02/28/20 09:00 03/08/20 07:41 Miralax PO Not Given DAILY ELDON Pregabalin 100 mg 03/01/20 12:00 03/08/20 12:01 Lyrica PO 100 mg Q8H ELDON Administration Saccharomyces Boulardii 250 mg 03/05/20 08:00 03/08/20 17:10 Florastor PO 250 mg BIDWM ELDON Administration Senna 8.6 - 17.2 mg 03/02/20 09:00 03/08/20 07:41 Senokot PO Not Given DAILY ELDON Sodium Chloride 10 ml 02/27/20 15:42 03/08/20 09:41 Normal Saline Flush 0.9% IVP 10 ml PRN PRN Administration NEEDED PER PROVIDER ORDERS Sodium Chloride 10 ml 02/27/20 17:00 03/08/20 16:00 Normal Saline Flush 0.9% IVP 10 ml 0100,0900,1700 ELDON Administration Sodium Chloride 20 ml 02/28/20 03:49 03/07/20 05:11 Normal Saline Flush 0.9% IVP 20 ml PRN PRN Administration After Blood Draw Trazodone HCl 100 mg 03/01/20 21:00 03/07/20 20:57 Desyrel PO 100 mg QPM ELDON Administration - Lab Result Fish Bone Diagrams: 03/08/20 04:50 03/08/20 04:50 - Additional Planning My Orders: My Active Orders 03/08/20 07:55 Enoxaparin [Lovenox] 40 mg SUBQ DAILY Objective Vital Signs: Vital Signs - 24 hr 03/07/20 03/07/2003/08/20 20:53 23:31 05:00 Temperature 36.9 C 36.5 C 36.7 C Heart Rate [ 76 90 82 Brachial] Heart Rate [ Monitoring electrodes] Respiratory 20 16 16 Rate Blood Pressure 117/38 L 120/42 L 98/52 L [Right Brachial artery] O2 Saturation 93 92 90 L 03/08/20 03/08/20 03/08/20 08:00 11:52 11:53 Temperature 37.0 C Heart Rate [ 80 77 Brachial] Heart Rate [ 101 H Monitoring electrodes] Respiratory 26 H Rate Blood Pressure 115/44 L 86/37 L 125/98 H [Right Brachial artery] O2 Saturation 90 L 03/08/20 03/08/20 12:01 16:09 Temperature 36.9 C 36.8 C Heart Rate [ 91 Brachial] Heart Rate [ 72 Monitoring electrodes] Respiratory 24 18 Rate Blood Pressure 93/40 L 115/49 L [Right Brachial artery] O2 Saturation 90 L 90 L Oxygen O2 Source Nasal cannula I&O (Last 24 Hrs): Intake and Output Totals x24h 03/06/20 03/07/20 03/08/20 23:59 23:59 23:59 Intake Total 1322 1626 840 Output Total 1750 1050 725 Balance -428 576 115 General: Alert, Other (Appears fatigued and icteric) HEENT: Mucous membr. moist/pink, Other (edentulous) Neck: Supple Neuro: Alert, Non Focal Cardiovascular: Regular rate Respiratory: No respiratory distress Abdomen: Soft Extremities: No edema - Results Results: Laboratory Results WBC 7.3 x10^3/uL (4.8-10.8) 03/08/20 04:50 RBC 3.06 10^6/uL (4.20-5.40) L 03/08/20 04:50 Hgb 7.8 g/dL (12.0-16.0) L 03/08/20 04:50 Hct 26.4 % (37.0-47.0) L 03/08/20 04:50 MCV 86.3 fL (81.0-99.0) 03/08/20 04:50 MCH 25.5 pg (27.0-31.0) L 03/08/20 04:50 MCHC 29.5 g/dL (32.0-36.0) L 03/08/20 04:50 RDW 26.7 % (12.0-15.0) H 03/08/20 04:50 Plt Count 95 10^3/uL (130-450) L 03/08/20 04:50 Neut # (Auto) 3.8 10^3/uL (1.5-6.6) 03/08/20 04:50 Lymph # (Auto) 1.1 10^3/uL (1.5-3.5) L 03/08/20 04:50 [place]con # (Auto) 0.5 10^3/uL (0.0-1.0) 03/08/20 04:50 Eos # (Auto) 0.8 10^3/uL (0.0-0.7) H 03/08/20 04:50 Baso # (Auto) 0.3 10^3/uL (0.0-0.1) H 03/08/20 04:50 Absolute Nucleated RBC 0.09 x10^3/uL 03/08/20 04:50 Total Counted 100 03/07/20 05:25 Band Neuts % (Manual) 2 % (0-10) 03/07/20 05:25 Reactive Lymphs % (Man) 3 % 03/06/20 07:50 Abnorm Lymph % (Manual) 0 % 03/07/20 05:25 Metamyelocytes % 1 % (-0) H 03/07/20 05:25 Myelocytes % 2 % (-0) H 03/07/20 05:25 Nucleated RBC % 1.2 /100WBC 03/08/20 04:50 Neutrophils # (Manual) 5.1 10^3/uL (1.5-6.6) 03/07/20 05:25 Lymphocytes # (Manual) 1.6 10^3/uL (1.5-3.5) 03/07/20 05:25 Monocytes # (Manual) 0.2 10^3/uL (0.0-1.0) 03/07/20 05:25 Eosinophils # (Manual) 0.5 10^3/uL (0-0.7) 03/07/20 05:25 Basophils # (Manual) 0.2 10^3/uL (0-0.1) H 03/07/20 05:25 Differential Comment MANUAL DIFFERENTIAL 03/07/20 05:25 Manual Slide Review Indicated 03/08/20 04:50 WBC Morphology NORMAL APPEARANCE (NORMAL) 03/07/20 05:25 Platelet Estimate DECREASED (<130,000) (NORMAL) 03/08/20 04:50 Platelet Morphology 1+ LARGE PLATELETS (NORMAL) 03/08/20 04:50 RBC Morph Micro Appear 1+ SCHISTOCYTES (NORMAL) 1+ OVALOCYTES (NORMAL) 2+ ANISOCYTOSIS (NORMAL) 03/08/20 04:50 RBC Morph Micro Appear 1+ SCHISTOCYTES (NORMAL) 1+ OVALOCYTES (NORMAL) 2+ ANISOCYTOSIS (NORMAL) 03/08/20 04:50 RBC Morph Micro Appear 1+ SCHISTOCYTES (NORMAL) 1+ OVALOCYTES (NORMAL) 2+ ANISOCYTOSIS (NORMAL) 03/08/20 04:50 Bld Gas Analysis Time 0609 03/01/20 05:55 Sample Site RIGHT RADIAL 03/01/20 05:55 ABG pH 7.33 (7.35-7.45) L 03/01/20 05:55 ABG pCO2 41 mmHg (34-45) 03/01/20 05:55 ABG pO2 101 mmHg (80-100) H 03/01/20 05:55 ABG HCO3 20.9 mmol/L (22.0-26.0) L 03/01/20 05:55 ABG Total CO2 22.2 MMOL/L (21.0-29.0) 03/01/20 05:55 ABG O2 Saturation 97 % (94-98) 03/01/20 05:55 ABG Base Excess -4.7 mmol/L (-2.0-3.0) L 03/01/20 05:55 Wesly Test POSITIVE 03/01/20 05:55 VBG pH 7.315 (7.31-7.41) 03/01/20 05:07 Ionized Calcium 1.19 mmol/L (1.15-1.33) 03/01/20 05:07 Respiration Rate 18 b/min 03/01/20 05:55 O2 Delivery Device VENTILATOR 03/01/20 05:55 O2 Liters/Min 10.00 LPM 02/28/20 00:40 Vent Mode ASSIST/CONTROL 03/01/20 05:55 FiO2 0.40 03/01/20 05:55 Tidal Volume 450 mL 03/01/20 05:55 PEEP 5 cmH2O 03/01/20 05:55 Pressure Support Vent 10 cmH2O 02/28/20 10:15 Sodium 139 mmol/L (135-145) 03/08/20 04:50 Potassium 4.5 mmol/L (3.5-5.0) 03/08/20 04:50 Chloride 100 mmol/L (101-111) L 03/08/20 04:50 Carbon Dioxide 31 mmol/L (21-32) 03/08/20 04:50 Anion Gap 8.0 (6-13) 03/08/20 04:50 BUN 23 mg/dL (6-20) H 03/08/20 04:50 Creatinine 1.0 mg/dL (0.4-1.0) 03/08/20 04:50 Estimated GFR (MDRD) 54 (>89) L 03/08/20 04:50 Glucose 101 mg/dL (70-100) H 03/08/20 04:50 POC Whole Bld Glucose 120 mg/dL (70 - 100) H 03/05/20 07:22 Glycated Hemoglobin 5.6 % (4.6-6.2) 03/02/20 04:20 Estim Average Glucose 114 (70-100) H 03/02/20 04:20 Lactic Acid 0.8 mmol/L (0.5-2.2) 02/28/20 00:45 Calcium 8.8 mg/dL (8.5-10.3) 03/08/20 04:50 Phosphorus 5.2 mg/dL (2.5-4.6) H 03/08/20 04:50 Magnesium 1.8 mg/dL (1.7-2.8) 03/08/20 04:50 Total Bilirubin 0.6 mg/dL (0.2-1.0) 03/08/20 04:15 Direct Bilirubin 0.1 mg/dL (0.1-0.5) 03/08/20 04:15 AST 20 IU/L (10-42) 03/08/20 04:15 ALT 10 IU/L (10-60) 03/08/20 04:15 Alkaline Phosphatase 60 IU/L (42-121) 03/08/20 04:15 Troponin I High Sens 14.5 ng/L (2.3-14.8) 02/28/20 04:45 B-Natriuretic Peptide 108 pg/mL (5-100) H 02/27/20 14:11 Total Protein 5.1 g/dL (6.7-8.2) L 03/08/20 04:15 Albumin 2.1 g/dL (3.2-5.5) L 03/08/20 04:15 Globulin 3.0 g/dL (2.1-4.2) 03/08/20 04:15 Albumin/Globulin Ratio 0.6 (1.0-2.2) L 03/01/20 05:07 Prealbumin 3 mg/dL (18-45) L 03/01/20 05:07 Lipase 23 U/L (22-51) 02/27/20 14:11 TSH 3.19 uIU/mL (0.34-5.60) 03/02/20 04:20 Urine Color YELLOW 02/27/20 15:26 Urine Clarity CLEAR (CLEAR) 02/27/20 15:26 Urine pH 5.5 PH (5.0-7.5) 02/27/20 15:26 Ur Specific [place] 1.015 (1.002-1.030) 02/27/20 15:26 Urine Protein NEGATIVE mg/dL (NEGATIVE) 02/27/20 15:26 Urine Glucose (UA) NEGATIVE mg/dL (NEGATIVE) 02/27/20 15:26 Urine Ketones NEGATIVE mg/dL (NEGATIVE) 02/27/20 15:26 Urine Occult Blood NEGATIVE (NEGATIVE) 02/27/20 15:26 Urine Nitrite NEGATIVE (NEGATIVE) 02/27/20 15:26 Urine Bilirubin NEGATIVE (NEGATIVE) 02/27/20 15:26 Urine Urobilinogen 0.2 (NORMAL) E.U./dL (NORMAL) 02/27/20 15:26 Ur Leukocyte Esterase NEGATIVE (NEGATIVE) 02/27/20 15:26 Ur Microscopic Review NOT INDICATED 02/27/20 15:26 Urine Culture Comments NOT INDICATED 02/27/20 15:26 Nasal Screen MRSA (PCR) NEGATIVE (NEGATIVE) 02/28/20 01:05 Stl C. diff Tox B Gene NEGATIVE (NEGATIVE) 03/04/20 06:15 Coronavirus (PCR) NEGATIVE 02/28/20 20:00 Blood Type B POSITIVE 02/29/20 12:50 Blood Type Recheck B POSITIVE 02/29/20 14:42 Antibody Screen NEGATIVE 02/29/20 12:50 Crossmatch IS Only See Detail 02/29/20 12:50 - Procedures Procedures: Procedures REPLACEMENT OF LEFT LENS WITH SYNTH SUB, PERC APPROACH (08/14/18) REPLACEMENT OF RIGHT LENS WITH SYNTH SUB, PERC APPROACH (07/31/18) Sepsis Event Note (H) - Evaluation Current Stage of Sepsis: Resolved Possible source of Sepsis: positive: Pulmonary - Sepsis Criteria Sepsis Criteria: Recorded Heart Rate greater than 90 bpm, Recorded Respiratory Rate greater than 20, Respiratory: Increasing oxygen requirements, WBC count greater than 10% bands, WBC count greater than 12,000 or less than 4000
[2020-03-08] MEDS: traZODone 50 MG TABLET PO SCH (20:45)
[2020-03-09] MEDS: SODIUM CHLORIDE FLUSH 0.9% 10 ML SYRINGE IVP SCH ×3 (02:02→17:33)
[2020-03-09] MEDS: PREGABALIN 100 MG CAPSULE PO SCH ×3 (03:47→21:17)
[2020-03-09] MEDS: HYDROmorphone 0.5 MG/0.5 ML SYRINGE IVP PRN ×2 (03:59→13:27)
[2020-03-09] MEDS: SODIUM CHLORIDE FLUSH 0.9% 10 ML SYRINGE IVP PRN (03:59)
[2020-03-09 05:14] LABS: EOSINOPHILS % (AUTO) 9.2 %; HGB - HEMOGLOBIN 8.2 g/dL (12.0-16.0); LYMPHOCYTES % (AUTO) 16.4 %; MEAN CORPUSCULAR HEMOGLOBIN 25.1 pg (27.0-31.0); MEAN CORPUSCULAR VOLUME 86.5 fL (81.0-99.0); MONOCYTES % (AUTO) 5.7 %; NEUTROPHILS % (AUTO) 51.4 %; PLT - PLATELET COUNT 104 10^3/uL (130-450); RED BLOOD COUNT 3.27 10^6/uL (4.20-5.40); RED CELL DISTRIBUTION WIDTH 26.5 % (12.0-15.0); WHITE BLOOD COUNT 6.7 x10^3/uL (4.8-10.8)
[2020-03-09 05:24] LABS: ABNORMAL LYMPHS % (MANUAL) 0 %
[2020-03-09 05:29] LABS: CALCIUM 9.2 mg/dL (8.5-10.3); PHOSPHORUS 4.3 mg/dL (2.5-4.6)
[2020-03-09] MEDS: LEVOTHYROXINE 25 MCG TABLET PO SCH (05:44)
[2020-03-09] MEDS: MIN OIL/DIMETHICON/COCONUT OIL 92 GM TUBE TOP PRN (05:45)
[2020-03-09 05:50] LABS: BAND NEUTROPHILS % (MANUAL) 9 %; BASOPHILS # (MANUAL) 0.3 10^3/uL (0-0.1); BASOPHILS % (MANUAL) 4 %; EOSINOPHILS # (MANUAL) 0.2 10^3/uL (0-0.7); LYMPHOCYTES # (MANUAL) 0.9 10^3/uL (1.5-3.5); LYMPHOCYTES % (MANUAL) 13 %; METAMYELOCYTES % (MANUAL) 1 %; MONOCYTES # (MANUAL) 0.1 10^3/uL (0.0-1.0); MYELOCYTES % (MANUAL) 1 %
[2020-03-09 05:51] LABS: PLATELET MORPHOLOGY 1+ GIANT PLATELETS (NORMAL)
[2020-03-09 05:52] LABS: DIFFERENTIAL COMMENT MANUAL DIFFERENTIAL; PLATELET ESTIMATE, MANUAL DECREASED (<130,000) (NORMAL)
[2020-03-09] MEDS: CITALOPRAM 10 MG TABLET PO SCH (09:29)
[2020-03-09] MEDS: SACCHAROMYCES BOULARDII 250 MG CAPSULE PO SCH ×2 (09:30→17:33)
[2020-03-09] MEDS: DOCUSATE SODIUM 250 MG CAPSULE PO SCH (09:30)
[2020-03-09] MEDS: ENOXAPARIN 40 MG/0.4 ML SYRINGE SUBQ SCH (09:30)
[2020-03-09] MEDS: CYANOCOBALAMIN 500 MCG TABLET PO SCH (09:30)
[2020-03-09] MEDS: polyethylene glycoL 3350 17 GM PACKET PO SCH (09:30)
[2020-03-09] MEDS: SENNA 8.6 MG TABLET PO SCH (09:31)
[2020-03-09] MEDS: CHLORHEXIDINE GLUCONATE 15 ML UDC PO SCH ×2 (09:31→21:18)
--- NOTE | 2020-03-09 16:24 | PROVIDER PROGRESS NOTE ---
Assessment/Plan - Problem List (1) Acute respiratory failure with hypoxia Assessment/Plan: Supplemental O2 continues. She completed 7 days of antibiotics for community-acquired pneumonia. She has also been diuresed given her edematous state but this is 2 days ago given her hypotension. Despite these interventions, she continues to require supplemental oxygen. She was need need a slow weaning process, she probably had COPD from her old smoking history (2) Physical deconditioning Assessment/Plan: Patient continues to make daily small steps in progress with Physical Therapy and OT. She has been accepted by [facility] [place]. We are awaiting approval from her [employer] insurance. Notes were faxed to [employer] yesterday and updated notes were faxed today. Our manager social, baseball coach and I have called [employer] today, spoke to Sena, and by 1619, there has been no decision yet if she was approved by [employer] to go to [facility] yet. Delay in discharge is related to [employer], therefore. (3) Chronic kidney disease, stage 3 (moderate) Assessment/Plan: Stable creat (4) Hypothyroidism Assessment/Plan: Is on her home thyroid replacement dose (5) Metastatic non-small cell lung cancer Assessment/Plan: As per hx (6) Mild malnutrition Assessment/Plan: As per Hx (7) Dysphagia Qualifiers: Dysphagia type: pharyngeal phase Qualified Code(s): R13.13 - Dysphagia, pharyngeal phase Assessment/Plan: She is on a altered diet because of this dysphagia (8) Anemia of chronic disease Assessment/Plan: She has been started on replacement therapy (9) Hypotension Qualifiers: Qualified Code(s): I95.9 - Hypotension, unspecified Assessment/Plan: BP was in the 80s to 90s systolic yesterday. Today her blood pressure is on the 110's. (10) Paroxysmal atrial fibrillation Assessment/Plan: HR stable (11) Fluid overload Assessment/Plan: Resolved (12) Community acquired pneumonia Assessment/Plan: Resolved, she completed an antibx course - Current Meds Current Meds: Current Medications Generic Name Dose Route Start Last Admin Trade Name Freq PRN Reason Stop Dose Admin Acetaminophen 650 mg 02/27/20 15:42 03/07/20 11:11 Tylenol PO 650 mg Q4HR PRN Administration Pain 1 to 4 Carboxymethylcellulose 1 drops 02/29/20 03:34 02/29/20 17:11 Refresh 1% Ophth Drops EACHEYE 1 drops PRN PRN Administration Dry Eye Chlorhexidine Gluconate 15 ml 02/28/20 10:00 03/09/20 09:31 Peridex PO Not Given BID [facility] Citalopram Hydrobromide 40 mg 03/02/20 09:00 03/09/20 09:29 Celexa PO 40 mg DAILY ELDON Administration Cyanocobalamin 1,000 mcg 03/02/20 09:00 03/09/20 09:30 Vitamin B-12 PO Not Given DAILY [facility] Docusate Sodium 250 - 500 mg 03/02/20 09:00 03/09/20 09:30 Colace 250mg Capsule PO Not Given DAILY [facility] Enoxaparin Sodium 40 mg 03/08/20 07:55 03/09/20 09:30 Lovenox SUBQ 40 mg DAILY ELDON Administration Heparin Sodium (Beef Lung) 30 - 50 unit 02/28/20 03:49 03/08/20 16:00 IVP 50 unit PRN PRN Administration Port Protocol (<24 hours) Hydromorphone HCl 0.5 mg 02/29/20 06:20 03/09/20 13:27 Dilaudid Inj Syringe IVP 0.5 mg Q3H PRN Administration PAIN Levothyroxine Sodium 50 mcg 03/02/20 07:00 03/09/20 05:44 Synthroid PO 50 mcg QDAC ELDON Administration Loperamide HCl 2 mg 03/05/20 07:39 03/07/20 08:41 Imodium PO 2 mg QID PRN Administration Diarrhea Mineral Oil 1 applic 03/04/20 06:42 03/09/20 05:45 Cavilon TOP 1 applic PRN PRN Administration Skin Care Polyethylene Glycol 17 gm 02/28/20 09:00 03/09/20 09:30 Miralax PO Not Given DAILY [facility] Pregabalin 100 mg 03/01/20 12:00 03/09/20 11:27 Lyrica PO 100 mg Q8H ELDON Administration Saccharomyces Boulardii 250 mg 03/05/20 08:00 03/09/20 09:30 Florastor PO 250 mg BIDWM ELDON Administration Senna 8.6 - 17.2 mg 03/02/20 09:00 03/09/20 09:31 Senokot PO Not Given DAILY [facility] Sodium Chloride 10 ml 02/27/20 15:42 03/09/20 03:59 Normal Saline Flush 0.9% IVP 10 ml PRN PRN Administration NEEDED PER PROVIDER ORDERS Sodium Chloride 10 ml 02/27/20 17:00 03/09/20 14:14 Normal Saline Flush 0.9% IVP 10 ml 0100,[id number],1700 ELDON Administration Sodium Chloride 20 ml 02/28/20 03:49 03/07/20 05:11 Normal Saline Flush 0.9% IVP 20 ml PRN PRN Administration After Blood Draw Trazodone HCl 100 mg 03/01/20 21:00 03/08/20 20:45 Desyrel PO 100 mg QPM ELDON Administration - Lab Result Fish Bone Diagrams: 03/09/20 04:40 03/09/20 04:40 Subjective - Subjective Patient Reports: No Complaints Objective Vital Signs: Vital Signs - 24 hr 03/08/20 03/09/20 03/09/20 20:48 00:53 04:01 Temperature 36.8 C 36.6 C 36.4 C L Heart Rate [ 100 80 72 Brachial] Respiratory 18 18 16 Rate Blood Pressure 104/39 L 114/44 L 108/45 L [Right Brachial artery] O2 Saturation 92 91 L 92 03/09/20 03/09/20 03/09/20 08:43 13:00 15:54 Temperature 35.7 C L 36.4 C L 36.5 C Heart Rate [ 91 62 86 Brachial] Respiratory 16 18 19 Rate Blood Pressure 116/93 H 99/39 L 99/40 L [Right Brachial artery] O2 Saturation 95 95 92 Oxygen O2 Source Nasal cannula I&O (Last 24 Hrs): Intake and Output Totals x24h 03/07/20 03/08/20 03/09/20 23:59 23:59 23:59 Intake Total 1626 1640 480 Output Total 1050 1525 750 Balance 576 115 -270 General: No acute distress - Results Results: Laboratory Results WBC 6.7 x10^3/uL (4.8-10.8) 03/09/20 04:40 RBC 3.27 10^6/uL (4.20-5.40) L 03/09/20 04:40 Hgb 8.2 g/dL (12.0-16.0) L 03/09/20 04:40 Hct 28.3 % (37.0-47.0) L 03/09/20 04:40 MCV 86.5 fL (81.0-99.0) 03/09/20 04:40 MCH 25.1 pg (27.0-31.0) L 03/09/20 04:40 MCHC 29.0 g/dL (32.0-36.0) L 03/09/20 04:40 RDW 26.5 % (12.0-15.0) H 03/09/20 04:40 Plt Count 104 10^3/uL (130-450) L 03/09/20 04:40 Neut # (Auto) Not Reportable 03/09/20 04:40 Lymph # (Auto) Not Reportable 03/09/20 04:40 Woods # (Auto) Not Reportable 03/09/20 04:40 Eos # (Auto) Not Reportable 03/09/20 04:40 Baso # (Auto) Not Reportable 03/09/20 04:40 Absolute Nucleated RBC Not Reportable 03/09/20 04:40 Total Counted 100 03/09/20 04:40 Band Neuts % (Manual) 9 % (0-10) 03/09/20 04:40 Reactive Lymphs % (Man) 3 % 03/06/20 07:50 Abnorm Lymph % (Manual) 0 % 03/09/20 04:40 Metamyelocytes % 1 % (-0) H 03/09/20 04:40 Myelocytes % 1 % (-0) H 03/09/20 04:40 Nucleated RBC % Not Reportable 03/09/20 04:40 Neutrophils # (Manual) 5.2 10^3/uL (1.5-6.6) 03/09/20 04:40 Lymphocytes # (Manual) 0.9 10^3/uL (1.5-3.5) L 03/09/20 04:40 Monocytes # (Manual) 0.1 10^3/uL (0.0-1.0) 03/09/20 04:40 Eosinophils # (Manual) 0.2 10^3/uL (0-0.7) 03/09/20 04:40 Basophils # (Manual) 0.3 10^3/uL (0-0.1) H 03/09/20 04:40 Differential Comment MANUAL DIFFERENTIAL 03/09/20 04:40 Manual Slide Review Indicated 03/08/20 04:50 WBC Morphology NORMAL APPEARANCE (NORMAL) 03/07/20 05:25 Platelet Estimate DECREASED (<130,000) (NORMAL) 03/09/20 04:40 Platelet Morphology 1+ GIANT PLATELETS (NORMAL) 03/09/20 04:40 RBC Morph Micro Appear 2+ ANISOCYTOSIS (NORMAL) 1+ HYPOCHROMASIA (NORMAL) 2+ OVALOCYTES (NORMAL) 1+ TARGET CELLS (NORMAL) 1+ SCHISTOCYTES (NORMAL) 03/09/20 04:40 RBC Morph Micro Appear 2+ ANISOCYTOSIS (NORMAL) 1+ HYPOCHROMASIA (NORMAL) 2+ OVALOCYTES (NORMAL) 1+ TARGET CELLS (NORMAL) 1+ SCHISTOCYTES (NORMAL) 03/09/20 04:40 RBC Morph Micro Appear 2+ ANISOCYTOSIS (NORMAL) 1+ HYPOCHROMASIA (NORMAL) 2+ OVALOCYTES (NORMAL) 1+ TARGET CELLS (NORMAL) 1+ SCHISTOCYTES (NORMAL) 03/09/20 04:40 RBC Morph Micro Appear 2+ ANISOCYTOSIS (NORMAL) 1+ HYPOCHROMASIA (NORMAL) 2+ OVALOCYTES (NORMAL) 1+ TARGET CELLS (NORMAL) 1+ SCHISTOCYTES (NORMAL) 03/09/20 04:40 RBC Morph Micro Appear 2+ ANISOCYTOSIS (NORMAL) 1+ HYPOCHROMASIA (NORMAL) 2+ OVALOCYTES (NORMAL) 1+ TARGET CELLS (NORMAL) 1+ SCHISTOCYTES (NORMAL) 03/09/20 04:40 Bld Gas Analysis Time 0609 03/01/20 05:55 Sample Site RIGHT RADIAL 03/01/20 05:55 ABG pH 7.33 (7.35-7.45) L 03/01/20 05:55 ABG pCO2 41 mmHg (34-45) 03/01/20 05:55 ABG pO2 101 mmHg (80-100) H 03/01/20 05:55 ABG HCO3 20.9 mmol/L (22.0-26.0) L 03/01/20 05:55 ABG Total CO2 22.2 MMOL/L (21.0-29.0) 03/01/20 05:55 ABG O2 Saturation 97 % (94-98) 03/01/20 05:55 ABG Base Excess -4.7 mmol/L (-2.0-3.0) L 03/01/20 05:55 Wesly Test POSITIVE 03/01/20 05:55 VBG pH 7.315 (7.31-7.41) 03/01/20 05:07 Ionized Calcium 1.19 mmol/L (1.15-1.33) 03/01/20 05:07 Respiration Rate 18 b/min 03/01/20 05:55 O2 Delivery Device VENTILATOR 03/01/20 05:55 O2 Liters/Min 10.00 LPM 02/28/20 00:40 Vent Mode ASSIST/CONTROL 03/01/20 05:55 FiO2 0.40 03/01/20 05:55 Tidal Volume 450 mL 03/01/20 05:55 PEEP 5 cmH2O 03/01/20 05:55 Pressure Support Vent 10 cmH2O 02/28/20 10:15 Sodium 141 mmol/L (135-145) 03/09/20 04:40 Potassium 4.7 mmol/L (3.5-5.0) 03/09/20 04:40 Chloride 103 mmol/L (101-111) 03/09/20 04:40 Carbon Dioxide 31 mmol/L (21-32) 03/09/20 04:40 Anion Gap 7.0 (6-13) 03/09/20 04:40 BUN 25 mg/dL (6-20) H 03/09/20 04:40 Creatinine 1.0 mg/dL (0.4-1.0) 03/09/20 04:40 Estimated GFR (MDRD) 54 (>89) L 03/09/20 04:40 Glucose 113 mg/dL (70-100) H 03/09/20 04:40 POC Whole Bld Glucose 120 mg/dL (70 - 100) H 03/05/20 07:22 Glycated Hemoglobin 5.6 % (4.6-6.2) 03/02/20 04:20 Estim Average Glucose 114 (70-100) H 03/02/20 04:20 Lactic Acid 0.8 mmol/L (0.5-2.2) 02/28/20 00:45 Calcium 9.2 mg/dL (8.5-10.3) 03/09/20 04:40 Phosphorus 4.3 mg/dL (2.5-4.6) 03/09/20 04:40 Magnesium 2.0 mg/dL (1.7-2.8) 03/09/20 04:40 Total Bilirubin 0.6 mg/dL (0.2-1.0) 03/08/20 04:15 Direct Bilirubin 0.1 mg/dL (0.1-0.5) 03/08/20 04:15 AST 20 IU/L (10-42) 03/08/20 04:15 ALT 10 IU/L (10-60) 03/08/20 04:15 Alkaline Phosphatase 60 IU/L (42-121) 03/08/20 04:15 Troponin I High Sens 14.5 ng/L (2.3-14.8) 02/28/20 04:45 B-Natriuretic Peptide 108 pg/mL (5-100) H 02/27/20 14:11 Total Protein 5.1 g/dL (6.7-8.2) L 03/08/20 04:15 Albumin 2.1 g/dL (3.2-5.5) L 03/08/20 04:15 Globulin 3.0 g/dL (2.1-4.2) 03/08/20 04:15 Albumin/Globulin Ratio 0.6 (1.0-2.2) L 03/01/20 05:07 Prealbumin 3 mg/dL (18-45) L 03/01/20 05:07 Lipase 23 U/L (22-51) 02/27/20 14:11 TSH 3.19 uIU/mL (0.34-5.60) 03/02/20 04:20 Urine Color YELLOW 02/27/20 15:26 Urine Clarity CLEAR (CLEAR) 02/27/20 15:26 Urine pH 5.5 PH (5.0-7.5) 02/27/20 15:26 Ur Specific [place] 1.015 (1.002-1.030) 02/27/20 15:26 Urine Protein NEGATIVE mg/dL (NEGATIVE) 02/27/20 15:26 Urine Glucose (UA) NEGATIVE mg/dL (NEGATIVE) 02/27/20 15:26 Urine Ketones NEGATIVE mg/dL (NEGATIVE) 02/27/20 15:26 Urine Occult Blood NEGATIVE (NEGATIVE) 02/27/20 15:26 Urine Nitrite NEGATIVE (NEGATIVE) 02/27/20 15:26 Urine Bilirubin NEGATIVE (NEGATIVE) 02/27/20 15:26 Urine Urobilinogen 0.2 (NORMAL) E.U./dL (NORMAL) 02/27/20 15:26 Ur Leukocyte Esterase NEGATIVE (NEGATIVE) 02/27/20 15:26 Ur Microscopic Review NOT INDICATED 02/27/20 15:26 Urine Culture Comments NOT INDICATED 02/27/20 15:26 Nasal Screen MRSA (PCR) NEGATIVE (NEGATIVE) 02/28/20 01:05 Stl C. diff Tox B Gene NEGATIVE (NEGATIVE) 03/04/20 06:15 Coronavirus (PCR) NEGATIVE 02/28/20 20:00 Blood Type B POSITIVE 02/29/20 12:50 Blood Type Recheck B POSITIVE 02/29/20 14:42 Antibody Screen NEGATIVE 02/29/20 12:50 Crossmatch IS Only See Detail 02/29/20 12:50 - Procedures Procedures: Procedures REPLACEMENT OF LEFT LENS WITH SYNTH SUB, PERC APPROACH (08/14/18) REPLACEMENT OF RIGHT LENS WITH SYNTH SUB, PERC APPROACH (07/31/18) Sepsis Event Note (H) - Evaluation Current Stage of Sepsis: Resolved Possible source of Sepsis: positive: Pulmonary - Sepsis Criteria Sepsis Criteria: Recorded Heart Rate greater than 90 bpm, Recorded Respiratory Rate greater than 20, Respiratory: Increasing oxygen requirements, WBC count greater than 10% bands, WBC count greater than 12,000 or less than 4000
[2020-03-09] MEDS: traZODone 50 MG TABLET PO SCH (21:17)
[2020-03-10] MEDS: SODIUM CHLORIDE FLUSH 0.9% 10 ML SYRINGE IVP SCH ×2 (01:08→01:55)
[2020-03-10] MEDS: HYDROmorphone 0.5 MG/0.5 ML SYRINGE IVP PRN ×2 (01:55→09:45)
[2020-03-10] MEDS: PREGABALIN 100 MG CAPSULE PO SCH ×2 (03:00→11:45)
[2020-03-10] MEDS: LEVOTHYROXINE 25 MCG TABLET PO SCH (06:53)
[2020-03-10] MEDS: SACCHAROMYCES BOULARDII 250 MG CAPSULE PO SCH (07:56)
--- NOTE | 2020-03-10 08:11 | DISCHARGE SUMMARY ---
Discharge Summary Admit Date: 02/27/20 Discharge Date: 03/10/20 Discharging Provider: Dr Joana Lancaster Primary Care Provider: Dr Ning Hernandez Code Status: Do Not Attempt Resuscitation Condition at Discharge: Stable Discharge Disposition: 03 SNF DC/Xfer - HPI History of Present Illness: From the admission H&P of Dr Vickie Fried: This is a 74yo female who experienced a GLF this afternoon, was unable to get her up off the floor and EMS was called. While in the ED pt was hypotensive and required supplemental 3L oxygen via NC to maintain saturation levels >92%. Diffuse right side and right hip pain from fall, non-sepcifically characterized. Pt denies loss of consciousness and thinks she may have hit the back of her head on the way down but ultimately landed on her bottom. No tenderness, redness or swelling noted to pt's head upon physical exam. Pt has a recent history significant for dx of pylonephritis, seen in the ED here on 02/23, discharged to home with Cefdinir abx PO. Pt reports to have been taking her dc medications as prescribed. Pt reports having poor appetite over the past week, not eating and drinking very little for four days prior to being evaluated in ED on 02/23, but has just recently resumed her normal eating habits yesterday 02/25. She reports feeling fatigued over the past week and has been experiencing dizziness upon standing and ambulating in her home. Minor non-productive cough present upon assessment. Pt denies wheezing but reports some minor dyspnea recently. Denies any chest pain or palpitations and reports an increase in her forgetfulness the past week. (Rico Gallardo, KIDNEY TRIMMER student. Agree with the above history as obtained from patient. She was seen and examined under separate encounter. She is a difficult historian and that she cannot remember a lot of details, and will say "I do not know" quite a bit but at the same time say "yes" to a review of systems for everything. (Vickie Fried MD. The evening of admission, there was an additional note from Dr Elton Kamara: It was brought to my attention shortly after shift change tonight around 1130 pm, that the patient appeared lethargic/somnolent. She was not able to tell her name when asked. In the previous shift it was reported that the patient had been alert and oriented x3 and had provided her history upon admission. At the time of initial evaluation for this incident her vitals were: a systolic blood pressure between 70 and 80, heart rate between 100-110, temperature of 38.3C and an oxygen saturation of 82% on 3 L of oxygen via nasal cannula. She was receiving IV hydration with normal saline at 100 mils an hour. Upon admission it was noted on imaging that she had some pleural effusion. At the time of examination crackles could be heard on auscultation of the lungs. Her supplemental oxygen was increased to 6 L via nasal cannula and she was subsequently transitioned to an Oximask. Oxygen saturation improved to 90%. She last received 5 mg of oxycodone around 5 PM. However it appears she also uses oxycodone 5 mg 4 times daily at home. As a result she was given a dose of Narcan 0.4 mg IV x1. She responded to Narcan because she was able to follow commands shortly after administration and could readily provide her name, where she lived, and where she was at the moment. There were no neurological deficits noted. As a result of the crackles the IV hydration was discontinued. She was given a dose of iv albumin. Recheck blood pressure showed a systolic blood pressure of 73 and 87. An ABG done showed pH of 7.34, PCO2 48 and PO2 75. At this point there is limitation to further administration of IV hydration to improve her blood pressure because of concern of possibly worsening her respiratory status. As a result she was transferred to the ICU on Levophed drip. I suspect the patient is now septic and her altered mentation is likely due to a combination of a septic state and the pain medication. CBC done showed a WBC of 16.3. This is an increase from 13.3 earlier in the day. The patient is currently on Rocephin and Azithromycin. Blood cultures have been ordered. Lactic acid is pending. I will broaden antibiotic coverage by adding iv Vancomycin. - HOSPITAL COURSE Hospital Course: (1) Septic shock She was put into the ICU, on a Levophed drip and iv fluids and antibiotics. Lactic acid was normal but WBC kept risin>> 16>> 18>> 24>> 28 before dropping to 15.5 then it normalized on day #5. DVT of the legs was negative for PE. Troponins were negative and EKG was negative for DE. CT of the chest confirmed that she was having extension of her pneumonia with consolidation on the left side and developed worsening pneumonia on the right. CT the head was negative for stroke. Levophed was weaned to off after 2 days, she was more alert by day #3. Blood cultures remained negative to date. She was felt to have septic shock from extensive pneumonia, in an immuno-compromised patient. She was eventually transferred out of the ICU, after extubation (see below). (2) Acute respiratory failure with hypoxia She required supplemental oxygen at admission. On the second morning, she was unresponsive to sternal rub, had agonal respiration and was intubated and on a ventilator. She was continued on broad-spectrum IV antibiotics and antifungals. She was eventually extubated but did need supplemental oxygen via nasal cannula when moved to a telemetry bed. On the last day of hospitalization, her oxygen saturation was 88% on room air, considered stable in a patient with probable underlying COPD (ex-smoker). (3) Community acquired pneumonia This resolved. She completed 7 days of antibiotics with Zosyn and Levaquin whi yoselyn here. The sputum culture grew Yeast and she also completed a course of Fluconazole (given her immuno-compromised state). (4) Fluid overload Later during the hospitalization, she again felt more short of breath, needed higher supplemental oxygen, and a CXR showed volume overload. She received iv Lasix with good effect. (5) Metabolic alkalosis The diuresis that was given did cause contraction alkalosis seen on morning labs. The Lasix dosing was not repeated and the alkalosis resolved the next day. (6) Hypotension In her final 4 days of hospitalization, her BP was 80-90's systolic. She was asymptomatic with this. It was felt to be low from the diuresis as well. She got some fluid boluses, encouraged to take oral hydration and no further diuretics were used. She probably runs a "soft" or normal BP normally, as she is not on home BP meds at all. The low BP's caused her discharge to be postponed by 2 days, until the discharge was OKd by Sanchez. (7) Diarrhea She had diarrhea at mid-hospitalization. Samples were sent for C. diff and for standard bacterial cultures and were all neg. It was presumably from antibiotic use. The diarrhea abated with Imodium symptomatic treatment. (8) Paroxysmal atrial fibrillation This was a brief episode on February 28, and she converted with procainamide, the remained in a sinus rhythm. Echocardiogram did not show any wall motion abnormalities with a preserved ejection fraction and a normal left atrium volume index. Suspect this was due to her sepsis and being on Norepinephrine, we monitored her on telemetry without any rate control or anticoagulation. (9) Physical deconditioning She was quite deconditioned given her critical illness and the need for mechanical ventilation for 48 hours. She started participating with physical therapy as well as occupational therapy. She was discharged for PT and OT rehab to [facility]. (10) Chronic kidney disease, stage 3 (moderate) Her creatinine varied from 1.2-1.6. Continue to avoid nephrotoxins. 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 She has been on nivolumab for 2 to 2-1/2 years, ie. immunocompromised. She is followed by Palliative Care with Ana Antunez NP and the patient is co nsidering hospice with a goal of comfort. We worked closely with social work to come up with an appropriate disposition plan that coincides with the patient's wishes. (12) Anemia of chronic disease In the last few months she had 11 g of hemoglobin, then drifted down to 10. Here she started at 8 g of hemoglobin, dropped to 7.7 and she was transfused one unit of PRBCs due to respiratory failure. The Hgb improved to 9, then plateaued at 7.8-7.9. There were no signs of bleeding. (13) Hypothyroidism Her TSH was appropriate at 3.1 and her home dose of Synthroid was used here. (14) Dysphagia She is edentulous and only owns upper dentures. She had difficulty swallowing and reported this is chronic for her but this was a little worse than usual. A dysphagia pureed diet was preferred by the patient. (15) Mild malnutrition She met criteria for mild malnutrition given to the decreased food intake over the past week and weight loss. java developer consultant gave recommendations. (16) Edentulous As above. - ALLERGIES Allergies/Adverse Reactions: Allergies Allergy/AdvReac Type Severity Reaction Status Date / Time Sulfa (Sulfonamide AdvReac Nausea Verified 02/27/20 13:48 Antibiotics) - MEDICATIONS Home Medications: Ambulatory Orders Medication Instructions Recorded Confirmed Levothyroxine [Synthroid] 50 mcg PO QDAC 12/30/18 02/27/20 Citalopram [CeleXA] 40 tab PO DAILY 07/28/19 02/27/20 Cholecalciferol (Vitamin D3) 2,000 units PO DAILY 10/06/19 02/27/20 [Vitamin D3] Cyanocobalamin (Vitamin B-12) 1,000 mcg PO DAILY 10/06/19 02/27/20 [Vitamin B-12] Omeprazole 20 mg PO QDAC 10/06/19 02/27/20 Oxycodone HCl 5 mg PO QID PRN 10/06/19 02/27/20 traZODone [Desyrel] 100 mg PO QPM 10/06/19 02/27/20 Loratadine [Claritin] 10 mg PO DAILY PRN 02/02/20 02/27/20 Pregabalin 100 mg PO Q8H 02/27/20 02/27/20 Docusate Sodium 250Mg Capsule 250 - 500 mg PO DAILY capsule 03/08/20 [Colace 250Mg Capsule] Loperamide [Imodium] 2 mg PO QID PRN capsule 03/08/20 - PHYSICAL EXAM AT DISCHARGE General Appearance: positive: No acute distress, Alert, Other (Darkened skin) Eyes Bilateral: positive: Normal inspection, EOMI ENT: positive: ENT inspection nml, No signs of dehydration (Edentulous) Neck: positive: Nml inspection, No JVD Respiratory: positive: No respiratory distress Cardiovascular: positive: Regular rate & rhythm, No murmur Abdomen: positive: Non-tender, No distention Skin: positive: Warm, Dry, Other (Dark skin tone) Extremities: positive: Non-tender, No pedal edema Neurologic/Psychiatric: positive: Oriented x3, Other (Non-focal) - LABS Result Diagrams: 03/09/20 04:40 03/09/20 04:40 - DIAGNOSTIC IMAGING Diagnostic Imaging Results: Final report reviewed - SEPSIS Current Stage of Sepsis: Resolved Possible source of Sepsis: Pulmonary Sepsis Criteria: Recorded Heart Rate greater than 90 bpm, Recorded Respiratory Rate greater than 20, Respiratory: Increasing oxygen requirements, WBC count greater than 10% bands, WBC count greater than 12,000 or less than 4000 - FOLLOW UP Follow Up: See PCP after discharge from SNF. - TIME SPENT Time Spent in Discharge (Minutes): 60
[2020-03-10] MEDS: CITALOPRAM 10 MG TABLET PO SCH (08:32)
[2020-03-10] MEDS: CYANOCOBALAMIN 500 MCG TABLET PO SCH (08:32)
[2020-03-10] MEDS: SENNA 8.6 MG TABLET PO SCH (08:33)
[2020-03-10] MEDS: DOCUSATE SODIUM 250 MG CAPSULE PO SCH (08:33)
[2020-03-10] MEDS: ENOXAPARIN 40 MG/0.4 ML SYRINGE SUBQ SCH (08:33)
[2020-03-10] MEDS: CHLORHEXIDINE GLUCONATE 15 ML UDC PO SCH (08:33)
[2020-03-10] MEDS: polyethylene glycoL 3350 17 GM PACKET PO SCH (08:34)
[2020-03-10] MEDS: SODIUM CHLORIDE FLUSH 0.9% 10 ML SYRINGE IVP PRN (09:46)
[2020-03-10 10:34] VITALS: BP 92/41
[2020-03-10] MEDS: ACETAMINOPHEN 325 MG TABLET PO PRN (11:46)
== END 2020-03-10 12:35 | DRG 871 ==
LOC: EDUNIT# → ED 13:40 → MS2 15:42 → ICU 02-28 01:11 → MS2 03-03 20:07
PROVIDERS: ADMIT Specialist; ATTEND Internal Medicine
PROC: 5A1945Z Respiratory Ventilation, 24-96 Consecutive Hours (ICD-10-PCS; principal; 2020-02-28)
PROC: 0BH17EZ Insertion of Endotracheal Airway into Trachea, Via Natural or Artificial Opening (ICD-10-PCS; 2020-02-28)
PROC: 0DH67UZ Insertion of Feeding Device into Stomach, Via Natural or Artificial Opening (ICD-10-PCS; 2020-02-28)
PROC: 3E0G76Z Introduction of Nutritional Substance into Upper GI, Via Natural or Artificial Opening (ICD-10-PCS; 2020-02-28)
PROC: 0T9B70Z Drainage of Bladder with Drainage Device, Via Natural or Artificial Opening (ICD-10-PCS; 2020-02-28)
PROC: 30233N1 Transfusion of Nonautologous Red Blood Cells into Peripheral Vein, Percutaneous Approach (ICD-10-PCS; 2020-02-29)
DX: A41.9 Sepsis, unspecified organism (principal); J81.0 Acute pulmonary edema; J18.9 Pneumonia, unspecified organism; R09.02 Hypoxemia; S60.811A Abrasion of right wrist, initial encounter; D72.829 Elevated white blood cell count, unspecified; D63.8 Anemia in other chronic diseases classified elsewhere; I95.9 Hypotension, unspecified; W01.0XXA Fall on same level from slipping, tripping and stumbling without subsequent striking against object, initial encounter; R65.21 Severe sepsis with septic shock; J96.01 Acute respiratory failure with hypoxia; J90 Pleural effusion, not elsewhere classified; E87.3 Alkalosis; K52.1 Toxic gastroenteritis and colitis; C79.70 Secondary malignant neoplasm of unspecified adrenal gland; E44.1 Mild protein-calorie malnutrition; C34.11 Malignant neoplasm of upper lobe, right bronchus or lung; N17.9 Acute kidney failure, unspecified; N10 Acute pyelonephritis; N18.3 Chronic kidney disease, stage 3 (moderate); E87.70 Fluid overload, unspecified; E11.22 Type 2 diabetes mellitus with diabetic chronic kidney disease; R41.82 Altered mental status, unspecified; R32 Unspecified urinary incontinence; R19.4 Change in bowel habit; R53.1 Weakness; R13.13 Dysphagia, pharyngeal phase; I48.0 Paroxysmal atrial fibrillation; I12.9 Hypertensive chronic kidney disease with stage 1 through stage 4 chronic kidney disease, or unspecified chronic kidney disease; K08.109 Complete loss of teeth, unspecified cause, unspecified class; K21.9 Gastro-esophageal reflux disease without esophagitis; M25.551 Pain in right hip; M54.9 Dorsalgia, unspecified; H04.129 Dry eye syndrome of unspecified lacrimal gland; G89.29 Other chronic pain; G62.0 Drug-induced polyneuropathy; G47.00 Insomnia, unspecified; E03.2 Hypothyroidism due to medicaments and other exogenous substances; E66.9 Obesity, unspecified; F41.1 Generalized anxiety disorder; Y92.239 Unspecified place in hospital as the place of occurrence of the external cause; T40.2X5A Adverse effect of other opioids, initial encounter; T36.95XA Adverse effect of unspecified systemic antibiotic, initial encounter; T45.1X5A Adverse effect of antineoplastic and immunosuppressive drugs, initial encounter; Y92.000 Kitchen of unspecified non-institutional (private) residence as the place of occurrence of the external cause; Z11.59 Encounter for screening for other viral diseases; Z66 Do not resuscitate; Z68.34 Body mass index [BMI] 34.0-34.9, adult; Z74.01 Bed confinement status; Z51.5 Encounter for palliative care; Z78.1 Physical restraint status; Z79.4 Long term (current) use of insulin; Z80.1 Family history of malignant neoplasm of trachea, bronchus and lung; Z82.5 Family history of asthma and other chronic lower respiratory diseases; Z83.6 Family history of other diseases of the respiratory system; Z87.891 Personal history of nicotine dependence; Z79.890 Hormone replacement therapy; Z79.899 Other long term (current) drug therapy; Z82.49 Family history of ischemic heart disease and other diseases of the circulatory system; Z85.21 Personal history of malignant neoplasm of larynx; Z85.3 Personal history of malignant neoplasm of breast; Z85.528 Personal history of other malignant neoplasm of kidney; Z88.2 Allergy status to sulfonamides; Z90.2 Acquired absence of lung [part of]; Z90.5 Acquired absence of kidney; Z92.21 Personal history of antineoplastic chemotherapy; Z92.3 Personal history of irradiation
CPT/HCPCS: 36415; 36600; 70450; 71045; 71250; 74176; 80048; 80053; 80076; 81003; 82040; 82330; 82803; 83036; 83605; 83690; 83735; 83880; 84100; 84134; 84443; 84484; 85025; 86850; 86900; 86901; 86920; 87040; 87070; 87150; 87205; 87493; 92610; 93005; 93306; 93970; 94002; 94003; 96361; 96374; 96375; 97110; 97116; 97162; 97167; 97530; 99233; 99285; A6250; A9270; J0131; J1170; J1650; J2690; J3370; P9016; P9047; U0004; 80202; 81001; 81599; 87086; 94770